=== PATIENT | male | born 1955 | race Caucasian/White ===

== ENCOUNTER 2020-10-09 10:48 | Outpatient (REF) | payer MEDICARE, SELFPAY ==
[2020-10-09 11:04] LABS: MANUAL DIFF FLAG NO
[2020-10-09 11:05] LABS: Basophils Absolute Auto 0.1 X10*3/uL (0.0-0.2); Basophils Percent Auto 1.7 % (0-2); Eosinophils Absolute Auto 0.1 X10*3/uL (0.0-0.4); Eosinophils Percent Auto 1.7 % (0-4); Hemoglobin 12.3 g/dl (14.0-18.0); Imm Gran Abs Auto 0.01 X10*3/uL (0.00-0.03); Imm Gran Pct Auto 0.2 % (0.0-0.4); Lymphocytes Absolute Auto 1.7 X10*3/uL (1.2-4.9); Lymphocytes Percent Auto 32.7 % (20-40); Mean Corpuscular HGB Conc 31.5 g/dl (31.0-36.0); Mean Corpuscular Volume 82.5 fL (80-98); Mean Platelet Volume 9.9 fL (9.4-12.4); Monocytes Absolute Auto 0.6 X10*3/uL (0.1-1.2); Monocytes Percent Auto 11.5 % (2-11); Neutrophils Absolute Auto 2.8 X10*3/uL (2.0-8.3); Neutrophils Percent Auto 52.2 % (45-73); Platelet Count 136 X10*3/uL (160-400); Red Blood Count 4.73 X10*6/uL (4.60-5.80); Red Cell Distribution Width 16.6 % (11.0-16.0); White Blood Count 5.3 X10*3/uL (4.8-10.8)
[2020-10-09 11:33] LABS: Alanine Aminotransferase 45 U/L (0-40); Alkaline Phosphatase 95 U/L (39-117); Aspartate Amino Transferase 43 U/L (5-37); Bilirubin Direct 0.2 mg/dL (0.0-0.5); Bilirubin Total 0.5 mg/dL (0.0-1.0); Iron 53 mcg/dL (45-160); Percent Iron Saturation 15 % (15-50); Total Iron Binding Capacity 345 mcg/dL (228-428); Total Protein 7.1 g/dL (6.5-8.0); Unsaturated Iron Binding 292 ug/dL
[2020-10-09 12:39] LABS: Ferritin 18 ng/mL (20-250)
== END 2020-10-09 10:49 | disposition home or self-care (01) ==
LOC: HO.BBR 10:48
PROVIDERS: PCP Internal Medicine; Visit Provider Internal Medicine Gastroenterology
DX: E83.110 Hereditary hemochromatosis (principal)
CPT/HCPCS: 36415; 80076; 82728; 83540; 85025

== ENCOUNTER 2020-11-20 08:44 | Outpatient (REF) | payer MEDICARE, SELFPAY | END 2020-11-20 08:45 | disposition home or self-care (01) | LOC: HO.LAB 08:44 | PROVIDERS: PCP Internal Medicine; Visit Provider Internal Medicine | DX: R97.20 Elevated prostate specific antigen [PSA] (principal); Z12.5 Encounter for screening for malignant neoplasm of prostate | CPT/HCPCS: 84153 ==

== ENCOUNTER 2020-12-04 11:03 | Outpatient (REF) | payer MEDICARE, SELFPAY | END 2020-12-04 11:04 | disposition home or self-care (01) | LOC: HO.BBR 11:03 | PROVIDERS: Visit Provider Internal Medicine Gastroenterology | DX: Z13.89 Encounter for screening for other disorder (principal) ==

== ENCOUNTER 2020-12-04 12:10 | Outpatient (REF) | payer SELFPAY ==
[2020-12-04 12:44] LABS: Cholesterol 177 mg/dL
== END 2020-12-04 12:11 | disposition home or self-care (01) ==
LOC: HO.LNC 12:10
PROVIDERS: Visit Provider Pathology Anatomic Pathology & Clinical Pathology
DX: Z76.89 Persons encountering health services in other specified circumstances (principal)
CPT/HCPCS: 36415; 82465

== ENCOUNTER 2020-12-05 12:01 | Outpatient (REF) | payer MEDICARE, SELFPAY ==
[2020-12-05 13:40] LABS: Hematocrit 37.5 % (42-52); Hemoglobin 11.7 g/dl (14.0-18.0); Mean Corpuscular HGB Conc 31.2 g/dl (31.0-36.0); Mean Corpuscular Hemoglobin 26.8 pg (27.0-33.0); Mean Corpuscular Volume 85.8 fL (80-98); Mean Platelet Volume 10.3 fL (9.4-12.4); Platelet Count 185 X10*3/uL (160-400); Red Blood Count 4.37 X10*6/uL (4.60-5.80); Red Cell Distribution Width 17.2 % (11.0-16.0); White Blood Count 7.7 X10*3/uL (4.8-10.8)
[2020-12-05 14:31] LABS: Alanine Aminotransferase 42 U/L (0-40); Alkaline Phosphatase 91 U/L (39-117); Aspartate Amino Transferase 43 U/L (5-37); Bilirubin Direct 0.2 mg/dL (0.0-0.5); Bilirubin Total 0.4 mg/dL (0.0-1.0); Blood Urea Nitrogen 15 mg/dL (9-16); Estimated Glomerular Filt Rate > 60; Lipase 26 U/L (8-78); Total Protein 6.7 g/dL (6.5-8.0)
== END 2020-12-05 12:02 | disposition home or self-care (01) ==
LOC: HO.10HDL 12:01
PROVIDERS: Visit Provider Internal Medicine Gastroenterology
DX: R10.84 Generalized abdominal pain (principal)
CPT/HCPCS: 36415; 80076; 82565; 83690; 84520; 85027

== ENCOUNTER 2020-12-12 13:48 | Outpatient (REF) | payer MEDICARE, SELFPAY ==
--- NOTE | 2020-12-12 13:51 | CT_ITS ---
EXAMINATION: CT ABDOMEN AND PELVIS WITH CONTRAST CLINICAL INFORMATION: Generalized abdominal pain COMPARISON: None TECHNIQUE: Multidetector volumetric images were obtained from the superior aspect of the liver through the pubic symphysis following administration 85 mL of Omnipaque 350 intravenous contrast. Sagittal and coronal reformatted images were obtained on the technologist's workstation. Oral contrast: No This CT examination was performed using dose optimization techniques as appropriate, variously including the following: *Automated exposure control *Adjustment of mA and/or kV according to patient size (this includes techniques or standardized protocols for targeted exams where dose is matched to indication/reason for exam; i.e. extremities or head) *Use of iterative reconstruction technique DLP: 415 mGy-cm FINDINGS: LUNG BASES: The visualized lung bases are unremarkable. LIVER, GALLBLADDER, AND BILIARY TREE: The liver is normal in size, shape, and attenuation. There is an 8 mm hypodensity right hepatic lobe adjacent to the gallbladder likely cyst. No additional lesions seen. A punctate radiopaque gallstone is seen in the dependent portion. PANCREAS: Unremarkable. SPLEEN: Unremarkable. ADRENAL GLANDS: Unremarkable. KIDNEYS AND URETERS: The kidneys are normal in size, shape, and attenuation. No hydronephrosis, hydroureter, or calculi seen. No perinephric stranding. BLADDER: Unremarkable. GASTROINTESTINAL TRACT: The cecum lies midline mid abdomen. Irregular appearing proximal ascending colon is seen in the midabdomen, image 55/3. The rest of the colon is unremarkable. There are scattered diverticuli throughout the colon with nonspecific mural thickening sigmoid colon but no pericolic fat stranding seen. The appendix is normal caliber. The small bowel loops are normal caliber. The stomach is nondistended and appears unremarkable. ABDOMINAL WALL: A small umbilical hernia containing fat is noted. LYMPH NODES: Normal. VASCULAR: Unremarkable. PELVIC VISCERA: There is no free fluid. No abnormal pelvic lymph nodes. OSSEOUS STRUCTURES: There is loss of disc height with vacuum disc phenomena and spondylosis L5-S1 disc level. CT/CT abdomen pelvis w con IMPRESSION: 1. Scattered colonic diverticulosis with nonspecific mild mural thickening of sigmoid colon but no pericolic fat stranding. 2. Mobile cecum lying midline mid abdomen with irregular appearing proximal ascending colon. This could be secondary to mural thickening, combination of mural thickening and stool or underlying lesion. 3. Normal appendix. 4. Small right hepatic cyst.
[2020-12-12] MEDS: iohexoL 350 MG/ML 100 ML INFUS..BTL IV (14:41)
== END 2020-12-12 13:49 | disposition home or self-care (01) ==
LOC: HO.CT 13:48
PROVIDERS: PCP Internal Medicine; Visit Provider Internal Medicine Gastroenterology
DX: R10.84 Generalized abdominal pain (principal)
CPT/HCPCS: 74177; Q9967

== ENCOUNTER 2021-01-29 11:11 | Outpatient (REF) | payer MEDICARE, SELFPAY ==
[2021-01-29 11:25] LABS: MANUAL DIFF FLAG NO
[2021-01-29 11:27] LABS: Basophils Absolute Auto 0.1 X10*3/uL (0.0-0.2); Basophils Percent Auto 1.2 % (0-2); Eosinophils Absolute Auto 0.1 X10*3/uL (0.0-0.4); Eosinophils Percent Auto 1.9 % (0-4); Hemoglobin 11.1 g/dl (14.0-18.0); Imm Gran Abs Auto 0.02 X10*3/uL (0.00-0.03); Imm Gran Pct Auto 0.4 % (0.0-0.4); Lymphocytes Absolute Auto 1.7 X10*3/uL (1.2-4.9); Lymphocytes Percent Auto 33.1 % (20-40); Mean Corpuscular HGB Conc 30.8 g/dl (31.0-36.0); Mean Corpuscular Hemoglobin 25.3 pg (27.0-33.0); Mean Corpuscular Volume 82.2 fL (80-98); Mean Platelet Volume 9.7 fL (9.4-12.4); Monocytes Absolute Auto 0.8 X10*3/uL (0.1-1.2); Monocytes Percent Auto 15.2 % (2-11); Neutrophils Absolute Auto 2.5 X10*3/uL (2.0-8.3); Neutrophils Percent Auto 48.2 % (45-73); Platelet Count 163 X10*3/uL (160-400); Red Blood Count 4.38 X10*6/uL (4.60-5.80); Red Cell Distribution Width 15.6 % (11.0-16.0); White Blood Count 5.1 X10*3/uL (4.8-10.8)
[2021-01-29 12:23] LABS: Alanine Aminotransferase 54 U/L (0-40); Albumin Level 3.9 g/dL (3.5-5.0); Alkaline Phosphatase 79 U/L (39-117); Aspartate Amino Transferase 52 U/L (5-37); Bilirubin Direct 0.2 mg/dL (0.0-0.5); Bilirubin Total 0.6 mg/dL (0.0-1.0); Iron 28 mcg/dL (45-160); Percent Iron Saturation 8 % (15-50); Total Iron Binding Capacity 356 mcg/dL (228-428); Total Protein 6.6 g/dL (6.5-8.0); Unsaturated Iron Binding 328 ug/dL
[2021-01-29 12:36] LABS: Ferritin 23 ng/mL (20-250)
== END 2021-01-29 11:12 | disposition home or self-care (01) ==
LOC: HO.BBR 11:11
PROVIDERS: Visit Provider Internal Medicine Gastroenterology
DX: E83.110 Hereditary hemochromatosis (principal)
CPT/HCPCS: 36415; 80076; 82728; 83540; 85025

== ENCOUNTER 2021-03-26 10:57 | Outpatient (REF) | payer MEDICARE, SELFPAY | END 2021-03-26 10:58 | disposition home or self-care (01) | LOC: HO.BBR 10:57 | PROVIDERS: Visit Provider Internal Medicine Gastroenterology | DX: Z13.89 Encounter for screening for other disorder (principal) ==

== ENCOUNTER 2021-05-21 10:18 | Outpatient (REF) | payer MEDICARE, SELFPAY ==
[2021-05-21 10:21] LABS: MANUAL DIFF FLAG NO
[2021-05-21 10:37] LABS: Basophils Absolute Auto 0.1 X10*3/uL (0.0-0.2); Basophils Percent Auto 1.2 % (0-2); Eosinophils Absolute Auto 0.2 X10*3/uL (0.0-0.4); Eosinophils Percent Auto 2.7 % (0-4); Hematocrit 35.1 % (42-52); Hemoglobin 10.6 g/dl (14.0-18.0); Imm Gran Abs Auto 0.02 X10*3/uL (0.00-0.03); Imm Gran Pct Auto 0.3 % (0.0-0.4); Lymphocytes Absolute Auto 2.3 X10*3/uL (1.2-4.9); Lymphocytes Percent Auto 34.6 % (20-40); Mean Corpuscular HGB Conc 30.2 g/dl (31.0-36.0); Mean Corpuscular Hemoglobin 23.2 pg (27.0-33.0); Mean Corpuscular Volume 76.8 fL (80-98); Mean Platelet Volume 10.3 fL (9.4-12.4); Monocytes Absolute Auto 0.7 X10*3/uL (0.1-1.2); Monocytes Percent Auto 11.2 % (2-11); Neutrophils Absolute Auto 3.3 X10*3/uL (2.0-8.3); Platelet Count 168 X10*3/uL (160-400); Red Blood Count 4.57 X10*6/uL (4.60-5.80); Red Cell Distribution Width 19.5 % (11.0-16.0); White Blood Count 6.6 X10*3/uL (4.8-10.8)
[2021-05-21 10:41] LABS: Glucose Urine UA NEG (NEG); Leukocyte Esterase Urine NEG (NEG); Nitrite Urine NEG (NEG); Specific Gravity - Urine 1.025 (1.005-1.025); Urine Blood NEG (NEG); Urine Ketones NEG (NEG); Urine Protein NEG (NEG-TRACE)
[2021-05-21 10:43] LABS: Appearance Urine CLEAR; Color Urine YELLOW
[2021-05-21 11:18] LABS: Alanine Aminotransferase 46 U/L (0-40); Albumin Level 4.1 g/dL (3.5-5.0); Alkaline Phosphatase 75 U/L (39-117); Anion Gap 13 (12-20); Aspartate Amino Transferase 46 U/L (5-37); Bilirubin Total 0.6 mg/dL (0.0-1.0); Blood Urea Nitrogen 17 mg/dL (9-16); Calcium 8.6 mg/dL (8.4-10.2); Carbon Dioxide 22 mmol/L (22-29); Chloride 109 mmol/L (96-108); Cholesterol 168 mg/dL; Estimated Glomerular Filt Rate > 60; Glucose Fasting 120 mg/dL (60-99); HDL Cholesterol 61 mg/dL; LDL Cholesterol Calculated 83 mg/dl; Potassium 3.8 mmol/L (3.3-5.1); Sodium 140 mmol/L (135-145); Total Protein 6.7 g/dL (6.5-8.0); Triglycerides 120 mg/dL
[2021-05-21 11:24] LABS: Estimated Average Glucose 120 mg/dL; Hemoglobin A1c % 5.8 %
[2021-05-21 11:35] LABS: Creatinine Urine 162.61 mg/dL
[2021-05-21 12:13] LABS: PSA,Total (Free>4and<10) 4.11 ng/mL (0.00-4.00)
[2021-05-22 11:56] LABS: Free Prostate Spec Ag 0.4 ng/mL; Percent Free Prostate Spec Ag 10 % (calc) (>25); Prostate Specific Ag Total 4.2 ng/mL (< OR = 4.0)
== END 2021-05-21 10:19 | disposition home or self-care (01) ==
LOC: HO.LNP 10:18
PROVIDERS: Visit Provider Internal Medicine
DX: Z00.00 Encounter for general adult medical examination without abnormal findings (principal); R73.09 Other abnormal glucose; E83.118 Other hemochromatosis; E78.00 Pure hypercholesterolemia, unspecified; C61 Malignant neoplasm of prostate; Z12.5 Encounter for screening for malignant neoplasm of prostate
CPT/HCPCS: 80053; 80061; 81003; 82043; 83036; 84153; 84154; 85025

== ENCOUNTER 2021-05-21 10:49 | Outpatient (REF) | payer MEDICARE, SELFPAY ==
[2021-05-21 11:14] LABS: Hematocrit 32.5 % (42-52); Hemoglobin 10.1 g/dl (14.0-18.0); Mean Corpuscular HGB Conc 31.1 g/dl (31.0-36.0); Mean Corpuscular Hemoglobin 23.7 pg (27.0-33.0); Mean Corpuscular Volume 76.3 fL (80-98); Mean Platelet Volume 9.8 fL (9.4-12.4); Platelet Count 153 X10*3/uL (160-400); Red Blood Count 4.26 X10*6/uL (4.60-5.80); White Blood Count 5.6 X10*3/uL (4.8-10.8)
[2021-05-21 11:56] LABS: Alanine Aminotransferase 44 U/L (0-40); Albumin Level 3.8 g/dL (3.5-5.0); Alkaline Phosphatase 72 U/L (39-117); Aspartate Amino Transferase 45 U/L (5-37); Bilirubin Direct 0.2 mg/dL (0.0-0.5); Bilirubin Total 0.6 mg/dL (0.0-1.0); Iron 38 mcg/dL (45-160); Percent Iron Saturation 11 % (15-50); Total Iron Binding Capacity 338 mcg/dL (228-428); Total Protein 6.3 g/dL (6.5-8.0); Unsaturated Iron Binding 300 ug/dL
[2021-05-21 12:19] LABS: Ferritin 15 ng/mL (20-250)
== END 2021-05-21 10:50 | disposition home or self-care (01) ==
LOC: HO.BBR 10:49
PROVIDERS: Visit Provider Internal Medicine Gastroenterology
DX: E83.110 Hereditary hemochromatosis (principal)
CPT/HCPCS: 36415; 80076; 82728; 83540; 85027

== ENCOUNTER → 2021-06-18 14:16 | Outpatient (BNVA) | payer MEDICARE, SELFPAY | PROVIDERS: Referring Provider Internal Medicine; Visit Provider Internal Medicine Cardiovascular Disease | DX: R01.1 Cardiac murmur, unspecified (principal); R07.2 Precordial pain; I42.9 Cardiomyopathy, unspecified; C61 Malignant neoplasm of prostate; E83.119 Hemochromatosis, unspecified | CPT/HCPCS: 93005; 99202 ==

== ENCOUNTER 2021-06-24 08:09 | Outpatient (REF) | payer MEDICARE, SELFPAY ==
[2021-06-24 09:09] LABS: Hematocrit 38.5 % (42-52); Hemoglobin 11.8 g/dl (14.0-18.0); Mean Corpuscular HGB Conc 30.6 g/dl (31.0-36.0); Mean Corpuscular Hemoglobin 23.8 pg (27.0-33.0); Mean Corpuscular Volume 77.8 fL (80-98); Mean Platelet Volume 10.3 fL (9.4-12.4); Platelet Count 147 X10*3/uL (160-400); Red Blood Count 4.95 X10*6/uL (4.60-5.80); Red Cell Distribution Width 20.3 % (11.0-16.0); White Blood Count 5.4 X10*3/uL (4.8-10.8)
== END 2021-06-24 08:10 | disposition home or self-care (01) ==
LOC: HO.LAB 08:09
PROVIDERS: PCP Internal Medicine; Visit Provider Internal Medicine Gastroenterology
DX: E83.110 Hereditary hemochromatosis (principal)
CPT/HCPCS: 36415; 85027

== ENCOUNTER 2021-07-16 11:04 | Outpatient (REF) | payer MEDICARE, SELFPAY | END 2021-07-16 11:05 | disposition home or self-care (01) | LOC: HO.BBR 11:04 | PROVIDERS: Visit Provider Internal Medicine Gastroenterology | DX: Z13.89 Encounter for screening for other disorder (principal) ==

== ENCOUNTER → 2021-07-30 08:36 | Outpatient (REF) | payer MEDICARE, SELFPAY ==
--- NOTE | 2021-07-30 08:39 | CA_ITS ---
Transthoracic Echocardiogram Patient (Last, First, Middle): Bhavesh Mojiac P Gender: Male Date of : 1955 Age: 66 Procedure Date: 07/30/2021 Procedure Type: Transthoracic Echocardiogram Location: OP Height: 167.64 cm Weight: 74.84 kg BSA: 1.84 m2 Heart Rate: bpm BP: 124 / 70 mmHg Obstetrics Gyn: Referring MD: Glenn Colorado MD Symptoms: I42.9 - Cardiomyopathy, unspecified Study Quality: Good ECG Rhythm: Sinus Conclusions: - Normal left ventricular size and systolic function. - There is mildly increased left ventricular wall thickness. - Elevated filling pressures. - Normal right ventricular cavity size and systolic function. - The left atrium is moderately dilated. - There is mild dilatation of the ascending aorta. Findings Left Ventricle Normal left ventricular size and systolic function. There is mildly increased left ventricular wall thickness. The visually estimated ejection fraction is between 65-70%. There is no evidence of regional wall motion abnormalities. Abnormal diastolic function is noted. Spectral Doppler is indicative of an impaired relaxation filling pattern. Elevated filling pressures. Right Ventricle Normal right ventricular cavity size and systolic function. Atria The left atrium is moderately dilated. Aortic Valve There is mild calcification of the aortic valve. There is mild aortic valve stenosis. There is no aortic valve regurgitation. Mitral Valve There is moderate mitral annular calcification. There is trace mitral valve regurgitation. Pulmonic Valve Normal pulmonic valve structure and function. There is trace pulmonic valve regurgitation. Tricuspid Valve Normal tricuspid valve structure and function. There is trace tricuspid valve regurgitation. Normal right atrial pressure. There is no evidence of pulmonary hypertension. Great Vessels There is mild dilatation of the ascending aorta. The visualized portions of the pulmonary artery and branches are normal. Venous The inferior vena cava is normal in size and collapses greater than 50% with inspiration. Pericardium/Pleural There is no evidence of pericardial effusion. Prior Study Comparison No prior study available for comparison. Measurements 2D Linear Measurements IVSd: 1.23 0.6-0.9/0.6-1.0 cm LVIDd: 3.85 3.9-5.3/4.2-5.9 cm LVIDd Index: 2.09 2.4-3.2/2.2-3.1 cm/m2 LVIDs: 2.40 2.0-3.6 cm LVPWd: 1.21 0.7-1.1 cm Ao Root: 3.30 2.1-3.5 cm LA Diam: 3.70 2.7-3.8/3.0-4.0 cm LAIDs Index: 2.01 1.5-2.3 cm/m2 LV Mass: 199.46 67-162/88-224 g LV Mass Index: 108.40 43-95/49-115 g/m2 LVOT Diam: 2.00 3.0+(-)1.3 cm Mitral Valve MV VTI: 0.47 MV Pk Dorian: 1.38 MV Mn Dorian: 0.88 MV Pk Grad: 8.00 MV Mn Grad: 4.00 MV Pk E: 1.17 MV PK A: 1.30 MV Decel Time: 246.00 E/A: 0.90 E'Lateral: 6.96 E'Medial: 5.44 E/E' Med: 21.50 E/E' Lat: 16.80 PHT: 72.00 MVA PHT: 3.06 MVA Continuity: 1.68 Decel Gregory: 4.78 Aortic Valve AoV Pk Dorian: 1.95 AoV Mn Dorian: 1.43 AoV VTI: 0.40 AoV Pk Grad: 15.00 Aov Mn Grad: 9.00 CAITLIN Cont.VTI: 1.98 LVOT LVOT Pk Dorian: 1.21 LVOT Mn Dorian: 0.84 LVOT VTI: 0.25 LVOT Pk Grad: 6.00 LVOT Mn Grad: 3.00 LVOT Diam: 2.00 LVOT Area: 3.14 Diastolic Function MV Pk E: 1.17 MV Pk A: 1.30 E/A: 0.90 E'Medial: 5.44 E/E' Med: 21.50 E' Laterial: 6.96 E/E' Lat: 16.80 Tricuspid Valve TR Pk Dorian: 1.87 TR Pk Grad: 14.00 RA Press: 3.00 RVSP: 17.00 Great Vessels Aorta Ao Root-2D: 3.30 2.0-3.7 cm Ao Asc: 3.40 2.1-3.4 cm Pulmonary Valve PV Pk Dorian: 1.30 Peak PV Grad: 7.00 Updated in Other Vendor System with Status of Final Glenn Colorado MD electronically signed on 07/31/2021 9:21:45 AM with status of Final
== END ==
LOC: HO.CARD 08:36
PROVIDERS: Visit Provider Internal Medicine Cardiovascular Disease
DX: I42.9 Cardiomyopathy, unspecified (principal); R01.1 Cardiac murmur, unspecified
CPT/HCPCS: 93306

== ENCOUNTER 2021-08-29 15:31 | Outpatient (REF) | payer MEDICARE, SELFPAY ==
[2021-08-29 16:22] LABS: Prostate Specific Antigen 4.33 ng/mL (<0.05-4.0)
== END 2021-08-29 15:32 | disposition home or self-care (01) ==
LOC: HO.LNP 15:31
PROVIDERS: Visit Provider Internal Medicine
DX: Z12.5 Encounter for screening for malignant neoplasm of prostate (principal); C61 Malignant neoplasm of prostate
CPT/HCPCS: 84153

== ENCOUNTER → 2021-09-04 12:25 | Outpatient (BNVA) | payer MEDICARE, SELFPAY | PROVIDERS: PCP Internal Medicine; Referring Provider Internal Medicine; Visit Provider Internal Medicine Cardiovascular Disease | DX: I35.0 Nonrheumatic aortic (valve) stenosis (principal) | CPT/HCPCS: 99212 ==

== ENCOUNTER 2021-09-10 11:03 | Outpatient (REF) | payer MEDICARE, SELFPAY ==
[2021-09-10 11:22] LABS: Hemoglobin 12.2 g/dl (14.0-18.0); Mean Corpuscular HGB Conc 32.1 g/dl (31.0-36.0); Mean Corpuscular Hemoglobin 26.5 pg (27.0-33.0); Mean Corpuscular Volume 82.6 fL (80-98); Mean Platelet Volume 9.9 fL (9.4-12.4); Platelet Count 139 X10*3/uL (160-400); Red Cell Distribution Width 19.9 % (11.0-16.0); White Blood Count 6.9 X10*3/uL (4.8-10.8)
[2021-09-10 14:14] LABS: Alanine Aminotransferase 51 U/L (0-40); Albumin Level 3.9 g/dL (3.5-5.0); Alkaline Phosphatase 83 U/L (39-117); Aspartate Amino Transferase 51 U/L (5-37); Bilirubin Direct 0.3 mg/dL (0.0-0.5); Bilirubin Total 0.8 mg/dL (0.0-1.0); Iron 135 mcg/dL (45-160); Percent Iron Saturation 42 % (15-50); Total Iron Binding Capacity 322 mcg/dL (228-428); Total Protein 6.7 g/dL (6.5-8.0); Unsaturated Iron Binding 187 ug/dL
[2021-09-10 14:33] LABS: Ferritin 41 ng/mL (20-250)
== END 2021-09-10 11:04 | disposition home or self-care (01) ==
LOC: HO.BBR 11:03
PROVIDERS: Visit Provider Internal Medicine Gastroenterology
DX: E83.110 Hereditary hemochromatosis (principal)
CPT/HCPCS: 36415; 80076; 82728; 83540; 85027

== ENCOUNTER 2021-11-05 11:06 | Outpatient (REF) | payer MEDICARE, SELFPAY | END 2021-11-05 11:07 | disposition home or self-care (01) | LOC: HO.BBR 11:06 | PROVIDERS: Visit Provider Internal Medicine Gastroenterology | DX: Z13.89 Encounter for screening for other disorder (principal) ==

== ENCOUNTER 2022-01-01 12:02 | Outpatient (REF) | payer MEDICARE, SELFPAY ==
[2022-01-01 12:21] LABS: MANUAL DIFF FLAG NO
[2022-01-01 12:23] LABS: Basophils Absolute Auto 0.1 X10*3/uL (0.0-0.2); Basophils Percent Auto 1.2 % (0-2); Eosinophils Absolute Auto 0.1 X10*3/uL (0.0-0.4); Eosinophils Percent Auto 1.7 % (0-4); Hematocrit 36.9 % (42.0-52.0); Hemoglobin 11.5 g/dl (14.0-18.0); Imm Gran Abs Auto 0.02 X10*3/uL (0.00-0.03); Imm Gran Pct Auto 0.3 % (0.0-0.4); Lymphocytes Percent Auto 32.3 % (20-40); Mean Corpuscular HGB Conc 31.2 g/dl (31.0-36.0); Mean Corpuscular Hemoglobin 24.8 pg (27.0-33.0); Mean Corpuscular Volume 79.7 fL (80.0-98.0); Mean Platelet Volume 10.2 fL (9.4-12.4); Monocytes Absolute Auto 0.7 X10*3/uL (0.1-1.2); Monocytes Percent Auto 11.8 % (2-11); Neutrophils Absolute Auto 3.2 x10*3/uL (2.0-8.3); Neutrophils Percent Auto 52.7 % (45-73); Platelet Count 169 X10*3/uL (160-400); Red Blood Count 4.63 X10*6/uL (4.60-5.80); Red Cell Distribution Width 17.7 % (11.0-16.0)
[2022-01-01 13:00] LABS: Alanine Aminotransferase 48 U/L (0-40); Alkaline Phosphatase 71 U/L (39-117); Aspartate Amino Transferase 51 U/L (5-37); Bilirubin Direct 0.2 mg/dL (0.0-0.5); Bilirubin Total 0.5 mg/dL (0.0-1.0); Iron 47 mcg/dL (45-160); Percent Iron Saturation 13 % (15-50); Total Iron Binding Capacity 360 mcg/dL (228-428); Total Protein 6.8 g/dL (6.5-8.0); Unsaturated Iron Binding 313 ug/dL
[2022-01-01 13:19] LABS: Ferritin 24 ng/mL (20-250)
== END 2022-01-01 12:03 | disposition home or self-care (01) ==
LOC: HO.BBR 12:02
PROVIDERS: Visit Provider Internal Medicine Gastroenterology
DX: E83.110 Hereditary hemochromatosis (principal)
CPT/HCPCS: 36415; 80076; 82728; 83540; 85025

== ENCOUNTER 2022-02-26 12:02 | Outpatient (REF) | payer MEDICARE, SELFPAY | END 2022-02-26 12:03 | disposition home or self-care (01) | LOC: HO.BBR 12:02 | PROVIDERS: Visit Provider Internal Medicine Gastroenterology | DX: Z13.89 Encounter for screening for other disorder (principal) ==

== ENCOUNTER 2022-04-24 11:00 | Outpatient (REF) | payer MEDICARE, SELFPAY | END 2022-04-24 11:01 | disposition home or self-care (01) | LOC: HO.BBR 11:00 | PROVIDERS: Visit Provider Internal Medicine Gastroenterology | DX: Z13.89 Encounter for screening for other disorder (principal) ==

== ENCOUNTER 2022-05-20 10:25 | Outpatient (REF) | payer MEDICARE, SELFPAY ==
[2022-05-20 10:30] LABS: MANUAL DIFF FLAG NO
[2022-05-20 11:29] LABS: Basophils Absolute Auto 0.1 X10*3/uL (0.0-0.2); Eosinophils Absolute Auto 0.2 X10*3/uL (0.0-0.4); Eosinophils Percent Auto 2.5 % (0-4); Hematocrit 35.6 % (42.0-52.0); Imm Gran Abs Auto 0.03 X10*3/uL (0.00-0.03); Imm Gran Pct Auto 0.5 % (0.0-0.4); Lymphocytes Absolute Auto 2.2 X10*3/uL (1.2-4.9); Lymphocytes Percent Auto 36.6 % (20-40); Mean Corpuscular HGB Conc 30.9 g/dl (31.0-36.0); Mean Corpuscular Hemoglobin 25.5 pg (27.0-33.0); Mean Corpuscular Volume 82.4 fL (80.0-98.0); Mean Platelet Volume 11.1 fL (9.4-12.4); Monocytes Absolute Auto 0.8 X10*3/uL (0.1-1.2); Monocytes Percent Auto 12.9 % (2-11); Neutrophils Absolute Auto 2.8 x10*3/uL (2.0-8.3); Neutrophils Percent Auto 46.5 % (45-73); Platelet Count 160 X10*3/uL (160-400); Red Blood Count 4.32 X10*6/uL (4.60-5.80); Red Cell Distribution Width 18.1 % (11.0-16.0)
[2022-05-20 11:40] LABS: Estimated Average Glucose 123 mg/dL; Hemoglobin A1C 127.5198 umol/L; Hemoglobin A1c % 5.9 %
[2022-05-20 11:45] LABS: Appearance Urine CLEAR; Color Urine YELLOW; Glucose Urine UA NEG (NEG); Leukocyte Esterase Urine NEG (NEG); Nitrite Urine NEG (NEG); PH 5.5 (5.0-8.0); Specific Gravity - Urine 1.025 (1.005-1.025); Urine Blood NEG (NEG); Urine Ketones NEG (NEG); Urine Protein NEG (NEG-TRACE)
[2022-05-20 11:47] LABS: Alanine Aminotransferase 48 U/L (0-40); Alkaline Phosphatase 71 U/L (39-117); Anion Gap 12 (12-20); Aspartate Amino Transferase 54 U/L (5-37); Bilirubin Total 0.7 mg/dL (0.0-1.0); Blood Urea Nitrogen 12 mg/dL (9-16); Calcium 8.6 mg/dL (8.4-10.2); Carbon Dioxide 23 mmol/L (22-29); Chloride 110 mmol/L (96-108); Cholesterol 190 mg/dL; Estimated Glomerular Filt Rate > 60; Glucose Fasting 116 mg/dL (60-99); HDL Cholesterol 55 mg/dL; LDL Cholesterol Calculated 106 mg/dl; Sodium 141 mmol/L (135-145); Total Protein 6.7 g/dL (6.5-8.0); Triglycerides 146 mg/dL
[2022-05-20 12:11] LABS: PSA,Total (Free>4and<10) 6.05 ng/mL (0.00-4.00)
[2022-05-20 12:22] LABS: RBC Urine 0 /HPF (0); WBC Urine 0 /HPF (0-4)
[2022-05-20 12:34] LABS: Creatinine Urine 135.48 mg/dL; Microalbumin Urine < 5.0 mg/L
[2022-05-21 12:11] LABS: Free Prostate Spec Ag 0.5 ng/mL; Percent Free Prostate Spec Ag 11 % (calc) (>25); Prostate Specific Ag Total 4.4 ng/mL (< OR = 4.0)
== END 2022-05-20 10:26 | disposition home or self-care (01) ==
LOC: HO.LNP 10:25
PROVIDERS: Visit Provider Internal Medicine
DX: Z00.00 Encounter for general adult medical examination without abnormal findings (principal); Z12.5 Encounter for screening for malignant neoplasm of prostate; R73.03 Prediabetes; E83.118 Other hemochromatosis; E78.00 Pure hypercholesterolemia, unspecified; C61 Malignant neoplasm of prostate
CPT/HCPCS: 80053; 80061; 81001; 82043; 83036; 84153; 84154; 85025

== ENCOUNTER 2022-06-12 08:12 | Outpatient (REF) | payer MEDICARE, SELFPAY ==
[2022-06-12 08:34] LABS: Hematocrit 36.5 % (42.0-52.0); Hemoglobin 11.3 g/dl (14.0-18.0); Mean Corpuscular Hemoglobin 25.4 pg (27.0-33.0); Mean Platelet Volume 9.5 fL (9.4-12.4); Platelet Count 129 X10*3/uL (160-400); Red Blood Count 4.45 X10*6/uL (4.60-5.80); Red Cell Distribution Width 17.4 % (11.0-16.0); White Blood Count 3.7 X10*3/uL (4.8-10.8)
[2022-06-12 09:03] LABS: Alanine Aminotransferase 45 U/L (0-40); Alkaline Phosphatase 70 U/L (39-117); Aspartate Amino Transferase 47 U/L (5-37); Bilirubin Direct 0.2 mg/dL (0.0-0.5); Bilirubin Total 0.3 mg/dL (0.0-1.0); Iron 18 mcg/dL (45-160); Percent Iron Saturation 5 % (15-50); Total Iron Binding Capacity 361 mcg/dL (228-428); Total Protein 6.6 g/dL (6.5-8.0); Unsaturated Iron Binding 343 ug/dL
[2022-06-12 09:22] LABS: Ferritin 20 ng/mL (20-250)
== END 2022-06-12 08:13 | disposition home or self-care (01) ==
LOC: HO.BBR 08:12
PROVIDERS: Visit Provider Internal Medicine Gastroenterology
DX: E83.110 Hereditary hemochromatosis (principal)
CPT/HCPCS: 36415; 80076; 82728; 83540; 85027

== ENCOUNTER 2022-08-21 11:17 | Outpatient (REF) | payer MEDICARE, SELFPAY | END 2022-08-21 11:18 | disposition home or self-care (01) | LOC: HO.BBR 11:17 | PROVIDERS: Visit Provider Internal Medicine Gastroenterology | DX: Z13.89 Encounter for screening for other disorder (principal) ==

== ENCOUNTER 2022-09-05 08:25 | Outpatient (REF) | payer MEDICARE, SELFPAY ==
--- NOTE | ~2022-09-05 | US_ITS ---
EXAMINATION: US ABDOMEN COMPLETE CLINICAL INFORMATION: Cirrhosis. COMPARISON: CT abdomen and pelvis 12/12/2020. Ultrasound abdomen complete 08/15/2019 and 08/24/2018. TECHNIQUE: Real-time imaging of the abdominal viscera. FINDINGS: PANCREAS: The head and body the pancreas are normal. The tail is not well seen due to bowel gas. ABDOMINAL AORTA: The proximal, mid, and distal segments are normal in caliber. INFERIOR VENA CAVA: Visualized portions are normal. LIVER: Liver echotexture is increased. Liver contour and size are normal. There is a 1.1 x 1.3 x 1.1 cm cyst in the liver adjacent to the gallbladder. No other focal liver lesion. No biliary duct dilatation. GALLBLADDER: There are small gallstones in the gallbladder. There is a echogenic density adjacent to the gallbladder wall that does not or shadowing questionable for a polyp. This measures 6 x 3 x 2 mm. The gallbladder wall is echogenic and slightly thickened measuring 6 mm. This is similar to previous exam. COMMON BILE DUCT: Normal in caliber measuring 0.5 cm in diameter. RIGHT KIDNEY: Normal. No hydronephrosis. No renal calculi or focal parenchymal lesions. The kidney measures 11.1 cm in maximum dimension. LEFT KIDNEY: Normal. No hydronephrosis. No renal calculi or focal parenchymal lesions. The kidney measures 11.1 cm in maximum dimension. SPLEEN: Normal. The spleen measures 10.7 cm in maximum dimension. FREE FLUID: None. US/US abdomen complete IMPRESSION: Slightly echogenic liver. 1.1 x 1.3 x 1.1 cm liver cyst adjacent to the gallbladder. Small gallstones and probable gallbladder wall polyp in the gallbladder. Likely thickened echogenic gallbladder wall. Appearance is suggestive of evidence of chronic cholecystitis. Limited visualization of the tail the pancreas.
== END 2022-09-05 08:26 | disposition home or self-care (01) ==
LOC: HO.US 08:25
PROVIDERS: Visit Provider Internal Medicine Gastroenterology
DX: E83.110 Hereditary hemochromatosis (principal); K74.69 Other cirrhosis of liver
CPT/HCPCS: 76700

== ENCOUNTER 2022-09-16 08:25 | Day surgery (SDC) | payer MEDICARE, SELFPAY ==
[2022-09-10 10:15] VITALS: BMI 26.2
--- NOTE | 2022-09-15 10:55 | P.CONAN_ITS ---
Documented by User: Mayra Wilson NP 09/15/22 10:59 HPI - Anesthesia Eval Consult details Narrative: 67yo M for ?Colonoscopy Cirrhosis without any complications per GI note PMFSH Active Problems Active Problems: All Active Problems (Updated 09/10/22 @ 10:14 by Ita Lehman RN) Systolic murmur (Acute) Chest pain (Acute) Aortic stenosis (Acute) Past Medical History Medical History Cirrhosis Diverticulosis Hemochromatosis Mild aortic stenosis Prostate cancer Surgical History Surgical History H/O colonoscopy History of esophagogastroduodenoscopy (EGD) History of hip replacement Total knee replacement status Social History Social History Alcohol intake: current Alcohol intake frequency: 3 or more drinks per day Patient Tobacco Use Status: Never used Tobacco Use of substances other than those prescribed or required for medical reasons: No Are you DNR?: No Advance Directives: No Advance Directives Information Provided: Yes Meds Allergies Allergy/AdvReac Type Severity Reaction Status Date / Time No Known Allergies Allergy Verified 09/16/22 08:36 [No Known Allergies*] Home Medications Medication Instructions Recorded Confirmed Last Taken Type ibuprofen 200 mg tablet 400 mg PO Q6H PRN Pain 09/10/22 09/16/22 09/09/22 History multivitamin 1 tab PO DAILY 09/10/22 09/16/22 Unknown History Exam Exam Date and Time: September 15, 2022 1055 Height,Weight and Vital Signs: Height 5 ft 6.5 in Weight 74.843 kg Pertinent Lab Results Pertinent Lab Results: Laboratory Tests 05/20/22 06/12/22 09:02 08:24 WBC 3.7 L Hgb 11.3 L Hct 36.5 L Plt Count 129 L Sodium 141 Potassium 4.0 Chloride 110 H Carbon Dioxide 23 BUN 12 Creatinine 0.83 Laboratory Tests 06/12/22 08:24 Total Bilirubin 0.3 Direct Bilirubin 0.2 AST 47 H ALT 45 H Alkaline Phosphatase 70 Total Protein 6.6 Albumin 4.0 Narrative Narrative: ECHO 06/2021 Conclusions: - Normal left ventricular size and systolic function.? - There is mildly increased left ventricular wall thickness. ? ? - Elevated filling pressures.? - Normal right ventricular cavity size and systolic function.? ? - The left atrium is moderately dilated. ? - There is mild dilatation of the ascending aorta. ? EKG 05/2021 NSR, normal EKG, QTc 423 msec Assessment and Plan Assessment Anesthesia Assessment: Chart Reviewed Documented by User: Kalin Cagle MD 09/16/22 09:46 [facility] Past Medical History Medical History Cirrhosis Diverticulosis Hemochromatosis Mild aortic stenosis Prostate cancer Family History Family history of problems with anesthesia: No Surgical History Surgical History H/O colonoscopy History of esophagogastroduodenoscopy (EGD) History of hip replacement Total knee replacement status History of Problems with Anesthesia: No Social History Social History Alcohol intake: current Alcohol intake frequency: 3 or more drinks per day Patient Tobacco Use Status: Never used Tobacco Use of substances other than those prescribed or required for medical reasons: No Are you DNR?: No Advance Directives: No Advance Directives Information Provided: Yes Meds Allergies Allergy/AdvReac Type Severity Reaction Status Date / Time No Known Allergies Allergy Verified 09/16/22 08:36 [No Known Allergies*] Home Medications Medication Instructions Recorded Confirmed Last Taken Type ibuprofen 200 mg tablet 400 mg PO Q6H PRN Pain 09/10/22 09/16/22 09/09/22 History multivitamin 1 tab PO DAILY 09/10/22 09/16/22 Unknown History Exam Airway Mallampati Class: I TM Dist: >3cm Loose/Missing/Broken Teeth: No Heart: rrr Lungs: clear Assessment and Plan Final Anesthetic Review Family History of Problems with Anesthesia: No History of Problems with Anesthesia: No NPO: Yes ASA Class: II Final Preanesthetic Review: No Changes in Pt Med Stat, Meds/Allgs Chart Reviewed, Consent Obtained/Reviewed and Anes Risks/Benef Reviewed Patient Risk: Intermediate Procedure Risk: Low Anesthetic Plan Anesthetic Plan: MAC: Disposition: Standard PACU
[2022-09-16 08:37] VITALS: BMI 25.4
[2022-09-16 08:40] VITALS: BP 137/92; PULSE 94; RESP 16; TEMP 36.5; O2SAT 99
[2022-09-16] MEDS: Lactated Ringers 1,000 ML 100 ML IVCONT (09:31)
--- NOTE | 2022-09-16 09:49 | MHC.SHP ---
Pre-Procedural Eval Section A Date of Service: 09/16/22 The patient is an INPATIENT: No The History & Physical has been completed within 30 days and I have reviewed it.: Yes Section B Chief Complaint: Encounter for screening for malignant neoplasm of Allergies: Allergies Allergy/AdvReac Type Severity Reaction Status Date / Time No Known Allergies Allergy Verified 09/16/22 08:36 [No Known Allergies*] Plan I have reviewed the history and physical and performed a pertinent physical examination on my patient. No changes have occurred unless specified.
--- NOTE | 2022-09-16 10:22 | PM.OP ---
Brief Operative Note Date of Service: 09/16/22 Pre-op diagnosis: screening Post-op diagnosis: same (colon polyps) Procedure: colonoscopy Surgeon: Dewey Lan Anesthesia: MAC Was an Food Service Kitchen Supervisor used for this Procedure?: No Estimated blood loss (mL): 5 Pathology: other Condition: stable Disposition: PACU
[2022-09-16 10:24] VITALS: BP 113/79; PULSE 76; RESP 18; TEMP 36.4; O2SAT 96
[2022-09-16 10:39] VITALS: BP 113/79; PULSE 66; RESP 18; TEMP 37; O2SAT 96
--- NOTE | 2022-09-16 11:19 | OP_ITS ---
SURGEON: Dewey Lan MD INDICATIONS: Colon cancer screening and prior history of adenomatous colon polyps. PREOPERATIVE DIAGNOSIS: POSTOPERATIVE DIAGNOSIS: PROCEDURE PERFORMED: Colonoscopy to the terminal ileum with snare polypectomy and biopsy. ESTIMATED BLOOD LOSS: COMPLICATIONS: ANESTHESIA: Monitored anesthesia care. ASSISTANTS: SPECIMENS: DESCRIPTION OF PROCEDURE: The procedure was performed on 09/16/2022. History and physical performed. The risks and benefits of the procedure were explained to the patient. Informed consent was obtained. The patient was placed in the left lateral decubitus position. A digital rectal exam was performed and was found to be normal. The Olympus pediatric video colonoscope was introduced into the rectum and advanced to the cecum without difficulty. The cecum was identified by transillumination, palpation, and identification of the ileocecal valve. Examination was performed. The scope was removed. He tolerated the procedure well and was returned to the recovery area in stable condition. FINDINGS: The terminal ileum was briefly examined and appeared normal. The visualized colonic mucosa was normal. The quality of the prep was good. Multiple colonic polyps were removed with a combination of snare polypectomy and biopsy forceps. The largest measured approximately 8 mm. These were located at 80 cm, 30 cm, 2 less than 5 mm in the rectum, and a 3rd 8 mm polyp in the rectum. Retroflexed examination was normal. There was mild sigmoid diverticulosis. There was a 7 mm nonbleeding cecal AVM. IMPRESSION: Colon polyps. RECOMMENDATION: Follow up the biopsy results. MD BLAKE Gonzales/JENNIFER / [id number] MTDD
== END 2022-09-16 11:00 | disposition home or self-care (01) ==
PROVIDERS: Visit Provider Internal Medicine Gastroenterology
PROC: 0DJD8ZZ Inspection of Lower Intestinal Tract, Via Natural or Artificial Opening Endoscopic (ICD-10-PCS; CPT 45378; principal; 2022-09-16 09:40)
DX: Z12.11 Encounter for screening for malignant neoplasm of colon (principal); Z86.010 Personal history of colon polyps; D12.4 Benign neoplasm of descending colon; D12.8 Benign neoplasm of rectum; K63.5 Polyp of colon; K57.30 Diverticulosis of large intestine without perforation or abscess without bleeding; K55.20 Angiodysplasia of colon without hemorrhage; C61 Malignant neoplasm of prostate; E83.119 Hemochromatosis, unspecified; K74.60 Unspecified cirrhosis of liver; I35.0 Nonrheumatic aortic (valve) stenosis; R01.1 Cardiac murmur, unspecified; Z79.1 Long term (current) use of non-steroidal anti-inflammatories (NSAID)
CPT/HCPCS: 45385; 45380; 88305

== ENCOUNTER → 2022-10-01 09:38 | Outpatient (BNVA) | payer MEDICARE, SELFPAY | PROVIDERS: PCP Internal Medicine; Referring Provider Internal Medicine; Visit Provider Internal Medicine Cardiovascular Disease | DX: I35.0 Nonrheumatic aortic (valve) stenosis (principal); Z51.81 Encounter for therapeutic drug level monitoring | CPT/HCPCS: 93005; 99212 ==

== ENCOUNTER 2022-10-17 11:08 | Outpatient (REF) | payer MEDICARE, SELFPAY ==
[2022-10-17 11:29] LABS: MANUAL DIFF FLAG NO
[2022-10-17 11:33] LABS: Basophils Absolute Auto 0.1 X10*3/uL (0.0-0.2); Basophils Percent Auto 1.2 % (0-2); Eosinophils Absolute Auto 0.1 X10*3/uL (0.0-0.4); Eosinophils Percent Auto 1.2 % (0-4); Hematocrit 38.6 % (42.0-52.0); Hemoglobin 11.9 g/dl (14.0-18.0); Imm Gran Abs Auto 0.05 X10*3/uL (0.00-0.03); Imm Gran Pct Auto 0.9 % (0.0-0.4); Lymphocytes Absolute Auto 1.7 X10*3/uL (1.2-4.9); Lymphocytes Percent Auto 29.8 % (20-40); Mean Corpuscular HGB Conc 30.8 g/dl (31.0-36.0); Mean Corpuscular Hemoglobin 25.8 pg (27.0-33.0); Mean Corpuscular Volume 83.5 fL (80.0-98.0); Mean Platelet Volume 10.3 fL (9.4-12.4); Monocytes Absolute Auto 0.7 X10*3/uL (0.1-1.2); Monocytes Percent Auto 12.2 % (2-11); Neutrophils Absolute Auto 3.2 x10*3/uL (2.0-8.3); Neutrophils Percent Auto 54.7 % (45-73); Platelet Count 128 X10*3/uL (160-400); Red Blood Count 4.62 X10*6/uL (4.60-5.80); White Blood Count 5.8 X10*3/uL (4.8-10.8)
[2022-10-17 11:47] LABS: Alanine Aminotransferase 57 U/L (0-40); Alkaline Phosphatase 81 U/L (39-117); Aspartate Amino Transferase 50 U/L (5-37); Bilirubin Direct 0.2 mg/dL (0.0-0.5); Bilirubin Total 0.5 mg/dL (0.0-1.0); Iron 51 mcg/dL (45-160); Percent Iron Saturation 15 % (15-50); Total Iron Binding Capacity 347 mcg/dL (228-428); Total Protein 6.9 g/dL (6.5-8.0); Unsaturated Iron Binding 296 ug/dL
[2022-10-17 12:07] LABS: Ferritin 21 ng/mL (20-250)
[2022-10-17 12:56] LABS: Albumin Level 3.9 g/dL (3.5-5.0)
== END 2022-10-17 11:09 | disposition home or self-care (01) ==
LOC: HO.BBR 11:08
PROVIDERS: Visit Provider Internal Medicine Gastroenterology
DX: E83.110 Hereditary hemochromatosis (principal)
CPT/HCPCS: 36415; 80076; 82728; 83540; 85025

== ENCOUNTER 2022-12-16 12:08 | Outpatient (REF) | payer MEDICARE, SELFPAY | END 2022-12-16 12:09 | disposition home or self-care (01) | LOC: HO.BBR 12:08 | PROVIDERS: Visit Provider Internal Medicine Gastroenterology | DX: Z13.89 Encounter for screening for other disorder (principal) ==

== ENCOUNTER 2023-02-16 10:09 | Outpatient (REF) | payer MEDICARE, SELFPAY ==
[2023-02-16 10:23] LABS: MANUAL DIFF FLAG NO
[2023-02-16 10:26] LABS: Basophils Absolute Auto 0.1 X10*3/uL (0.0-0.2); Basophils Percent Auto 1.2 % (0-2); Eosinophils Absolute Auto 0.1 X10*3/uL (0.0-0.4); Eosinophils Percent Auto 1.3 % (0-4); Hemoglobin 11.4 g/dl (14.0-18.0); Imm Gran Abs Auto 0.01 X10*3/uL (0.00-0.03); Imm Gran Pct Auto 0.2 % (0.0-0.4); Lymphocytes Absolute Auto 1.4 X10*3/uL (1.2-4.9); Lymphocytes Percent Auto 27.1 % (20-40); Mean Corpuscular HGB Conc 30.8 g/dl (31.0-36.0); Mean Corpuscular Hemoglobin 24.4 pg (27.0-33.0); Mean Corpuscular Volume 79.1 fL (80.0-98.0); Mean Platelet Volume 9.7 fL (9.4-12.4); Monocytes Absolute Auto 0.6 X10*3/uL (0.1-1.2); Monocytes Percent Auto 11.5 % (2-11); Neutrophils Absolute Auto 3.1 x10*3/uL (2.0-8.3); Neutrophils Percent Auto 58.7 % (45-73); Platelet Count 125 X10*3/uL (160-400); Red Blood Count 4.68 X10*6/uL (4.60-5.80); Red Cell Distribution Width 17.6 % (11.0-16.0); White Blood Count 5.2 X10*3/uL (4.8-10.8)
[2023-02-16 11:34] LABS: Alanine Aminotransferase 49 U/L (0-40); Albumin Level 3.8 g/dL (3.5-5.0); Alkaline Phosphatase 68 U/L (39-117); Aspartate Amino Transferase 67 U/L (5-37); Bilirubin Direct 0.2 mg/dL (0.0-0.5); Bilirubin Total 0.6 mg/dL (0.0-1.0); Iron 38 mcg/dL (45-160); Percent Iron Saturation 13 % (15-50); Total Iron Binding Capacity 304 mcg/dL (228-428); Total Protein 6.4 g/dL (6.5-8.0); Unsaturated Iron Binding 266 ug/dL
[2023-02-16 11:47] LABS: Ferritin 31 ng/mL (20-250)
== END 2023-02-16 10:10 | disposition home or self-care (01) ==
LOC: HO.BBR 10:09
PROVIDERS: PCP Internal Medicine; Visit Provider Internal Medicine Gastroenterology
DX: E83.110 Hereditary hemochromatosis (principal)
CPT/HCPCS: 36415; 80076; 82728; 83540; 85025

== ENCOUNTER 2023-02-17 15:48 | Outpatient (REF) | payer MEDICARE, SELFPAY ==
[2023-02-17 15:51] LABS: MANUAL DIFF FLAG NO
[2023-02-17 16:10] LABS: Basophils Absolute Auto 0.1 X10*3/uL (0.0-0.2); Eosinophils Absolute Auto 0.1 X10*3/uL (0.0-0.4); Eosinophils Percent Auto 1.5 % (0-4); Hematocrit 36.2 % (42.0-52.0); Hemoglobin 10.9 g/dl (14.0-18.0); Imm Gran Abs Auto 0.02 X10*3/uL (0.00-0.03); Imm Gran Pct Auto 0.3 % (0.0-0.4); Lymphocytes Absolute Auto 2.4 X10*3/uL (1.2-4.9); Lymphocytes Percent Auto 35.8 % (20-40); Mean Corpuscular HGB Conc 30.1 g/dl (31.0-36.0); Mean Corpuscular Volume 79.7 fL (80.0-98.0); Mean Platelet Volume 10.9 fL (9.4-12.4); Monocytes Absolute Auto 0.9 X10*3/uL (0.1-1.2); Neutrophils Absolute Auto 3.3 x10*3/uL (2.0-8.3); Neutrophils Percent Auto 48.4 % (45-73); Platelet Count 156 X10*3/uL (160-400); Red Blood Count 4.54 X10*6/uL (4.60-5.80); Red Cell Distribution Width 18.2 % (11.0-16.0); White Blood Count 6.8 X10*3/uL (4.8-10.8)
== END 2023-02-17 15:49 | disposition home or self-care (01) ==
LOC: HO.LNP 15:48
PROVIDERS: Visit Provider Internal Medicine
DX: D69.6 Thrombocytopenia, unspecified (principal)
CPT/HCPCS: 85025

== ENCOUNTER 2023-04-14 11:03 | Outpatient (REF) | payer MEDICARE, SELFPAY | END 2023-04-14 11:04 | disposition home or self-care (01) | LOC: HO.BBR 11:03 | PROVIDERS: Visit Provider Internal Medicine Gastroenterology | DX: Z13.89 Encounter for screening for other disorder (principal) ==

== ENCOUNTER 2023-06-01 11:33 | Outpatient (REF) | payer MEDICARE, SELFPAY | END 2023-06-01 11:34 | disposition home or self-care (01) | LOC: HO.LNP 11:33 | PROVIDERS: Visit Provider Internal Medicine | DX: Z00.00 Encounter for general adult medical examination without abnormal findings (principal); Z12.5 Encounter for screening for malignant neoplasm of prostate; R73.03 Prediabetes; E83.118 Other hemochromatosis; E78.00 Pure hypercholesterolemia, unspecified; D69.6 Thrombocytopenia, unspecified | CPT/HCPCS: 80053; 80061; 81001; 82043; 83036; 84153; 84154; 85025 ==

== ENCOUNTER 2023-06-09 11:07 | Outpatient (REF) | payer MEDICARE, SELFPAY ==
[2023-06-09 11:22] LABS: MANUAL DIFF FLAG NO
[2023-06-09 11:24] LABS: Basophils Absolute Auto 0.1 X10*3/uL (0.0-0.2); Basophils Percent Auto 1.1 % (0-2); Eosinophils Absolute Auto 0.1 X10*3/uL (0.0-0.4); Eosinophils Percent Auto 1.7 % (0-4); Hematocrit 35.8 % (42.0-52.0); Imm Gran Abs Auto 0.03 X10*3/uL (0.00-0.03); Imm Gran Pct Auto 0.6 % (0.0-0.4); Lymphocytes Absolute Auto 1.5 X10*3/uL (1.2-4.9); Lymphocytes Percent Auto 28.4 % (20-40); Mean Corpuscular HGB Conc 30.7 g/dl (31.0-36.0); Mean Corpuscular Hemoglobin 24.9 pg (27.0-33.0); Mean Corpuscular Volume 81.2 fL (80.0-98.0); Mean Platelet Volume 9.5 fL (9.4-12.4); Monocytes Absolute Auto 0.6 X10*3/uL (0.1-1.2); Monocytes Percent Auto 11.9 % (2-11); Neutrophils Percent Auto 56.3 % (45-73); Platelet Count 143 X10*3/uL (160-400); Red Blood Count 4.41 X10*6/uL (4.60-5.80); White Blood Count 5.3 X10*3/uL (4.8-10.8)
[2023-06-09 12:17] LABS: Iron 28 mcg/dL (45-160); Percent Iron Saturation 9 % (15-50); Total Iron Binding Capacity 307 mcg/dL (228-428); Unsaturated Iron Binding 279 ug/dL
[2023-06-09 12:33] LABS: Ferritin 27 ng/mL (20-250)
== END 2023-06-09 11:08 | disposition home or self-care (01) ==
LOC: HO.BBR 11:07
PROVIDERS: PCP Internal Medicine; Visit Provider Internal Medicine Gastroenterology
DX: E83.110 Hereditary hemochromatosis (principal)
CPT/HCPCS: 36415; 82728; 83540; 85025

== ENCOUNTER 2023-08-11 10:05 | Outpatient (REF) | payer MEDICARE, SELFPAY | END 2023-08-11 10:06 | disposition home or self-care (01) | LOC: HO.BBR 10:05 | PROVIDERS: PCP Internal Medicine; Visit Provider Internal Medicine Gastroenterology | DX: Z13.89 Encounter for screening for other disorder (principal) ==

== ENCOUNTER → 2023-09-30 10:54 | Outpatient (REF) | payer MEDICARE, SELFPAY ==
--- NOTE | 2023-09-30 10:57 | CA_ITS ---
Transthoracic Echocardiogram Patient (Last, First, Middle): Bhavesh Mojica P Gender: Male Date of : 1955 Age: 68 Procedure Date: 09/30/2023 Procedure Type: Transthoracic Echocardiogram Location: OP Height: 167.64 cm Weight: 74.84 kg BSA: 1.84 m2 Heart Rate: bpm BP: 114 / 70 mmHg Toddler Nanny: RAYSHAWN/MACKENZIE Referring MD: Glenn Colorado MD Nurse Sitter: Glenn Colorado MD Symptoms: R01.1 - Cardiac murmur, unspecified Study Quality: Adequate Conclusions: - Normal left ventricular size and systolic function. There is mildly increased left ventricular wall thickness. The visually estimated ejection fraction is between 65-70%. - Normal right ventricular cavity size and systolic function. - There is mild aortic valve stenosis. - There is severe mitral annular calcification. There is no mitral valve regurgitation. There is no mitral valve stenosis. - There is mild dilatation of the ascending aorta measuring 3.60 cm. Findings Left Ventricle Normal left ventricular size and systolic function. There is mildly increased left ventricular wall thickness. The visually estimated ejection fraction is between 65-70%. There is no evidence of regional wall motion abnormalities. Diastolic function is indeterminate on the basis of available data. Right Ventricle Normal right ventricular cavity size and systolic function. Atria The left atrium is mildly dilated. The right atrium is normal in size. Aortic Valve There is a normal trileaflet aortic valve. There is mild calcification of the aortic valve. There is mild aortic valve stenosis. The peak aortic velocity is 2.50 m/s. The aortic valve area is 1.90 cm2. There is no aortic valve regurgitation. Mitral Valve There is severe mitral annular calcification. There is no mitral valve regurgitation. There is no mitral valve stenosis. Pulmonic Valve The pulmonic valve is normal. There is no pulmonic valve regurgitation. Tricuspid Valve Normal tricuspid valve structure. There is no tricuspid valve regurgitation. Normal right atrial pressure. There is no evidence of pulmonary hypertension. Great Vessels There is mild dilatation of the ascending aorta measuring 3.60 cm. The visualized portions of the pulmonary artery and branches are normal. Venous The inferior vena cava is normal in size and collapses greater than 50% with inspiration. Pericardium/Pleural There is no evidence of pericardial effusion. Prior Study Comparison No significant change compared to prior study dated: 07/30/2021. Measurements 2D Linear Measurements IVSd: 1.03 0.6-0.9/0.6-1.0 cm LVIDd: 3.66 3.9-5.3/4.2-5.9 cm LVIDd Index: 1.99 2.4-3.2/2.2-3.1 cm/m2 LVIDs: 2.08 2.0-3.6 cm LVPWd: 1.15 0.7-1.1 cm LA Diam: 3.60 2.7-3.8/3.0-4.0 cm LAIDs Index: 1.96 1.5-2.3 cm/m2 LV Mass: 156.15 67-162/88-224 g LV Mass Index: 84.87 43-95/49-115 g/m2 LVOT Diam: 2.00 3.0+(-)1.3 cm 2D Systolic Function EF 4C: 69.70 >55% EF 2C: 67.60 >55% EF BiP: 69.10 >55% Mitral Valve MV VTI: 0.52 MV Pk Dorian: 1.55 MV Mn Dorian: 0.94 MV Pk Grad: 10.00 MV Mn Grad: 4.00 MV Pk E: 1.10 MV PK A: 1.39 MV Decel Time: 285.00 E/A: 0.80 E'Lateral: 6.31 E'Medial: 4.46 E/E' Med: 24.70 E/E' Lat: 17.40 PHT: 84.00 MVA PHT: 2.62 MVA Continuity: 1.77 Decel Morehouse: 3.85 Aortic Valve AoV Pk Dorian: 2.50 AoV Mn Dorian: 1.62 AoV VTI: 0.48 AoV Pk Grad: 25.00 Aov Mn Grad: 12.00 CAITLIN Cont.VTI: 1.90 LVOT LVOT Pk Dorian: 1.40 LVOT Mn Dorian: 1.05 LVOT VTI: 0.29 LVOT Pk Grad: 8.00 LVOT Mn Grad: 5.00 LVOT Diam: 2.00 LVOT Area: 3.14 Diastolic Function MV Pk E: 1.10 MV Pk A: 1.39 E/A: 0.80 E'Medial: 4.46 E/E' Med: 24.70 E' Laterial: 6.31 E/E' Lat: 17.40 Right Ventricle TAPSE (mm): 24.00 TVS' Dorian: 13.60 Tricuspid Valve TR Pk Dorian: 1.89 TR Pk Grad: 14.00 RA Press: 3.00 RVSP: 17.00 Great Vessels Aorta Sinus of Valsalva: 3.54 2.0-3.[address] [place]: 2.83 1.7-3.4 cm Ao Asc: 3.60 2.1-3.4 cm Updated in Other Vendor System with Status of Final Glenn Colorado MD electronically signed on 09/30/2023 1:56:07 PM with status of Final
== END ==
LOC: HO.CARD 10:54
PROVIDERS: PCP Internal Medicine; Visit Provider Internal Medicine Cardiovascular Disease
DX: R01.1 Cardiac murmur, unspecified (principal)
CPT/HCPCS: 93306

== ENCOUNTER → 2023-09-30 10:57 | Outpatient (BNV) | payer MEDICARE, SELFPAY | PROVIDERS: PCP Internal Medicine; Visit Provider Internal Medicine Cardiovascular Disease | DX: I35.0 Nonrheumatic aortic (valve) stenosis (principal); I34.81 Nonrheumatic mitral (valve) annulus calcification | CPT/HCPCS: 93306 ==

== ENCOUNTER 2023-10-06 10:59 | Outpatient (REF) | payer MEDICARE, SELFPAY ==
[2023-10-06 11:11] LABS: MANUAL DIFF FLAG NO
[2023-10-06 11:13] LABS: Basophils Absolute Auto 0.1 X10*3/uL (0.0-0.2); Basophils Percent Auto 1.3 % (0-2); Eosinophils Absolute Auto 0.1 X10*3/uL (0.0-0.4); Eosinophils Percent Auto 1.5 % (0-4); Hematocrit 35.7 % (42.0-52.0); Hemoglobin 11.3 g/dl (14.0-18.0); Imm Gran Abs Auto 0.01 X10*3/uL (0.00-0.03); Imm Gran Pct Auto 0.2 % (0.0-0.4); Lymphocytes Absolute Auto 1.5 X10*3/uL (1.2-4.9); Mean Corpuscular HGB Conc 31.7 g/dl (31.0-36.0); Mean Corpuscular Hemoglobin 25.5 pg (27.0-33.0); Mean Corpuscular Volume 80.6 fL (80.0-98.0); Mean Platelet Volume 9.5 fL (9.4-12.4); Monocytes Absolute Auto 0.6 X10*3/uL (0.1-1.2); Neutrophils Absolute Auto 2.3 x10*3/uL (2.0-8.3); Platelet Count 109 X10*3/uL (160-400); Red Blood Count 4.43 X10*6/uL (4.60-5.80); Red Cell Distribution Width 17.9 % (11.0-16.0); White Blood Count 4.6 X10*3/uL (4.8-10.8)
[2023-10-06 12:14] LABS: Alanine Aminotransferase 53 U/L (0-40); Albumin Level 3.7 g/dL (3.5-5.0); Alkaline Phosphatase 81 U/L (39-117); Aspartate Amino Transferase 56 U/L (5-37); Bilirubin Direct 0.2 mg/dL (0.0-0.5); Bilirubin Total 0.6 mg/dL (0.0-1.0); Iron 69 mcg/dL (45-160); Percent Iron Saturation 23 % (15-50); Total Iron Binding Capacity 294 mcg/dL (228-428); Total Protein 6.7 g/dL (6.5-8.0); Unsaturated Iron Binding 225 ug/dL
[2023-10-06 12:45] LABS: Ferritin 24 ng/mL (20-250)
== END 2023-10-06 11:00 | disposition home or self-care (01) ==
LOC: HO.BBR 10:59
PROVIDERS: PCP Internal Medicine; Visit Provider Internal Medicine Gastroenterology
DX: E83.110 Hereditary hemochromatosis (principal)
CPT/HCPCS: 36415; 80076; 82728; 83540; 85025

== ENCOUNTER 2023-10-14 14:16 | Outpatient (AMB) | payer MEDICARE, SELFPAY ==
--- NOTE | 2023-10-14 14:23 | MHC.OFFVIS ---
Intake Vital Signs 10/14/23 14:24 Height 5 ft 6.5 in Weight 167 lb 8.821 oz BMI 26.6 BP 120/80 Blood Pressure Location Lt brachial Position Sitting Pulse 96 Intake Visit Reasons: 1 yr fu after echo Intake Note: 1 year follow-up after echo with ekg feeling good Para Professional Required: No Allergies No Known Allergies [No Known Allergies*] Allergy (Verified 10/01/22 09:48) Medication List - Last Reconciled 10/14/23 by Glenn Colorado MD ibuprofen 400 mg PO Q6H PRN multivitamin 1 tab PO DAILY HPI HPI Comments History of Present Illness Details 68-year-old gentleman with mild aortic valve stenosis based on echocardiography from August 2021. He has been asymptomatic. No chest pain shortness of breath. No dizziness or syncope. Physically active without any exertional issues. Blood pressure control is good. 10/22/2023: He returns for follow-up. Repeat echocardiography has shown mild aortic valve stenosis again. He has no chest discomfort. He is saying when he goes up a hill in his backyard he gets out of breath. On a pain surface he does not get any symptoms. He is saying these symptoms are not new and have been happening for long time. No chest discomfort. [facility] Medical History Cirrhosis Diverticulosis Hemochromatosis Mild aortic stenosis Prostate cancer Surgical History H/O colonoscopy History of esophagogastroduodenoscopy (EGD) History of hip replacement Total knee replacement status Social History Alcohol intake: current Alcohol intake frequency: 3 or more drinks per day Patient Tobacco Use Status: Never used Tobacco Review of Systems Const Denies chills, Denies fatigue, Denies fever(s), Denies frequent falls, Denies weakness, Denies weight gain and Denies weight loss ENT Denies dizziness Card Denies chest pain, Denies leg edema, Denies lightheadedness, Denies palpitations, Denies dyspnea, Denies dyspnea on exertion, Denies orthopnea and Denies other (loss of consciousness) Resp Denies cough, Denies dyspnea and Denies dyspnea on exertion GI Denies hematochezia and Denies change in stool character Musc Denies abnormal gait, Denies muscle weakness, Denies numbness, Denies radiating pain into limb and Denies tingling Neuro Denies abnormal gait, Denies dizziness, Denies frequent falls, Denies numbness, Denies tingling and Denies weakness Endo Denies fatigue and Denies palpitations Physical Exam Vital Signs: Last Vital Signs Pulse 96 10/14/23 14:24 BP 120/80 10/14/23 14:24 BMI result Body Mass Index 26.6 GENERAL APPEARANCE: in no acute distress, pleasant. NECK: no carotid bruit, no jugular venous distention. SKIN: no suspicious lesions, warm and dry. HEART: systolic murmur with preserved 2nd heart sound, regular rate and rhythm. LUNGS: clear to auscultation bilaterally. ABDOMEN: soft, nontender. EXTREMITIES: no edema. PERIPHERAL PULSES: equal. NEUROLOGIC: No gross deficits, AAO X 3 Office Procedures EKG Details: Sinus rhythm 96 beats per minute, normal axis, inferior T-wave inversions, QTC 444 milliseconds. [id number], Complete Assessment & Plan Assessment & Plan (1) Aortic stenosis: Code(s): I35.0 - Nonrheumatic aortic (valve) stenosis (2) Dyspnea on exertion: Code(s): R06.09 - Other forms of dyspnea Plan [age] gentleman who is here for follow-up. He has mild aortic valve stenosis by echocardiography. We discussed about natural history of aortic valve stenosis and that currently we are just going to monitor him. We will repeat echocardiography in 2-3 years. He has some dyspnea on exertion specially going up hill. He is saying this is a longstanding symptom for him. He has ECG has subtle inferior changes. He is denying any chest discomfort or dyspnea in his day-to-day life otherwise. I have advised him that if his dyspnea changes that he should reach out to us. Currently will just observe him as he is not concerned and there is no significant change in his symptomatology. Thank you for allowing me to participate in the care of your patient. Please feel free to contact me if you have any questions. Coding Level of Care Code Est Pt Level 4 (23350) Diagnoses Aortic stenosis I35.0 Dyspnea on exertion R06.09 CPT Codes EKG - CPT: 93784-[id number], Complete ([id number])
[2023-10-14 14:24] VITALS: BP 120/80; PULSE 96; BMI 26.6
== END 2023-10-14 14:53 | disposition home or self-care (01) ==
PROVIDERS: PCP Internal Medicine; Visit Provider Internal Medicine Cardiovascular Disease
DX: I35.0 Nonrheumatic aortic (valve) stenosis (principal); R06.09 Other forms of dyspnea
CPT/HCPCS: 93010; 99214

== ENCOUNTER → 2023-10-14 14:16 | Outpatient (BNVA) | payer MEDICARE, SELFPAY | PROVIDERS: PCP Internal Medicine; Visit Provider Internal Medicine Cardiovascular Disease | DX: I35.0 Nonrheumatic aortic (valve) stenosis (principal); R06.09 Other forms of dyspnea | CPT/HCPCS: 93005; 99212 ==

== ENCOUNTER 2023-11-03 08:21 | Outpatient (REF) | payer MEDICARE, SELFPAY ==
--- NOTE | ~2023-11-03 | US_ITS ---
EXAMINATION: US ABDOMEN COMPLETE CLINICAL INFORMATION: Cirrhosis. COMPARISON: Ultrasound abdomen complete 09/05/2022 and 08/15/2019. CT abdomen and pelvis 12/12/2020. TECHNIQUE: Real-time imaging of the abdominal viscera. FINDINGS: PANCREAS: Largely obscured by overlapping bowel gas. ABDOMINAL AORTA: The proximal, mid, and distal segments are normal in caliber. INFERIOR VENA CAVA: Visualized portions are normal. LIVER: The liver is normal in size. The liver contour is normal. There is diffuse increased liver parenchymal echogenicity. Within the right hepatic lobe, a 1.2 cm benign, simple cyst is seen, for which no imaging follow-up is recommended. There is no intrahepatic biliary duct dilatation seen. GALLBLADDER: The gallbladder is physiologically distended. Multiple mobile gallstones are present. These include a probable small nonshadowing calculus at the neck portion. There is gallbladder wall thickening to 7 mm, without pericholecystic fluid. COMMON BILE DUCT: Normal in caliber measuring 0.5 cm in diameter. RIGHT KIDNEY: Normal. No hydronephrosis. No renal calculi or focal parenchymal lesions. The kidney measures 11.1 cm in maximum dimension. LEFT KIDNEY: Normal. No hydronephrosis. No renal calculi or focal parenchymal lesions. The kidney measures 11.2 cm in maximum dimension. SPLEEN: Normal. The spleen measures 11.1 cm in maximum dimension. FREE FLUID: None. US/US abdomen complete IMPRESSION: 1. Findings are consistent with cholelithiasis and cholecystitis, likely chronic given the absence of pericholecystic fluid. 2. There is generalized increase in hepatic echotexture, consistent with fatty infiltration or hepatocellular disease. Please correlate clinically. No focal hepatic mass or intrahepatic biliary dilatation is seen.
[2023-11-03 10:49] LABS: MANUAL DIFF FLAG NO
[2023-11-03 11:52] LABS: Basophils Absolute Auto 0.1 X10*3/uL (0.0-0.2); Basophils Percent Auto 1.4 % (0-2); Eosinophils Absolute Auto 0.2 X10*3/uL (0.0-0.4); Hematocrit 36.5 % (42.0-52.0); Hemoglobin 11.2 g/dl (14.0-18.0); Imm Gran Abs Auto 0.02 X10*3/uL (0.00-0.03); Imm Gran Pct Auto 0.3 % (0.0-0.4); Lymphocytes Absolute Auto 2.2 X10*3/uL (1.2-4.9); Lymphocytes Percent Auto 38.5 % (20-40); Mean Corpuscular HGB Conc 30.7 g/dl (31.0-36.0); Mean Corpuscular Hemoglobin 24.9 pg (27.0-33.0); Mean Corpuscular Volume 81.3 fL (80.0-98.0); Mean Platelet Volume 11.2 fL (9.4-12.4); Monocytes Absolute Auto 0.7 X10*3/uL (0.1-1.2); Monocytes Percent Auto 12.4 % (2-11); Neutrophils Absolute Auto 2.6 x10*3/uL (2.0-8.3); Neutrophils Percent Auto 44.4 % (45-73); Platelet Count 160 X10*3/uL (160-400); Red Blood Count 4.49 X10*6/uL (4.60-5.80); Red Cell Distribution Width 17.3 % (11.0-16.0); White Blood Count 5.7 X10*3/uL (4.8-10.8)
== END 2023-11-03 08:22 | disposition home or self-care (01) ==
LOC: HO.HMGCX 08:21
PROVIDERS: PCP Internal Medicine; Visit Provider Internal Medicine Gastroenterology
DX: D69.6 Thrombocytopenia, unspecified (principal); E83.110 Hereditary hemochromatosis
CPT/HCPCS: 36415; 76700; 85025

== ENCOUNTER 2023-12-01 11:02 | Outpatient (REF) | payer MEDICARE, SELFPAY | END 2023-12-01 11:03 | disposition home or self-care (01) | LOC: HO.BBR 11:02 | PROVIDERS: PCP Internal Medicine; Visit Provider Internal Medicine Gastroenterology | DX: Z13.89 Encounter for screening for other disorder (principal) ==

== ENCOUNTER 2023-12-01 11:08 | Outpatient (REF) | payer MEDICARE, SELFPAY ==
[2024-02-02 12:28] LABS: Liver Fibrosis Score 0.51; Liver Fibrosis Stage F2
[2024-02-02 12:29] LABS: Liver Fibrosis Interpretation moderate fibrosis; Nec Inflam Act Grade A0-A1; Nec Inflam Act Interpretation no activity; Nec Inflam Act Score 0.29
[2024-02-02 12:30] LABS: FIB-Alpha-2-Macroglobulin 226; FIB-Haptoglobin 139
[2024-02-02 12:31] LABS: FIB-Total Bilirubin 0.6
[2024-02-02 12:32] LABS: FIB-ALT 41
== END 2023-12-01 11:09 | disposition home or self-care (01) ==
LOC: HO.LNP 11:08
PROVIDERS: PCP Internal Medicine; Visit Provider Internal Medicine Gastroenterology
DX: E83.110 Hereditary hemochromatosis (principal)
CPT/HCPCS: 81596

== ENCOUNTER 2024-02-02 12:15 | Outpatient (REF) | payer MEDICARE, SELFPAY ==
[2024-02-02 12:30] LABS: MANUAL DIFF FLAG NO
[2024-02-02 12:32] LABS: Basophils Absolute Auto 0.1 X10*3/uL (0.0-0.2); Basophils Percent Auto 1.2 % (0-2); Eosinophils Absolute Auto 0.1 X10*3/uL (0.0-0.4); Eosinophils Percent Auto 0.9 % (0-4); Hematocrit 37.6 % (42.0-52.0); Hemoglobin 11.9 g/dl (14.0-18.0); Imm Gran Abs Auto 0.03 X10*3/uL (0.00-0.03); Imm Gran Pct Auto 0.5 % (0.0-0.4); Lymphocytes Absolute Auto 1.5 X10*3/uL (1.2-4.9); Mean Corpuscular HGB Conc 31.6 g/dl (31.0-36.0); Mean Corpuscular Hemoglobin 25.2 pg (27.0-33.0); Mean Corpuscular Volume 79.7 fL (80.0-98.0); Mean Platelet Volume 9.3 fL (9.4-12.4); Monocytes Absolute Auto 0.7 X10*3/uL (0.1-1.2); Monocytes Percent Auto 11.4 % (2-11); Neutrophils Absolute Auto 3.4 x10*3/uL (2.0-8.3); Platelet Count 149 X10*3/uL (160-400); Red Blood Count 4.72 X10*6/uL (4.60-5.80); Red Cell Distribution Width 19.7 % (11.0-16.0); White Blood Count 5.7 X10*3/uL (4.8-10.8)
[2024-02-02 14:18] LABS: Alanine Aminotransferase 56 U/L (0-40); Albumin Level 3.7 g/dL (3.5-5.0); Alkaline Phosphatase 89 U/L (39-117); Aspartate Amino Transferase 56 U/L (5-37); Bilirubin Direct 0.2 mg/dL (0.0-0.5); Bilirubin Total 0.5 mg/dL (0.0-1.0); Iron 53 mcg/dL (45-160); Percent Iron Saturation 17 % (15-50); Total Iron Binding Capacity 310 mcg/dL (228-428); Total Protein 6.9 g/dL (6.5-8.0); Unsaturated Iron Binding 257 ug/dL
[2024-02-02 14:32] LABS: Ferritin 24 ng/mL (20-250)
== END 2024-02-02 12:16 | disposition home or self-care (01) ==
LOC: HO.BBR 12:15
PROVIDERS: PCP Internal Medicine; Visit Provider Internal Medicine Gastroenterology
DX: E83.110 Hereditary hemochromatosis (principal)
CPT/HCPCS: 36415; 80076; 82728; 83540; 85025

== ENCOUNTER 2024-03-30 11:02 | Outpatient (REF) | payer MEDICARE, SELFPAY | END 2024-03-30 11:03 | disposition home or self-care (01) | LOC: HO.BBR 11:02 | PROVIDERS: PCP Internal Medicine; Visit Provider Internal Medicine Gastroenterology | DX: Z13.89 Encounter for screening for other disorder (principal) ==

== ENCOUNTER 2024-05-04 13:58 | Outpatient (AMB) | payer MEDICARE, SELFPAY ==
--- NOTE | 2024-05-04 14:26 | MHC.OFFVIS ---
Vital Signs 05/04/24 14:27 Height 5 ft 6.5 in Weight 167 lb 8.821 oz BMI 26.6 BP 130/62 Blood Pressure Location Rt brachial Position Sitting Pulse 73 Pulse Source Pulse Oximeter Pulse Oximetry (%) 97 Intake Visit Reasons: 6 mth f/up Intake Note: pt is doing fine Security Rep Required: No Accompanied by: Self / Same As Patient Allergies No Known Allergies [No Known Allergies*] Allergy (Verified 10/01/22 09:48) Medication List - Last Reconciled 05/04/24 by Glenn Colorado MD ibuprofen 400 mg PO Q6H PRN multivitamin 1 tab PO DAILY HPI Comments Details: 69-year-old gentleman with mild aortic valve stenosis based on echocardiography from August 2021. He has been asymptomatic. No chest pain shortness of breath. No dizziness or syncope. Physically active without any exertional issues. Blood pressure control is good. 10/22/2023: He returns for follow-up. Repeat echocardiography has shown mild aortic valve stenosis again. He has no chest discomfort. He is saying when he goes up a hill in his backyard he gets out of breath. On a pain surface he does not get any symptoms. He is saying these symptoms are not new and have been happening for long time. No chest discomfort. 05/04/24: He returns for follow-up. He has been doing well. No chest pain or dizziness. he continues to get some shortness of breath going up hill but it is stable he does not feel limited by it. He said he played golf today and did well. [facility] Medical History Cirrhosis Diverticulosis Hemochromatosis Mild aortic stenosis Prostate cancer Surgical History History of esophagogastroduodenoscopy (EGD) H/O colonoscopy History of hip replacement Total knee replacement status Social History Alcohol intake: current Alcohol intake frequency: 3 or more drinks per day Patient Tobacco Use Status: Never used Tobacco Review of Systems Const Denies chills, Denies fatigue, Denies fever(s), Denies frequent falls, Denies weakness, Denies weight gain and Denies weight loss ENT Denies dizziness Card Denies chest pain, Denies leg edema, Denies lightheadedness, Denies palpitations, Denies dyspnea and Denies dyspnea on exertion Resp Denies cough, Denies dyspnea and Denies dyspnea on exertion GI Denies hematochezia Musc Denies abnormal gait, Denies muscle weakness, Denies numbness, Denies radiating pain into limb and Denies tingling Neuro Denies abnormal gait, Denies dizziness, Denies frequent falls, Denies numbness, Denies tingling and Denies weakness Endo Denies fatigue and Denies palpitations Physical Exam Vital Signs: Last Vital Signs Pulse 73 05/04/24 14:27 BP 130/62 05/04/24 14:27 Pulse Ox 97 05/04/24 14:27 BMI result Body Mass Index 26.6 GENERAL APPEARANCE: in no acute distress, pleasant. NECK: no carotid bruit, no jugular venous distention. SKIN: no suspicious lesions, warm and dry. HEART: systolic murmur with preserved 2nd heart sound, regular rate and rhythm. LUNGS: clear to auscultation bilaterally. ABDOMEN: soft, nontender. EXTREMITIES: no edema. PERIPHERAL PULSES: equal. NEUROLOGIC: No gross deficits, AAO X 3 Assessment & Plan Assessment & Plan (1) Aortic stenosis: Code(s): I35.0 - Nonrheumatic aortic (valve) stenosis Category: Medical Plan pleasant 69 year gentleman who is here for follow-up. He has background of mild aortic valve stenosis. He has some dyspnea on exertion. He has mild aortic valve stenosis by echocardiography. on examination he has preserved 2nd heart sound and brisk carotid upstrokes. He will have close monitoring of aortic stenosis with repeat echocardiography in 2-3 years' time from the previous echo. He will see us back in 1 year. He has dyspnea on exertion but he has not limited by it. He is gets it going up hill but functions fine and there is no progression of symptoms. No testing currently for this. Thank you for allowing me to participate in the care of your patient. Please feel free to contact me if you have any questions. Coding Level of Care Code Est Pt Level 4 (46631) Diagnoses Aortic stenosis I35.0
[2024-05-04 14:27] VITALS: BP 130/62; PULSE 73; O2SAT 97; BMI 26.6
== END 2024-05-04 14:45 | disposition home or self-care (01) ==
PROVIDERS: PCP Internal Medicine; Visit Provider Internal Medicine Cardiovascular Disease
DX: I35.0 Nonrheumatic aortic (valve) stenosis (principal)
CPT/HCPCS: 99214

== ENCOUNTER → 2024-05-04 13:58 | Outpatient (BNVA) | payer MEDICARE, SELFPAY | PROVIDERS: PCP Internal Medicine; Visit Provider Internal Medicine Cardiovascular Disease | DX: I35.0 Nonrheumatic aortic (valve) stenosis (principal) | CPT/HCPCS: 99212 ==

== ENCOUNTER 2024-05-26 10:57 | Outpatient (REF) | payer MEDICARE, SELFPAY | END 2024-05-26 10:58 | disposition home or self-care (01) | LOC: HO.BBR 10:57 | PROVIDERS: PCP Internal Medicine; Visit Provider Internal Medicine Gastroenterology | DX: Z13.89 Encounter for screening for other disorder (principal) ==

== ENCOUNTER 2024-05-31 11:40 | Outpatient (REF) | payer MEDICARE, SELFPAY ==
[2024-05-31 11:44] LABS: MANUAL DIFF FLAG NO
[2024-05-31 12:23] LABS: Basophils Absolute Auto 0.1 X10*3/uL (0.0-0.2); Basophils Percent Auto 1.1 % (0-2); Eosinophils Absolute Auto 0.1 X10*3/uL (0.0-0.4); Eosinophils Percent Auto 2.2 % (0-4); Hematocrit 37.4 % (42.0-52.0); Hemoglobin 11.9 g/dl (14.0-18.0); Imm Gran Abs Auto 0.01 X10*3/uL (0.00-0.03); Imm Gran Pct Auto 0.2 % (0.0-0.4); Lymphocytes Percent Auto 36.1 % (20-40); Mean Corpuscular HGB Conc 31.8 g/dl (31.0-36.0); Mean Corpuscular Hemoglobin 26.4 pg (27.0-33.0); Mean Corpuscular Volume 82.9 fL (80.0-98.0); Mean Platelet Volume 10.7 fL (9.4-12.4); Monocytes Absolute Auto 0.6 X10*3/uL (0.1-1.2); Monocytes Percent Auto 11.7 % (2-11); Neutrophils Absolute Auto 2.7 x10*3/uL (2.0-8.3); Neutrophils Percent Auto 48.7 % (45-73); Platelet Count 128 X10*3/uL (160-400); Red Blood Count 4.51 X10*6/uL (4.60-5.80); Red Cell Distribution Width 19.3 % (11.0-16.0); White Blood Count 5.5 X10*3/uL (4.8-10.8)
[2024-05-31 12:29] LABS: Estimated Average Glucose 131 mg/dL; Hemoglobin A1c % 6.2 % (<6.0)
[2024-05-31 12:42] LABS: Alanine Aminotransferase 47 U/L (0-40); Albumin Level 3.9 g/dL (3.5-5.0); Alkaline Phosphatase 82 U/L (39-117); Anion Gap 13 (12-20); Aspartate Amino Transferase 44 U/L (5-37); Bilirubin Total 0.6 mg/dL (0.0-1.0); Blood Urea Nitrogen 14 mg/dL (9-16); Calcium 9.2 mg/dL (8.4-10.2); Carbon Dioxide 24 mmol/L (22-29); Chloride 110 mmol/L (96-108); Cholesterol 161 mg/dL (<200); Estimated Glomerular Filt Rate > 60; Glucose Random 121 mg/dL (60-115); HDL Cholesterol 57 mg/dL (>40); LDL Cholesterol Calculated 89 mg/dL (<100); Potassium 4.1 mmol/L (3.3-5.1); Sodium 143 mmol/L (135-145); Total Protein 7.1 g/dL (6.5-8.0); Triglycerides 79 mg/dL (<150)
[2024-05-31 12:51] LABS: Appearance Urine Clear; Color Urine Yellow; Glucose Urine UA Negative (Negative); Leukocyte Esterase Urine Negative (Negative); Nitrite Urine Negative (Negative); PH 6.5 (5.0-9.0); Specific Gravity - Urine 1.015 (1.005-1.025); Urine Blood Negative (Negative); Urine Ketones Negative (Negative); Urine Protein Negative (Neg-Trace)
[2024-05-31 12:58] LABS: Bacteria Urine None Seen (None Seen); Hyaline Casts Urine 0-2 /LPF (0-2); RBC Urine 0-2 /HPF (0-2); Squamous Epithelial Cell Urine 0-2 /HPF (0-2); WBC Urine 0-5 /HPF (0-5)
[2024-05-31 13:00] LABS: PSA,Total (Free>4and<10) 9.05 ng/mL (0.00-4.00)
[2024-05-31 13:24] LABS: Creatinine Urine 96.08 mg/dL; Microalbumin Urine < 5.0 mg/L
[2024-06-03 11:12] LABS: Free Prostate Spec Ag 0.8 ng/mL; Percent Free Prostate Spec Ag 8 % (calc) (>25); Prostate Specific Ag Total 9.9 ng/mL (< OR = 4.0)
== END 2024-05-31 11:41 | disposition home or self-care (01) ==
LOC: HO.LNP 11:40
PROVIDERS: Visit Provider Internal Medicine
DX: R73.09 Other abnormal glucose (principal); E78.00 Pure hypercholesterolemia, unspecified; Z12.5 Encounter for screening for malignant neoplasm of prostate; E83.118 Other hemochromatosis
CPT/HCPCS: 80053; 80061; 81001; 82043; 82570; 83036; 84153; 84154; 85025

== ENCOUNTER 2024-06-21 10:24 | Outpatient (REF) | payer MEDICARE, SELFPAY ==
--- NOTE | ~2024-06-21 | US_ITS ---
EXAMINATION: US EXTRACRANIAL CAROTID DUPLEX, BILATERAL CLINICAL INFORMATION: Right carotid bruit COMPARISON: None available. TECHNIQUE: Real-time ultrasound and Doppler techniques (integrating B-mode 2-D vascular images, Doppler spectral analysis and color-flow Doppler imaging) were utilized to interrogate the extracranial carotid arteries, the vertebral arteries and proximal subclavian arteries bilaterally. The degree of stenosis is determined by criteria similar to NASCET. FINDINGS: Right Side: 1. There is mild atherosclerotic plaque seen in the bifurcation/proximal ICA region. 2. The common carotid artery PSV proximally is 114 cm/s and distally 104 cm/s. 3. The proximal internal carotid artery velocities are 59 cm/s systolic and 16 cm/s diastolic. 4. The proximal external carotid artery PSV is 112 cm/s. 5. The vertebral artery shows antegrade flow. 6. The subclavian artery waveforms are normal. Left Side: 1. There is mild atherosclerotic plaque seen in the bifurcation/proximal ICA region. 2. The common carotid artery PSV proximally is 94 cm/s and distally 87 cm/s. 3. The proximal internal carotid artery velocities are 67 cm/s systolic and 22 cm/s diastolic. 4. The proximal external carotid artery PSV is 91 cm/s. 5. The vertebral artery shows antegrade flow. 6. The subclavian artery waveforms are normal. US/US carotid duplex BI IMPRESSION: 1. RIGHT: Minimal, non-hemodynamically significant stenosis of the proximal right internal carotid artery corresponding to a 0-49% stenosis by velocity criteria. 2. LEFT: Minimal, non-hemodynamically significant stenosis of the proximal left internal carotid artery corresponding to a 0-49% stenosis by velocity criteria.
== END 2024-06-21 10:25 | disposition home or self-care (01) ==
LOC: HO.HMGCX 10:24
PROVIDERS: PCP Internal Medicine; Visit Provider Internal Medicine
DX: R09.89 Other specified symptoms and signs involving the circulatory and respiratory systems (principal)
CPT/HCPCS: 93880

== ENCOUNTER 2024-08-15 12:31 | Outpatient (REF) | payer MEDICARE, SELFPAY | END 2024-08-15 12:32 | disposition home or self-care (01) | LOC: HO.BBR 12:31 | PROVIDERS: Visit Provider Internal Medicine Gastroenterology | DX: Z13.89 Encounter for screening for other disorder (principal) ==

== ENCOUNTER 2024-10-12 10:08 | Outpatient (REF) | payer MEDICARE, SELFPAY ==
[2024-10-12 10:23] LABS: MANUAL DIFF FLAG NO
[2024-10-12 10:25] LABS: Basophils Absolute Auto 0.1 X10*3/uL (0.0-0.2); Basophils Percent Auto 1.3 % (0-2); Eosinophils Absolute Auto 0.1 X10*3/uL (0.0-0.4); Eosinophils Percent Auto 1.7 % (0-4); Hematocrit 38.3 % (42.0-52.0); Hemoglobin 12.6 g/dl (14.0-18.0); Imm Gran Abs Auto 0.02 X10*3/uL (0.00-0.03); Imm Gran Pct Auto 0.4 % (0.0-0.4); Lymphocytes Absolute Auto 1.5 X10*3/uL (1.2-4.9); Lymphocytes Percent Auto 29.6 % (20-40); Mean Corpuscular HGB Conc 32.9 g/dl (31.0-36.0); Mean Corpuscular Hemoglobin 29.6 pg (27.0-33.0); Mean Corpuscular Volume 89.9 fL (80.0-98.0); Mean Platelet Volume 10.1 fL (9.4-12.4); Monocytes Absolute Auto 0.5 X10*3/uL (0.1-1.2); Platelet Count 105 X10*3/uL (160-400); Red Blood Count 4.26 X10*6/uL (4.60-5.80); Red Cell Distribution Width 14.8 % (11.0-16.0); White Blood Count 5.2 X10*3/uL (4.8-10.8)
[2024-10-12 11:38] LABS: Iron 36 mcg/dL (45-160); Percent Iron Saturation 12 % (15-50); Total Iron Binding Capacity 296 mcg/dL (228-428); Unsaturated Iron Binding 260 ug/dL
[2024-10-12 11:42] LABS: Ferritin 25 ng/mL (20-250)
== END 2024-10-12 10:09 | disposition home or self-care (01) ==
LOC: HO.BBR 10:08
PROVIDERS: PCP Internal Medicine; Visit Provider Internal Medicine Gastroenterology
DX: E83.110 Hereditary hemochromatosis (principal)
CPT/HCPCS: 36415; 82728; 83540; 85025

== ENCOUNTER 2024-12-14 08:58 | Outpatient (REF) | payer MEDICARE, SELFPAY | END 2024-12-14 08:59 | disposition home or self-care (01) | LOC: HO.BBR 08:58 | PROVIDERS: PCP Internal Medicine; Visit Provider Internal Medicine Gastroenterology | DX: Z13.89 Encounter for screening for other disorder (principal) ==

== ENCOUNTER 2025-02-08 11:02 | Outpatient (REF) | payer MEDICARE, SELFPAY ==
[2025-02-08 11:15] LABS: Basophils Percent Auto 0.6 % (0-2); Eosinophils Absolute Auto 0.1 X10*3/uL (0.0-0.4); Eosinophils Percent Auto 2.2 % (0-4); Hematocrit 36.8 % (42.0-52.0); Hemoglobin 11.8 g/dl (14.0-18.0); Imm Gran Abs Auto 0.01 X10*3/uL (0.00-0.03); Imm Gran Pct Auto 0.2 % (0.0-0.4); Lymphocytes Absolute Auto 1.5 X10*3/uL (1.2-4.9); Lymphocytes Percent Auto 29.1 % (20-40); MANUAL DIFF FLAG NO; Mean Corpuscular HGB Conc 32.1 g/dl (31.0-36.0); Mean Corpuscular Hemoglobin 27.1 pg (27.0-33.0); Mean Corpuscular Volume 84.4 fL (80.0-98.0); Mean Platelet Volume 9.7 fL (9.4-12.4); Monocytes Absolute Auto 0.6 X10*3/uL (0.1-1.2); Monocytes Percent Auto 11.6 % (2-11); Neutrophils Absolute Auto 2.8 x10*3/uL (2.0-8.3); Neutrophils Percent Auto 56.3 % (45-73); Platelet Count 113 X10*3/uL (160-400); Red Blood Count 4.36 X10*6/uL (4.60-5.80); Red Cell Distribution Width 17.3 % (11.0-16.0)
[2025-02-08 12:29] LABS: Iron 24 mcg/dL (45-160); Percent Iron Saturation 8 % (15-50); Total Iron Binding Capacity 308 mcg/dL (228-428); Unsaturated Iron Binding 284 ug/dL
[2025-02-08 12:45] LABS: Ferritin 25 ng/mL (20-250)
--- OUTSIDE RECORDS SUMMARY | 2025-02-08 13:01 | XMS_ITS ---
Author Organization Richard Amado MD Address [address] [place], [place] [id number] Care Team Providers Care Aquatics Director Name Role Phone Ingris Richard Primary Care Provider [phone] Allergies No Known Allergies REASON FOR VISIT annual visit, CBACK PSA Social History Tobacco Use: Social History Observation Description Date Details (start date - stop date) Never Smoker NA - NA Tobacco Use/Smoking Question Answer Notes Patient is a nonsmoker Additional Findings: Tobacco Non-User Cu rrent non-smoker, currently using no form of tobacco Alcohol Screen Question Answer Notes Did you have a drink contain ing alcohol in the past year? Yes How often did you have a dri nk containing alcohol in the past year? 4 or more times a week (4 points) How many drinks did you have on a typical day when you were drinking in the past year? 3 or 4 drinks (1 point) How often did you have 6 or more drinks on one occasion in the past year? Never (0 point) Points 5 Interpretation Positive Problems Problem Type SNOMED Code ICD Code Onset Dates Problem Status W/U Status Risk Notes Problem [id number] Mild aortic stenosis (I35.0) Active confirmed Vital Signs Blood pressure systolic 112 mm Hg 06/10/20 24 Blood pressure diastolic 60 mm Hg 024 Height 67 in 06/10/2024 Weight 164 lbs 06/10/2024 BMI 25.68 kg/m2 06/10/2024 Encounters Encounter Location Date Provider Diagnosis Richard Amado MD [address] [place] [address] Drive [address] [place], [place] [id number] 06/10/2024 Richard Amado Mild aortic stenosis I35.0 ; Encounter for general adult medical examination with abnormal findings Z00.01 ; Right carotid bruit R09.89 ; Prostate cancer C61 and Other hemochromatosis E83.118 Assessments Encounter Date Diagnosis (ICD Code) Assessment Notes Treatment Notes Treatment Clinical Notes Section Notes 06/10/2024 Mild aortic stenosis (ICD-10 - I35.0) followed by cardiology 06/10/2024 Encounter for general adult medical examination with abnormal findings (ICD-10 - Z00.01) Labs reviewed and discussed with patient 06/10/2024 Right carotid bruit (ICD-10 - R09.89) THE ORDER WAS FAXED TO [facility] 06/10/2024 Prostate cancer (ICD-10 - C61) followed by urology 06/10/2024 Other hemochromatosis (ICD-10 - E83.118) is going to have phlebotomies Plan Of Treatment Treatment Notes Assessment Notes Mild aortic stenosis followed by cardiol ogy Encounter for general adult medical examination with abnormal findings Labs reviewed and discussed with patient Right carotid bruit THE ORDER WAS FAXED TO [facility] Prostate cancer followed by urology Other hemochromatosis is going to have p hlebotomies Pending Test Test Name Order Date US CAROTID BILATERAL DOPPLER 06/10/2024 Next Appt Details Follow Up: 1 Year, Reason: Provider Name:Richard lucas, 06/06/2025 07:45:00 AM, [address] [place] [address], [address], [place], [place], [phone], Provider Name:Richard lucas, 06/13/2025 02:30:00 PM, [address] [place] [address], [address], [place], [place], [phone], Progress Notes * Bhavesh RUCKER PDOB: [birth year] (69 yo M)Acc No.[id number]:06/10/2024 Progress Notes Patient:?Bhavesh Rucker Provider:?Richard Amado MD :1955???Age:69 Y???Sex:Male Hernan e:06/10/2024 Address:[address] [place], [place] [id number] Subjective: * Chief Complaints: * ???Annual visitCBACK PSA * HPI: ???Depression Screening:?PHQ-9?Little interest or pleasure in doing things?Not at all,?Feeling down, depressed, or hopeless?Not at all,?Trouble falling or staying asleep, or sleeping too much?Not at all,?Feeling tired or having little energy?Not at all,?Poor appetite or overeating?Not at all,?Feeling bad about yourself or that you are a failure, or have let yourself or your family down?Not at all,?Trouble concentrating on things, such as reading the newspaper or watching television?Not at all,?Moving or speaking so slowly that other people could have noticed; or the opposite, being so fidgety or restless that you have been moving around a lot more than usual?Not at all,?Thoughts that you would be better off or of hurting yourself in some way?Not at all,?Total Score?0.?Interpretation and Intervention?Depression Screening Findings?Negative,?Follow-Up for Depression?: review of PHQ-9 found negative result, no follow-up needed.? pt is a 69yo male here for his annual exam with review of recent labs and follow up of chronic issues, he had mri and another biopsy february 2024. ???Communication Needs:?Communication Needs?Does the patient have a hearing impairment?No,?Does the patient have a vision impairment??Yes,?If yes, what is the vision impairment??Glasses,?Does the patient have a cognition impairment??No.?Fall Risk:?History?Have you had any falls with injury in the past year??No,?Have you had two or more falls in the past year??No.?SDOH Questions:?SDOH Questions?In the past year have you been worried about losing housing??No,?In the past year have you or any family members you live with been unable to get any of the following when it was really needed? Check all that apply:?None.? * ROS:?General/Constitutional:?Change in appetite?denies.?Chills?denies.?Fever?denies.?Ophthalmologic:?Blurred vision?denies.?Discharge?denies.?Pain?denies.?ENT:?Decreased hearing?denies.?Sore throat?denies.?Swollen glands?denies.?Endocrine:?Cold intolerance?denies.?Excessive thirst?denies.?Heat intolerance?denies.?Weight loss?denies.?Respiratory:?Cough?denies.?Shortness of breath at rest?denies.?Shortness of breath with exertion?denies.?Wheezing?denies.?Cardiovascular:?Chest pain at rest?denies.?Chest pain with exertion?denies.?Irregular heartbeat?denies.?Shortness of breath?denies.?Gastrointestinal:?Abdominal pain?denies.?Change in bowel habits?denies.?Diarrhea?denies.?Nausea?denies.?Rectal bleeding?denies.?Vomiting?denies .?Genitourinary:?Blood in urine?denies.?Difficulty urinating?denies.?Frequent urination?denies.?Musculoskeletal:?Painful joints?denies.?Weakness?denies.?Skin:?Dry skin?denies.?Itching?denies.?Denies?Mole(s),? changes in moles, new moles or any lesions of concern.?Denies?Photosensitivity.?Rash?denies.?Neurologic:?Dizziness?denies.?Fainting?denies.?Headache?denies.? * Medical History:? * Surgical History:? * Hospitalization/Major Diagno stic Procedure:? * Family History:?Father: dece ased 77 yrs, diagnosed with Alzheimer disease.?Mother: 47 yrs.?1 sister(s) . .? NO FAMILY HISTORY OF MENTAL ILLNESS OR SUBSTANCE ABUSE, Denies mental health/substance abuse family history Mother Liver 1 brother-57 ALS, Denies mental health/substance abuse family history, Denies mental health/substance abuse family history. * Social History:?Tobacco Use:?Tobacco Use/Smoking?Patient is a?nonsmoker,?Additional Findings: Tobacco Non-User?Current non-smoker, currently using no form of tobacco.?Drugs/Alcohol:?Alcohol Screen?Did you have a drink containing alcohol in the past year??Yes,?How often did you have a drink containing alcohol in the past year??4 or more times a week (4 points),?How many drinks did you have on a typical day when you were drinking in the past year??3 or 4 drinks (1 point),?How often did you have 6 or more drinks on one occasion in the past year??Never (0 point),?Points?5,?Interpretation?Positive.?Miscellaneous:?Caffeine: yes, frequency:, 1-2 cups per day. no Children. no Community involvements. Exercise: yes, golf [employer] cardio 3 times a week. Housing: owning. Living with: spouse. Marital status: . Occupation: pt is retired. Pets: none. no Travel outside of the [place]. ???Household:?Household?Marital status:?,?Pentecostalism:?did not answer,?Level of education:?not finished college.? * Medications:?None * Allergies:?N.K.D.A.yes[Aller gies Verified] Objective: * Vitals:?Ht: 67, Wt:164, BMI: 25.68, BP:112/60. * ???Past Orders: ???Lab:Comprehensive Met. Geovany felix (Order Date - 05/31/2024) (Collection Date - 05/31/2024) ? Value Reference Range ?Sodium 143 135-145 - mmo l/L ?Bilirubin Total 0.6 0.0- 1.0 - mg/dL ?Aspartate Amino Transferase 44 H 5-37 - U/L ?Alanine Aminotransferase 47 H 0-40 - U/L ?Total Protein 7.1 6.5-8. 0 - g/dL ?Albumin Level 3.9 3.5-5. 0 - g/dL ?Alkaline Phosphatase 82 39-117 - U/L ?Potassium 4.1 3.3-5.1 - mmol/L ?Chloride 110 H 96-108 - mm ol/L ?Carbon Dioxide 24 22-29 - mmol/L ?Anion Gap 13 12-20 - ?Blood Urea Nitrogen 14 9-16 - mg/dL ?Creatinine 0.81 0.5-1.4 - mg/dL ?Estimated Glomerular Filt Rate > 60 - ?Glucose Random 121 H 60-11 5 - mg/dL ?Calcium 9.2 8.4-10.2 - m g/dL ???Lab:Lipid Panel (Order Da te 05/31/2024) (Collection Date - 05/31/2024) ? Value Reference Range ?Triglycerides 79 <150 - mg/dL ?Cholesterol 161 <200 - m g/dL ?LDL Cholesterol Calculated 89 <100 - mg/dL ?HDL Cholesterol 57 >40 - mg/dL ???Lab:Microalbumin, Random (Order Date - 05/31/2024) (Collection Date - 05/31/2024) ? Value Reference Range ?Creatinine Urine 96.08 - m g/dL ?Microalbumin Urine < 5.0 - mg/L ?Microalbum Creatinine Ratio Ur TNP <30 - ug/mg cr ???Lab:Hemoglobin A1c (Order Date - 05/31/2024) (Collection Date - 05/31/2024) ? Value Reference Range ?Hemoglobin A1c % 6.2 H <6. 0 - % ?Estimated Average Glucose 131 - mg/dL ???Lab:UA ClnCatch+Micro w/r flx Cult (Order Date - 05/31/2024) (Collection Date - 05/31/2024) ? Value Reference Range ?Color Urine Yellow - ?Appearance Urine Clear - ?PH 6.5 5.0-9.0 - ?Glucose Urine UA Negative Neg ative - mg/dL ?Urine Blood Negative Negative - ?Specific [place] - Urine 1.015 1.005-1.025 - ?Urine Protein Negative Neg-Tr mendez - mg/dL ?Urine Ketones Negative Negati ve - mg/dL ?Nitrite Urine Negative Negati ve - ?Leukocyte Esterase Urine Negative Negative - ?RBC Urine 0-2 0-2 - /HPF ?WBC Urine 0-5 0-5 - /HPF ?Squamous Epithelial Cell Urine 0-2 0-2 - /HPF ?Bacteria Urine None Seen None Seen - ?Hyaline Casts Urine 0-2 0-2 - /LPF * Examination: ???General Examination: ?GENERAL APPEARANCE:?well developed, well nourished, in no acute distress.?HEAD:?normocephalic, atraumatic.?EYES:?pupils equal, round, reactive to light and accommodation, sclera non-icteric.?EARS:?normal.?ORAL CAVITY:?mucosa moist.?THROAT:?clear.?NECK/THYROID:?neck supple, full range of motion, no cervical lymphadenopathy, abnormal withnoise in carotic which may be bruits.?SKIN:?warm and dry, no suspicious lesions.?HEART:?regular rate and rhythm, S1, S2 normal, no murmurs.?LUNGS:?clear to auscultation bilaterally.?ABDOMEN:?soft, nontender, nondistended, bowel sounds present, normal, no organomegaly , no masses palpable.?RECTAL EXAM:?normal tone, no external hemorrhoids, no masses palpable, prostate normal, stool guaiac negative.?MALE GENITOURINARY:?circumcised no testicular mass testes descended bilaterally.?EXTREMITIES:?no clubbing, cyanosis, or edema.?NEUROLOGIC:?nonfocal, motor strength normal upper and lower extremities, sensory exam intact.? Assessment: * Assessment: 1.?Encounter for general brittney lt medical examination with abnormal findings - Z00.01 (Primary)?2.?Mild aortic stenosis - I35.0?3.?Right carotid bruit - R09.89?4.?Prostate cancer - C61?5.?Other hemochromatosis - E83.118? Plan: * Treatment: 2.?Mild aortic stenosis? Notes: followed by cardiology.?? 3.?Right carotid bruit?Imaging: US CAROTID BILATERAL DOPPLER Notes: THE ORDER WAS FAXED TO [facility].?? 4.?Prostate cancer? Notes: followed by urology.?? 5.?Other hemochromatosis? Notes: is going to have phlebotomies.?? * Procedure Codes:? * Follow Up:?1 Year * * Sign off status: Completed true * Provider:?Richard Amado MD Date:?0 06/10/2024 Generated for Rodi emani/Isaak/eTransmitting on:?02/08/2025 01:00 PM EDT History and Physical Notes * HPI (History of Present Illness) Category Sub-Category Detail Notes Category Not es Depression Screening PHQ-9 Little inte rest or pleasure in doing things: Not at all pt is a 69yo male here for his annual exam with review of recent labs and follow up of chronic issues, he had mri and another biopsy february 2024 Feeling down, depressed, or hopeless: No t at all Trouble falling or staying asleep, or sl eeping too much: Not at all Feeling tired or having little energy: N ot at all Poor appetite or overeating: Not at all Feeling bad about yourself o r that you are a failure, or have let yourself or your family down: Not at all Trouble concentrating on thi ngs, such as reading the newspaper or watching television: Not at all Moving or speaking so slowly that other people could have noticed; or the opposite, being so fidgety or restless that you have been moving around a lot more than usual: Not at all Thoughts that you would be b nadiya off or of hurting yourself in some way: Not at all Total Score: 0 Interpretation and Intervention Depression Nara chery Findings: Negative Follow-Up for Depression: : review of PH Q-9 found negative result, no follow-up needed SDOH Questions SDOH Questions In the past year have you been worried about losing housing?: No In the past year have you or any family members you live with been unable to get any of the following when it was really needed? Check all that apply:: None Fall Risk History Have you had any falls with injury i n the past year?: No Have you had two or more falls in the st year?: No Communication Needs Communication Needs Does the patient have a hearing impairment: No Does the patient have a vision impairmen t?: Yes ?If yes, what is the vision impairment?: Glasses Does the patient have a cognition impair ment?: No Examination Category Sub-Category Detail Notes Category Not es General Examination GENERAL APPEARANCE: well dev eloped, well nourished, in no acute distress HEAD: normocephalic, atrau matic EYES: pupils equal, round, reactive to light and accommodation, sclera non- icteric EARS: normal THROAT: clear NECK/THYROID: neck supple, full ra nge of motion, no cervical lymphadenopathy, abnormal withnoise in carotic which may be bruits HEART: regular rate and rhy thm, S1, S2 normal, no murmurs LUNGS: clear to auscultatio n bilaterally ABDOMEN: soft, nontender, non distended, bowel sounds present, normal, no organomegaly , no masses palpable NEUROLOGIC: nonfocal, motor stre ngth normal upper and lower extremities, sensory exam intact SKIN: warm and dry, no kristofer picious lesions EXTREMITIES: no clubbing, cyanosi s, or edema MALE GENITOURINARY: circumcised no testi cular mass testes descended bilaterally RECTAL EXAM: normal tone, no exte rnal hemorrhoids, no masses palpable, prostate normal, stool guaiac negative ORAL CAVITY: mucosa moist
--- OUTSIDE RECORDS SUMMARY | 2025-02-08 13:01 | XMS_ITS ---
Author Organization [facility] Address [address] [place] [id number] Care Team Providers Care Skin Care Technician Name Role Phone Richard Amado MD Primary Care Provider Yunior Lan Jr, Dewey Ramey REASON FOR VISIT orders Encounters Encounter Location Date Provider Diagnosis [facility] [address] [place] [address] 02/09/2024 Dewey Lan Jr Plan Of Treatment Next Appt Details Provider Name:Dewey baird Jr, 10/18/2025 10:20:00 AM, [address] [facility], [address], [place], [address], Progress Notes * CARLOS RUCKERINDOB: (68 yo M)Acc No.[id number]:02/09/2024 Patient:?ROSY RUCKER :1955???Age:68 Y???Sex:Male Address: [place] [address] * true * Date:? Generated for Printi ng/Faxing/eTransmitting on:?02/08/2025 01:01 PM EDT
--- OUTSIDE RECORDS SUMMARY | 2025-02-08 13:01 | XMS_ITS | Clinical Summary ---
Author Organization [address] [facility] Address [address] [place] [address] Phone Care Team Providers Care Sulfide Head Operator Name Role Phone Unavailable Primary Care Provider Unavailabl e Encounters Date Type Department Care Team Description 12/06/2024 Lab Requisition [facility] - Main Lab [address] [facility] [place] [address] Kar Gan MD Elevated prostate specific antigen (PSA) from Last 3 Months Social History Tobacco Use Types Packs/Day Years Used Date Smoking Tobacco: Never Assessed Sex and Gender Information Value Date Recorded Sex Assigned at Not on file Legal Sex Male 3:49 PM EST Gender Identity Not on file Sexual Orientation Not on file Plan of Treatment Health Maintenance Due Date Last Done Comments COVID-19 Vaccine (#1) 1959 DTaP,Tdap,and Td Vaccines (1 - Tdap) 1973 Pneumococcal Vaccine: 50+ Ye ars (1 of 2 - PCV) 1973 Zoster Vaccines (1 of 2) 1973 Influenza Vaccine (#1) 2024 Abdominal Aortic Aneurysm (A AA) Screen 01/07/2025 Cholesterol Screening (Lipid Panel) 01/07/2025 Colorectal Cancer Screening: Colonoscopy 01/07/2025 Depression Screening 01/07/2025 Falls Risk Assessment 01/07/2025 Hepatitis C Screening 01/07/2025 Social Influencers of Health Screening 01/07/2025 RSV Immunization Patients 60 + Years Old (1 - 1-dose 75+ series) 2029 HIB Vaccines Aged Out No longer eligi ble based on patient's age to complete this topic HPV Vaccines Aged Out No longer eligi ble based on patient's age to complete this topic Hepatitis A Vaccines Aged Out No long er eligible based on patient's age to complete this topic Hepatitis B Vaccines Aged Out No long er eligible based on patient's age to complete this topic IPV Vaccines Aged Out No longer eligi ble based on patient's age to complete this topic MMR Vaccines Aged Out No longer eligi ble based on patient's age to complete this topic Meningococcal ACWY Vaccine Aged Out N o longer eligible based on patient's age to complete this topic Meningococcal B Vacine Aged Out No lo nger eligible based on patient's age to complete this topic RSV Immunization Patients Un elier 20 months Aged Out No longer eligible b ased on patient's age to complete this topic Varicella Vaccines Aged Out No longer eligible based on patient's age to complete this topic Procedures Procedure Name Priority Date/Time Associated Diagnosis Comments AP OUTSIDE CONSULT Routine 12/05/2024 Elevated prostate specific antigen (PSA) from Last 3 Months Results * Anatomic pathology outside consult (12/05/2024) Final Diagnosis A. Prostate, Left Middle [place] (Core Biopsy): -PROSTATIC ACINAR ADENOCARCINOMA CONVENTIONAL (USUAL) TYPE -Jeff Score: (3+3=6), Grade Group 1 Total Number of Cores: 1 Number of Positive Cores: 1 Percent of Prostatic Tissue Continuously Involved by Tumor: 5 % B. Prostate, Left Lateral [place] (Core Biopsy): - Benign prostate tissue. C. Prostate, Left Middle Middle (Core Biopsy): -PROSTATIC ACINAR ADENOCARCINOMA CONVENTIONAL (USUAL) TYPE -[place] Score: (4+3=7), Grade Group 3 -Percentage Pattern: 4 :60% Total Number of Cores: 1 Number of Positive Cores: 1 Percent of Prostatic Tissue Continuously Involved by Tumor: 10 % D. Prostate, Left Lateral Middle (Core Biopsy): - Benign prostate tissue. E. Prostate, Left Middle Base (Core Biopsy): - Benign prostate tissue. F. Prostate, Left Lateral Base (Core Biopsy): - Rare atypical glands. G. Prostate, Left Transition Zone (Core Biopsy): -PROSTATIC ACINAR ADENOCARCINOMA CONVENTIONAL (USUAL) TYPE -Jeff Score: (3+3=6) , Grade Group 1 Total Number of Cores: 3 Number of Positive Cores: 1 Percent of Prostatic Tissue Continuously Involved by Tumor: 0, 0, 5 % H. Prostate, Right [place] (Core Biopsy): - Benign prostate tissue. I. Prostate, Right Lateral [place] (Core Biopsy): - Benign prostate tissue. J. Prostate, Right Middle Middle (Core Biopsy): - Benign prostate tissue. K. Prostate, Right Lateral Middle (Core Biopsy): - Benign prostate tissue. L. Prostate, Right Middle Base (Core Biopsy): - Benign prostate tissue. M. Prostate, Right Lateral Base (Core Biopsy): - Benign prostate tissue. 12/15/2024 12:14 PM [facility] Clinical Information Elevated PSA Last PSA free = 12.6 (10/24/2024) [id number] 12/15/2024 12:14 PM [facility] Gross Description A. Prostate, Left Mid [place] Biopsy: Received, properly labeled, are two H and E stained slides and two unstained slides. C. Prostate, Left Mid Mid Biopsy: Received, properly labeled, are two H and E stained slides and two unstained slides. D. Prostate, Left Lat Mid Biopsy: Received, properly labeled, are two H and E stained slides and two unstained slides. E. Prostate, Left Mid Base Biopsy: Received, properly labeled, are two H and E stained slides and two unstained slides. F. Prostate, Left Lat Base Biopsy: Received, properly labeled, are two H and E stained slides and two unstained slides. G. Prostate, Left Transition Zone Lesion Biopsy: Received, properly labeled, are two H and E stained slides and two unstained slides. H. Prostate, Right Mid [place] Biopsy: Received, properly labeled, are two H and E stained slides and two unstained slides. I. Prostate, Right Lat [place] Biopsy: Received, properly labeled, are two H and E stained slides and two unstained slides. J. Prostate, Right Mid Mid Biopsy: Received, properly labeled, are two H and E stained slides and two unstained slides. K. Prostate, Right Lat Mid Biopsy: Received, properly labeled, are two H and E stained slides and two unstained slides. L. Prostate, Right Mid Base Biopsy: Received, properly labeled, are two H and E stained slides and two unstained slides. M. Prostate, Right Lat Base Biopsy: Received, properly labeled, are two H and E stained slides and two unstained slides. /al 12/15/2024 12:14 PM EST [facility] Disclaimer Unless otherwise specified, all tissue is 10% NB formalin fixed and paraffin embedded. Technical pathology services provided by [facility] at [address], [place] [address] (CLIA #[id number]/Lina Lopez MD, Nuclear Medicine Officer) 12/15/2024 12:14 PM EST [facility] Tissue Prostatic structure / Unknown 12/05/2024 12/06/2024 4:22 PM EST Tissue specimen (specimen) Prostatic structure / Unknown 12/05/2024 12/06/2024 4:22 PM EST Tissue specimen (specimen) Prostatic structure / Unknown 12/05/2024 12/06/2024 4:22 PM EST Tissue specimen (specimen) Prostatic structure / Unknown 12/05/2024 12/06/2024 4:22 PM EST Tissue specimen (specimen) Prostatic structure / Unknown 12/05/2024 12/06/2024 4:22 PM EST Tissue specimen (specimen) Prostatic structure / Unknown 12/05/2024 12/06/2024 4:22 PM EST Tissue specimen (specimen) Prostatic structure / Unknown 12/05/2024 12/06/2024 4:22 PM EST Tissue specimen (specimen) Prostatic structure / Unknown 12/05/2024 12/06/2024 4:22 PM EST Tissue specimen (specimen) Prostatic structure / Unknown 12/05/2024 12/06/2024 4:22 PM EST Tissue specimen (specimen) Prostatic structure / Unknown 12/05/2024 12/06/2024 4:22 PM EST Tissue specimen (specimen) Prostatic structure / Unknown 12/05/2024 12/06/2024 4:22 PM EST Tissue specimen (specimen) Prostatic structure / Unknown 12/05/2024 12/06/2024 4:22 PM EST Tissue specimen (specimen) Prostatic structure / Unknown 12/05/2024 12/06/2024 4:22 PM EST us Kar Gan MD LAB PATHOLOGY ORDERABLES Final Result [facility] HOSPITAL LAB [address] [place] [address], from Last 3 Months Insurance [employer] [place] [employer]
--- OUTSIDE RECORDS SUMMARY | 2025-02-08 13:01 | XMS_ITS | Encounter Summary ---
Author Organization [facility] Address [address] [place] [address] Care Team Providers Care Pipefitter Welder Name Role Phone Unavailable Primary Care Provider Unavailabl e Encounter Details Date Type Department Care Team (Late st Contact Info) Description 12/06/2024 Lab Requisition [facility] - Main Lab [address] [facility] [address] [place] [address] Kar Gan MD [address] [place] [address] Elevated prostate specific antigen (PSA) Social History Tobacco Use Types Packs/Day Years Used Date Smoking Tobacco: Never Assessed Sex and Gender Information Value Date Recorded Sex Assigned at Not on file Legal Sex Male 3:49 PM EST Gender Identity Not on file Sexual Orientation Not on file documented as of this encounter Plan of Treatment Not on file documented as of this encounter Procedures Procedure Name Priority Date/Time Associated Diagnosis Comments AP OUTSIDE CONSULT Routine 12/05/2024 Elevated prostate specific antigen (PSA) documented in this encounter Results * Anatomic pathology outside consult (12/05/2024) Final Diagnosis A. Prostate, Left [place] (Core Biopsy): -PROSTATIC ACINAR ADENOCARCINOMA CONVENTIONAL (USUAL) TYPE -Jeff Score: (3+3=6), Grade Group 1 Total Number of Cores: 1 Number of Positive Cores: 1 Percent of Prostatic Tissue Continuously Involved by Tumor: 5 % B. Prostate, Left Lateral [place] (Core Biopsy): - Benign prostate tissue. C. Prostate, Left Middle Middle (Core Biopsy): -PROSTATIC ACINAR ADENOCARCINOMA CONVENTIONAL (USUAL) TYPE -[place] Score: (4+3=7), Grade Group 3 -Percentage Pattern: [...] 0, 5 % H. Prostate, Right Middle [place] (Core Biopsy): - Benign prostate tissue. I. Prostate, Right Lateral [place] (Core Biopsy): - Benign prostate tissue. J. Prostate, Right Middle Middle (Core Biopsy): - Benign prostate tissue. K. Prostate, Right Lateral Middle (Core Biopsy): - Benign prostate tissue. L. Prostate, Right Middle Base (Core Biopsy): - Benign prostate tissue. M. Prostate, Right Lateral Base (Core Biopsy): - Benign prostate tissue. 12/15/2024 12:14 PM [facility] Clinical Information Elevated PSA Last PSA free = 12.6 (10/24/2024) [id number] 12/15/2024 12:14 PM [facility] Gross Description A. Prostate, Left Mid [place] Biopsy: Received, properly labeled, are two H [...] two unstained slides. H. Prostate, Right Mid [place] Biopsy: Received, properly labeled, are two H and E stained slides and two unstained slides. I. Prostate, Right Lat [place] Biopsy: Received, properly labeled, are two H [...] unstained slides. /al 12/15/2024 12:14 PM EST [facility] Disclaimer Unless otherwise specified, all tissue is 10% NB formalin fixed and paraffin embedded. Technical pathology services provided by [facility] at [address] [place] [address] [address], [place] [address] (CLIA #[id number]/Lina Lopez MD, Quality Control Microbiology Supervisor) 12/15/2024 12:14 PM EST [facility] Tissue Prostatic structure / Unknown 12/05/2024 [...] / Unknown 12/05/2024 12/06/2024 4:22 PM EST Kar Gan MD LAB PATHOLOGY ORDERABLES Final Result [facility] [address] [place] [address], documented in this encounter Visit Diagnoses Diagnosis Elevated prostate specific antigen (PSA) documented in this encounter
--- OUTSIDE RECORDS SUMMARY | 2025-02-08 13:01 | XMS_ITS ---
Author Organization [facility] Address [address] [place] [address] Care Team Providers Care Sports Doctor Name Role Phone Richard Amado MD Primary Care Provider Dewey Cabrera Jr Unavailable Allergies No Known Allergies REASON FOR VISIT Patient presents today for hemochromatosis Medications Medication SIG (Take, Route, Frequency, Duration) Notes Start Date End Date Status Ibuprofen PRN Active Multi Vitamin/Minerals - as directed Ora lly one a day Active Immunizations Vaccine Route Administration Date Status Comme nts Influenza Unknown 10/19/2024 Refused Social History Alcohol Screen Question Answer Notes Did you [...] on one occasion in the past year? Weekly (3 points) Points 8 Interpretation Positive Vital Signs Temperature 97.8 degrees Fahrenheit 10/19/20 24 Blood pressure systolic 000 mm Hg 10/19/20 24 Blood pressure diastolic 00 mm Hg 024 Height 66.5 in 10/19/2024 Weight 164 lb 6 oz lbs 10/19/2024 BMI 26.13 kg/m2 10/19/2024 Encounters Encounter Location Date Provider Diagnosis 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 His laboratory results are stable, and we recommended continuing phlebotomy as he is doing. He is up-to-date on colorectal cancer screening. He will continue to follow up with his other providers regarding his other non-GI issues. Today's visit was 30 minutes. Followup in one year. 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 His laboratory results are stable, and we recommended continuing phlebotomy as he is doing. He is up-to-date on colorectal cancer screening. He will continue to follow up with his other providers regarding his other non-GI issues. Today's visit was 30 minutes. Followup in one year. Plan Of Treatment Treatment Notes Assessment Notes Hereditary hemochromatosis Serum iron te st material was printed Next Appt Details Follow Up: 1 Year, Reason: Provider Name:Dewey baird Jr, 10/18/2025 10:20:00 AM, [address] [place] [address], [address], [place], [address], Progress Notes * CARLOS RUCKERINDOB: (69 yo M)Acc No.[id number]:10/19/2024 Progress Notes Patient:?ROSY RUCKER Provider:?Dewey Lan MD :1955???Age:69 Y???Sex:Male Hernan e:10/19/2024 Address:[address] [place] [address] [address] [id number] Pcp:Richard Amado MD Subjective: * Chief Complaints: * ???1. Patient presents today for hemochromatosis. * HPI: ???New symptom(s):? Rosy is a pleasant 69-year-old man seen today in followup. He presents for continued care of of hemochromatosis, with liver disease, and colon polyps. ?Since we saw him last, he's been doing well. He has no complaints of pruritus, fatigue, or jaundice. There has been no ascites. Liver disease has been well-compensated. Imaging of the liver in October of last year showed increased echogenicity and a simple cyst. Gallstones were noted. Laboratory studies have documented a noninvasive fibrosis score of 0.51, consistent with moderate fibrosis. We reviewed this today. ?He continues on phlebotomies, every 8 weeks for hemochromatosis. Laboratory studies including CBC, iron indices, and liver function tests have been stable. We reviewed this today. ?He continues to use alcohol as previously without any significant changes in his amount of usage. We again discussed that no alcohol is better than any, and less is better than more in patients with liver disease from any cause. He understands this. ?He's had some issues with an elevated PSA in the setting of prostate cancer and is following up with his urologist. ?He works part-time in the [employer] industry, and enjoys golfing and his family. * Medical History:?hemochromat osis, liver biopsy , showing hemochromatosis with early cirrhosis , F2 fibrosis on noninvasive testing 12/23, Colonoscopy 09/16/22 multiple tubular adenomas, and five-year followup, Aortic stenosis, mild, Prostate cancer. * Surgical History:?Heel spur repair , right hip replacement 12/14/2013, Left TKR 11/2019. * Family History:?Father: dece ased.?Mother: .?Maternal Grand Mother: , colon cancer, diagnosed with Colon cancer.? No family history of liver cancer. * Social History:?Tobacco Use:?Tobacco Use/Smoking?Are you a: nonsmoker.?Drugs/Alcohol:?Alcohol Screen?Did you have a drink containing alcohol [...] drinks on one occasion in the past year??Weekly (3 points),?Points?8,?Interpretation?Positive.?Miscellaneous:?Marital status: . Occupation: retired production support specialist. * Medications:?Taking Multi Vi tamin/Minerals - Tablet as directed Orally one a day, Taking Ibuprofen , Notes: PRN, Medication List reviewed and reconciled with the patient * Allergies:?N.K.D.A. Objective: * Vitals:?Wt: 164 lb 6 oz, Ht: 66.5 in, BMI:26.13 Index, BP: 000/00 mm Hg, Temp: 97.8. * Examination: ???General Examination: ???On examination today, he appears well. Skin is anicteric. Lungs are clear. Heart shows regular rate and rhythm. Abdomen is soft without focal masses or tenderness. Extremities are without edema. 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 We discussed hemachromatosis today. His laboratory results are stable, and we recommended continuing phlebotomy as he is doing. He is up-to-date on colorectal cancer screening. He will continue to follow up with his other providers regarding his other non-GI issues. Today's visit was 30 minutes. Followup in one year. Plan: * Treatment: * Immunizations:? Influenza (Not administered - Refused: Patient decision) * Procedure Codes:?3017F COLOR ECTAL CA SCREEN DOC REV, G9903 Pt scrn tbco id as non user, G9745 DOC RSN FOR NOT SCREEN/REC F/U HBP * Preventive Medicine:? ??Counseling:?Care goal follow-up plan:?Above Normal BMI Follow-up?Giving encouragement to exercise,?BMI management provided?Yes.? ??Screenings:?Fall Risk Screening?Fall Risk Assessment:?No falls in the past year,?Screening:?No falls in the past year,?Assessment:?Not performed, no reason specified,?Plan of Care:?Not documented, no reason specified.? * Follow Up:?1 Year * * Sign off status: Completed true * Provider:?Dewey Lan MD Date:?1 12/19/2023 Generated for Liza joaquin/Isaak/Negaritting on:?02/08/2025 01:00 PM EDT History and Physical Notes * HPI (History of Present Illness) Category Sub-Category Detail Notes Category Not es New symptom(s) Rosy is a pleasant 69-year-old man seen today in followup. He presents for continued care of of hemochromatosis, with liver disease, and colon polyps. Since we saw him last, he's been doing well. He has no complaints of pruritus, fatigue, or jaundice. There has been no ascites. Liver disease has been well-compensated. Imaging of the liver in October of last year showed increased echogenicity and a simple cyst. Gallstones were noted. Laboratory studies have documented a noninvasive fibrosis score of 0.51, consistent with moderate fibrosis. We reviewed this today. He continues on phlebotomies, every 8 weeks for hemochromatosis. Laboratory studies including CBC, iron indices, and liver function tests have been stable. We reviewed this today. He continues to use alcohol as previously without any significant changes in his amount of usage. We again discussed that no alcohol is better than any, and less is better than more in patients with liver disease from any cause. He understands this. He's had some issues with an elevated PSA in the setting of prostate cancer and is following up with his urologist. He works part-time in the recycling industry, and enjoys golfing and his family. Examination Category Sub-Category Detail Notes Category Not es General Examination On exam[facility] department today, he appears well. Skin is anicteric. Lungs are clear. Heart shows regular rate and rhythm. Abdomen is soft without focal masses or tenderness. Extremities are without edema.
--- OUTSIDE RECORDS SUMMARY | 2025-02-08 13:02 | XMS_ITS ---
Author Organization Richard Amado MD Address [address] [place], [place] [phone] Care Team Providers Care Mobile Home Laborer Name Role Phone Ingris Richard Primary Care Provider Allergies No Known Allergies REASON FOR VISIT test positive for covid on 07-19-24 cell [phone] Video, c/o had chills , fatigue , sore throat , nonproductive cough, SOB, body aches, runny nose x 3days Medications Medication SIG (Take, Route, Frequency, Duration) Notes Start Date End Date Status Paxlovid (300/100) 20 x 150 MG & 10 x 100MG 3 tablets Orally Twice a day for 5 day(s) 07/21/2024 Active Encounters Encounter Location Date Provider Diagnosis Richard Amado MD [address] [place] [phone] 07/21/2024 Richard Amado COVID-19 U07.1 Assessments Encounter Date Diagnosis (ICD Code) Assessment Notes Treatment Notes Treatment Clinical Notes Section Notes 07/21/2024 COVID-19 (ICD-10 - U07.1) patient verb;aized understanding of medication and directions for use Plan Of Treatment Medication Medication Name Sig Start Date Stop Date Notes Paxlovid (300/100) 20 x 150 MG & 10 x 100MG 3 tablets Orally Twice a day for 5 day(s) 07/21/2024 Treatment Notes Assessment Notes COVID-19 patient verb;aized u nderstanding of medication and directions for use Next Appt Details Provider Name:Richard lucas, 06/06/2025 07:45:00 AM, [address] [place] [address], Suite [facility], [place], [place], [phone], Provider Name:Richard lucas, 06/13/2025 02:30:00 PM, [address] [place] [address], Suite [facility], [place], [place], [phone], Progress Notes * Bhavesh RUCKER PDOB: [birth year] (69 yo M)Acc No.[id number]:07/21/2024 Patient:?Bhavesh Rucker Provider:?Richard Amado MD :1955???Age:69 Y???Sex:Male Hernan e:07/21/2024 Address:[address] [place], [place] [phone] Subjective: * Chief Complaints: * ???test positive for covid o n 07-19-24 cell [phone] Videoc/o had chills , fatigue , sore throat , nonproductive cough, SOB, body aches, runny nose x 3days * HPI: ???Symptom(s):?Telehealth?Location of provider rendering services:?[address] [place] [address], [facility],?Location of patient:?at address listed in demographics for today's visit,?Patient identification confirmed using:?Name, , SSN, Insurance information,?Telehealth method:?Telephone only. Patient not visible to care provider.,?Consent:?Patient verbally consented to treatment, Patient verbally consented to billing insurance company, Patient informed of any privacy concerns related to method of visit,?Total time spend talking with patient (minutes)?20.? patient is a 69 yo male audio telehealth visit, here for covid. has been sick for 3 days. complaining of chills, fatigue, sore throat, cough, SOB, body aches and runny nose. * ROS:?General/Constitutional:?Admits?Chills.?Admits?Fatigue.?Denies?Fever.?Admits?Headache.?ENT:?Patient denies?decreased sense of smell , any loss of taste.?Admits?Sore throat.?Respiratory:?Admits?Cough.?Denies?Shortness of breath at rest.?Admits?Shortness of breath with exertion.?Denies?Sputum production.?Gastrointestinal:?Denies?Diarrhea.?Denies?Nausea.?Musculoskeletal:?Admits?Muscle aches.?Peripheral Vascular:?Patient denies?red and blue toes.? * Medical History:? * Surgical History:? * Hospitalization/Major Diagno stic Procedure:? * Medications:?None * Allergies:?N.K.D.A.yes[Aller gies Verified] Objective: Assessment: * Assessment: 1.?COVID-19 - U07.1 (Primary )? Plan: * Treatment: * Procedure Codes:? * * Sign off status: Completed true * Provider:?Richard Amado MD Date:?0 07/21/2024 Generated for Liza joaquin/Isaak/Yamileth on:?02/08/2025 01:02 PM EDT History and Physical Notes * HPI (History of Present Illness) Category Sub-Category Detail Notes Category Not es Symptom(s) Telehealth Location of [facility] rendering services:: [address] [facility], [address] patient is a 69 yo male audio telehealth visit, here for covid. has been sick for 3 days. complaining of chills, fatigue, sore throat, cough, SOB, body aches and runny nose. Location of patient:: at address listed in demographics for today's visit Patient identification confirmed using:: Name, , SSN, Insurance information Telehealth method:: Telephone only. Sally ent not visible to care provider. Consent:: Patient verbally c onsented to treatment, Patient verbally consented to billing insurance company, Patient informed of any privacy concerns related to method of visit Total time spend talking with patient (m inutes): 20
--- OUTSIDE RECORDS SUMMARY | 2025-02-08 13:02 | XMS_ITS | Patient Health Record ---
Author Organization [facility] Address [address] [place] [address] Care Team Providers Care Branch Coordinator Name Role Phone Richard Amado MD Primary Care Provider Unavai Dewey Acevedo Jr Unavailable Allergies No Known Allergies Results Component Value Reference Range Notes Therapeutic Phlebotomy Reviewed date:03/31/2024 09:52:33 AM Interpretation: Performing Lab:[facility], [address] [place] [phone] Notes/Report: THER/HGB 11.0 14.0-18.0 g/dL THER/HCT TNP 42.0-52.0 % Therapeutic Phlebotomy TNP Reason: Pre-phlebotomy Hgb/Hct is below the established parameter for this patient. Please note that a copy of this report has been sent to the Primary Care Physician, the ordering physician and any physician designated by patient request. Therapeutic Phlebotomy Reviewed date:05/26/2024 09:40:48 PM Interpretation: Performing Lab:[facility], [address] [place] [phone] Notes/Report: THER/HGB 12.3 14.0-18.0 g/dL THER/HCT TNP 42.0-52.0 % Therapeutic Phlebotomy Phlebotomy Performed 500 mls drawn on 05/26/24. Please note that a copy of this report has been sent to the Primary Care Physician, the ordering physician and any physician designated by patient request. Therapeutic Phlebotomy Reviewed date:08/18/2024 10:15:39 AM Interpretation: Performing Lab:[facility], [address] [place] [address] Notes/Report: THER/HGB 13.1 14.0-18.0 g/dL THER/HCT TNP 42.0-52.0 % Therapeutic Phlebotomy Phlebotomy Performed 500 mls drawn on 08/15/24. Please note that a copy of this report has been sent to the Primary Care Physician, the ordering physician and any physician designated by patient request. Complete Blood Count Auto Di ff Reviewed date:10/13/2024 09:01:14 AM Interpretation: Performing Lab:[facility], [address] [place] [address] Notes/Report: White Blood Count 5.2 4.8-10.8 X10*3/uL Red Blood Count 4.26 4.60-5.80 X10*6/uL Hemoglobin 12.6 14.0-18.0 g/dl Hematocrit 38.3 42.0-52.0 % Mean Corpuscular Volume 89.9 80.0-98.0 fL Mean Corpuscular Hemoglobin 29.6 27.0-33.0 pg Mean Corpuscular HGB Conc 32.9 31.0-36.0 g/dl Red Cell Distribution Width 14.8 11.0-16.0 % Platelet Count 105 160-400 X10*3/uL Mean Platelet Volume 10.1 9.4-12.4 fL Neutrophils Percent Auto 57.0 45-73 % Imm Gran Pct Auto 0.4 0.0-0.4 % Lymphocytes Percent Auto 29.6 20-40 % Monocytes Percent Auto 10.0 2-11 % Eosinophils Percent Auto 1.7 0-4 % Basophils Percent Auto 1.3 0-2 % NRBC Pct Auto 0.0 0.0-0.2 /100WBC Neutrophils Absolute Auto 3.0 2.0-8.3 x10*3/uL Imm Gran Abs Auto 0.02 0.00-0.03 X10*3/uL Lymphocytes Absolute Auto 1.5 1.2-4.9 X10*3/uL Monocytes Absolute Auto 0.5 0.1-1.2 X10*3/uL Eosinophils Absolute Auto 0.1 0.0-0.4 X10*3/uL Basophils Absolute Auto 0.1 0.0-0.2 X10*3/uL NRBC Abs Auto 0.000 0.0-0.012 X10*3/uL IRON PROFILE Reviewed date:10/13/2024 09:01:06 AM Interpretation: Performing Lab:[facility], [address] [place] [phone] Notes/Report: Iron 36 45-160 mcg/dL Total Iron Binding Capacity 296 228-428 mcg/dL Percent Iron Saturation 12 15-50 % Unsaturated Iron Binding 260 Ferritin Reviewed date:10/13/2024 09:01:00 AM Interpretation: Performing Lab:[facility], [address] [place] [phone] Notes/Report: Ferritin 25 20-250 ng/mL Therapeutic Phlebotomy Reviewed date:10/13/2024 09:01:20 AM Interpretation: Performing Lab:[facility], [address] [place] [phone] Notes/Report: THER/HGB TNP 14.0-18.0 g/dL Lab Results on file. Performed at [facility] on 10/12/24: Hgb: 12.6 g/dl Hct: 38.3 % THER/HCT TNP 42.0-52.0 % Therapeutic Phlebotomy Phlebotomy Performed 500 mls drawn on 10/12/24. Please note that a copy of this report has been sent to the Primary Care Physician, the ordering physician and any physician designated by patient request. Therapeutic Phlebotomy Reviewed date:12/14/2024 12:05:13 PM Interpretation: Performing Lab:[facility], [address] [place] [phone] Notes/Report: THER/HGB 12.5 14.0-18.0 g/dL THER/HCT TNP 42.0-52.0 % Therapeutic Phlebotomy Phlebotomy Performed 500 mls drawn on 12/14/24. Please note that a copy of this report has been sent to the Primary Care Physician, the ordering physician and any physician designated by patient request. Complete Blood Count Auto Di ff (Not yet reviewed by provider) Interpretation: Performing Lab:[facility], [address] [place] [phone] Notes/Report: White Blood Count 5.0 4.8-10.8 X10*3/uL Red Blood Count 4.36 4.60-5.80 X10*6/uL Hemoglobin 11.8 14.0-18.0 g/dl Hematocrit 36.8 42.0-52.0 % Mean Corpuscular Volume 84.4 80.0-98.0 fL Mean Corpuscular Hemoglobin 27.1 27.0-33.0 pg Mean Corpuscular HGB Conc 32.1 31.0-36.0 g/dl Red Cell Distribution Width 17.3 11.0-16.0 % Platelet Count 113 160-400 X10*3/uL Mean Platelet Volume 9.7 9.4-12.4 fL Neutrophils Percent Auto 56.3 45-73 % Imm Gran Pct Auto 0.2 0.0-0.4 % Lymphocytes Percent Auto 29.1 20-40 % Monocytes Percent Auto 11.6 2-11 % Eosinophils Percent Auto 2.2 0-4 % Basophils Percent Auto 0.6 0-2 % NRBC Pct Auto 0.0 0.0-0.2 /100WBC Neutrophils Absolute Auto 2.8 2.0-8.3 x10*3/uL Imm Gran Abs Auto 0.01 0.00-0.03 X10*3/uL Lymphocytes Absolute Auto 1.5 1.2-4.9 X10*3/uL Monocytes Absolute Auto 0.6 0.1-1.2 X10*3/uL Eosinophils Absolute Auto 0.1 0.0-0.4 X10*3/uL Basophils Absolute Auto 0.0 0.0-0.2 X10*3/uL NRBC Abs Auto 0.000 0.0-0.012 X10*3/uL IRON PROFILE (Not yet review ed by provider) Interpretation: Performing Lab:[address] [phone] Notes/Report: Iron 24 45-160 mcg/dL Total Iron Binding Capacity 308 228-428 mcg/dL Percent Iron Saturation 8 15-50 % Unsaturated Iron Binding 284 Ferritin (Not yet reviewed b y provider) Interpretation: Performing Lab:[facility], [address] [place] [phone] Notes/Report: Ferritin 25 20-250 ng/mL Reason For Referral No Information Medications Medication SIG (Take, Route, Frequency, Duration) Notes Start Date End Date Status Ibuprofen PRN Active Multi Vitamin/Minerals - as directed Ora lly one a day Active Immunizations Vaccine Route Administration Date Status Comme nts Influenza Unknown 09/08/2018 Administered Influenza Unknown 09/12/2020 Administered Influenza Unknown 10/22/2021 Administered Influenza Unknown 09/30/2023 Administered Influenza Unknown 10/19/2024 Refused Social History Alcohol [...] Weekly (3 points) Points 8 Interpretation Positive Problems Problem Type SNOMED Code ICD Code Onset Dates Problem Status W/U Status Risk Notes Problem 686721386 Colon cancer screening (Z12.11) Active confirmed Problem 25732299 Hereditary hemochromatosis (E83.110) Active confirmed Problem Vascular insufficiency of intestine (87262295) Other vascular disorders of intestine (K55.8) Active confirmed Problem Diverticular disease of colon (115229603) Diverticulosis of large intestine without perforation or abscess without bleeding (K57.30) Active confirmed Problem 41224115 Other cirrhosis of liver (K74.69) Active confirmed Problem 171213144 Generalized abdominal pain (R10.84) Active confirmed Problem 126817172 Adenomatous poly p of colon, unspecified part of colon (D12.6) Active confirmed Problem 075475896 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 Vital Signs Temperature 97.8 degrees Fahrenheit 10/19/2024 Blood pressure diastolic 00 mm Hg 10/19/2024 Height 66.5 in 10/19/2024 Blood pressure systolic 000 mm Hg 10/19/2024 Weight 164 lb 6 oz lbs 10/19/2024 BMI 26.13 kg/m2 10/19/2024 Encounters Encounter Location Date Provider Diagnosis [facility] [address] [place] [phone] 10/19/2024 Dewey Lan Jr Hereditary hemochromatosis E83.110 and Cirrhosis due to hemochromatosis E83.10 [facility] [address] [place] [phone] 02/09/2024 Dewey Lan Jr [facility] [address] [place] [phone] 10/13/2024 Dewey Lan Jr Assessments Encounter Date Diagnosis (ICD Code) Assessment [...] Followup in one year. Plan Of Treatment Pending Test Test Name Order Date BUN 12/05/2020 CREATININE 12/05/2020 LIVER PROFILE 12/05/2020 LIVER PROFILE 06/25/2012 LIPASE 12/05/2020 IRON + IBC (FE) 06/25/2012 FERRITIN 06/25/2012 CBC w/o DIFF 06/25/2012 CBC w/o DIFF 05/21/2021 CBC w/o DIFF 12/05/2020 CT ABD & PELVIS WITH CONTRAST 12/05/2020 US ABD 08/20/2022 US ABD 10/19/2023 Complete Blood Count Auto Diff IRON PROFILE 02/08/2025 Ferritin 02/08/2025 Liver Fibrosis Pnl 10/19/2023 Future Test Test Name Order Date COLONOSCOPY 12/30/2012 UPPER GI ENDOSCOPY 07/29/2018 COLONOSCOPY 07/29/2018 COLONOSCOPY 08/03/2019 COLONOSCOPY 08/20/2022 Next Appt Details Provider Name:Dewey baird Jr, 10/18/2025 10:20:00 AM, [address], [address], [place], [phone], Insurance Providers Payer Name Payer Address Payer Phone Subscriber Number Group Number Insured Name Patient Relationship to Insured Coverage Start Date Coverage End Date [facility] [address] [facility] [id number] ROSY RUCKER Self - patient is the insured Medical (General) History Medical History History ICD Code hemochromatosis, liver biops y , showing hemochromatosis with early cirrhosis , F2 fibrosis on noninvasive testing 12/23 colonoscopy 09/16/22 multiple tubular ad enomas, and five-year followup Aortic stenosis, mild prostate cancer Surgical History Surgery Date(Month/Year) Heel spur repair right hip replacement 12/14/2013 Left TKR 11/2019
--- OUTSIDE RECORDS SUMMARY | 2025-02-08 13:02 | XMS_ITS ---
Author Organization [facility] Address [address] [place] [phone] Care Team Providers Care Manager Merchandising Name Role Phone Richard Amado MD Primary Care Provider Yunior Lan Jr, Dewey Ramey [phone] REASON FOR VISIT labs Encounters Encounter Location Date Provider Diagnosis [facility] [address] [facility] [address] [place] [phone] 10/13/2024 Dewey Lan Jr Plan Of Treatment Next Appt Details Provider Name:Dewey baird Jr, 10/18/2025 10:20:00 AM, [address] [facility], [address], [place], [phone], Progress Notes * CARLOS RUCKERINDOB: (69 yo M)Acc No.[id number]:10/13/2024 Patient:?ALKA ROSY :1955???Age:69 Y???Sex:Male Address:[address] [address] * true * Date:? Generated for Printi ng/Faxing/eTransmitting on:?02/08/2025 01:01 PM EDT
--- OUTSIDE RECORDS SUMMARY | 2025-02-08 13:02 | XMS_ITS ---
Author Organization Richard Amado MD Address [address] [place], [place] [phone] Care Team Providers Care Buttoner Name Role Phone Ingris Richard Primary Care Provider [phone] REASON FOR VISIT TEST RESULT Encounters Encounter Location Date Provider Diagnosis Richard Amado MD [address] [place] [phone] 07/18/2024 Richard Amado Atherosclerosis I70. 90 Assessments Encounter Date Diagnosis (ICD Code) Assessment Notes Treatment Notes Treatment Clinical Notes Section Notes 07/18/2024 Atherosclerosis (ICD-10 - I70.90) Order made and printed and put into the future order folder for . Plan Of Treatment Treatment Notes Assessment Notes Atherosclerosis Order made and print ed and put into the future order folder for . Pending Test Test Name Order Date US carotid duplex BI 07/18/2024 Next Appt Details Provider Name:Richard Santana ier, 06/06/2025 07:45:00 AM, [address] [facility], [address], [place], [place], [phone], Provider Name:Richard Bhakta Lauracarolynn lance, 06/13/2025 02:30:00 PM, [address] [facility], [address], [place], [phone], Progress Notes * Bhavesh RUCKER PDOB: [birth year] (69 yo M)Acc No.[id number]:07/18/2024 Patient:?RuckerBhavesh :1955???Age:69 Y???Sex:Male Address:[address] [place] [id number] Subjective: * Chief Complaints: * ???TEST RESULT * Medical History:? * Surgical History:? * Hospitalization/Major Diagno stic Procedure:? * Medications:? Objective: Assessment: * Assessment: 1.?Atherosclerosis - I70.90? Plan: * Treatment: Notes: Order made and printed and put into the future order folder for .?? * Procedure Codes:? * true * Date:? Generated for Liza joaquin/Isaak/eTransmitting on:?02/08/2025 01:01 PM EDT
--- OUTSIDE RECORDS SUMMARY | 2025-02-08 13:02 | XMS_ITS | Data Portability ---
Author Organization [facility], PAIN OFFICE Address [address] [facility] [address] [place] [address] Care Team Providers Care Plug And Mold Finisher Name Role Phone JOAQUIN YU Primary Care Provider Assessment Encounter Date Assessment Date Assessment LastModified by Organization Details LastModified Time 07/30/2016 07/30/2016 Bhavesh Rajput is a 61 year old man with complaints of pain in left heel which started spontaneously in January 2016 and is becoming worse. On exam, he has tenderness in his left plantar fascia. He has features of left plantar fasciitis. I recommend a trial of left plantar fascia steroid injection udner ultrasound guidance. The risks and benefits of the procedure? ? ? were discussed in detail. He wishes to proceed. I will also order an X-ray of his left foot to assess for calcaneal spurs.I will call him with the results. He will follow up in three weeks for a repeat injection? ? ?if needed. [email or web address] Not available 07/31/2016 10:11:18 Plan of Treatment Reminders Order Date Submit Date Provider Last Modified By Organization Details Last Modified Time Details Appointments None record ed. Lab None record ed. Referral None record ed. Procedures None record ed. Surgeries None record ed. Imaging None record ed. Medication Orders None record ed. Patient TargetsNo targets recorded. Patient Instructions Encounter Date Encounter Id Patient Instructions Last Modified By Organization Details Last Modified Time 07/30/2016 [id number] He was advised against bed rest lasting longer than four days and to continue activities as tolerated. [email or web address] Not available 07/31/2016 10:11:18 Reason for Referral None Reported. Results Created Date Observation Date Name Description Value Unit Range Abnormal Flag Note LastModifiedBy Organization Detail LastModifiedTime 07/31/20 16 07/31/2016 XR, foot No observ ation record ed. [email or web address] [facility] Diagnosit Imaging Dept [address] [place], [address], 08/06/2016 14:25:46 Result Notes None recorded. Problems Name Problem SNOMED Code Status Onset Date Resolution Date Notes Provider Name and Address Organization Details Recorded Time Plantar fasciitis 254112454 Active Sharee carrillo MD [address] [facility] , [address], [place], [address], [place] [facility] 6 10:11:18 Problem Notes None recorded. Procedures Surgical History Date Name Laterality Status Provider Name and Address Organization Details Recorded Time 07/30/20 16 Plantar fascia injection under ultrasound guidance completed Sharee Metzger MD [address] [facility] , [address], [place], [address], [place] [facility] 07/31/2016 10:03:39 Arthroscopic Surgery completed Pat Santos [place] [facility] 07/30/2016 14:22:12 Joint Replacement completed Pat Santos [place] [facility] 07/30/2016 14:23:13 Imaging Results Imaging Date Name Status LastModified by Organiz ation Details LastModified Time 07/31/2016 XR, foot completed [email or web address] [facility] Diagn[facility] Imaging Dept [address] [place] [address], [address], 08/06/2016 14:25:46 Procedure Notes None recorded. Medical Equipment None Reported. Allergies No known drug allergies Medications Name Sig Start Date Stop Date Status Note LastModified by Organization Details LastModified Time amoxicillin 500 mg capsule 2015 completed Not Available Not Available Not Available fenofibrate 160 mg tablet 2015 completed Not Available Not Available Not Available Vitals Date Recorded Heart rate Oxygen saturation Oxygen saturation in Arterial blood by Pulse oximetry Body height Systolic blood pressure Diastolic blood pressure Provider Name and Address Organization Details Last Updated DateTime 6 72 /min 97 % 97 % 170.18 cm 144 mm[Hg] 85 mm[Hg] Pat Santos [place] [facility] 14:17:13 Date Recorded Pain severity - 0-10 verbal numeric rating [Score] - Reported Provider Name and Address Organization Details Last Updated DateTime 07/30/2016 5 Not Available [facility] 8 05:02:12 Date Recorded Body weight Body mass index (BMI) Provider Name and Address Organization Details Last Updated DateTime 07/30/2016 11036.44 g 32.1 kg/m2 Sharee Metzger MD [address] [employer] , [address], [place], [address], [place] [facility] 07/31/2016 09:35:33 Social History Question Answer Notes LastModified by Organizat ion Details LastModified Time Tobacco Smoking Status Never Smoker Not Available [facility] 09/14/2020 03:16:10 What Is Your Level Of Alcohol Consumption? Moderate [id number] Information not available 09/14/2020 Are You Currently Employed? Yes [id number] Information not available 09/14/2020 Which Illicit Or Recreational Drugs Have You Used? 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 With Others Information not available 07/30/2016 Marital Status [email or web address] Informatio n not available 07/30/2016 Sex: Unknown Functional Status None recorded. Mental Status None recorded. Family History Relationship Description Onset Age of this Age Resolved Age Notes LastModified by Organization Details LastModified Time Father No current problems or disability [email or web address] Not available 11/2015 10:05:01 Mother No current problems or disability [email or web address] Not available 11/2015 10:05:01 Medical History Condition Response Arthritis Y Past Encounters Encounter ID Performer Location Encounter Start Date Encounter Closed Date Diagnosis/Indication Diagnosis SNOMED-CT Code Diagnosis ICD10 Code Diagnosis Note [id number] Sharee Metzger MD PAIN OFFICE [address] [place] [address] 07/30/2016 13:54:14 07/31/2016 10:12:11 Plantar fasciitis 577516824 M72.2 Health Concerns Section Related Observation LastModified by Organization Detai ls LastModified Time None Recorded Concern Status LastModified by Organization Details LastModified Time None Recorded Advance Directives Directive None Recorded Payers Encounter Date Sequence Insurance Name Policy Number Policy Shaw Covered Member ID Shaw Member ID Guarantor Name 07/30/2016 1 [facility] [id number] Bhavesh Mojica [id number] Bhavesh Mojica Notes Date Note Type Note Provider Name and Address Organization Details Recorded Time 07/30/2016 text/html Bhavesh Mojica i s a 61 year old man with complaints of pain in his left heel. The pain started spontaneously in January 2016 and is becoming worse. Current pain level is 3/10 . High pain level is 5/10. Low pain level is 1/10. He describes the pain as an aching pain. He states he walks on a concrete floor when he is at work and at the end of the work day , his pain is severe in his left heel . He states he has flat feet and wears a Dr. Alston's insole. He has history of a calcaneal spur and is s/p surgery 20 years ago with good pain benefit. Pain does affect his sleep and has pain in his left heel at night. He has trialed Naprosen with some pain benefit. Sharee Metzger MD [address] [place] [address] , [address], [place], [address], [facility] 08/08/2016 08:30:56
== END 2025-02-08 11:03 | disposition home or self-care (01) ==
LOC: HO.BBR 11:02
PROVIDERS: PCP Internal Medicine; Visit Provider Internal Medicine Gastroenterology
DX: E83.110 Hereditary hemochromatosis (principal)
CPT/HCPCS: 36415; 82728; 83540; 85025

== ENCOUNTER 2025-04-13 10:00 | Outpatient (REF) | payer MEDICARE, SELFPAY ==
--- OUTSIDE RECORDS SUMMARY | 2025-04-13 10:56 | XMS_ITS | Encounter Summary ---
Author Organization [facility] Address [address] [place] [address] Care Team Providers Care Student Teaching Coordinator Name Role Phone Unavailable Primary Care Provider Unavailabl e Encounter Details Date Type Department Care Team (Late st Contact Info) Description 12/06/2024 Lab Requisition [facility] - Main Lab [address] [facility] [address] [place] [address] Kar Gan MD [address] [place] [address] Elevated prostate specific antigen (PSA) [...] (12/05/2024) Final Diagnosis A. 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 Prostate, Left Lateral [place] (Core Biopsy): - Benign prostate tissue. C. Prostate, Left Middle Middle (Core Biopsy): -PROSTATIC ACINAR ADENOCARCINOMA CONVENTIONAL (USUAL) TYPE -Luquillo Score: (4+3=7), Grade Group 3 -Percentage Pattern: [...] 0, 5 % H. Prostate, Right Middle [place] (Core Biopsy): - Benign prostate tissue. I. Prostate, Right Lateral [place] (Core Biopsy): - Benign prostate tissue. J. Prostate, Right Middle Middle (Core Biopsy): - Benign prostate tissue. K. Prostate, Right Lateral Middle (Core Biopsy): - Benign prostate tissue. L. Prostate, Right Middle Base (Core Biopsy): - Benign prostate tissue. M. Prostate, Right Lateral Base (Core Biopsy): - Benign prostate tissue. 12/15/2024 12:14 PM [facility] Clinical Information Elevated PSA Last PSA free = 12.6 (10/24/2024) [id number] 12/15/2024 12:14 PM [facility] Gross Description A. Prostate, Left Mid Ellsworth Biopsy: Received, properly labeled, are two H [...] two unstained slides. H. Prostate, Right Mid [place] Biopsy: Received, properly labeled, are two H and E stained slides and two unstained slides. I. Prostate, Right Lat [place] Biopsy: Received, properly labeled, are two H [...] unstained slides. /al 12/15/2024 12:14 PM EST [facility] Disclaimer Unless otherwise specified, all tissue is 10% NB formalin fixed and paraffin embedded. Technical pathology services provided by [facility] at [address] [place] [address] [address], [place] [address] (CLIA #[id number]/Lina Lopez MD, Cover Making Machine Operator) 12/15/2024 12:14 PM EST [facility] Tissue Prostate / Unknown 12/05/20242024 4:22 PM EST Tissue specimen (specimen) Prostate / Unknown 12/05/2024 12/06/2024 4: 22 PM EST Tissue specimen (specimen) Prostate / Unknown 12/05/2024 12/06/2024 4: 22 PM EST Tissue specimen (specimen) Prostate / Unknown 12/05/2024 12/06/2024 4: 22 PM EST Tissue specimen (specimen) Prostate / Unknown 12/05/2024 12/06/2024 4: 22 PM EST Tissue specimen (specimen) Prostate / Unknown 12/05/2024 12/06/2024 4: 22 PM EST Tissue specimen (specimen) Prostate / Unknown 12/05/2024 12/06/2024 4: 22 PM EST Tissue specimen (specimen) Prostate / Unknown 12/05/2024 12/06/2024 4: 22 PM EST Tissue specimen (specimen) Prostate / Unknown 12/05/2024 12/06/2024 4: 22 PM EST Tissue specimen (specimen) Prostate / Unknown 12/05/2024 12/06/2024 4: 22 PM EST Tissue specimen (specimen) Prostate / Unknown 12/05/2024 12/06/2024 4: 22 PM EST Tissue specimen (specimen) Prostate / Unknown 12/05/2024 12/06/2024 4: 22 PM EST Tissue specimen (specimen) Prostate / Unknown 12/05/2024 12/06/2024 4: 22 PM EST us Kar Gan MD LAB PATHOLOGY ORDERABLES Final Result [facility] ([facility]) [facility] [address] [place] [address], documented in this encounter Visit Diagnoses Diagnosis Elevated prostate specific antigen (PSA) documented in this encounter
--- OUTSIDE RECORDS SUMMARY | 2025-04-13 10:56 | XMS_ITS ---
Author Organization Richard Amado MD Address [address] [place], [place] [id number] Care Team Providers Care Budget Specialist Name Role Phone Ingris Richard Primary Care Provider Allergies No Known Allergies REASON FOR VISIT chest congested, coughing, fever 100.1 covid neg today c/o chills, sore throat last week, x 1 week is positive for Flu, Video [phone] Medications Medication SIG (Take, Route, Frequency, Duration) [...] Richard Amado MD [address] [place], [place] [id number] 02/16/2025 Richard Amado Influenza J11.1 Assessments Encounter [...] Details Provider Name:Richard lucas, 06/06/2025 07:45:00 AM, [address] [place] [address], [address], [place], [place], [id number], Provider Name:Richard lucas, 06/13/2025 02:30:00 PM, [address] [place] [address], [address], [place], [place], [id number], Progress Notes * Bhavesh RUCKER PDOB: [birth year] (70 yo M)Acc No.[id number]:02/16/2025 Patient:?Bhavesh RUCKER Provider:?Richard Amado MD :1955???Age:70 Y???Sex:Male Hernan e:02/16/2025 Address:[address] [place], [place] [id number] Subjective: * Chief Complaints: * ???chest congested, coughing , fever 100.1 covid neg today c/o chills, sore throat last week, x 1 week is positive for FluVideo [phone] * HPI: ???Symptom(s):?Telehealth?Location of provider rendering services:?[address], [address],?Location of patient:?at address listed in demographics for today's visit,?Patient identification confirmed using:?Name, ,?Telehealth method:?Telephone only. Patient not visible to care provider.,?Consent:?Patient verbally consented to treatment, Patient verbally consented to billing insurance company, Patient informed of any privacy concerns related to method of visit,?Total time spend talking with patient (minutes)?18.?patient is 70 yo male audio telehealth visit, with complaint of chest congestion, fever, sore throat last week, ois positive for flu. tested positive. started 4 days ago and then started with fever and coughing a lot. * ROS:?General/Constitutional:?Admits?Chills.?Denies?Fatigue.?Admits?Fever.?Denies?Headache.?ENT:?Patient denies?decreased sense of smell, any loss of taste.?Denies?Sore throat.?Respiratory:?Admits?Cough.?Denies?Shortness of breath at rest.?Admits?Shortness of breath with exertion.?Denies?Sputum production.?Gastrointestinal:?Denies?Diarrhea.?Denies?Nausea.?Musculoskeletal:?Patient denies?muscle aches.?Peripheral Vascular:?Patient denies?red and blue toes.? * Medical History:? * Surgical History:? * Hospitalization/Major Diagno stic Procedure:? * Medications:?DiscontinuedPax lovid (300/100) 20 x 150 MG & 10 x 100MG Tablet Therapy Pack 3 tablets Orally Twice a day Medication List reviewed and reconciled with the patientDiscontinued Paxlovid (300/100) 20 x 150 MG & 10 x 100MG Tablet Therapy Pack 3 tablets Orally Twice a day Medication List reviewed and reconciled with the patient * Allergies:?N.K.D.A.yes[Aller gies Verified] Objective: * Vitals:?Ht: 67, Wt: 162, BMI :25.37, Temp:101.1, Wt-k.48. weight at home is 162? Temp 100.1. * Examination: ???General Examination: ?GENERAL APPEARANCE:?alert, well hydrated, in no distress.?HEAD:?normocephalic.? Assessment: * Assessment: 1.?Influenza - J11.1 (Primar y)??? Plan: * Treatment: * Procedure Codes:? * * Sign off status: Completed true * Provider:?Richard Amado MD Date:?0 02/16/2025 Generated for Liza joaquin/Isaak/eTransmitting on:?04/13/2025 10:56 AM EDT History and Physical Notes * HPI (History of Present Illness) Category Sub-Category Detail Notes Category Not es Symptom(s) Telehealth Location of [facility] rendering services:: [address], [address] [...]
--- OUTSIDE RECORDS SUMMARY | 2025-04-13 10:56 | XMS_ITS | Clinical Summary ---
Author Organization [address] [facility] Address [address] [place] [address] Phone Care Team Providers Care District Court Bailiff Name Role Phone Unavailable Primary Care Provider Unavailabl e Social History Tobacco Use Types Packs/Day Years [...] 1973 Zoster Vaccines (1 of 2) 1973 Abdominal Aortic Aneurysm (A AA) Screen 01/07/2025 Cholesterol Screening (Lipid Panel) 01/07/2025 Colorectal Cancer Screening: Colonoscopy 01/07/2025 Depression Screening 01/07/2025 Falls Risk Assessment 01/07/2025 Hepatitis C Screening 01/07/2025 Social Influencers of Health Screening 01/07/2025 Influenza Vaccine (Season Ended) 2025 RSV Immunization Adult Patie nts (1 - 1-dose 75+ series) 2029 HIB [...] age to complete this topic Meningococcal B Vaccine Aged Out No l onger eligible based on patient's age to complete this topic RSV Immunization Patients Un elier 20 months Aged Out No longer eligible b ased on patient's age to complete this topic Varicella Vaccines Aged Out No longer eligible based on patient's age to complete this topic Insurance [employer] [place] [employer]
--- OUTSIDE RECORDS SUMMARY | 2025-04-13 10:56 | XMS_ITS | Patient Health Record ---
Author Organization Richard Amado MD Address [address] [place], [place] [id number] Care Team Providers Care Analytical Chemistry Teacher Name Role Phone Ingris Richard Primary Care Provider Allergies No Known Allergies Results Component Value Reference Range Notes Complete Blood Count Auto Di ff Reviewed date:05/31/2024 12:40:56 PM Interpretation: Performing Lab:[facility], [address] [place] [phone] Notes/Report: White Blood Count 5.5 4.8-10.8 X10*3/uL Red Blood Count 4.51 4.60-5.80 X10*6/uL Hemoglobin 11.9 14.0-18.0 g/dl Hematocrit 37.4 42.0-52.0 % Mean Corpuscular Volume 82.9 80.0-98.0 fL Mean Corpuscular Hemoglobin 26.4 27.0-33.0 pg Mean Corpuscular HGB Conc 31.8 31.0-36.0 g/dl Red Cell Distribution Width 19.3 11.0-16.0 % Platelet Count 128 160-400 X10*3/uL Mean Platelet Volume 10.7 9.4-12.4 fL Neutrophils Percent Auto 48.7 45-73 % Imm Gran Pct Auto 0.2 0.0-0.4 % Lymphocytes Percent Auto 36.1 20-40 % Monocytes Percent Auto 11.7 2-11 % Eosinophils Percent Auto 2.2 0-4 % Basophils Percent Auto 1.1 0-2 % NRBC Pct Auto 0.0 0.0-0.2 /100WBC Neutrophils Absolute Auto 2.7 2.0-8.3 x10*3/uL Imm Gran Abs Auto 0.01 0.00-0.03 X10*3/uL Lymphocytes Absolute Auto 2.0 1.2-4.9 X10*3/uL Monocytes Absolute Auto 0.6 0.1-1.2 X10*3/uL Eosinophils Absolute Auto 0.1 0.0-0.4 X10*3/uL Basophils Absolute Auto 0.1 0.0-0.2 X10*3/uL NRBC Abs Auto 0.000 0.0-0.012 X10*3/uL Lipid Panel Reviewed date:05/31/2024 12:52:07 PM Interpretation: Performing Lab:[facility], [address] [place] [phone] Notes/Report: Triglycerides 79 <150 mg/dL Desirable Triglyceride: less than 150 mg/dL Borderline High Triglyceride 150-199 mg/dL High Triglyceride: 200-499 mg/dL Very High Triglyceride: greater than or equal to 5OO mg/dL Cholesterol 161 <200 mg/dL Desirable Cholesterol: less than 200 mg/dL Borderline High Cholesterol: 200-239 mg/dL High Cholesterol: greater than 239 mg/dL LDL Cholesterol Calculated 89 <100 mg/dL Desirable LDL: less than 100 mg/dL Near Optimal/Above Optimal LDL: 110-129 mg/dL Borderline High LDL: 130-159 mg/dL High LDL: 160-189 mg/dL Very High LDL: greater than or equal to 190 mg/dL HDL Cholesterol 57 >40 mg/dL Desirable HDL: greater than 40 mg/dL Note: This HDL assay may give artificially low results in patients with liver disease. PSA,Total (Free>4and<10) Reviewed date:06/10/2024 01:28:57 PM Interpretation:see back 06-10-24 Performing Lab:[address] [address] Notes/Report: PSA,Total (Free>4and<10) 9.05 0.00-4.00 ng/mL PSA methodology: Rivas Alinity i Chemiluminescent Microparticle Immunoassay (CMIA) Microalbumin, Random Reviewed date:05/31/2024 02:54:03 PM Interpretation: Performing Lab:[facility], [address] [place] [phone] Notes/Report: Creatinine Urine 96.08 Microalbumin Urine < 5.0 Microalbum/Creatinine Ratio Ur TNP <30 ug/mg cr Unable to calculate albumin/creatinine ratio due to low microalbumin or creatinine result. Hemoglobin A1c Reviewed date:05/31/2024 12:41:56 PM Interpretation: Performing Lab:[address] [phone] Notes/Report: Hemoglobin A1c % 6.2 <6.0 % Hemoglobin A1C Reference Range Adults: 4.8 - 6.0 % Non diabetic: < 6.0 % Goal: < 7.0 % Additional Action Suggested: > 8.0 % Note: Hemoglobin A1c results are invalid for patients with abnormal amounts of HbF. Blood transfusions may impact the HbA1c concentration in the patient sample. Estimated Average Glucose 131 eAG = Estimated average glucose which is %A1C expressed as average glucose, using the formula of the A4D-Dnrzkno Average Glucose study (ADAG), Diabetes Care, Vol.31,#8, Jun. 2007 UA ClnCatch+Micro w/rflx Cul t Reviewed date:05/31/2024 02:55:00 PM Interpretation: Performing Lab:[facility], [address] [place] [phone] Notes/Report: Urine, Clean Catch Color Urine Yellow Appearance Urine Clear PH 6.5 5.0-9.0 Glucose Urine UA Negative Negative mg/dL Urine Blood Negative Negative Specific [place] - Urine 1.015 1.005-1.025 Urine Protein Negative Neg-Trace mg/dL Urine Ketones Negative Negative mg/dL Nitrite Urine Negative Negative Leukocyte Esterase Urine Negative Negative RBC Urine 0-2 0-2 /HPF WBC Urine 0-5 0-5 /HPF Squamous Epithelial Cell Urine 0-2 0-2 /HPF Bacteria Urine None Seen None Seen Hyaline Casts Urine 0-2 0-2 /LPF Comprehensive Met. Panel Reviewed date:05/31/2024 12:53:03 PM Interpretation: Performing Lab:[facility], [address] [place] [phone] Notes/Report: Sodium 143 135-145 mmol/L Potassium 4.1 3.3-5.1 mmol/L Chloride 110 96-108 mmol/L Carbon Dioxide 24 22-29 mmol/L Anion Gap 13 12-20 Blood Urea Nitrogen 14 9-16 mg/dL Creatinine 0.81 0.5-1.4 mg/dL Estimated Glomerular Filt Rate > 60 NOTE: For -Somali individuals, multiply the result by 1.210. Chronic Kidney Disease: Estimated GFR < 60 mL/min/1.73m2 Severe Kidney Disease: Estimated GFR < 15 mL/min/1.73m2 Glucose Random 121 60-115 mg/dL Calcium 9.2 8.4-10.2 mg/dL Bilirubin Total 0.6 0.0-1.0 mg/dL Aspartate Amino Transferase 44 5-37 U/L Alanine Aminotransferase 47 0-40 U/L Total Protein 7.1 6.5-8.0 g/dL Albumin Level 3.9 3.5-5.0 g/dL Alkaline Phosphatase 82 39-117 U/L PSA Free and Total Reviewed date:06/10/2024 01:26:53 PM Interpretation:CBACK 06/10 PSA Performing Lab:[facility], [address] [place] [phone] Notes/Report: Prostate Specific Ag Total 9.9 < OR = 4.0 ng/mL Percent Free Prostate Spec Ag 8 >25 % (calc) PSA(ng/mL) Free PSA(%) Estimated(x) Probability of Cancer(as%) 0-2.5 (*) Approx. 1 2.6-4.0(1) 0-27(2) 24(3) 4.1-10(4) 0-10 56 11-15 28 16-20 20 21-25 16 >or =26 8 >10(+) N/A >50 References:(1)Yaneth edmond et al.:Urology 60: 469-474 (2002) (2)Michelle et al.:J.Urol 168: 922-925 (2001) Free PSA(%) Sensitivity(%) Specificity(%) < or = 25 85 19 < or = 30 93 9 (3)Michaelona et al.:UZIEL 277: 2569-4518 (1996) (4)Catalona et al.:UZIEL 279: 7257-3747 (1997) (x)These estimates vary with age, ethnicity, family history and SHAWNA results. (*)The diagnostic usefulness of % Free PSA has not been established in patients with total PSA below 2.6 ng/mL (+)In men with PSA above 10 ng/mL, prostate cancer risk is determined by total PSA alone. The Total PSA value from this assay system is standardized against the equimolar PSA standard. The test result will be approximately 20% higher when compared to the WHO-standardized Total PSA (Siemens assay). Comparison of serial PSA results should be interpreted with this fact in mind. PSA was performed using the Hiram Frantz Immunoassay method. Values obtained from different assay methods cannot be used interchangeably. PSA levels, regardless of value, should not be interpreted as absolute evidence of the presence or absence of disease. THIS TEST WAS PERFORMED AT: [facility] [address] [place] [phone] ALONZO GUARDADO MD Free Prostate Spec Ag 0.8 US carotid duplex BI Reviewed date:06/22/2024 08:18:31 PM Interpretation: Performing Lab: Notes/Report: [facility] [address] [place] [address] Ultrasound Report Signed Patient: Bhavesh Mojica MR#: [id number] : 1955 Acct:[id number] Age/Sex: 69 / M ADM Date: 06/21/24 Loc: HO.HMGCX Attending Dr: Richard Amado MD Ordering Physician: Richard Amado MD Date of Service: 06/21/24 Procedure(s): US carotid duplex BI Accession Number(s): [id number] cc: Richard Amado MD EXAMINATION: US EXTRACRANIAL CAROTID DUPLEX, BILATERAL CLINICAL INFORMATION: Right carotid bruit COMPARISON: None available. TECHNIQUE: Real-time ultrasound and Doppler techniques (integrating B-mode 2-D vascular images, Doppler spectral analysis and color-flow Doppler imaging) were utilized to interrogate the extracranial carotid arteries, the vertebral arteries and proximal subclavian arteries bilaterally. The degree of stenosis is determined by criteria similar to NASCET. FINDINGS: Right Side: 1. There is mild atherosclerotic plaque seen in the bifurcation/proximal ICA region. 2. The common carotid artery PSV proximally is 114 cm/s and distally 104 cm/s. 3. The proximal internal carotid artery velocities are 59 cm/s systolic and 16 cm/s diastolic. 4. The proximal external carotid artery PSV is 112 cm/s. 5. The vertebral artery shows antegrade flow. 6. The subclavian artery waveforms are normal. Left Side: 1. There is mild atherosclerotic plaque seen in the bifurcation/proximal ICA region. 2. The common carotid artery PSV proximally is 94 cm/s and distally 87 cm/s. 3. The proximal internal carotid artery velocities are 67 cm/s systolic and 22 cm/s diastolic. 4. The proximal external carotid artery PSV is 91 cm/s. 5. The vertebral artery shows antegrade flow. 6. The subclavian artery waveforms are normal. US/US carotid duplex BI IMPRESSION: 1. RIGHT: Minimal, non-hemodynamically significant stenosis of the proximal right internal carotid artery corresponding to a 0-49% stenosis by velocity criteria. 2. LEFT: Minimal, non-hemodynamically significant stenosis of the proximal left internal carotid artery corresponding to a 0-49% stenosis by velocity criteria. Dictated By: Jurgen Murguia Signed By: <Electronically signed by Jurgen Murguia in OV> 06/22/24 1038 DD/ 1135 TD/TT: Cartographic Designer: [facility] [address] [place] [address] [place] [address] Ultrasound Report Signed Patient: Jere Mojica MR#: [id number] : 1955 Acct:[id number] Age/Sex: 69 / M ADM Date: 06/21/24 Loc: HO.HMGCX Attending Dr: Richard Amado MD Ordering Physician: Richard Amado MD Date of Service: 06/21/24 Procedure(s): US carotid duplex BI Accession Number(s): [id number] cc: Richard Amado MD EXAMINATION: US EXTRACRANIAL RICHTER TID DUPLEX, BILATERAL CLINICAL INFORMATION: Right carotid bruit COMPARISON: None available. TECHNIQUE: Real-time ultrasound and Doppler techniques (integrating B-mode 2-D vascular images, Doppler spectral analysis and color-flow Doppler imaging) were utilized to interrog ate the extracranial carotid arteries, the vertebral arteries a nd proximal subclavian arteries bilaterally. The degree of stenosis i s determined by criteria similar to NASCET. FINDINGS: Right Side: 1. There is mild atherosclerotic plaque seen in the bifurcation/proximal ICA region. 2. The common caroti d artery PSV proximally is 114 cm/s and distally 104 cm/s. 3. The proximal internal carotid artery velocities are 59 cm/s systolic and 16 cm/s diastolic. 4. The proximal external carotid artery PSV is 112 cm/s. 5. The vertebral art fortunato shows antegrade flow. 6. The subclavian artery waveforms are normal. Left Side: 1. There is mild atherosclerotic plaque seen in the bifurcation/proximal ICA region. 2. The common caroti d artery PSV proximally is 94 cm/s and distally 87 cm/s. 3. The proximal internal carotid artery velocities are 67 cm/s systolic and 22 cm/s diastolic. 4. The proximal external carotid artery PSV is 91 cm/s. 5. The vertebral art fortunato shows antegrade flow. 6. The subclavian artery waveforms are normal. US/US carotid duplex BI IMPRESSION: 1. RIGHT: Minimal, non-hemodynamically significant stenosis of the proximal right inter nal carotid artery corresponding to a 0-49% stenosis by velocity criteria. 2. LEFT: Minimal, non-hemodynamically significant stenosis of the proximal left network intern al carotid artery corresponding to a 0-49% stenosis by velocity criteria. Dictated By: Jurgen Murguia Signed By: <Electronically signed by Jurgen Murguia in OV> 06/22/24 1038 DD/ 1135 TD/TT: Cartographic Designer: Reason For Referral No Information Medications Medication SIG (Take, Route, Frequency, Duration) Notes Start Date End Date Status Tamiflu 75 MG 1 capsule Orally Twi ce a day for 5 day(s) 02/16/2025 Active Immunizations Vaccine Route Administration Date Status Comme nts DECLINED, FLU Unknown 12/08/2013 Administered WILL NEVLadan R GET A FLU SHOT PPSV23 (Pnemovax) IM Intramuscular 05/10/2019 Administered Influenza High Dose IM Intramuscular 10/04/2019 Administer ed pt was given the vaccine at [facility] in [place]. Fluarix Quadrivalent Unknown 09/13/2020 Administered [facility] Covid Vaccine Unknown 01/04/2021 Administered Pfizer Covid Vaccine Unknown 01/25/2021 Administered Pfizer Prevnar 13 IM Intramuscular 02/25/2021 Administered Fluarix Quadrivalent IM Intramuscular 08/29/2021 Administe emma SARS-COV-2 Pfizer Unknown 10/07/2021 Administered Influenza High Dose IM Intramuscular 09/14/2023 Administer ed Flu Vaccine Unknown 08/03/2014 Refused PPSV23 (Pnemovax) Unknown 04/19/2015 Refused Flu Vaccine Unknown 10/09/2015 Refused Fluarix Quadrivalent Unknown 10/21/2016 Refused Social History Tobacco Use: Social History Observation [...] Problem Status W/U Status Risk Notes Problem Sciatica (15499820) Sciatica of right side (724.3) Active confirmed Problem 176023491 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) Active confirmed Problem 856821171 Tubular adenoma of colon (D12.6) Active confirmed Problem 475983313 Prostate cancer (C61) Active confirme d Problem 5903449 Prediabetes (R73.09) Active confirmed Problem 349981501 History of hemat uria (Z87.448) Active confirmed Problem 450357250 Mild aortic sten osis (I35.0) Active confirmed Problem 90232397 Atherosclerosis (I70.90) Active confirmed Problem 272903382 Pure hypercholesterolemia (E78.00) Active confirmed Problem Thrombocytopenic disorder (596775748) Decreased platelet count (D69.6) Active confirmed Problem 03505262 Aortic valve sherman nosis, etiology of cardiac valve disease unspecified (I35.0) Active confirmed Vital Signs Temperature 101.1 degrees Fahrenheit 02/16/2025 leonora ght at home is 162 Temp 100.1 Blood pressure diastolic 60 mm Hg 06/10/2024 Height 67 in 02/16/2025 weight at home is 162 Temp 100.1 Blood pressure systolic 112 mm Hg 06/10/2024 Weight 162 lbs 02/16/2025 weight at home is 162 Temp 100.1 BMI 25.37 kg/m2 02/16/2025 weight at home is 162 Temp 100.1 Encounters Encounter Location Date Provider Diagnosis Richard Amado MD [address] [place] [id number] 05/31/2024 Richard Amado Prediabetes R73.09 ; Other hemochromatosis E83.118 and Pure hypercholesterolemia E78.00 Richard Amado MD [address] [place] [id number] 06/10/2024 Richard Amado Mild aortic stenosis I35.0 ; Encounter for general adult medical examination with abnormal findings Z00.01 ; Right carotid bruit R09.89 ; Prostate cancer C61 and Other hemochromatosis E83.118 Richard Amado MD [address] [place] [id number] 07/21/2024 Richard Amado COVID-19 U07.1 Richard Amado MD [address] [place] [id number] 02/16/2025 Richard Amado Influenza J11.1 Richard Amado MD [address] [place] [address] Drive [address] [place] [id number] 02/13/2025 Richard Amado MD [address] [place] [address] Drive [address] [place] [id number] 07/18/2024 Richard Amado Atherosclerosis I70. 90 Assessments Encounter Date Diagnosis (ICD Code) Assessment Notes Treatment Notes Treatment Clinical Notes Section Notes 05/31/2024 Prediabetes (ICD-10 - R73.09) 05/31/2024 Other hemochromatosi s (ICD-10 - E83.118) 06/10/2024 Mild aortic stenosis (ICD-10 - I35.0) followed by cardiology 06/10/2024 Encounter for genera l adult medical examination with abnormal findings (ICD-10 - Z00.01) Labs reviewed and discussed with patient 07/21/2024 COVID-19 (ICD-10 - U07.1) patient verb;aized understanding of medication and directions for use 02/16/2025 Influenza (ICD-10 - J11.1) patient verbalized understanding of medication and directions for use 05/31/2024 Pure hypercholesterolemia (ICD-10 - E78.00) 06/10/2024 Right carotid bruit (ICD-10 - R09.89) THE ORDER WAS [place] [facility] [facility] 07/18/2024 Atherosclerosis (ICD -10 - I70.90) Order made and printed and put into the future order folder for . 06/10/2024 Prostate cancer (ICD -10 - C61) followed by urology 06/10/2024 Other hemochromatosi s (ICD-10 - E83.118) is going to have phlebotomies Plan Of Treatment Pending Test Test Name Order Date Electrocardiogram (EKG) 05/13/2018 Electrocardiogram (EKG) 05/19/2019 Electrocardiogram (EKG) 04/21/2016 Electrocardiogram (EKG) 05/05/2017 CT CHEST WITH CONTRAST 03/19/2017 MRI BRAIN W&WO CONTRAST 11/01/2012 XR CHEST 2 VIEW PA & LAT 03/17/2017 US CAROTID BILATERAL DOPPLER 06/10/2024 SARS COV2 RNA RT PCR 05/08/2020 US carotid duplex BI 07/18/2024 Next Appt Details Provider Name:Richard Santana ier, 06/06/2025 07:45:00 AM, [address] [place] [address], [address], [place], [place], [phone], Provider Name:Richard Santana ier, 06/13/2025 02:30:00 PM, [address] [facility], [address], [place], [place], [phone], Insurance Providers Payer Name Payer Address Payer Phone Subscriber Number Group Number Insured Name Patient Relationship to Insured Coverage Start Date Coverage End Date [employer] PLAN [address] [place] [phone] [id number] Bhavesh Mojica Self - patient is the insured 9 MEDICARE [address]IC [address] [place] [address] [id number] Mojica Eliasin Self - patient is the insured Medical (General) History Medical History History ICD Code colonoscopy 2007; colonoscop y done - 03/30/2013; colonoscopy done 11/12/[address] Lan; colonoscopy done 09/09/[address] Lan (repeat 3-5 depending on biopsy Endoscopy done 11/12/[address] Lan atherosclerosis on cta. doesn't want to take statins 12/23/2019 total left knee replaced by [facility](Dr Rayo) hematuria had evaluation 2014
--- OUTSIDE RECORDS SUMMARY | 2025-04-13 10:56 | XMS_ITS ---
Author Organization [facility] Address [address] [place] [address] Care Team Providers Care Bench Worker Binding Name Role Phone Richard Amado MD Primary [...] 10/19/2024 Encounters Encounter Location Date Provider Diagnosis [facility] [address] [place] [address] 10/19/2024 Dewey Lan Jr Hereditary hemochromatosis E83.110 [...] Provider Name:Dewey baird Jr, 10/18/2025 10:20:00 AM, [address] [place] [address], [address], [place], [address], Progress Notes * CARLOS RUCKERINDOB: (69 yo M)Acc No.[id number]:10/19/2024 Progress Notes Patient:?ROSY RUCKER Provider:?Dewey Lan MD :1955???Age:69 Y???Sex:Male Hernan e:10/19/2024 Address:[address] [place] [address] ZARA [id number] Pcp:Richard Amado MD Subjective: * Chief Complaints: [...] his urologist. ?He works part-time in the [employer] industry, and enjoys golfing and his family. [...] year??Weekly (3 points),?Points?8,?Interpretation?Positive.?Miscellaneous:?Marital status: . Occupation: retired line production cook. * Medications:?Taking Multi Vi tamin/Minerals - Tablet [...] MD Date:?1 12/19/2023 Generated for Liza joaquin/Isaak/Negaritting on:?04/13/2025 10:55 AM EDT History and Physical Notes * [...] Category Not es General Examination On exami nation today, he appears well. Skin is anicteric. Lungs are clear. Heart shows regular rate and rhythm. Abdomen is soft without focal masses or tenderness. Extremities are without edema.
--- OUTSIDE RECORDS SUMMARY | 2025-04-13 10:56 | XMS_ITS ---
Author Organization [facility] Address [address] [place] [address] Care Team Providers Care E Business Consultant Name Role Phone Richard Amado MD Primary Care Provider Conyvabj Lan Jr, Dewey Ramey REASON FOR VISIT labs Encounters Encounter Location Date Provider Diagnosis [facility] [address] [place] [phone] 10/13/2024 Dewey Lan Jr Plan Of Treatment Next Appt Details Provider Name:Dewey baird Jr, 10/18/2025 10:20:00 AM, [address] [facility], [address], [place], [address], Progress Notes * CARLOS RUCKERINDOB: (69 yo M)Acc No.[id number]:10/13/2024 Patient:?ALKACARLOSIN :1955???Age:69 Y???Sex:Male Address:[address] [place] [address] * true * Date:? Generated for Printi ng/Faxing/eTransmitting on:?04/13/2025 10:56 AM EDT
--- OUTSIDE RECORDS SUMMARY | 2025-04-13 10:56 | XMS_ITS | Data Portability ---
Author Organization [facility], PAIN OFFICE Address [address] [facility] [address] [place] [address] Care Team Providers Care Blooming Mill Supervisor Name Role Phone JOAQUIN YU Primary Care Provider [phone] Assessment Encounter Date Assessment Date Assessment LastModified [...] By Organization Details Last Modified Time 07/30/2016 [id number] He was advised against bed rest lasting longer than four days and to continue activities as tolerated. [email or web address] Not available 07/31/2016 10:11:18 Reason for Referral None Reported. Results Created Date Observation Date Name Description Value Unit Range Abnormal Flag Note LastModifiedBy Organization Detail LastModifiedTime 07/31/20 16 07/31/2016 XR, foot No observ ation record ed. [email or web address] [facility] Diagnosit Imaging Dept [address] [place], [address], 08/06/2016 14:25:46 Result Notes None recorded. Problems Name Problem SNOMED Code Status Onset Date Resolution Date Notes Provider Name and Address Organization Details Recorded Time Plantar fasciitis 699228157 Active Sharee carrillo MD [address] [facility] , [address], [place], [address], [place] [facility] 6 10:11:18 Problem Notes None recorded. Procedures Surgical History Date Name Laterality Status Provider Name and Address Organization Details Recorded Time 07/30/20 16 Plantar fascia injection under ultrasound guidance completed Sharee Metzger MD [address] [facility] , [address], [place], [address], [place] [facility] 07/31/2016 10:03:39 Arthroscopic Surgery completed Pat Santos [place] [facility] 07/30/2016 14:22:12 Joint Replacement completed Pat Santos [place] [facility] 07/30/2016 14:23:13 Imaging Results Imaging Date Name Status LastModified by Organiz ation Details LastModified Time 07/31/2016 XR, foot completed [email or web address] [facility] Diagnosit Imaging Dept [address] [place] [address], [address], 08/06/2016 14:25:46 Procedure Notes None recorded. Medical [...] Last Updated DateTime 07/30/2016 5 Not Available [facility] 8 05:02:12 Date Recorded Body weight Body mass index (BMI) Provider Name and Address Organization Details Last Updated DateTime 07/30/2016 03550.44 g 32.1 kg/m2 Sharee Metzger MD [address] , [address], [place], [address], [place] [facility] 07/31/2016 09:35:33 Social History Question Answer Notes LastModified by Organizat ion Details LastModified Time Tobacco Smoking Status Never Smoker Not Available [facility] 09/14/2020 03:16:10 Which Illicit Or Recreational Drugs Have You Used? No [id number] Information not available 09/14/2020 Education 2 Year College [email or web address] Information not available 07/30/2016 Live Alone Or With Others? With [email or web address] Information not available 07/30/2016 Marital Status [email or web address] Informatio n not available 07/30/2016 Sex: Unknown Functional Status Question Answer Note LastModified by Organizat ion Details LastModified Time What is your level of alcohol consumption? Moderate [id number] Information not available 09/14/2020 Are you currently employed? 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 Family History Relationship [...] SNOMED-CT Code Diagnosis ICD10 Code Diagnosis Note [id number] Sharee Metzger MD PAIN OFFICE [address] [place] [address] 07/30/2016 13:54:14 07/31/2016 10:12:11 Plantar fasciitis 948821353 M72.2 Health Concerns Section Related Observation LastModified by Organization Detly ls LastModified Time None Recorded Concern Status LastModified by Organization Details LastModified Time None Recorded Advance Directives Directive None Recorded Payers Encounter Date Sequence Insurance Name Policy Number Policy Shaw Covered Member ID Shaw Member ID Guarantor Name 07/30/2016 1 [facility] [id number] Bhavesh Mojica [id number] Bhavesh Mojica Notes Date Note Type Note [...] with some pain benefit. Sharee Metzger MD [address] [facility] , [address], [place], [address], [facility] 08/08/2016 08:30:56
--- OUTSIDE RECORDS SUMMARY | 2025-04-13 10:56 | XMS_ITS ---
Author Organization Richard Amado MD Address [address] [place] [id number] Care Team Providers Care Histopathologist Name Role Phone Ingris Richard Primary Care Provider [phone] REASON FOR VISIT HCC Risk Codes 06/13 Encounters Encounter Location Date Provider Diagnosis Richard Amado MD [address] [facility] [address] [place] [phone] 02/13/2025 Richard Amado Plan Of Treatment Next Appt Details Provider Name:Richard lucas, 06/06/2025 07:45:00 AM, [address] [place] [address], Suite [facility], [place], [place], [phone], Provider Name:Richard lucas, 06/13/2025 02:30:00 PM, [address] [place] [address], Suite [facility], [place], [place], [id number], Progress Notes * Bhavesh RUCKER PDOB: [birth year] (70 yo M)Acc No.[id number]:02/13/2025 Patient:Bhavesh ROSS :1955???Age:70 Y???Sex:Male Address:[address] [place] [address] [facility] naranjo [id number] * * Date:?
--- OUTSIDE RECORDS SUMMARY | 2025-04-13 10:56 | XMS_ITS | Data Portability ---
Author Organization [facility] Henry Valdovinos Msjuan jose [facility], [facility] Address [address] [place] [address] Care Team Providers Care Title Curator Name Role Phone JOAQUIN YU Primary Care Provider Assessment Encounter Date Assessment Date Assessment LastModified by Organization Details LastModified Time 12/08/2024 12/08/2024 Nature of diagnosis discussed with patient today. At this time I do feel he has a chronic rotator cuff tear of the right shoulder.. Discussed multiple treatment options to include anti-inflammat ories physical therapy and cortisone injections. Given the excellent response to the injection of the left shoulder recommended a cortisone injection in the right shoulder as well today. Patient agrees. Will follow-up in 4 to 6 months for repeat injection as needed [email or web address] Not available 12/08/2024 17:25:49 Plan of Treatment Reminders Order Date Submit Date Provider Last Modified By Organization Details Last Modified Time Details Appointments None recorded. Lab None recorded. Referral None recorded. Procedures None recorded. Surgeries None recorded. Imaging XR, shoulder, 2 or more view - room 213, R shoulder 4v 2024 025 [email or web address], [address], [address], [place], [address], 5 16:52:40 XR, shoulder, 2 or more view - rm 211. 4V L shoulder pain 2023 024 [email or web address] g [facility], [address], [address], [place], [address], 4 13:48:34 Medication Orders None recorded. Patient TargetsNo targets recorded. Patient InstructionsNo instructions recorded. Reason for Referral None Reported. Results Created Date Observation Date Name Description Value Unit Range Abnormal Flag Note LastModifiedBy Organization Detail LastModifiedTime 06/07/2006/07/2024 steve FLORES, 2 or more view http:/ [email or web address] ?Encry pted=s hAaTro YD8dLq bEUv6g %2BXZw aYqtaq 0bqfl% 2Fg9IQ a4ajBk vP9nXo QUaueC m3YtLR FvZlgJ JJ8mAn HZtai3 9s8407 AC0Kpb n%2BMV aDeUC8 mr84%3 D INTERFACE [facility] [address], [place], [address], 06/07/2024 11:29:14 06/07/20 24 06/07/2024 steve FLORES, 2 or more view [email or web address]:/ [email or web address] ?Encry pted=s hAaTro YD8dLq bEUv6g %2BXZw aYqtaq 0bqfl% 2Fg9IQ a4ajBk vP9nXo QUaueC m3YtLR FvZlgJ JJ8mAn HZtai3 0z9334 AC0Kpb n%2BMV aDeUC8 mr84%3 D INTERFACE [facility] [address], [place], [address], 06/07/2024 11:29:16 07/29/20 24 10/12/2019 imagi ng/di agnos tic resul t No observ ation record ed. [email or web address] Not Available 07/02 05:37:13 12/08/19 25 12/08/2024 steve FLORES, 2 or more view http:/ [email or web address] ?Encry pted=s hAaTro YD8dLq bEUv6g %2BXZw aYqtaq 0bqfl% 2Fg9IQ a4ajBk vP9nXo QUaueC m3YtLR FvZlgJ JJ8mAn HZtai3 0p8976 AC0Kqb 3%2BHV 6SkKiQ trMwF INTERFACE [facility] [address], [place], [address], 12/08/2024 15:31:06 12/08/19 25 12/08/2024 XR, steve thapa, 2 or more view http:/ [email or web address] ?Encry pted=s hAaTro YD8dLq bEUv6g %2BXZw aYqtaq 0bqfl% 2Fg9IQ a4ajBk vP9nXo QUaueC m3YtLR FvZlgJ JJ8mAn HZtai3 0i7730 AC0Kqb 3%2BHV 6SkKiQ trMwF INTERFACE [facility] [address], [place], [address], 12/08/2024 15:31:08 Result Notes None recorded. Problems Name Problem SNOMED Code Status Onset Date Resolution Date Notes Provider Name and Address Organization Details Recorded Time No complaints 759123077 Active Status : 'A'; Not Available [facility] 4 09:15:50 Osteoarthr itis of joint of right shoulder region 1300817385318 00 Active 2024 Maxx Hall PA-C [address], [place], [address] , [facility] 5 07:56:37 Osteoarthr itis of joint of left shoulder region 0397882307126 08 Active 2024 Maxx Hall PA-C [address], [place], [address] , [facility] 5 07:56:46 Problem Notes None recorded. Procedures Surgical History Date Name Laterality Status Provider Name and Address Organization Details Recorded Time 5 Sports Shoulder Bilateral completed Maxx Hall PA-C [address], [place], [address], [facility] 03/15/2025 07:56:27 5 Sports Shoulder Bilateral completed Bruce Pereira PA-C [address], [place], [address], [facility] 12/09/2024 08:53:24 4 Sports Shoulder completed Bruce Pereira PA-C [address], [place], [address], [facility] 06/07/2024 12:27:33 0 [facility] 12/08/2024 15:23:34 4 Hip Surgery completed [facility] 12/08/2024 15:23:34 Imaging Results Imaging Date Name Status LastModified by Organ [facility] Details LastModified Time 06/07/2024 XR, shoulder, 2 or more view completed INTERFACE [facility] [address], [place], [address], 06/07/2024 11:29:14 06/07/2024 XR, shoulder, 2 or more view completed INTERFACE [facility] [address], [place], [address], 06/07/2024 11:29:16 10/12/2019 imaging/diag nostic result completed [email or web address] Information not available 07/29/2024 05:37:13 12/08/2024 XR, shoulder, 2 or more view completed INTERFACE [facility] [address], [place], [address], 12/08/2024 15:31:06 12/08/2024 XR, shoulder, 2 or more view completed INTERFACE [facility] [address], [place], [address], 12/08/2024 15:31:08 Procedure Notes None recorded. Medical Equipment None Reported. Allergies No known drug allergies Medications Name Sig Start Date Stop Date Status Note LastModified by Organization Details LastModified Time azithromyci n 250 mg tablet 12/03 completed Not Available Not Available Not Available ciprofloxac in 500 mg tablet TAKE 1 TABLET BY MOUTH 1 HOUR BEFORE PROCEDURE AND 1 TABLET 10 HOURS AFTER PROCEDURE active Not Available Not Available No t Available triamcinolo ne acetonide 0.1 % topical cream active Not Available Not Available Not Available amoxicillin 500 mg tablet TAKE 4 TABLETS BY MOUTH 1 HOUR BEFORE DENTAL APPOINTME NT 12/03 completed Not Available Not Available Not Available oseltamivir 75 mg capsule TAKE 1 CAPSULE BY MOUTH TWICE DAILY FOR 5 DAYS active Not Available Not Available No t Available Paxlovid 300 mg (150 mg x 2)-100 mg tablets in a dose pack TAKE 3 TABLET BY MOUTH TWICE DAILY 12/03 completed Not Available Not Available Not Available Vitals Date Recorded Body height Provider Name an d Address Organization Details Last Updated DateTime 06/07/2024 167.64 cm OSKAR BECKER [facility] 06/07/2024 11:10:13 Date Recorded Body height Body mass index (BMI) Body weight Provider Name and Address Organization Details Last Updated DateTime 12/08/2024 167.64 cm 26.1 kg/m2 55810.96 g Malina Sung [facility] 12/08/2024 15:23:52 Date Recorded Body height Body mass index (BMI) Body weight Provider Name and Address Organization Details Last Updated DateTime 03/14/2025 167.64 cm 26.6 kg/m2 93131.74 g Malina Sung [facility] 03/14/2025 09:43:12 Social History Question Answer Notes LastModified by Organizat ion Details LastModified Time Tobacco Smoking Status Never Smoker Malina patterson [facility] 03/14/2025 09:43:04 What Is Your Relationship Status? [email or web address] Information not available 03/14/2025 Sex: Unknown Functional Status Question Answer Note LastModified by Organizat ion Details LastModified Time How many times per week do you consume alcohol? 5-7 times per week [email or web address] Information not available 03/14/2025 Do you use any illicit or recreational drugs? No [email or web address] Information not available 03/14/2025 Do you or have you ever used any other forms of tobacco or nicotine? No [email or web address] Information not available 03/14/2025 Do you or have you ever used e-cigarettes or vape? Never used electronic cigarettes [email or web address] Information not available 03/14/2025 Mental Status None recorded. Family History Nothing Reported. Medical History Condition Response Cancer Y Past Encounters Encounter ID Performer Location Encounter Start Date Encounter Closed Date Diagnosis/Indication Diagnosis SNOMED-CT Code Diagnosis ICD10 Code Diagnosis Note [id number] JOANN John [address] [place] [address] 06/07/2024 11:01:00 07/04/2024 15:16:38 Pain of left shoulder joint 0223120632 2097242 M25.512 Full thick ness rotator cuff tear 512749232 M75.122 You have been provided with a cortisone injection in order to reduce the pain and inflammati on that you are experienci ng. The injection consists of two medication s. Cortisone (an anti-infla mmatory that will take 48-72 hours to take effect) and Lidocaine (a numbing agent that will last 2-3 hours). Please note that not everyone will have a lasting response following the injection. PATIENT INSTRUCTIO NSOnce the Lidocaine wears off, you may have an increase in your pain. I recommend icing the affected area for 20 minutes 3-4 times per day.It is recommende d that you refrain from any high level activities using the joint or limb that was injected for approximat en 24-48 hours. Normal day-to-day activities are generally not a problem.PO SSIBLE SIDE EFFECTSInd ividuals with dark complexion s may experience some skin discolorat ion locally at the site of the injection. There is the possibilit y of an increase in discomfort within 48 hours following the injection. This is called a ? f lare? . To help minimize the chances of this, please see the post-injec tion instructio ns above.Ther e is a less than 1% chance of an infection. If you notice any signs of infection (redness, warmth, drainage, fever greater than 100 degrees) please call our office or contact us through the portal VIVEK. JOANN John [address] [place] [address] 12/08/2024 14:36:01 12/27/2024 13:23:34 Pain of right shoulder joint 1205792430 0085581 M25.511 Nontraumat ic complete rupture of rotator cuff of right shoulder 6622860610 645783 M75.121 You have been provided with a cortisone injection in order to reduce the pain and inflammati on that you are experienci ng. The injection consists of two medication s. Cortisone (an anti-infla mmatory that will take 48-72 hours to take effect) and Lidocaine (a numbing agent that will last 2-3 hours). Please note that not everyone will have a lasting response following the injection. PATIENT INSTRUCTIO NSOnce the Lidocaine wears off, you may have an increase in your pain. I recommend icing the affected area for 20 minutes 3-4 times per day.It is recommende d that you refrain from any high level activities using the joint or limb that was injected for approximat en 24-48 hours. Normal day-to-day activities are generally not a problem.PO SSIBLE SIDE EFFECTSInd ividuals with dark complexion s may experience some skin discolorat ion locally at the site of the injection. There is the possibilit y of an increase in discomfort within 48 hours following the injection. This is called a ? f lare? . To help minimize the chances of this, please see the post-injec tion instructio ns above.Ther e is a less than 1% chance of an infection. If you notice any signs of infection (redness, warmth, drainage, fever greater than 100 degrees) please call our office or contact us through the portal VIVEK. Nontraumat ic complete rupture of rotator cuff of left shoulder 5773739854 588683 M75.605 [id number] JOANN [facility] [address] [place] [address] 03/14/2025 09:32:45 04/03/2025 08:04:18 Osteoarthritis of joint of right shoulder region 1303653901 44146 M19.011 Osteoarthr itis of joint of left shoulder region 2434048719 28848 M19.012 Health Concerns Section Related Observation LastModified by Organization Detai ls LastModified Time None Recorded Concern Status LastModified by Organization Details LastModified Time None Recorded Advance Directives Directive None Recorded Payers Encounter Date Sequence Insurance Name Policy Number Policy Shaw Covered Member ID Shaw Member ID Guarantor Name 06/07/2024 1 [employer] PLAN (MEDICARE REPLACEMENT HMO) [id number] Bhavesh P P Mojica [id number] Bhavesh P Mojica 12/08/2024 1 [employer] MED[employer]ARE [employer]VANTAGE PLAN (MEDICARE REPLACEMENT HMO) [id number] Bhavesh P P Mojica [id number] Bhavesh P Mojica 03/14/2025 1 [employer] MEDIC[employer]VANTAGE PLAN (MEDICARE REPLACEMENT HMO) [id number] Bhavesh P P Mojica [id number] Bhavesh P Mojica Notes Date Note Type Note Provider Name and Address Organization Details Recorded Time 06/07/2024 text/html I am seeing the patient today under the supervision of{{ Dr. West#}} who was available but who did not see the patient. REASON FOR VISIT Patient comes to the office with known chronic rotator cuff tear of the {{left* Right Bilate ral}} shoulder. The patient has done well with conservative management for their shoulder pain. Recently reports increasing discomfort over the past several weeks without injury. Pain is generalized about the shoulder and discomfort is noted at night. PAST MEDICAL/SURGICAL HISTORY Current medications per intake sheet. PHYSICAL FINDINGS The patient is well appearing, in no apparent distress, alert and oriented to person, place and time. Gait is symmetric. No significant swelling, warmth or erythema about either shoulder. There is mild tenderness to palpation about the shoulder. Active range of motion of the shoulder is {{full* restricted}} with moderate pain through mid range manipulations. 4/5 strength of the shoulder. Good stability of the shoulder. Peripheral, vascular, lymphatic examination, skin, neurologic coordination, reflexes, sensation are within normal limits. 4 views of the left shoulder ordered obtained and independently reviewed today. Radiographs show no significant glenohumeral joint arthropathy. Has moderate AC joint arthritis. Type II acromion. May have some early migration of the humeral head but no significant changes regards to such. Does have chronic calcifications at the footprint of the rotator cuff suggestive of chronic rotator cuff disease. ASSESSMENT chronic rotator cuff tear PLAN The patient has done well with conservative management in regards to the shoulder. Continued conservative management recommended. Moderating activities with the upper extremity recommended also. See procedure note. Follow up as needed. Bruce Pereira PA-C [address] [facility] [address], [place], [address], [facility] 06/07/2024 12:28:22 12/08/2024 text/html I am seeing the patient today under the supervision of {{Dr. Daisy Adkins}} who was available but who did not see the patient. Patient comes in for recheck of left shoulder pain. And evaluation of right shoulder pain. Patient has history of chronic nonrepairable rotator cuff tear on the left without very well with conservative measures to include cortisone injection. Recently pain returned difficulty with overhead motions reaching out his back. No new injury. As for the right pain developed a couple months ago. Does not recall any injury to account for this. Feels very similar to the left shoulder. Pain of the lateral brachium, difficulty with overhead motions and reaching behind his back. no previous injuries or surgeries to the right shoulder. No recent modalities. Bruce Pereira PA-C [address] [facility] [address], [place], [address], [facility] 12/09/2024 08:54:01 03/14/2025 text/html I am seeing the patient today under the supervision of Dr. Julian who was available but who did not see the patient. REASON FOR VISIT Patient comes to the office with known bilateral shoulder arthritis and rotator cuff arthropathy. The patient has done well with conservative management for their shoulder pain. Recently reports increasing discomfort over the past several weeks without injury. Pain is generalized about the shoulder and discomfort is noted at night. PAST MEDICAL/SURGICAL HISTORY Current medications and surgeries were reviewed per intake sheet. PHYSICAL FINDINGS The patient is well appearing, in no apparent distress, alert and oriented to person, place and time. Gait is symmetric. No significant swelling, warmth or erythema about either shoulder. Bilateral shoulder exam : ROM reduced by 30 to 40 degrees in all planes, there is mild tenderness to palpation about the shoulder, moderate pain through mid range manipulations. 4/5 strength of the shoulder. Good stability of the shoulder. Peripheral, vascular, lymphatic examination, skin, neurologic coordination, reflexes, sensation are within normal limits. ASSESSMENT Bilateral shoulder rotator cuff arthropathy and osteoarthritis. PLAN The patient has done well with conservative management with regards to the shoulder. Continued conservative management recommended. Moderating activities with the upper extremity recommended also. Patient consents to repeating corticosteroid injection which was performed. Patient tolerated the injection well. Moderating activities with the upper extremity Next 48 hours recommended. The patient will follow up as symptoms require going forward. Maxx Hall PA-C [address], [place], [address], [facility] 03/15/2025 07:57:09
--- OUTSIDE RECORDS SUMMARY | 2025-04-13 10:57 | XMS_ITS | Patient Health Record ---
Author Organization [facility] Address [address] [place] [address] Care Team Providers Care Hydroelectric Plant Technician Name Role Phone Richard Amado MD Primary Care Provider Unavai Dewey Acevedo Jr Unavailable Allergies No Known Allergies Results Component Value Reference Range Notes Therapeutic Phlebotomy Reviewed date:05/26/2024 09:40:48 PM Interpretation: Performing Lab:[facility], [address] [place] [address] Notes/Report: THER/HGB 12.3 14.0-18.0 g/dL THER/HCT TNP 42.0-52.0 % Therapeutic Phlebotomy Phlebotomy Performed 500 mls drawn on 05/26/24. Please note that a copy of this report has been sent to the Primary Care Physician, the ordering physician and any physician designated by patient request. Therapeutic Phlebotomy Reviewed date:08/18/2024 10:15:39 AM Interpretation: Performing Lab:[facility], [address] [place] [address] Notes/Report: THER/HGB 13.1 14.0-18.0 g/dL THER/HCT TNP 42.0-52.0 % Therapeutic Phlebotomy Phlebotomy Performed 500 mls drawn on 08/15/24. Please note that a copy of this report has been sent to the Primary Care Physician, the ordering physician and any physician designated by patient request. Complete Blood Count Auto Di ff Reviewed date:10/13/2024 09:01:14 AM Interpretation: Performing Lab:[facility], [address] [place] [address] Notes/Report: White Blood Count 5.2 4.8-10.8 X10*3/uL [...] PROFILE Reviewed date:10/13/2024 09:01:06 AM Interpretation: Performing Lab:[facility], [address] [place] [address] Notes/Report: Iron 36 45-160 mcg/dL Total Iron Binding Capacity 296 228-428 mcg/dL Percent Iron Saturation 12 15-50 % Unsaturated Iron Binding 260 Ferritin Reviewed date:10/13/2024 09:01:00 AM Interpretation: Performing Lab:[facility], [address] [place] [address] Notes/Report: Ferritin 25 20-250 ng/mL Therapeutic Phlebotomy Reviewed date:10/13/2024 09:01:20 AM Interpretation: Performing Lab:[facility], [address] [place] [address] Notes/Report: THER/HGB TNP 14.0-18.0 g/dL Lab Results on file. Performed at [facility] on 10/12/24: Hgb: 12.6 g/dl Hct: 38.3 % THER/HCT TNP 42.0-52.0 % Therapeutic Phlebotomy Phlebotomy Performed 500 mls drawn on 10/12/24. Please note that a copy of this report has been sent to the Primary Care Physician, the ordering physician and any physician designated by patient request. Therapeutic Phlebotomy Reviewed date:12/14/2024 12:05:13 PM Interpretation: Performing Lab:[facility], [address] [place] [address] Notes/Report: THER/HGB 12.5 14.0-18.0 g/dL THER/HCT TNP 42.0-52.0 % Therapeutic Phlebotomy Phlebotomy Performed 500 mls drawn on 12/14/24. Please note that a copy of this report has been sent to the Primary Care Physician, the ordering physician and any physician designated by patient request. Complete Blood Count Auto Di ff Reviewed date:02/09/2025 08:06:30 AM Interpretation: Performing Lab:[facility], [address] [place] [address] Notes/Report: White Blood Count 5.0 4.8-10.8 X10*3/uL [...] Auto 0.000 0.0-0.012 X10*3/uL IRON PROFILE Reviewed date:02/09/2025 08:06:21 AM Interpretation: Performing Lab:[address] [address] Notes/Report: Iron 24 45-160 mcg/dL Total Iron Binding Capacity 308 228-428 mcg/dL Percent Iron Saturation 8 15-50 % Unsaturated Iron Binding 284 Ferritin Reviewed date:02/09/2025 08:06:12 AM Interpretation: Performing Lab:[facility], [address] [place] [address] Notes/Report: Ferritin 25 20-250 ng/mL Therapeutic Phlebotomy Reviewed date:02/09/2025 10:42:40 AM Interpretation: Performing Lab:[address] [address] Notes/Report: THER/HGB TNP 14.0-18.0 g/dL Lab Results on file. Performed at [facility] on 02/09/25: Hgb: 11.8 g/dl Hct: 36.8 % THER/HCT TNP 42.0-52.0 % Therapeutic Phlebotomy Phlebotomy Performed 500 mls drawn on 02/08/25. Please note that a copy of this report has been sent to the Primary Care Physician, the ordering physician and any physician designated by patient request. Therapeutic Phlebotomy Reviewed date:04/13/2025 10:34:06 AM Interpretation: Performing Lab:[facility], [address] [facility], [place] [address] Notes/Report: THER/HGB 11.0 14.0-18.0 g/dL THER/HCT TNP 42.0-52.0 % Therapeutic Phlebotomy TNP Reason: Pre-phlebotomy Hgb/Hct is below the established parameter for this patient. Please note that a copy of this report has been sent to the Primary Care Physician, the ordering physician and any physician designated by patient request. Reason For Referral No Information Medications Medication [...] Problem Status W/U Status Risk Notes Problem 979134064 Colon cancer screening (Z12.11) Active confirmed Problem 33218934 Hereditary hemochromatosis (E83.110) Active confirmed Problem Vascular insufficiency of intestine (62086804) Other vascular disorders of intestine (K55.8) Active confirmed Problem Diverticular disease of colon (470298898) Diverticulosis of large intestine without perforation or abscess without bleeding (K57.30) Active confirmed Problem 04434951 Other cirrhosis of liver (K74.69) Active confirmed Problem 701779862 Generalized abdominal pain (R10.84) Active confirmed Problem 081176853 Adenomatous poly p of colon, unspecified part of colon (D12.6) Active confirmed Problem 597597092 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 Vital Signs Temperature 97.8 degrees Fahrenheit 10/19/2024 Blood pressure diastolic 00 mm Hg 10/19/2024 Height 66.5 in 10/19/2024 Blood pressure systolic 000 mm Hg 10/19/2024 Weight 164 lb 6 oz lbs 10/19/2024 BMI 26.13 kg/m2 10/19/2024 Encounters Encounter Location Date Provider Diagnosis [facility] [address] [place] [address] 10/19/2024 Dewey Lan Jr Hereditary hemochromatosis E83.110 and Cirrhosis due to hemochromatosis E83.10 [facility] [address] [place] [address] 10/13/2024 Dewey Lan Jr [facility] [address] [place] [address] 02/09/2025 Dewey Lan Jr Assessments Encounter Date Diagnosis [...] Date BUN 12/05/2020 CREATININE 12/05/2020 LIVER PROFILE 06/25/2012 LIVER PROFILE 12/05/2020 LIPASE 12/05/2020 IRON + IBC (FE) 06/25/2012 FERRITIN 06/25/2012 CBC w/o DIFF 05/21/2021 CBC w/o DIFF 12/05/2020 CBC w/o DIFF 06/25/2012 CT ABD & PELVIS WITH CONTRAST 12/05/2020 US ABD 08/20/2022 US ABD 10/19/2023 Liver Fibrosis Pnl 10/19/2023 Future Test Test Name Order Date COLONOSCOPY 12/30/2012 UPPER GI ENDOSCOPY 07/29/2018 COLONOSCOPY 07/29/2018 COLONOSCOPY 08/03/2019 COLONOSCOPY 08/20/2022 Next Appt Details Provider Name:Dewey baird , 10/18/2025 10:20:00 AM, [address], [address], [place], [address], Insurance Providers Payer Name Payer Address Payer Phone Subscriber Number Group Number Insured Name Patient Relationship to Insured Coverage Start Date Coverage End Date [facility] [address] [place] [phone] [id number] ROSY RUCKER Self - patient is the [...]
--- OUTSIDE RECORDS SUMMARY | 2025-04-13 10:57 | XMS_ITS ---
Author Organization Richard Amado MD Address [address] [place], [place] [phone] Care Team Providers Care Senior Occupational Therapist Name Role Phone Ingris Richard Primary Care Provider Allergies No Known Allergies REASON FOR VISIT test positive for covid on 07-19-24 cell [phone] Video, c/o had chills , fatigue , [...] Amado MD [address] [place] [phone] 07/21/2024 Richard Amado COVID-19 U07.1 Assessments Encounter [...] Details Provider Name:Richard lucas, 06/06/2025 07:45:00 AM, [address] [place] [address], Suite [facility], [place], [place], [phone], Provider Name:Richard lucas, 06/13/2025 02:30:00 PM, [address] [place] [address], Suite [facility], [place], [place], [phone], Progress Notes * Bhavesh RUCKER PDOB: [birth year] (69 yo M)Acc No.[id number]:07/21/2024 Patient:?Bhavesh Rucker Provider:?Richard Amado MD :1955???Age:69 Y???Sex:Male Hernan e:07/21/2024 Address:[address] [place], [place] [phone] Subjective: * Chief Complaints: * ???test positive for covid o n 07-19-24 cell [phone] Videoc/o had chills , fatigue , sore throat , nonproductive cough, SOB, body aches, runny nose x 3days * HPI: ???Symptom(s):?Telehealth?Location of provider rendering services:?[address] [place] [address], [facility] [address],?Location of patient:?at address listed in [...] MD Date:?0 07/21/2024 Generated for Liza joaquin/Isaak/Yamileth on:?04/13/2025 10:57 AM EDT History and Physical Notes * HPI (History of Present Illness) Category Sub-Category Detail Notes Category Not es Symptom(s) Telehealth [facility] [address] [facility], [address] patient is a 69 yo [...]
--- OUTSIDE RECORDS SUMMARY | 2025-04-13 10:57 | XMS_ITS ---
Author Organization [facility] Address [address] [place] [address] Care Team Providers Care Cleaner And Polisher Name Role Phone Richard Amado MD Primary Care Provider Conyvabj Lan Jr, Dewey Ramey [phone] REASON FOR VISIT labs Encounters Encounter Location Date Provider Diagnosis [facility] [address] [place] [address] 02/09/2025 Dewey Lan Jr Plan Of Treatment Next Appt Details Provider Name:Dewey baird Jr, 10/18/2025 10:20:00 AM, [address] [facility], [address], [place], [address], Progress Notes * CARLOS RUCKERINDOB: (69 yo M)Acc No.[id number]:02/09/2025 Patient:?ROSY RUCKER :1955???Age:69 Y???Sex:Male Address:[address] [place] [address] * true * Date:? Generated for Printi ng/Faxing/eTransmitting on:?04/13/2025 10:56 AM EDT
== END 2025-04-13 10:01 | disposition home or self-care (01) ==
LOC: HO.BBR 10:00
PROVIDERS: PCP Internal Medicine; Visit Provider Internal Medicine Gastroenterology
DX: Z13.89 Encounter for screening for other disorder (principal)

== ENCOUNTER 2025-05-01 09:59 | Outpatient (AMB) | payer MEDICARE, SELFPAY ==
--- NOTE | 2025-05-01 10:09 | MHC.OFFVIS ---
Vital Signs 05/01/25 10:11 Height 5 ft 6.5 in Weight 163 lb 9.328 oz BMI 26.0 BP 130/60 Blood Pressure Location Lt brachial Position Sitting Pulse 71 Pulse Source Monitor Intake Visit Reasons: 1 year follow-up Intake Note: 1 yr f/up Public Relations Specialist Required: No Accompanied by: Self / Same As Patient Allergies No Known Allergies [No Known Allergies*] Allergy (Verified 10/01/22 09:48) Medication List - Last Reconciled 05/01/25 by Glenn Colorado MD ibuprofen 400 mg PO Q6H PRN multivitamin 1 tab PO DAILY HPI Comments Details: 70-year-old gentleman with mild aortic valve stenosis based on echocardiography from August 2021. He has been asymptomatic. No chest pain shortness of breath. No dizziness or syncope. Physically active without any exertional issues. Blood pressure control is good. 10/22/2023: He returns for follow-up. Repeat echocardiography has shown mild aortic valve stenosis again. He has no chest discomfort. He is saying when he goes up a hill in his backyard he gets out of breath. On a pain surface he does not get any symptoms. He is saying these symptoms are not new and have been happening for long time. No chest discomfort. 05/04/24: He returns for follow-up. He has been doing well. No chest pain or dizziness. he continues to get some shortness of breath going up hill but it is stable he does not feel limited by it. He said he played golf today and did well. 05/01/2025: Here for yearly follow-up. He has mild aortic valve stenosis. He has dyspnea on exertion going uphill especially if he is carrying some weight. No chest discomfort. No dizziness/syncope. [facility]LY [facility], [facility] Medical History Mild aortic stenosis Hemochromatosis Diverticulosis Cirrhosis Prostate cancer Surgical History History of esophagogastroduodenoscopy (EGD) H/O colonoscopy History of hip replacement Total knee replacement status Social History Alcohol intake: current Alcohol intake frequency: 3 or more drinks per day Patient Tobacco Use Status: Never used Tobacco Physical Exam Vital Signs: Last Vital Signs Pulse 71 05/01/25 10:11 BP 130/60 05/01/25 10:11 BMI result Body Mass Index 26.0 GENERAL APPEARANCE: in no acute distress, pleasant. NECK: no carotid bruit, no jugular venous distention. SKIN: no suspicious lesions, warm and dry. HEART: systolic murmur with preserved 2nd heart sound, regular rate and rhythm. LUNGS: clear to auscultation bilaterally. ABDOMEN: soft, nontender. EXTREMITIES: no edema. PERIPHERAL PULSES: equal. NEUROLOGIC: No gross deficits, AAO X 3 Office Procedures EKG Details: Sinus rhythm 71 beats per minute, rightward axis, nonspecific T-wave changes, QTC 449 milliseconds. 21559-Bstjrgyiusjiygnad, Complete Assessment & Plan Assessment & Plan (1) Aortic stenosis: Code(s): I35.0 - Nonrheumatic aortic (valve) stenosis Category: Medical Plan Pleasant 70-year-old gentleman who is here for follow-up. He has mild aortic valve stenosis. Last echocardiography was in 2022. We will repeat the echocardiogram to assess for any progression. By exam he has preserved 2nd heart sound and likely that this is not severe aortic valve stenosis at this point. He continues to have some dyspnea with activities. He is complaining that when he goes uphill or is carrying some weights he gets out of breath. No chest discomfort. We have decided to do exercise stress echocardiogram. He has nonspecific T-wave changes in the inferior leads and imaging will be required to increase the specificity of the exercise stress test. Blood pressure well controlled. Thank you for allowing me to participate in the care of your patient. Please feel free to contact me if you have any questions. Orders: Orders CA echo transthoracic complete Today I35.0 - Nonrheumatic aortic (valve) stenosis CA echo stress exercise Today R06.09 - Other forms of dyspnea Coding Level of Care Code Est Pt Level 4 (28020) Diagnoses Aortic stenosis I35.0 CPT Codes EKG - CPT: 66892-Dfmkuriyetuyrtgag, Complete ([id number])
[2025-05-01 10:11] VITALS: BP 130/60; PULSE 71; BMI 26.0
--- OUTSIDE RECORDS SUMMARY | 2025-05-01 10:52 | XMS_ITS | Data Portability ---
Author Organization ZARA Henry Valdovinos [facility] Address [address] [place] [address] Care Team Providers Care Corporate Concierge Name Role Phone JOAQUIN YU Primary Care [...] [facility], [address], [address], [place], [address], 5 16:52:40 XR, shoulder, 2 or more view - rm 211. 4V L shoulder pain 2023 024 [email or web address] g [facility], [address], [address], [place], [address], 4 13:48:34 Medication Orders None recorded. Patient TargetsNo targets recorded. Patient InstructionsNo instructions recorded. Reason for Referral None Reported. Results Created Date Observation Date Name Description Value Unit Range Abnormal Flag Note LastModifiedBy Organization Detail LastModifiedTime 06/07/2006/07/2024 steve FLORES, 2 or more view [email or web address] ?Encry pted=s hAaTro YD8dLq bEUv6g %2BXZw aYqtaq 0bqfl% 2Fg9IQ a4ajBk vP9nXo QUaueC m3YtLR FvZlgJ JJ8mAn HZtai3 4t0049 AC0Kpb n%2BMV aDeUC8 mr84%3 D INTERFACE [facility] [address], [place], [address], 06/07/2024 11:29:14 06/07/20 24 06/07/2024 steve FLORES, 2 or more view [email or web address] ?Encry pted=s hAaTro YD8dLq bEUv6g %2BXZw aYqtaq 0bqfl% 2Fg9IQ a4ajBk vP9nXo QUaueC m3YtLR FvZlgJ JJ8mAn HZtai3 7j9495 AC0Kpb n%2BMV aDeUC8 mr84%3 D INTERFACE [facility] [address], [place], [address], 06/07/2024 11:29:16 07/29/20 24 10/12/2019 imagi ng/di agnos tic resul t No observ ation record ed. [email or web address] Not Available 07/02 05:37:13 12/08/19 25 12/08/2024 steve FLORES, 2 or more view [email or web address] ?Encry pted=s hAaTro YD8dLq bEUv6g %2BXZw aYqtaq 0bqfl% 2Fg9IQ a4ajBk vP9nXo QUaueC m3YtLR FvZlgJ JJ8mAn HZtai3 6v7190 AC0Kqb 3%2BHV 6SkKiQ trMwF INTERFACE [facility] [address], [place], [address], 12/08/2024 15:31:06 12/08/19 25 12/08/2024 XR, steve thapa, 2 or more view [email or web address] ?Encry pted=s hAaTro YD8dLq bEUv6g %2BXZw aYqtaq 0bqfl% 2Fg9IQ a4ajBk vP9nXo QUaueC m3YtLR FvZlgJ JJ8mAn HZtai3 9r2270 AC0Kqb 3%2BHV 6SkKiQ trMwF INTERFACE [facility] [address], [place], [address], 12/08/2024 15:31:08 Result Notes None recorded. 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 Procedures Surgical History Date Name Laterality Status Provider Name and Address Organization Details Recorded Time 5 Sports Shoulder Bilateral completed Maxx Hall PA-C [address], [place], [address], [facility] 03/15/2025 07:56:27 5 Sports Shoulder Bilateral completed Bruce Pereira PA-C [address], [place], [address], [facility] 12/09/2024 08:53:24 4 Sports Shoulder completed Bruce Pereira PA-C [address], [place], [address], [facility] 06/07/2024 12:27:33 0 Knee Surgery completed [facility] 12/08/2024 15:23:34 4 Hip Surgery completed [facility] 12/08/2024 15:23:34 Imaging Results None recorded. Procedure Notes None recorded. Medical Equipment None [...] Not Available Vitals Date Recorded Body height Body mass index (BMI) Body weight Provider Name and Address Organization Details Last Updated DateTime 12/08/2024 167.64 cm 26.1 kg/m2 29208.96 g Malina [facility] 12/08/2024 15:23:52 Date Recorded Body height Body mass index (BMI) Body weight Provider Name and Address Organization Details Last Updated DateTime 03/14/2025 167.64 cm 26.6 kg/m2 34361.74 g Malina Sung [facility] 03/14/2025 09:43:12 Date Recorded Body height Provider Name an d Address Organization Details Last Updated DateTime 06/07/2024 167.64 cm OSKAR BECKER [facility] 06/07/2024 11:10:13 Social History Question Answer Notes LastModified by [employer] Details LastModified Time Tobacco Smoking Status Never Smoker Malina patterson, [facility] 03/14/2025 09:43:04 What Is Your Relationship Status? [email or web address] Information not available 03/14/2025 Sex: Unknown Functional Status Question Answer Note LastModified by [employer] Details LastModified Time How many times per week do you consume alcohol? 5-7 times per week [email or web address] Information not available 03/14/2025 Do you use any illicit or recreational drugs? No [email or web address] Information not available 03/14/2025 Do you or have you ever used any other forms of tobacco or nicotine? No [email or web address] Information not available 03/14/2025 Do you or have you ever used e-cigarettes or vape? Never used electronic cigarettes [email or web address] Information not available 03/14/2025 Mental Status None recorded. Family History Nothing Reported. Medical History Condition Response Cancer Y Past Encounters Encounter ID Performer Location Encounter Start Date Encounter Closed Date Diagnosis/Indication Diagnosis SNOMED-CT Code Diagnosis ICD10 Code Diagnosis Note [id number] JOANN John [address] [place] [address] 06/07/2024 11:01:00 07/04/2024 15:16:38 Pain of left shoulder joint 2974081722 5589295 M25.512 Full thick ness rotator cuff tear 022719249 M75.122 You have been provided with a [...] or contact us through the portal VIVEK. [id number] JOANN John [address] [place] [address] 12/08/2024 14:36:01 12/27/2024 13:23:34 Pain of right shoulder joint 5083116772 9639804 M25.511 Nontraumat ic complete rupture of rotator cuff of right shoulder 8265168651 390279 M75.121 You have been provided with a [...] rupture of rotator cuff of left shoulder 3284403435 957662 M75.820 [id number] JOANN [facility] [address] [place] [address] [place] [address] 03/14/2025 09:32:45 04/03/2025 08:04:18 Osteoarthritis of joint of right shoulder region 7631339844 95628 M19.011 Osteoarthr itis of joint of left shoulder region 0248425226 02625 M19.012 Health Concerns Section Related Observation LastModified by Organization Detai ls LastModified Time None Recorded Concern Status LastModified by Organization Details LastModified Time None Recorded Advance Directives Directive None Recorded Payers Encounter Date Sequence Insurance Name Policy Number Policy Shaw Covered Member ID Shaw Member ID Guarantor Name 06/07/2024 1 [employer]AGE PLAN (MEDICARE REPLACEMENT HMO) [id number] Bhavesh P P Mojica [id number] Bhavesh Mojica 12/08/2024 1 [employer] MED[employer]AGE PLAN (MEDICARE REPLACEMENT HMO) [id number] Bhavesh P P Mojica [id number] Bhavesh P Mojica 03/14/2025 1 [employer] MED[employer]AGE PLAN (MEDICARE REPLACEMENT HMO) [id number] Bhavesh P P Mojcia [id number] Bhavesh Mojica Notes Date Note Type Note Provider Name and Address Organization Details Recorded Time 06/07/2024 text/html I am seeing the patient today under the supervision ofDr. West who was available but who did not see the patient. REASON FOR VISIT Patient comes to the office with known chronic rotator cuff tear of the left shoulder. The patient has done well with [...] range of motion of the shoulder is full with moderate pain through mid range manipulations. [...] See procedure note. Follow up as needed. JOANN John [address] [facility], [place], [address], [facility] 06/07/2024 12:28:22 12/08/2024 text/html I am seeing the patient today under the supervision of who was available but who did not [...] to the right shoulder. No recent modalities. [address]ANN [address], [place], [address], [facility] 12/09/2024 08:54:01 03/14/2025 text/html I am seeing [...] require going forward. Maxx Hall PA-C [address], [place], [address], [facility] 03/15/2025 07:57:09
== END 2025-05-01 10:38 | disposition home or self-care (01) ==
LOC: HO.HCS 09:59
PROVIDERS: PCP Internal Medicine; Visit Provider Internal Medicine Cardiovascular Disease
DX: I35.0 Nonrheumatic aortic (valve) stenosis (principal)
CPT/HCPCS: 93010; 99214

== ENCOUNTER → 2025-05-01 09:59 | Outpatient (BNVA) | payer MEDICARE, SELFPAY | PROVIDERS: PCP Internal Medicine; Visit Provider Internal Medicine Cardiovascular Disease | DX: I35.0 Nonrheumatic aortic (valve) stenosis (principal); R06.09 Other forms of dyspnea | CPT/HCPCS: 93005; 99212 ==

== ENCOUNTER → 2025-05-31 10:53 | Outpatient (REF) | payer MEDICARE, SELFPAY ==
--- OUTSIDE RECORDS SUMMARY | 2025-02-13 06:27 | XMS_ITS ---
Author Organization Richard Amado MD Address [address] [place] [phone] Care Team Providers Care Supervisor Tree Trimming Name Role Phone Ingris Richard Primary Care Provider REASON FOR VISIT HCC Risk Codes 06/13 Encounters Encounter Location Date Provider Diagnosis Richard Amado MD [address] [facility] [address] [place] [phone] 02/13/2025 Richard Amado Plan Of Treatment Next Appt Details Provider Name:Richard lucas, 06/06/2025 07:45:00 AM, [address] [place] [address], Suite [facility], [place], [place], [phone], Provider Name:Richard lucas, 06/13/2025 02:30:00 PM, [address] [place] [address], Suite [facility], [place], [place], [phone], Progress Notes * Bhavesh RUCKER PDOB: [birth year] (70 yo M)Acc No.[id number]:02/13/2025 Patient: Bhavesh HAMMOND :1955 A ge:70 Y S ex:Male Address:[address] [place] [address] [place] [address] * true * Date: Generated for Liza joaquin/Isaak/Negaritting on: 0 05/31/2025 11:36 AM EDT
--- NOTE | 2025-05-31 10:56 | CA_ITS ---
Transthoracic Echocardiogram Patient (Last, First, Middle): Bhavesh Mojica P Gender: Male Date of : 1955 Age: 70 Procedure Date: 05/31/2025 Procedure Type: Transthoracic Echocardiogram Location: OP Height: 167.64 cm Weight: 72.58 kg BSA: 1.82 m2 Heart Rate: bpm BP: 148 / 62 mmHg Laboratory Tester: TO Referring MD: Glenn Colorado MD Hospice Rn: Dank Lowry MD Symptoms: I35.0 - Nonrheumatic aortic (valve) stenosis Study Quality: Adequate ECG Rhythm: Sinus Conclusions: - 1. Normal LV systolic function of 65-70% with impaired relaxation filling pattern 2. Mild calcific aortic stenosis with mean gradient of 20 mm Hg 3. Mild calcific mitral stenosis with mean gradient of 5 mm Hg 4. Normal calculated RV systolic pressure 5. Mildly dilated ascending aorta 3.8 cm 6. No pericardial effusion Findings Left Ventricle Normal left ventricular size, thickness, and systolic function. The visually estimated ejection fraction is between 65-70%. Spectral Doppler is indicative of an impaired relaxation filling pattern.Peak GLS is -18.4%, within normal limits. Right Ventricle Normal right ventricular cavity size and systolic function. Atria The left atrium is moderately dilated. There is no evidence of interatrial shunt. The right atrium is likely dilated. Aortic Valve There is moderate calcification of the aortic valve. There is mild thickening of the aortic valve. There is mild aortic valve stenosis. The peak aortic gradient is 34 mmHg.The mean gradient is 20 mmHg. The aortic valve area is 1.93 cm2. There is no aortic valve regurgitation. Mitral Valve There is moderate anterior and severe posterior mitral leaflet thickening. There is severe mitral annular calcification. There is trace mitral valve regurgitation. There is mild mitral valve stenosis. The mean mitral valve gradient is 5.00 mmHg. Pulmonic Valve The pulmonic valve is likely normal. Tricuspid Valve Normal tricuspid valve structure. There is trace tricuspid valve regurgitation. The right ventricular systolic pressure is normal. The right ventricular systolic pressure is 20 mmHg. Normal right atrial pressure. There is no evidence of pulmonary hypertension. Great Vessels The pulmonary artery was not well visualized. There is mild dilatation of the ascending aorta measuring 3.80 cm. Small plaque is seen in the sino tubular ridge. Venous The inferior vena cava is normal in size and collapses greater than 50% with inspiration. Pericardium/Pleural There is no evidence of pericardial effusion. Prior Study Comparison Changes noted compared to prior study dated: 09/30/2023. Mild calcific mitral stenosis is noted Measurements 2D Linear Measurements IVSd: 1.15 0.6-0.9/0.6-1.0 cm LVIDd: 3.38 3.9-5.3/4.2-5.9 cm LVIDd Index: 1.86 2.4-3.2/2.2-3.1 cm/m2 LVIDs: 2.09 2.0-3.6 cm LVPWd: 0.79 0.7-1.1 cm LA Diam: 3.30 2.7-3.8/3.0-4.0 cm LAIDs Index: 1.81 1.5-2.3 cm/m2 LV Mass: 116.17 67-162/88-224 g LV Mass Index: 63.83 43-95/49-115 g/m2 LVOT Diam: 2.20 3.0+(-)1.3 cm 2D Systolic Function EF 4C: 68.70 >55% EF 2C: 64.30 >55% EF BiP: 66.10 >55% Mitral Valve MV VTI: 0.54 MV Pk Dorian: 1.79 MV Mn Dorian: 1.12 MV Pk Grad: 13.00 MV Mn Grad: 6.00 MV Pk E: 1.21 MV PK A: 1.54 MV Decel Time: 320.00 E/A: 0.80 E'Lateral: 5.33 E'Medial: 4.35 E/E' Med: 27.80 E/E' Lat: 22.70 PHT: 94.00 MVA PHT: 2.34 MVA Continuity: 2.31 Decel [place]: 3.79 Aortic Valve AoV Pk Dorian: 2.92 AoV Mn Dorian: 2.13 AoV VTI: 0.65 AoV Pk Grad: 34.00 Aov Mn Grad: 20.00 CAITLIN Cont.VTI: 1.93 LVOT LVOT Pk Dorian: 1.45 LVOT Mn Dorian: 1.04 LVOT VTI: 0.33 LVOT Pk Grad: 8.00 LVOT Mn Grad: 5.00 LVOT Diam: 2.20 LVOT Area: 3.80 Diastolic Function MV Pk E: 1.21 MV Pk A: 1.54 E/A: 0.80 E'Medial: 4.35 E/E' Med: 27.80 E' Laterial: 5.33 E/E' Lat: 22.70 Right Ventricle TAPSE (mm): 24.30 TVS' Dorian: 15.40 Tricuspid Valve TR Pk Dorian: 2.06 TR Pk Grad: 17.00 RA Press: 3.00 RVSP: 20.00 Great Vessels Aorta Sinus of Valsalva: 3.45 2.0-3.[address] [place]: 2.54 1.7-3.4 cm Ao Asc: 3.80 2.1-3.4 cm Updated in Other Vendor System with Status of Final Dank Lowry MD electronically signed on 06/01/2025 9:42:09 AM with status of Final
--- OUTSIDE RECORDS SUMMARY | 2025-05-31 11:36 | XMS_ITS | Data Portability ---
Author Organization [facility] Henry Valdovinos [facility], [facility] Address [address] [place] [address] Care Team Providers Care Mix Technician Name Role Phone JOAQUIN YU Primary Care Provider [phone] Assessment Encounter Date Assessment Date Assessment LastModified [...] 6 months for repeat injection as needed [email or web address] Not available 12/08/2024 17:25:49 Plan of Treatment Reminders Order Date Submit Date Provider Last Modified By Organization Details Last Modified Time Details Appointments RECHECK 15 2024 01:00P Terry Pereira PA-C Not available Not available Not available Lab None recorded . Referral None recorded . Procedures None recorded . Surgeries None recorded . Imaging XR, shoulder , 2 or more view - room 213, R shoulder 4v 2024 025 lyndsay [facility], [address], [address], [place], [address], 12/08/2024 16:52:40 XR, shoulder , 2 or more view - rm 211. 4V L shoulder pain 2023 024 herminia [facility], [address], [address], [place], [address], 06/07/2024 13:48:34 Medication Orders None recorded . Patient TargetsNo targets recorded. Patient InstructionsNo instructions recorded. Reason for Referral None Reported. Results Created Date Observation Date Name Description Value Unit Range Abnormal Flag Note LastModifiedBy Organization Detail LastModifiedTime 06/07/20 24 06/07/2024 XR, shoul elier, 2 or more view http:/ [email or web address] ?Encry pted=s hAaTro YD8dLq bEUv6g %2BXZw aYqtaq 0bqfl% 2Fg9IQ a4ajBk vP9nXo QUaueC m3YtLR FvZlg JJ8mAn HZtai3 1g0952 AC0Kpb n%2BMV aDeUC8 mr84%3 D INTERFACE [facility] [address] [facility] [address], [place], [address], 06/07/2024 11:29:14 06/07/20 24 06/07/2024 XR, shoul elier, 2 or more view http:/ [email or web address] ?Encry pted=s hAaTro YD8dLq bEUv6g %2BXZw aYqtaq 0bqfl% 2Fg9IQ a4ajBk vP9nXo QUaueC m3YtLR FvZl JJ8mAn HZtai3 8l9240 AC0Kpb n%2BMV aDeUC8 mr84%3 D INTERFACE [facility] [address] [facility] [address], [place], [address], 06/07/2024 11:29:16 07/29/20 24 10/12/2019 constantino joaquin/donell sarmiento resul t No observ ation record ed. [email or web address] Not Available 07/02 05:37:13 12/08/19 25 12/08/2024 XR, shoul elier, 2 or more view http:/ [email or web address] ?Encry pted=s hAaTro YD8dLq bEUv6g %2BXZw aYqtaq 0bqfl% 2Fg9IQ a4ajBk vP9nXo QUaueC m3YtLR FvZlgJ JJ8mAn HZtai3 8u0475 AC0Kqb 3%2BHV 6SkKiQ trMwF INTERFACE [facility] [address], [address], 12/08/2024 15:31:06 12/08/19 25 12/08/2024 XR, shoul elier, 2 or more view http:/ [email or web address] ?Encry pted=s Linda YD8dLq bEUv6g %2BXZw aYqtaq 0bqfl% 2Fg9IQ a4ajBk vP9nXo QUaueC m3YtLR FvZlgJ JJ8mAn HZtai3 1h4811 AC0Kqb 3%2BHV 6SkKiQ trMwF INTERFACE [facility] [address], [address], 12/08/2024 15:31:08 Result Notes Documentation Provider Name and Address Organization Details Recorded Time Xr, Shoulder, 2 Or More View : [email or web address] Encrypted=qrWfQpeEF3mJlgC Uv6g%2SDDjhJrgce1abja%2Fg 5ZNh4fmKfqW3kSvWQreeVu4Rb IHRePflJJM2xMoEBemg82c603 0UR1Ramz%8RHEyFsVY7iw53%3 D Not Available [facility] 06/07/2024 11:29:15 Xr, Shoulder, 2 Or More View : [email or web address]? Encrypted=xwZnSzcEA7oCnlV Uv6g%9KFDesQegfw1nyqa%2Fg 4QDm4nyZptN3tXwZPdlpKk6Or BXQwXkqWYQ4uIqQHgmw09b822 0CZ5Jsxw%9UYTkBmHE5xf62%3 D Not Available [facility] 06/07/2024 11:29:17 Xr, Shoulder, 2 Or More View : [email or web address] Encrypted=nzKeOcnFP9kYjiF Uv6g%2SBNkbQlscs6ejti%2Fg 6LTp0mnOvdI3fTvSHqicVr9Pj YBFpOrsXLU5nPaSKxrh11c941 9GA5Eyy5%2YQA6VgIhZqxZbY Not Available [facility] 12/08/2024 15:3 1:06 Xr, Shoulder, 2 Or More View : [email or web address] 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 Procedures Surgical History Date Name Laterality Status Provider Name and Address Organization Details Recorded Time 5 Sports Shoulder Bilateral completed Maxx Hall PA-C [address], [place], [address], [facility] 03/15/2025 07:56:27 5 Sports Shoulder Bilateral completed Bruce Pereira PA-C [address], [place], [address], [facility] 12/09/2024 08:53:24 4 Sports Shoulder completed Bruce Pereira PA-C [address], [place], [address], [facility] 06/07/2024 12:27:33 0 Knee Surgery completed Malina [facility] 12/08/2024 15:23:34 4 Hip Surgery completed [facility] 12/08/2024 15:23:34 Imaging [...] Updated DateTime 12/08/2024 167.64 cm 26.1 kg/m2 43405.96 g [facility] 12/08/2024 15:23:52 Date Recorded Body height Body mass index (BMI) Body weight Provider Name and Address Organization Details Last Updated DateTime 03/14/2025 167.64 cm 26.6 kg/m2 37514.74 g Malina Sung [facility] 03/14/2025 09:43:12 Date Recorded Body height Provider Name an d Address Organization Details Last Updated DateTime 06/07/2024 167.64 cm OSKARSHOSHANA PIERSONLAKHWINDER [facility] 06/07/2024 11:10:13 Social History Question Answer Notes LastModified by [employer] Details LastModified Time Tobacco Smoking Status Never Smoker Malina Sung [facility] 03/14/2025 09:43:04 What Is Your Relationship Status? [email or web address] Information not available 03/14/2025 Sex: Unknown Functional Status Question Answer Note LastModified by [employer] Details LastModified Time How many times per week do you consume alcohol? 5-7 times per week Information not available 03/14/2025 Do you use any illicit or recreational drugs? No [email or web address] Information not available 03/14/2025 Do you or have you ever used any other forms of tobacco or nicotine? No Information not available 03/14/2025 Do you or have you ever used e-cigarettes or vape? Never used electronic cigarettes [email or web address] Information not available 03/14/2025 Mental Status None recorded. Family History Nothing Reported. Medical History Condition Response Cancer Y Past Encounters Encounter ID Performer Location Encounter Start Date Encounter Closed Date Diagnosis/Indication Diagnosis SNOMED-CT Code Diagnosis ICD10 Code Diagnosis Note [id number] JOANN John [address] [place] [address] 06/07/2024 11:01:00 07/04/2024 15:16:38 Pain of left shoulder joint 2971987470 4861619 M25.512 Full thick ness rotator cuff tear 711422649 M75.122 You have been provided with a [...] following the injection. This is called a flare . To help minimize the chances of this, please see the post-injec tion instructio ns above.Ther e is a less than 1% chance of an infection. If you notice any signs of infection (redness, warmth, drainage, fever greater than 100 degrees) please call our office or contact us through the portal VIVEK. [id number] JOANN John [address] [facility] 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 This is called a flare . To help minimize the chances of this, please see the post-injec tion instructio ns above.Ther e is a less than 1% chance of an infection. If you notice any signs of infection (redness, warmth, drainage, fever greater than 100 degrees) please call our office or contact us through the portal VIVEK. Nontraumat ic complete rupture of rotator cuff of left shoulder 0058796025 941493 M75.969 [id number] JOANN Rodriguez [facility] [address] [place] [address] [place] [address] 03/14/2025 09:32:45 04/03/2025 08:04:18 Osteoarthritis of joint of right shoulder region 9424994945 79684 M19.011 Osteoarthr itis of joint of left shoulder region 5359464780 20175 M19.012 Health Concerns Section Related Observation LastModified by Organization Detai ls LastModified Time None Recorded Concern Status LastModified by Organization Details LastModified Time None Recorded Advance Directives Directive None Recorded Payers Insurance Date Sequence Insurance Name Policy Number Policy Shaw Covered Member ID Shaw Member ID Guarantor Name 04/03/2025 1 [employer] MEDICARE ADVANTAGE PLAN (MEDICARE REPLACEMENT HMO) [id number] Bhavesh Mojica [id number] Bhavesh Mojica Notes Date Note Type Note [...] up as needed. Bruce Pereira PA-C [address], [place], [address], [facility] 06/07/2024 12:28:22 12/08/2024 text/html I am seeing [...] No recent modalities. Bruce Pereira PA-C [address], [place], [address], [facility] 12/09/2024 08:54:01 03/14/2025 text/html [...] require going forward. Maxx Hall PA-C [address], [place], [address], [facility] 03/15/2025 07:57:09
--- OUTSIDE RECORDS SUMMARY | 2025-05-31 11:36 | XMS_ITS | Patient Health Record ---
Author Organization [facility] Address [address] [place] [address] Care Team Providers Care Drum Dyeing Machine Operator Name Role Phone Richard Amado MD Primary Care Provider UnavaDewey Moran Jr Unavailable Allergies No Known Allergies Results Component Value Reference Range Notes Therapeutic Phlebotomy Reviewed date:08/18/2024 10:15:39 AM Interpretation: Performing Lab:[facility], [address] [place] [address] Notes/Report: THER/HGB 13.1 14.0-18.0 g/dL THER/HCT TNP 42.0-52.0 % Therapeutic Phlebotomy Phlebotomy Performed 500 mls drawn on 08/15/24. Please note that a copy of this report has been sent to the Primary Care Physician, the ordering physician and any physician designated by patient request. Complete Blood Count Auto Di ff Reviewed date:10/13/2024 09:01:14 AM Interpretation: Performing Lab:[facility], [address] [place] [address] Notes/Report: White Blood Count 5.2 4.8-10.8 X10*3/uL [...] PROFILE Reviewed date:10/13/2024 09:01:06 AM Interpretation: Performing Lab:[facility], [address] [place] [address] Notes/Report: Iron 36 45-160 mcg/dL Total Iron Binding Capacity 296 228-428 mcg/dL Percent Iron Saturation 12 15-50 % Unsaturated Iron Binding 260 Ferritin Reviewed date:10/13/2024 09:01:00 AM Interpretation: Performing Lab:[facility], [address] [place] [address] Notes/Report: Ferritin 25 20-250 ng/mL Therapeutic Phlebotomy Reviewed date:10/13/2024 09:01:20 AM Interpretation: Performing Lab:[facility], [address] [place] [address] Notes/Report: THER/HGB TNP 14.0-18.0 g/dL Lab Results on file. Performed at [facility] on 10/12/24: Hgb: 12.6 g/dl Hct: 38.3 % THER/HCT TNP 42.0-52.0 % Therapeutic Phlebotomy Phlebotomy Performed 500 mls drawn on 10/12/24. Please note that a copy of this report has been sent to the Primary Care Physician, the ordering physician and any physician designated by patient request. Therapeutic Phlebotomy Reviewed date:12/14/2024 12:05:13 PM Interpretation: Performing Lab:[address] [address] Notes/Report: THER/HGB 12.5 14.0-18.0 g/dL THER/HCT TNP 42.0-52.0 % Therapeutic Phlebotomy Phlebotomy Performed 500 mls drawn on 12/14/24. Please note that a copy of this report has been sent to the Primary Care Physician, the ordering physician and any physician designated by patient request. Complete Blood Count Auto Di ff Reviewed date:02/09/2025 08:06:30 AM Interpretation: Performing Lab:[facility], [address] [place] [address] Notes/Report: White Blood Count 5.0 4.8-10.8 X10*3/uL [...] PROFILE Reviewed date:02/09/2025 08:06:21 AM Interpretation: Performing Lab:[facility], [address] [place] [address] Notes/Report: Iron 24 45-160 mcg/dL Total Iron Binding Capacity 308 228-428 mcg/dL Percent Iron Saturation 8 15-50 % Unsaturated Iron Binding 284 Ferritin Reviewed date:02/09/2025 08:06:12 AM Interpretation: Performing Lab:[facility], [address] [place] [address] Notes/Report: Ferritin 25 20-250 ng/mL Therapeutic Phlebotomy Reviewed date:02/09/2025 10:42:40 AM Interpretation: Performing Lab:[facility], [address] [place] [phone] Notes/Report: THER/HGB TNP 14.0-18.0 g/dL Lab Results on file. Performed at [facility] on 02/09/25: Hgb: 11.8 g/dl Hct: 36.8 % THER/HCT TNP 42.0-52.0 % Therapeutic Phlebotomy Phlebotomy Performed 500 mls drawn on 02/08/25. Please note that a copy of this report has been sent to the Primary Care Physician, the ordering physician and any physician designated by patient request. Therapeutic Phlebotomy Reviewed date:04/13/2025 10:34:06 AM Interpretation: Performing Lab:[facility], [address] [place] [address] Notes/Report: THER/HGB 11.0 14.0-18.0 g/dL THER/HCT TNP [...] Problem Status W/U Status Risk Notes Problem 992227427 Colon cancer screening (Z12.11) Active confirmed Problem 96394399 Hereditary hemochromatosis (E83.110) Active confirmed Problem Vascular insufficiency of intestine (43760295) Other vascular disorders of intestine (K55.8) Active confirmed Problem Diverticular disease of colon (526377526) Diverticulosis of large intestine without perforation or abscess without bleeding (K57.30) Active confirmed Problem 13797540 Other cirrhosis of liver (K74.69) Active confirmed Problem 769456734 Generalized abdominal pain (R10.84) Active confirmed Problem 375335384 Adenomatous poly p of colon, unspecified part of colon (D12.6) Active confirmed Problem 763818058 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 Vital Signs Temperature 97.8 degrees Fahrenheit 10/19/2024 Blood pressure diastolic 00 mm Hg 10/19/2024 Height 66.5 in 10/19/2024 Blood pressure systolic 000 mm Hg 10/19/2024 Weight 164 lb 6 oz lbs 10/19/2024 BMI 26.13 kg/m2 10/19/2024 Encounters Encounter Location Date Provider Diagnosis [facility] [address] [place] [address] 10/19/2024 Dewey Lan Jr Hereditary hemochromatosis E83.110 and Cirrhosis due to hemochromatosis E83.10 [facility] [address] [place] [address] 10/13/2024 Dewey Lan Jr [facility] [address] [place] [address] 02/09/2025 Dewey Lan Jr Assessments Encounter Date [...] COLONOSCOPY 08/20/2022 Next Appt Details Provider Name:Dewey Sheba baird Jr, 10/18/2025 10:20:00 AM, [address], [address], [place], [address], Insurance Providers Payer Name Payer Address Payer Phone Subscriber Number Group Number Insured Name Patient Relationship to Insured Coverage Start Date Coverage End Date [facility] [address] [place] [address] [phone] [id number] ROSY RUCKER Self - patient is the [...]
--- OUTSIDE RECORDS SUMMARY | 2025-05-31 11:36 | XMS_ITS | Clinical Summary ---
Author Organization [address] [facility] Address [address] [place] [address] Phone Care Team Providers Care It Security Analyst Name Role Phone Unavailable Primary Care Provider [...] patient's age to complete this topic Insurance [place] [address] [employer] MED[employer] ADVANTAGE
== END ==
LOC: HO.CARD 10:53
PROVIDERS: PCP Internal Medicine; Visit Provider Internal Medicine Cardiovascular Disease
DX: I35.0 Nonrheumatic aortic (valve) stenosis (principal)
CPT/HCPCS: 93306

== ENCOUNTER → 2025-05-31 10:56 | Outpatient (BNV) | payer MEDICARE, SELFPAY | PROVIDERS: PCP Internal Medicine; Visit Provider Internal Medicine Cardiovascular Disease | DX: I35.0 Nonrheumatic aortic (valve) stenosis (principal); I35.8 Other nonrheumatic aortic valve disorders; I34.2 Nonrheumatic mitral (valve) stenosis; I34.81 Nonrheumatic mitral (valve) annulus calcification | CPT/HCPCS: 93306; 93356 ==

== ENCOUNTER 2025-06-06 10:15 | Outpatient (REF) | payer MEDICARE, SELFPAY ==
--- OUTSIDE RECORDS SUMMARY | 2025-02-13 06:27 | XMS_ITS ---
Author Organization Richard Amado MD Address [address] [place] [phone] Care Team Providers Care Merchandising Specialist Name Role Phone Richard Amado Primary Care Provider REASON FOR VISIT HCC Risk Codes 06/13 Encounters Encounter Location Date Provider Diagnosis Richard Amado MD 10 [facility] [address] [place] [phone] 02/13/2025 Richard Amado Plan Of Treatment Next Appt Details Provider Name:Richard Santana ier, 06/13/2025 09:30:00 AM, [address] [facility], Suite [facility], [place], [place], [phone], Progress Notes * Bhavesh RUCKER PDOB: [birth year] (70 yo M)Acc No.[id number]:02/13/2025 Patient: Bhavesh HAMMOND :1955 A ge:70 Y S ex:Male Address:[address] [place] [address] [place] [address] * true * Date: Generated for Liza joaquin/Isaak/Yamileth on: 06/06/2025 11:05 AM EDT
[2025-06-06 10:19] LABS: MANUAL DIFF FLAG NO
[2025-06-06 10:31] LABS: Hematocrit 34.3 % (42.0-52.0); Hemoglobin 11.2 g/dl (14.0-18.0); Imm Gran Abs Auto 0.03 X10*3/uL (0.00-0.03); Imm Gran Pct Auto 0.8 % (0.0-0.4); Lymphocytes Absolute Auto 0.7 X10*3/uL (1.2-4.9); Mean Corpuscular HGB Conc 32.7 g/dl (31.0-36.0); Mean Corpuscular Hemoglobin 29.5 pg (27.0-33.0); Mean Corpuscular Volume 90.3 fL (80.0-98.0); NRBC Abs Auto 0.000 X10*3/uL (0.0-0.012); NRBC Pct Auto 0.0 /100WBC (0.0-0.2); Platelet Count 100 X10*3/uL (160-400); Red Blood Count 3.80 X10*6/uL (4.60-5.80); White Blood Count 3.5 X10*3/uL (4.8-10.8)
[2025-06-06 10:38] LABS: Appearance Urine Clear; Glucose Urine UA Negative (Negative); PH 6.5 (5.0-9.0); Specific Gravity - Urine 1.015 (1.005-1.025)
[2025-06-06 10:39] LABS: Hemoglobin A1C 135.5404 umol/L; Total Hemoglobin (HGBA1C) 2954.5624 umol/L
[2025-06-06 10:55] LABS: Alanine Aminotransferase 105 U/L (0-40); Albumin Level 3.8 g/dL (3.5-5.0); Alkaline Phosphatase 120 U/L (39-117); Anion Gap 12 (12-20); Aspartate Amino Transferase 103 U/L (5-37); Blood Urea Nitrogen 12 mg/dL (9-16); Calcium 8.7 mg/dL (8.4-10.2); Carbon Dioxide 24 mmol/L (22-29); Chloride 111 mmol/L (96-108); Cholesterol 187 mg/dL (<200); Estimated Glomerular Filt Rate > 60; HDL Cholesterol 59 mg/dL (>40); Potassium 4.0 mmol/L (3.3-5.1); Sodium 143 mmol/L (135-145); Total Protein 6.6 g/dL (6.5-8.0); Triglycerides 92 mg/dL (<150)
--- OUTSIDE RECORDS SUMMARY | 2025-06-06 11:06 | XMS_ITS | Clinical Summary ---
Author Organization [address] [facility] Address [address] [place] [address] Phone Care Team Providers Care Global Sales Director Name Role Phone Unavailable Primary Care Provider [...] Influencers of Health Screening 01/07/2025 Influenza Vaccine (#1) 2025 RSV Immunization Adult Patie nts (1 [...] patient's age to complete this topic [place] [place] [id number] [employer] [place] MED[place] ADVANTAGE
--- OUTSIDE RECORDS SUMMARY | 2025-06-06 11:06 | XMS_ITS | Data Portability ---
Author Organization [facility] Henry Valdovinos [facility], [facility] Address [address] [place] [address] Care Team Providers Care Ice Resurfacing Machine Operators Name Role Phone JOAQUIN YU Primary Care [...] [facility], [address], [place], [address], 12/08/2024 16:52:40 XR, shoulder , 2 or more view - rm 211. 4V L shoulder pain 2023 024 herminia [facility], [address], [address], [place], [address], 06/07/2024 13:48:34 Medication Orders None recorded . [...] a4ajBk vP9nXo QUaueC m3YtLR FvZlg JJ8mAn HZtai3 3d3393 AC0Kpb n%2BMV aDeUC8 mr84%3 D INTERFACE [facility] [address] [facility] [address], [place], [address], 06/07/2024 11:29:14 06/07/20 24 06/07/2024 XR, shoul elier, 2 or more view [email or web address] ?Encry pted=s hAaTro YD8dLq bEUv6g %2BXZw aYqtaq 0bqfl% 2Fg9IQ a4ajBk vP9nXo QUaueC m3YtLR FvZl JJ8mAn HZtai3 4j5462 AC0Kpb n%2BMV aDeUC8 mr84%3 D INTERFACE [facility] [address] [facility] [address], [place], [address], 06/07/2024 11:29:16 07/29/20 24 10/12/2019 constantino joaquin/donell sarmiento resul t No observ ation record ed. [email or web address] Not Available 07/02 05:37:13 12/08/19 25 12/08/2024 XR, shoul elier, 2 or more view http:/ [email or web address] ?Encry pted=s hAaTro YD8dLq bEUv6g %2BXZw aYqtaq 0bqfl% 2Fg9IQ a4ajBk vP9nXo QUaueC m3YtLR FvZlgJ JJ8mAn HZtai3 9s1829 AC0Kqb 3%2BHV 6SkKiQ trMwF INTERFACE [facility] [address], [address], 12/08/2024 15:31:06 12/08/19 25 12/08/2024 XR, shoul elier, 2 or more view http:/ [email or web address] ?Encry pted=s Linda YD8dLq bEUv6g %2BXZw aYqtaq 0bqfl% 2Fg9IQ a4ajBk vP9nXo QUaueC m3YtLR FvZlgJ JJ8mAn HZtai3 3n9462 AC0Kqb 3%2BHV 6SkKiQ trMwF INTERFACE [facility] [address], [address], 12/08/2024 15:31:08 Result Notes Documentation Provider Name and Address Organization Details Recorded Time Xr, Shoulder, 2 Or More View : [email or web address] Encrypted=inAlFtrII1tLtwY Uv6g%8JBBkwOsigd2pxvl%2Fg 9KAs0jfJduO3vSkHOywmPl6Dy DVInGjcSSL3tVdRCzjn93k211 8TV8Mpxq%8ZBXtYwOD2gx19%3 D Not Available [facility] 06/07/2024 11:29:15 Xr, Shoulder, 2 Or More View : [email or web address]? Encrypted=bhOgSciNH9jVfdS Uv6g%3BYYmcBulfi4pqxw%2Fg 2BCd8cnIwhG2tGmUSpilZv2Pl OKGeZcqKCP9fKxBEyza68i871 0LH8Zgef%0BFQeGhEE6nx11%3 D Not Available [facility] 06/07/2024 11:29:17 Xr, Shoulder, 2 Or More View : [email or web address]? Encrypted=dbPaScdKK4eJueQ Uv6g%4KKZinLhyml9knpz%2Fg 5LVu8eqVwzX8lGuDUiwjHp6Tp GRRfNpnAAF2dZpMWgqd62y895 3XF0Gpo7%4GTV1TnDlJsuHhL Not Available [facility] 12/08/2024 15:3 1:06 Xr, Shoulder, 2 Or More View : [email or web address] 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 Procedures Surgical History Date Name Laterality Status Provider Name and Address Organization Details Recorded Time 5 Sports Shoulder Bilateral completed Maxx Hall PA-C [address], [place], [address], [facility] 03/15/2025 07:56:27 5 Sports Shoulder Bilateral completed Bruce Pereira PA-C [address], [place], [address], [facility] 12/09/2024 08:53:24 4 Sports Shoulder completed Bruce Pereira PA-C [address], [place], [address], [facility] 06/07/2024 12:27:33 0 Knee Surgery completed Malina [facility] 12/08/2024 15:23:34 4 Hip Surgery completed [facility] 12/08/2024 15:23:34 Imaging [...] Updated DateTime 12/08/2024 167.64 cm 26.1 kg/m2 19631.96 g [facility] 12/08/2024 15:23:52 Date Recorded Body height Body mass index (BMI) Body weight Provider Name and Address Organization Details Last Updated DateTime 03/14/2025 167.64 cm 26.6 kg/m2 03659.74 g Malina Sung [facility] 03/14/2025 09:43:12 Date Recorded Body height Provider Name an d Address Organization Details Last Updated DateTime 06/07/2024 167.64 cm OSKARSHOSHANA PIERSONLAKHWINDER [facility] 06/07/2024 11:10:13 Social History Question Answer Notes LastModified by [employer] Details LastModified Time Tobacco Smoking Status Never Smoker Malina Sung [facility] 03/14/2025 09:43:04 What Is Your Relationship Status? Information not available 03/14/2025 Sex: Unknown Functional Status Question Answer Note LastModified by [employer] Details LastModified Time How many times per week do you consume alcohol? 5-7 times per week [email or web address] Information not available 03/14/2025 Do you use any illicit or recreational drugs? No [email or web address] Information not available 03/14/2025 Do you or have you ever used any other forms of tobacco or nicotine? No [email or web address] Information not available 03/14/2025 Do you or have you ever used e-cigarettes or vape? Never used electronic cigarettes Information not available 03/14/2025 Mental Status None recorded. Family History Nothing Reported. Medical History Condition Response Cancer Y Past Encounters Encounter ID Performer Location Encounter Start Date Encounter Closed Date Diagnosis/Indication Diagnosis SNOMED-CT Code Diagnosis ICD10 Code Diagnosis Note [id number] JOANN John [address] [place] [address] 06/07/2024 11:01:00 07/04/2024 15:16:38 Pain of left shoulder joint 8160567666 7911602 M25.512 Full thick ness rotator cuff tear 426594910 M75.122 You have been provided with a [...] or contact us through the portal VIVEK. 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 4079701545 924692 M75.121 You have been provided with a [...] rupture of rotator cuff of left shoulder 0042920192 310721 M75.852 [id number] JOANN Rodriguez [facility] [address] [place] [address] [place] [address] 03/14/2025 09:32:45 04/03/2025 08:04:18 Osteoarthritis of joint of right shoulder region 6776394944 40322 M19.011 Osteoarthr itis of joint of left shoulder region 8425036685 84627 M19.012 Health Concerns Section Related Observation LastModified by Organization Detai ls LastModified Time None Recorded Concern Status LastModified by Organization Details LastModified Time None Recorded Advance Directives Directive None Recorded Payers Insurance Date Sequence Insurance Name Policy Number Policy Shaw Covered Member ID Shaw Member ID Guarantor Name 04/03/2025 1 [employer] [place] [employer] MEDICARE ADVANTAGE PLAN (MEDICARE REPLACEMENT HMO) [id number] Bhavesh Mojica [id number] Bhavesh Mojica Notes Date Note Type Note [...] up as needed. Bruce Pereira PA-C [address], [place], [address], [facility] 06/07/2024 12:28:22 12/08/2024 text/html I am seeing [...] No recent modalities. Bruce Pereira PA-C [address], [place], [address], [facility] 12/09/2024 08:54:01 03/14/2025 [...] Hall PA-C [address], [place], [address], [facility] 03/15/2025 07:57:09
--- OUTSIDE RECORDS SUMMARY | 2025-06-06 11:06 | XMS_ITS | Patient Health Record ---
Author Organization [facility] Address [address] [place] [address] Care Team Providers Care Campaign Coordinator Name Role Phone Richard Amado MD Primary Care Provider UnavaDewey Moran Jr Unavailable [phone] Allergies No Known Allergies Results Component Value Reference Range Notes Therapeutic Phlebotomy Reviewed date:08/18/2024 10:15:39 AM Interpretation: Performing Lab:[facility], [address] [place] [address] Notes/Report: THER/HGB 13.1 14.0-18.0 g/dL THER/HCT TNP 42.0-52.0 % Therapeutic Phlebotomy Phlebotomy Performed 500 mls drawn on 08/15/24. Please note that a copy of this report has been sent to the Primary Care Physician, the ordering physician and any physician designated by patient request. Complete Blood Count Auto Di ff Reviewed date:10/13/2024 09:01:14 AM Interpretation: Performing Lab:[facility], [address] [place] [address] Notes/Report: White Blood Count 5.2 4.8-10.8 X10*3/uL [...] PROFILE Reviewed date:10/13/2024 09:01:06 AM Interpretation: Performing Lab:[facility], [address] [place] [phone] Notes/Report: Iron 36 45-160 mcg/dL Total Iron Binding Capacity 296 228-428 mcg/dL Percent Iron Saturation 12 15-50 % Unsaturated Iron Binding 260 Ferritin Reviewed date:10/13/2024 09:01:00 AM Interpretation: Performing Lab:[facility], [address] [place] [phone] Notes/Report: Ferritin 25 20-250 ng/mL Therapeutic Phlebotomy Reviewed date:10/13/2024 09:01:20 AM Interpretation: Performing Lab:[facility], [address] [place] [phone] Notes/Report: THER/HGB TNP 14.0-18.0 g/dL Lab Results on file. Performed at [facility] on 10/12/24: Hgb: 12.6 g/dl Hct: 38.3 % THER/HCT TNP 42.0-52.0 % Therapeutic Phlebotomy Phlebotomy Performed 500 mls drawn on 10/12/24. Please note that a copy of this report has been sent to the Primary Care Physician, the ordering physician and any physician designated by patient request. Therapeutic Phlebotomy Reviewed date:12/14/2024 12:05:13 PM Interpretation: Performing Lab:[address] [phone] Notes/Report: THER/HGB 12.5 14.0-18.0 g/dL THER/HCT TNP 42.0-52.0 % Therapeutic Phlebotomy Phlebotomy Performed 500 mls drawn on 12/14/24. Please note that a copy of this report has been sent to the Primary Care Physician, the ordering physician and any physician designated by patient request. Complete Blood Count Auto Di ff Reviewed date:02/09/2025 08:06:30 AM Interpretation: Performing Lab:[facility], [address] [place] [phone] Notes/Report: White Blood Count 5.0 4.8-10.8 X10*3/uL [...] PROFILE Reviewed date:02/09/2025 08:06:21 AM Interpretation: Performing Lab:[facility], [address] [place] [phone] Notes/Report: Iron 24 45-160 mcg/dL Total Iron Binding Capacity 308 228-428 mcg/dL Percent Iron Saturation 8 15-50 % Unsaturated Iron Binding 284 Ferritin Reviewed date:02/09/2025 08:06:12 AM Interpretation: Performing Lab:[facility], [address] [place] [phone] Notes/Report: Ferritin 25 20-250 ng/mL Therapeutic Phlebotomy Reviewed date:02/09/2025 10:42:40 AM Interpretation: Performing Lab:[facility], [address] [place] [phone] Notes/Report: THER/HGB TNP 14.0-18.0 g/dL Lab Results on file. Performed at [facility] on 02/09/25: Hgb: 11.8 g/dl Hct: 36.8 % THER/HCT TNP 42.0-52.0 % Therapeutic Phlebotomy Phlebotomy Performed 500 mls drawn on 02/08/25. Please note that a copy of this report has been sent to the Primary Care Physician, the ordering physician and any physician designated by patient request. Therapeutic Phlebotomy Reviewed date:04/13/2025 10:34:06 AM Interpretation: Performing Lab:[facility], [address] [place] [phone] Notes/Report: THER/HGB 11.0 14.0-18.0 g/dL THER/HCT TNP [...] Problem Status W/U Status Risk Notes Problem 156046062 Colon cancer screening (Z12.11) Active confirmed Problem 24598359 Hereditary hemochromatosis (E83.110) Active confirmed Problem Vascular insufficiency of intestine (96084941) Other vascular disorders of intestine (K55.8) Active confirmed Problem Diverticular disease of colon (114453569) Diverticulosis of large intestine without perforation or abscess without bleeding (K57.30) Active confirmed Problem 69895745 Other cirrhosis of liver (K74.69) Active confirmed Problem 059315848 Generalized abdominal pain (R10.84) Active confirmed Problem 878712318 Adenomatous poly p of colon, unspecified part of colon (D12.6) Active confirmed Problem 207374046 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 [address] [place] [address] 10/19/2024 Dewey Lan Jr Hereditary hemochromatosis E83.110 and Cirrhosis due to hemochromatosis E83.10 [facility] [address] [place] [address] 10/13/[address] [facility] [address] [place] [address] 02/09/2025 Dewey Lan Jr Assessments Encounter Date [...] 10:20:00 AM, [address], [address], [place], [address], Insurance Providers Payer Name Payer Address Payer Phone Subscriber Number Group Number Insured Name Patient Relationship to Insured Coverage Start Date Coverage End Date [facility] [address] [place] [address] [id number] ROSY RUCKER Self - patient is the [...]
[2025-06-06 11:29] LABS: PSA,Total (Free>4and<10) < 0.10 ng/mL (0.00-4.00)
== END 2025-06-06 10:16 | disposition home or self-care (01) ==
LOC: HO.LNP 10:15
PROVIDERS: Visit Provider Internal Medicine
DX: Z00.00 Encounter for general adult medical examination without abnormal findings (principal); R73.09 Other abnormal glucose; E78.00 Pure hypercholesterolemia, unspecified
CPT/HCPCS: 80053; 80061; 81001; 82043; 82570; 83036; 84153; 85025

== ENCOUNTER 2025-06-14 10:59 | Outpatient (REF) | payer MEDICARE, SELFPAY ==
--- OUTSIDE RECORDS SUMMARY | 2025-02-16 10:15 | XMS_ITS ---
Author Organization Richard Amado MD Address [address] [place], [place] [phone] Care Team Providers Care Centralized Traffic Control Operator Name Role Phone Ingris Richard Primary Care Provider Allergies No Known Allergies REASON FOR VISIT chest congested, coughing, fever 100.1 covid neg today c/o chills, sore throat last week, x 1 week is positive for Flu, Video [phone] Medications Medication SIG (Take, Route, Frequency, Duration) [...] Richard Amado MD [address] [place] [phone] 02/16/2025 Richard Amado Influenza J11.1 Assessments Encounter [...] Details Provider Name:Richard lucas, 07/11/2025 07:45:00 AM, [address] [place] [address], [address], [phone], Provider Name:Richard lucas, 07/20/2025 09:00:00 AM, [address] [place] [address], [address], [phone], Provider Name:Richard lucas, 06/08/2026 07:00:00 AM, [address] [place] [address], [address], [phone], Provider Name:Richard lucas, 06/15/2026 09:30:00 AM, [address] [place] [address], [address], [phone], Progress Notes * Bhavesh RUCKER PDOB: [birth year] (70 yo M)Acc No.[id number]:02/16/2025 Patient: Bhavesh HAMMOND Provider: Jefferson Amado MD :1955 A ge:70 Y S ex:Male Date:02/16/2025 Address:[address] [place] [address], [phone] Subjective: * Chief Complaints: * c hest congested, coughing, fever 100.1 covid neg today c/o chills, sore throat last week, x 1 week is positive for FluVideo [phone] * HPI: S ymptom(s): Telehealth L ocation [...] 02/16/2025 Generated for Liza joaquin/Isaak/Negaritting on: 0 06/14/2025 11:53 AM EDT History and Physical Notes * HPI (History of Present Illness) Category Sub-Category Detail Notes Category Not es Symptom(s) Telehealth Location of [facility] rendering services:: [address], [address] [...]
[2025-06-14 11:08] LABS: MANUAL DIFF FLAG NO
[2025-06-14 11:09] LABS: Hematocrit 32.5 % (42.0-52.0); Hemoglobin 10.8 g/dl (14.0-18.0); Imm Gran Abs Auto 0.01 X10*3/uL (0.00-0.03); Imm Gran Pct Auto 0.3 % (0.0-0.4); Lymphocytes Absolute Auto 0.7 X10*3/uL (1.2-4.9); Mean Corpuscular HGB Conc 33.2 g/dl (31.0-36.0); Mean Corpuscular Hemoglobin 29.8 pg (27.0-33.0); Mean Corpuscular Volume 89.8 fL (80.0-98.0); NRBC Abs Auto 0.000 X10*3/uL (0.0-0.012); NRBC Pct Auto 0.0 /100WBC (0.0-0.2); Red Blood Count 3.62 X10*6/uL (4.60-5.80); White Blood Count 3.6 X10*3/uL (4.8-10.8)
[2025-06-14 11:10] LABS: Platelet Count 83 X10*3/uL (160-400)
--- OUTSIDE RECORDS SUMMARY | 2025-06-14 11:53 | XMS_ITS | Clinical Summary ---
Author Organization [address] [facility] Address [address] [place] [address] Phone Care Team Providers Care Geriatric Nurse Assistant Name Role Phone Unavailable Primary Care Provider [...] patient's age to complete this topic [place] [id number] [employer] [place] MED[employer]ANTAGE
--- OUTSIDE RECORDS SUMMARY | 2025-06-14 11:53 | XMS_ITS | Data Portability ---
Author Organization [facility], [facility] Address [address] [place] [address] Care Team Providers Care Academic Affairs Director Name Role Phone JOAQUIN YU Primary Care [...] [facility], [address], [place], [address], 12/08/2024 16:52:40 XR, shoulder , 2 or more view - rm 211. 4V L shoulder pain 2023 024 herminia [facility], [address], [address], [place], [address], 06/07/2024 13:48:34 Medication Orders None recorded . [...] a4ajBk vP9nXo QUaueC m3YtLR FvZlg JJ8mAn HZtai3 7i6652 AC0Kpb n%2BMV aDeUC8 mr84%3 D INTERFACE [facility] [address] [facility] [address], [place], [address], 06/07/2024 11:29:14 06/07/20 24 06/07/2024 XR, shoul eleir, 2 or more view http:/ [email or web address] ?Encry pted=s hAaTro YD8dLq bEUv6g %2BXZw aYqtaq 0bqfl% 2Fg9IQ a4ajBk vP9nXo QUaueC m3YtLR FvZl JJ8mAn HZtai3 4h8303 AC0Kpb n%2BMV aDeUC8 mr84%3 D INTERFACE [facility] [address] [facility] [address], [place], [address], 06/07/2024 11:29:16 07/29/20 24 10/12/2019 constantino joaquin/donell sarmiento resul t No observ ation record ed. [email or web address] Not Available 07/02 05:37:13 12/08/19 25 12/08/2024 XR, shoul elier, 2 or more view http:/ [email or web address] ?Encry pted=s hAaTro YD8dLq bEUv6g %2BXZw aYqtaq 0bqfl% 2Fg9IQ a4ajBk vP9nXo QUaueC m3YtLR FvZlgJ JJ8mAn HZtai3 5q7918 AC0Kqb 3%2BHV 6SkKiQ trMwF INTERFACE [facility] [address], [address], 12/08/2024 15:31:06 12/08/19 25 12/08/2024 XR, shoul elier, 2 or more view http:/ [email or web address] ?Encry pted=s Linda YD8dLq bEUv6g %2BXZw aYqtaq 0bqfl% 2Fg9IQ a4ajBk vP9nXo QUaueC m3YtLR FvZlgJ JJ8mAn HZtai3 1r1334 AC0Kqb 3%2BHV 6SkKiQ trMwF INTERFACE [facility] [address], [address], 12/08/2024 15:31:08 Result Notes Documentation Provider Name and Address Organization Details Recorded Time Xr, Shoulder, 2 Or More View : [email or web address] Encrypted=ysVgEtwEM4uFdsA Uv6g%4PYEqyLizzo5bytc%2Fg 9KRl0sqBcqL8oSwUVaorTk2Yx PMHwJefYGO3iWvZKgyz62x788 6HQ5Eheq%9RHSdNvOE9kv73%3 D Not Available [facility] 06/07/2024 11:29:15 Xr, Shoulder, 2 Or More View : [email or web address] Encrypted=faNyPxjAZ8eFtnW Uv6g%6LLVlyJmocm2hyhm%2Fg 0NHl9fkMmvH5rZgJZwrfSz4Fv IAVmOmyYRQ9pLrALwuu54z038 6HP6Ikgc%2IBVjDvQI8wk15%3 D Not Available [facility] 06/07/2024 11:29:17 Xr, Shoulder, 2 Or More View : [email or web address] Encrypted=rvDzUhzUI7lEswU Uv6g%8KRCmcFueqr9hfub%2Fg 0LJo2cgRitM1lVmBCspoDk1At UALxQznLNA0eEjTRisw13p573 8VJ3Zdm2%5DCO6SzWeVvpHjH Not Available [facility] 12/08/2024 15:3 1:06 Xr, Shoulder, 2 Or More View : [email or web address] 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 Procedures Surgical History Date Name Laterality Status Provider Name and Address Organization Details Recorded Time 5 Sports Shoulder Bilateral completed Maxx Hall PA-C [address], [place], [address], [facility] 03/15/2025 07:56:27 5 Sports Shoulder Bilateral completed Bruce Pereira PA-C [address], [place], [address], [facility] 12/09/2024 08:53:24 4 Sports Shoulder completed Bruce Pereira PA-C [address], [place], [address], [facility] 06/07/2024 12:27:33 0 Knee Surgery completed Malina Teachey [facility] 12/08/2024 15:23:34 4 Hip Surgery completed [facility] 12/08/2024 15:23:34 Imaging [...] Updated DateTime 12/08/2024 167.64 cm 26.1 kg/m2 19071.96 g [facility] 12/08/2024 15:23:52 Date Recorded Body height Body mass index (BMI) Body weight Provider Name and Address Organization Details Last Updated DateTime 03/14/2025 167.64 cm 26.6 kg/m2 85556.74 g Malina Sung [facility] 03/14/2025 09:43:12 Date Recorded Body height Provider Name an d Address Organization Details Last Updated DateTime 06/07/2024 167.64 cm OSKARSHOSHANA PIERSONLAKHWINDER [facility] 06/07/2024 11:10:13 Social History Question Answer Notes LastModified by NMT Medical Details LastModified Time Tobacco Smoking Status Never Smoker Malina Sung [facility] 03/14/2025 09:43:04 What Is Your Relationship Status? [email or web address] Information not available 03/14/2025 Sex: Unknown Functional Status Question Answer Note LastModified by NMT Medical Details LastModified Time How many times per week do you consume alcohol? 5-7 times per week Information not available 03/14/2025 Do you use any illicit or recreational drugs? No Information not available 03/14/2025 Do you [...] SNOMED-CT Code Diagnosis ICD10 Code Diagnosis Note [id number] JOANN John [address] [place] [address] 06/07/2024 11:01:00 07/04/2024 15:16:38 Pain of left shoulder joint 9092797933 8489591 M25.512 Full thick ness rotator cuff tear 484869187 M75.122 You have been provided with a [...] or contact us through the portal VIVEK. [id number] JOANN John [address] [facility] [place] [address] 12/08/2024 14:36:01 12/27/2024 13:23:34 Pain of right shoulder joint 9467184930 4507216 M25.511 Nontraumat ic complete rupture of rotator cuff of right shoulder 5997531323 215544 M75.121 You have been provided with a [...] rupture of rotator cuff of left shoulder 8250318731 486303 M75.837 [id number] JOANN Rodriguez Clinical [address] [place] [address] [place] [address] 03/14/2025 09:32:45 04/03/2025 08:04:18 Osteoarthritis of joint of right shoulder region 9315788923 43647 M19.011 Osteoarthr itis of joint of left shoulder region 0476325431 88894 M19.012 Health Concerns Section Related Observation LastModified by Organization Detai ls LastModified Time None Recorded Concern Status LastModified by Organization Details LastModified Time None Recorded Advance Directives Directive None Recorded Payers Insurance Date Sequence Insurance Name Policy Number Policy Shaw Covered Member ID Shaw Member ID Guarantor Name 04/03/2025 1 [employer] MEDICARE ADVANTAGE PLAN (MEDICARE REPLACEMENT HMO) [id number] Bhavesh Mojica [id number] Bhavesh Mojica Notes Date Note Type Note [...] up as needed. Bruce Pereira PA-C [address], [place], [address], [facility] 06/07/2024 12:28:22 12/08/2024 text/html I am [...] No recent modalities. Bruce Pereira PA-C [address], [place], [address], [facility] 12/09/2024 08:54:01 03/14/2025 [...] Hall PA-C [address], [place], [address], [facility] 03/15/2025 07:57:09
--- OUTSIDE RECORDS SUMMARY | 2025-06-14 11:54 | XMS_ITS | Patient Health Record ---
Author Organization [facility] Address [address] [place] [address] Care Team Providers Care Computing Machine Operator Name Role Phone Ingris BARDALES, Richard Primary Care Provider UnavaDewey Moran Jr Unavailable [phone] Allergies No Known Allergies Results Component Value Reference Range Notes Therapeutic Phlebotomy Reviewed date:08/18/2024 10:15:39 AM Interpretation: Performing Lab:[facility], [address] [place] [address] Notes/Report: THER/HGB 13.1 14.0-18.0 g/dL THER/HCT TNP 42.0-52.0 % Therapeutic Phlebotomy Phlebotomy Performed 500 mls drawn on 08/15/24. Please note that a copy of this report has been sent to the Primary Care Physician, the ordering physician and any physician designated by patient request. Complete Blood Count Auto Di ff Reviewed date:10/13/2024 09:01:14 AM Interpretation: Performing Lab:[facility], [address] [place] [address] Notes/Report: White Blood Count 5.2 4.8-10.8 X10*3/uL [...] PROFILE Reviewed date:10/13/2024 09:01:06 AM Interpretation: Performing Lab:[facility], [address] [place] [address] Notes/Report: Iron 36 45-160 mcg/dL Total Iron Binding Capacity 296 228-428 mcg/dL Percent Iron Saturation 12 15-50 % Unsaturated Iron Binding 260 Ferritin Reviewed date:10/13/2024 09:01:00 AM Interpretation: Performing Lab:[facility], [address] [place] [address] Notes/Report: Ferritin 25 20-250 ng/mL Therapeutic Phlebotomy Reviewed date:10/13/2024 09:01:20 AM Interpretation: Performing Lab:[facility], [address] [place] [address] Notes/Report: THER/HGB TNP 14.0-18.0 g/dL Lab Results on file. Performed at [facility] on 10/12/24: Hgb: 12.6 g/dl Hct: 38.3 % THER/HCT TNP 42.0-52.0 % Therapeutic Phlebotomy Phlebotomy Performed 500 mls drawn on 10/12/24. Please note that a copy of this report has been sent to the Primary Care Physician, the ordering physician and any physician designated by patient request. Therapeutic Phlebotomy Reviewed date:12/14/2024 12:05:13 PM Interpretation: Performing Lab:[address] [address] Notes/Report: THER/HGB 12.5 14.0-18.0 g/dL THER/HCT TNP 42.0-52.0 % Therapeutic Phlebotomy Phlebotomy Performed 500 mls drawn on 12/14/24. Please note that a copy of this report has been sent to the Primary Care Physician, the ordering physician and any physician designated by patient request. Complete Blood Count Auto Di ff Reviewed date:02/09/2025 08:06:30 AM Interpretation: Performing Lab:[facility], [address] [place] [address] Notes/Report: White Blood Count 5.0 4.8-10.8 X10*3/uL [...] PROFILE Reviewed date:02/09/2025 08:06:21 AM Interpretation: Performing Lab:[facility], [address] [place] [address] Notes/Report: Iron 24 45-160 mcg/dL Total Iron Binding Capacity 308 228-428 mcg/dL Percent Iron Saturation 8 15-50 % Unsaturated Iron Binding 284 Ferritin Reviewed date:02/09/2025 08:06:12 AM Interpretation: Performing Lab:[facility], [address] [place] [address] Notes/Report: Ferritin 25 20-250 ng/mL Therapeutic Phlebotomy Reviewed date:02/09/2025 10:42:40 AM Interpretation: Performing Lab:[facility], [address] [place] [address] Notes/Report: THER/HGB TNP 14.0-18.0 g/dL Lab Results on file. Performed at [facility] on 02/09/25: Hgb: 11.8 g/dl Hct: 36.8 % THER/HCT TNP 42.0-52.0 % Therapeutic Phlebotomy Phlebotomy Performed 500 mls drawn on 02/08/25. Please note that a copy of this report has been sent to the Primary Care Physician, the ordering physician and any physician designated by patient request. Therapeutic Phlebotomy Reviewed date:04/13/2025 10:34:06 AM Interpretation: Performing Lab:[facility], [address] [place] [address] Notes/Report: THER/HGB 11.0 14.0-18.0 g/dL THER/HCT TNP 42.0-52.0 % Therapeutic Phlebotomy TNP Reason: Pre-phlebotomy Hgb/Hct is below the established parameter for this patient. Please note that a copy of this report has been sent to the Primary Care Physician, the ordering physician and any physician designated by patient request. Complete Blood Count Auto Di ff (Not yet reviewed by provider) Interpretation: Performing Lab:[address] [address] Notes/Report: White Blood Count 3.6 4.8-10.8 X10*3/uL Red Blood Count 3.62 4.60-5.80 X10*6/uL Hemoglobin 10.8 14.0-18.0 g/dl Hematocrit 32.5 42.0-52.0 % Mean Corpuscular Volume 89.8 80.0-98.0 fL Mean Corpuscular Hemoglobin 29.8 27.0-33.0 pg Mean Corpuscular HGB Conc 33.2 31.0-36.0 g/dl Red Cell Distribution Width 18.0 11.0-16.0 % Platelet Count 83 160-400 X10*3/uL Mean Platelet Volume 9.2 9.4-12.4 fL Neutrophils Percent Auto 56.1 45-73 % Imm Gran Pct Auto 0.3 0.0-0.4 % Lymphocytes Percent Auto 20.8 20-40 % Monocytes Percent Auto 13.8 2-11 % Eosinophils Percent Auto 7.6 0-4 % Basophils Percent Auto 1.4 0-2 % NRBC Pct Auto 0.0 0.0-0.2 /100WBC Neutrophils Absolute Auto 2.0 2.0-8.3 x10*3/uL Imm Gran Abs Auto 0.01 0.00-0.03 X10*3/uL Lymphocytes Absolute Auto 0.7 1.2-4.9 X10*3/uL Monocytes Absolute Auto 0.5 0.1-1.2 X10*3/uL Eosinophils Absolute Auto 0.3 0.0-0.4 X10*3/uL Basophils Absolute Auto 0.1 0.0-0.2 X10*3/uL NRBC Abs Auto 0.000 0.0-0.012 X10*3/uL Therapeutic Phlebotomy (Not yet reviewed by provider) Interpretation: Performing Lab:[facility], [address] [place] [address] [place] [address] Notes/Report: THER/HGB TNP 14.0-18.0 g/dL Lab Results on file. Performed at [facility] on 06/14/25: Hgb: 10.8 g/dl Hct: 32.5 % THER/HCT TNP 42.0-52.0 % Therapeutic Phlebotomy TNP [...] Problem Status W/U Status Risk Notes Problem 844299529 Colon cancer screening (Z12.11) Active confirmed Problem 10838459 Hereditary hemochromatosis (E83.110) Active confirmed Problem Vascular insufficiency of intestine (56904537) Other vascular disorders of intestine (K55.8) Active confirmed Problem Diverticular disease of colon (329685611) Diverticulosis of large intestine without perforation or abscess without bleeding (K57.30) Active confirmed Problem 56995997 Other cirrhosis of liver (K74.69) Active confirmed Problem 343965569 Generalized abdominal pain (R10.84) Active confirmed Problem 710148487 Adenomatous poly p of colon, unspecified part of colon (D12.6) Active confirmed Problem 138907647 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 Vital Signs Temperature 97.8 degrees Fahrenheit 10/19/2024 Blood pressure diastolic 00 mm Hg 10/19/2024 Height 66.5 in 10/19/2024 Blood pressure systolic 000 mm Hg 10/19/2024 Weight 164 lb 6 oz lbs 10/19/2024 BMI 26.13 kg/m2 10/19/2024 Encounters Encounter Location Date Provider Diagnosis [facility] [address] [place] [address] 10/19/2024 Dewey Lan Jr Hereditary hemochromatosis E83.110 and Cirrhosis due to hemochromatosis E83.10 [facility] [address] [place] [address] 10/13/2024 Dewey Lan Jr [facility] [address] [place] [address] 02/09/2025 Dewey Lan Jr Assessments Encounter Date [...] ABD 10/19/2023 Complete Blood Count Auto Diff Liver Fibrosis Pnl 10/19/2023 Therapeutic Phlebotomy 06/14/2025 Future Test Test Name Order Date COLONOSCOPY 12/30/2012 UPPER GI ENDOSCOPY 07/29/2018 COLONOSCOPY 07/29/2018 COLONOSCOPY 08/03/2019 COLONOSCOPY 08/20/2022 Next Appt Details Provider Name:Dewey baird Jr, 10/18/2025 10:20:00 AM, [address], [address], [place], [address], Insurance Providers Payer Name Payer Address Payer Phone Subscriber Number Group Number Insured Name Patient Relationship to Insured Coverage Start Date Coverage End Date [facility] [address] [place] [address] [id number] ROSY RUCKER Self - patient is the [...]
[2025-06-14 12:01] LABS: Iron 51 mcg/dL (45-160); Percent Iron Saturation 18 % (15-50); Total Iron Binding Capacity 281 mcg/dL (228-428); Unsaturated Iron Binding 230 ug/dL
[2025-06-14 12:26] LABS: Ferritin 29 ng/mL (20-250)
== END 2025-06-14 11:00 | disposition home or self-care (01) ==
LOC: HO.BBR 10:59
PROVIDERS: PCP Internal Medicine; Visit Provider Internal Medicine Gastroenterology
DX: E83.110 Hereditary hemochromatosis (principal)
CPT/HCPCS: 36415; 82728; 83540; 85025

== ENCOUNTER → 2025-06-15 10:51 | Outpatient (REF) | payer MEDICARE, SELFPAY ==
--- OUTSIDE RECORDS SUMMARY | 2025-02-16 10:15 | XMS_ITS ---
Author Organization Richard Amado MD Address [address] [place], [place] [phone] Care Team Providers Care Order Takers Supervisor Name Role Phone Ingris Richard Primary Care Provider Allergies No Known Allergies REASON FOR VISIT chest congested, coughing, fever 100.1 covid neg today c/o chills, sore throat last week, x 1 week is positive for Flu, Video [phone] Medications Medication SIG (Take, Route, Frequency, Duration) [...] Richard Amado MD [address] [place] [phone] 02/16/2025 Richard Amado Influenza J11.1 Assessments Encounter [...] use Next Appt Details Provider Name:Richard lucas, 07/11/2025 07:45:00 AM, [address] [place] [address], [address], [phone], Provider Name:Richard lucas, 07/20/2025 09:00:00 AM, [address] [place] [address], [address], [phone], Provider Name:Richard lucas, 06/08/2026 07:00:00 AM, [address] [place] [address], [address], [phone], Provider Name:Richard lucas, 06/15/2026 09:30:00 AM, [address] [place] [address], [address], [phone], Progress Notes * Bhavesh RUCKER PDOB: [birth year] (70 yo M)Acc No.[id number]:02/16/2025 Patient: Bhavesh HAMMOND Provider: Jefferson Amado MD :1955 A ge:70 Y S ex:Male Date:02/16/2025 Address:[address] [place] [address], [phone] Subjective: * Chief Complaints: * c hest congested, coughing, fever 100.1 covid neg today c/o chills, sore throat last week, x 1 week is positive for FluVideo [phone] * HPI: S ymptom(s): Telehealth L ocation [...] MD Date: 0 02/16/2025 Generated for Liza joaquin/Isaak/Negaritting on: 0 06/15/2025 11:34 AM EDT History and Physical Notes * HPI (History of Present Illness) Category Sub-Category Detail Notes Category Not es Symptom(s) Telehealth Location of [facility] rendering services:: [address], [address] [...]
--- NOTE | 2025-06-15 10:53 | CA_ITS ---
Acquisition Time: 2025-06-15 11:07:47 Total Exercise Time: 00:05:55 Test Indications: Dyspnea AORTIC STENOSIS Medications: NONE Protocol: FRANCIA Max HR: 137 BPM 91% of Pred: 149 BPM Max BP: 170/76 mmHG Max Work Load: 7.0 METS Exercise stress test with exercise 5 mins 55 secs of Francia Protocol, achieving 91% MPHR, with reports of SOB and fatigue, no chest pain, without any arrythmias, with normotensive response to exercise. Without any EKG changes meeting criteria for ischemia. In recovery, breathing returned to baseline. Echo images obained by tech at rest and post peak exercise. Definity contrast utilized. Test reviewed with Dr. Bernal. Referred By: Glenn Colorado Electronically Signed By: Irving Gutierres
--- OUTSIDE RECORDS SUMMARY | 2025-06-15 11:35 | XMS_ITS | Patient Health Record ---
Author Organization [facility] Address [address] [place] [address] Care Team Providers Care Real Estate Valuer Name Role Phone Richard Amado MD Primary Care Provider UnavaDewey Moran Jr Unavailable [phone] Allergies No Known Allergies Results Component Value Reference Range Notes Therapeutic Phlebotomy Reviewed date:08/18/2024 10:15:39 AM Interpretation: Performing Lab:[facility], [address] [place] [address] Notes/Report: THER/HGB 13.1 14.0-18.0 g/dL THER/HCT TNP 42.0-52.0 % Therapeutic Phlebotomy Phlebotomy Performed 500 mls drawn on 08/15/24. Please note that a copy of this report has been sent to the Primary Care Physician, the ordering physician and any physician designated by patient request. Complete Blood Count Auto Di ff Reviewed date:10/13/2024 09:01:14 AM Interpretation: Performing Lab:[facility], [address] [place] [address] Notes/Report: White Blood Count 5.2 4.8-10.8 X10*3/uL [...] PROFILE Reviewed date:10/13/2024 09:01:06 AM Interpretation: Performing Lab:[facility], [address] [place] [phone] Notes/Report: Iron 36 45-160 mcg/dL Total Iron Binding Capacity 296 228-428 mcg/dL Percent Iron Saturation 12 15-50 % Unsaturated Iron Binding 260 Ferritin Reviewed date:10/13/2024 09:01:00 AM Interpretation: Performing Lab:[facility], [address] [place] [phone] Notes/Report: Ferritin 25 20-250 ng/mL Therapeutic Phlebotomy Reviewed date:10/13/2024 09:01:20 AM Interpretation: Performing Lab:[facility], [address] [place] [phone] Notes/Report: THER/HGB TNP 14.0-18.0 g/dL Lab Results on file. Performed at [facility] on 10/12/24: Hgb: 12.6 g/dl Hct: 38.3 % THER/HCT TNP 42.0-52.0 % Therapeutic Phlebotomy Phlebotomy Performed 500 mls drawn on 10/12/24. Please note that a copy of this report has been sent to the Primary Care Physician, the ordering physician and any physician designated by patient request. Therapeutic Phlebotomy Reviewed date:12/14/2024 12:05:13 PM Interpretation: Performing Lab:[address] [phone] Notes/Report: THER/HGB 12.5 14.0-18.0 g/dL THER/HCT TNP 42.0-52.0 % Therapeutic Phlebotomy Phlebotomy Performed 500 mls drawn on 12/14/24. Please note that a copy of this report has been sent to the Primary Care Physician, the ordering physician and any physician designated by patient request. Complete Blood Count Auto Di ff Reviewed date:02/09/2025 08:06:30 AM Interpretation: Performing Lab:[facility], [address] [place] [phone] Notes/Report: White Blood Count 5.0 4.8-10.8 X10*3/uL [...] PROFILE Reviewed date:02/09/2025 08:06:21 AM Interpretation: Performing Lab:[facility], [address] [place] [phone] Notes/Report: Iron 24 45-160 mcg/dL Total Iron Binding Capacity 308 228-428 mcg/dL Percent Iron Saturation 8 15-50 % Unsaturated Iron Binding 284 Ferritin Reviewed date:02/09/2025 08:06:12 AM Interpretation: Performing Lab:[facility], [address] [place] [phone] Notes/Report: Ferritin 25 20-250 ng/mL Therapeutic Phlebotomy Reviewed date:02/09/2025 10:42:40 AM Interpretation: Performing Lab:[facility], [address] [place] [phone] Notes/Report: THER/HGB TNP 14.0-18.0 g/dL Lab Results on file. Performed at [facility] on 02/09/25: Hgb: 11.8 g/dl Hct: 36.8 % THER/HCT TNP 42.0-52.0 % Therapeutic Phlebotomy Phlebotomy Performed 500 mls drawn on 02/08/25. Please note that a copy of this report has been sent to the Primary Care Physician, the ordering physician and any physician designated by patient request. Therapeutic Phlebotomy Reviewed date:04/13/2025 10:34:06 AM Interpretation: Performing Lab:[facility], [address] [place] [phone] Notes/Report: THER/HGB 11.0 14.0-18.0 g/dL THER/HCT TNP 42.0-52.0 % Therapeutic Phlebotomy TNP Reason: Pre-phlebotomy Hgb/Hct is below the established parameter for this patient. Please note that a copy of this report has been sent to the Primary Care Physician, the ordering physician and any physician designated by patient request. Complete Blood Count Auto Di ff Reviewed date:06/15/2025 08:42:55 AM Interpretation: Performing Lab:[facility], [address] [place] [phone] Notes/Report: White Blood Count 3.6 4.8-10.8 X10*3/uL [...] Auto 0.000 0.0-0.012 X10*3/uL IRON PROFILE Reviewed date:06/15/2025 08:43:19 AM Interpretation: Performing Lab:[facility], [address] [place] [phone] Notes/Report: Iron 51 45-160 mcg/dL Total Iron Binding Capacity 281 228-428 mcg/dL Percent Iron Saturation 18 15-50 % Unsaturated Iron Binding 230 Ferritin Reviewed date:06/15/2025 08:43:10 AM Interpretation: Performing Lab:[facility], [address] [place] [phone] Notes/Report: Ferritin 29 20-250 ng/mL Therapeutic Phlebotomy Reviewed date:06/15/2025 08:43:25 AM Interpretation: Performing Lab:[facility], [address] [place] [phone] Notes/Report: THER/HGB TNP 14.0-18.0 g/dL Lab Results on file. Performed at [facility] on 06/14/25: Hgb: 10.8 g/dl Hct: 32.5 [...] Problem Status W/U Status Risk Notes Problem 467605292 Colon cancer screening (Z12.11) Active confirmed Problem 08726135 Hereditary hemochromatosis (E83.110) Active confirmed Problem Vascular insufficiency of intestine (85573309) Other vascular disorders of intestine (K55.8) Active confirmed Problem Diverticular disease of colon (533260989) Diverticulosis of large intestine without perforation or abscess without bleeding (K57.30) Active confirmed Problem 46269720 Other cirrhosis of liver (K74.69) Active confirmed Problem 782909476 Generalized abdominal pain (R10.84) Active confirmed Problem 952412514 Adenomatous poly p of colon, unspecified part of colon (D12.6) Active confirmed Problem 097159623 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 Vital Signs Temperature 97.8 degrees Fahrenheit 10/19/2024 Blood pressure diastolic 00 mm Hg 10/19/2024 Height 66.5 in 10/19/2024 Blood pressure systolic 000 mm Hg 10/19/2024 Weight 164 lb 6 oz lbs 10/19/2024 BMI 26.13 kg/m2 10/19/2024 Encounters Encounter Location Date Provider Diagnosis [facility] [address] [place] [phone] 10/19/2024 Dewey Lan Jr Hereditary hemochromatosis E83.110 and Cirrhosis due to hemochromatosis E83.10 [facility] [address] [place] [phone] 06/15/2025 Dewey Lan Jr [facility] [address] [place] [phone] 10/13/2024 Dewey Lan Jr [facility] [address] [place] [phone] 02/09/2025 Dewey Lan Jr Assessments Encounter Date [...] Provider Name:Dewey baird , 10/18/2025 10:20:00 AM, [address] [place] [address], [address], [place], [address], Insurance Providers Payer Name Payer Address Payer Phone Subscriber Number Group Number Insured Name Patient Relationship to Insured Coverage Start Date Coverage End Date [facility] [address] [place] [phone] [id number] ROSY RUCKER Self - patient is the [...]
--- OUTSIDE RECORDS SUMMARY | 2025-06-15 11:35 | XMS_ITS | Clinical Summary ---
Author Organization [facility] Address [address] [place] [address] Phone Care Team Providers Care Stock Sorter Name Role Phone Unavailable Primary Care Provider [...] patient's age to complete this topic Insurance [place] [id number] [employer] [place] MED[place]VANTAGE
== END ==
LOC: HO.CARD 10:51
PROVIDERS: PCP Internal Medicine; Visit Provider Internal Medicine Cardiovascular Disease
DX: R06.09 Other forms of dyspnea (principal)
CPT/HCPCS: 93350; Q9957

== ENCOUNTER → 2025-06-15 10:53 | Outpatient (BNV) | payer MEDICARE, SELFPAY | PROVIDERS: PCP Internal Medicine | DX: R06.02 Shortness of breath (principal); R53.83 Other fatigue | CPT/HCPCS: 93016; 93018; 93350; 93352 ==

== ENCOUNTER 2025-07-11 10:06 | Outpatient (REF) | payer MEDICARE, SELFPAY ==
--- OUTSIDE RECORDS SUMMARY | 2025-06-13 05:30 | XMS_ITS ---
Author Organization Richard Amado MD Address [address] [place], [place] [address] Care Team Providers Care Vegetable Inspector Name Role Phone Ingris Richard Primary Care Provider [phone] Allergies No Known Allergies REASON FOR VISIT [...] Location Date Provider Diagnosis Richard Amado MD [address] [place] [address] [place] [phone] 06/13/2025 Richard Amado Annual physical exam Z00.00 [...] (ICD-1 0 - R79.89) order faxed to [facility] CS dept , will continue to monitor, pending labs 06/13/2025 Shortness of breath (ICD-10 - R06.02) obtain echo results from [facility] 06/13/2025 Erectile dysfunction due to and not [...] addtl labs Elevated LFTs order faxed to [facility] S dept , will continue to monitor, pending labs Shortness of breath obtain echo results from [facility] Pure hypercholesterolemia stable, will c ontinue current regiment Prediabetes stable, no need for medication at this time Colon cancer screening guaiac negative Depression screening negative screen Pending Test Test Name Order Date US ABD 06/13/2025 Complete Blood Count Auto Diff Liver Panel 06/13/2025 Next Appt Details Follow Up: 5 weeks, Reason: Provider Name:Richard lucas, 07/20/2025 09:00:00 AM, [address] [place] [address], [address], [phone], Provider Name:Richard lucas, 06/08/2026 07:00:00 AM, [address] [place] [address], [address], [phone], Provider Name:Richard lucas, 06/15/2026 09:30:00 AM, [address] [place] [address], [address], [phone], Progress Notes * Bhavesh RUCKER PDOB: [birth year] (70 yo M)Acc No.[id number]:06/13/2025 Progress Notes Patient: Bhavesh HAMMOND Provider: Jefferson Amado MD :1955 A ge:70 Y S ex:Male Date:06/13/2025 Address:[address] [place] [address], [phone] Subjective: * Chief Complaints: * A NNUAL [...] T obacco Use: T obacco Use/Smoking P atfelix is a n onsmoker, A dditional Findings: [...] Children: no. Community involvements: no. Exercise: yes, golf [employer] cardio 3 times a week. Housing: [...] mg/dL Urine Blood Negative Negative - [employer] - Urine 1.015 1.005-1.025 - Urine Protein [...] Urine 0-2 0-2 - /LPF L ab:Comprehensive [place]. Panel Fast (Order Date - 06/06/2025) (Collection [...] maging: US ABD Notes: order faxed to [facility] CS dept , will continue to monitor, pending labs 5. S hortness of breath Notes: obtain echo results from [facility] 6. E rectile dysfunction due to and [...] Medicine: Counseling: C are goal follow-up plan: C ounseling for abnormal BMI provided?Yes, A germaine Normal BMI Follow-up G heather encouragement to exercise. * Follow Up: 5 weeks * * Sign off status: Completed true * Provider: Jefferson Amado MD Date: 0 06/13/2025 Generated for Liza joaquin/Isaak/Marthasmitting on: 0 07/11/2025 11:08 AM EDT History and Physical Notes * [...]
[2025-07-11 10:18] LABS: MANUAL DIFF FLAG NO
[2025-07-11 10:53] LABS: Hematocrit 34.1 % (42.0-52.0); Hemoglobin 11.0 g/dl (14.0-18.0); Imm Gran Abs Auto 0.02 X10*3/uL (0.00-0.03); Imm Gran Pct Auto 0.4 % (0.0-0.4); Lymphocytes Absolute Auto 1.1 X10*3/uL (1.2-4.9); Mean Corpuscular HGB Conc 32.3 g/dl (31.0-36.0); Mean Corpuscular Hemoglobin 30.0 pg (27.0-33.0); Mean Corpuscular Volume 92.9 fL (80.0-98.0); NRBC Abs Auto 0.000 X10*3/uL (0.0-0.012); NRBC Pct Auto 0.0 /100WBC (0.0-0.2); Platelet Count 111 X10*3/uL (160-400); Red Blood Count 3.67 X10*6/uL (4.60-5.80); White Blood Count 5.0 X10*3/uL (4.8-10.8)
--- OUTSIDE RECORDS SUMMARY | 2025-07-11 11:08 | XMS_ITS | Patient Health Record ---
Author Organization [facility] Address [address] [place] [address] Care Team Providers Care Silver Solution Mixer Name Role Phone Richard Amado MD Primary Care Provider UnavaDewey Moran Jr Unavailable [phone] Allergies No Known Allergies Results Component Value Reference Range Notes Therapeutic Phlebotomy Reviewed date:08/18/2024 10:15:39 AM Interpretation: Performing Lab:[facility], [address] [place] [address] Notes/Report: THER/HGB 13.1 14.0-18.0 g/dL THER/HCT TNP 42.0-52.0 % Therapeutic Phlebotomy Phlebotomy Performed 500 mls drawn on 08/15/24. Please note that a copy of this report has been sent to the Primary Care Physician, the ordering physician and any physician designated by patient request. Complete Blood Count Auto Di ff Reviewed date:10/13/2024 09:01:14 AM Interpretation: Performing Lab:[facility], [address] [place] [address] Notes/Report: White Blood Count 5.2 4.8-10.8 X10*3/uL [...] PROFILE Reviewed date:10/13/2024 09:01:06 AM Interpretation: Performing Lab:[facility], [address] [place] [phone] Notes/Report: Iron 36 45-160 mcg/dL Total Iron Binding Capacity 296 228-428 mcg/dL Percent Iron Saturation 12 15-50 % Unsaturated Iron Binding 260 Ferritin Reviewed date:10/13/2024 09:01:00 AM Interpretation: Performing Lab:[facility], [address] [place] [phone] Notes/Report: Ferritin 25 20-250 ng/mL Therapeutic Phlebotomy Reviewed date:10/13/2024 09:01:20 AM Interpretation: Performing Lab:[facility], [address] [place] [phone] Notes/Report: THER/HGB TNP 14.0-18.0 g/dL Lab Results on file. Performed at [facility] on 10/12/24: Hgb: 12.6 g/dl Hct: 38.3 % THER/HCT TNP 42.0-52.0 % Therapeutic Phlebotomy Phlebotomy Performed 500 mls drawn on 10/12/24. Please note that a copy of this report has been sent to the Primary Care Physician, the ordering physician and any physician designated by patient request. Therapeutic Phlebotomy Reviewed date:12/14/2024 12:05:13 PM Interpretation: Performing Lab:[address] [phone] Notes/Report: THER/HGB 12.5 14.0-18.0 g/dL THER/HCT TNP 42.0-52.0 % Therapeutic Phlebotomy Phlebotomy Performed 500 mls drawn on 12/14/24. Please note that a copy of this report has been sent to the Primary Care Physician, the ordering physician and any physician designated by patient request. Complete Blood Count Auto Di ff Reviewed date:02/09/2025 08:06:30 AM Interpretation: Performing Lab:[facility], [address] [place] [phone] Notes/Report: White Blood Count 5.0 4.8-10.8 X10*3/uL [...] PROFILE Reviewed date:02/09/2025 08:06:21 AM Interpretation: Performing Lab:[facility], [address] [place] [phone] Notes/Report: Iron 24 45-160 mcg/dL Total Iron Binding Capacity 308 228-428 mcg/dL Percent Iron Saturation 8 15-50 % Unsaturated Iron Binding 284 Ferritin Reviewed date:02/09/2025 08:06:12 AM Interpretation: Performing Lab:[facility], [address] [place] [phone] Notes/Report: Ferritin 25 20-250 ng/mL Therapeutic Phlebotomy Reviewed date:02/09/2025 10:42:40 AM Interpretation: Performing Lab:[facility], [address] [place] [phone] Notes/Report: THER/HGB TNP 14.0-18.0 g/dL Lab Results on file. Performed at [facility] on 02/09/25: Hgb: 11.8 g/dl Hct: 36.8 % THER/HCT TNP 42.0-52.0 % Therapeutic Phlebotomy Phlebotomy Performed 500 mls drawn on 02/08/25. Please note that a copy of this report has been sent to the Primary Care Physician, the ordering physician and any physician designated by patient request. Therapeutic Phlebotomy Reviewed date:04/13/2025 10:34:06 AM Interpretation: Performing Lab:[facility], [address] [place] [phone] Notes/Report: THER/HGB 11.0 14.0-18.0 g/dL THER/HCT TNP 42.0-52.0 % Therapeutic Phlebotomy TNP Reason: Pre-phlebotomy Hgb/Hct is below the established parameter for this patient. Please note that a copy of this report has been sent to the Primary Care Physician, the ordering physician and any physician designated by patient request. Complete Blood Count Auto Di ff Reviewed date:06/15/2025 08:42:55 AM Interpretation: Performing Lab:[facility], [address] [place] [phone] Notes/Report: White Blood Count 3.6 4.8-10.8 X10*3/uL [...] PROFILE Reviewed date:06/15/2025 08:43:19 AM Interpretation: Performing Lab:[facility], [address] [place] [phone] Notes/Report: Iron 51 45-160 mcg/dL Total Iron Binding Capacity 281 228-428 mcg/dL Percent Iron Saturation 18 15-50 % Unsaturated Iron Binding 230 Ferritin Reviewed date:06/15/2025 08:43:10 AM Interpretation: Performing Lab:[facility], [address] [place] [phone] Notes/Report: Ferritin 29 20-250 ng/mL Therapeutic Phlebotomy Reviewed date:06/15/2025 08:43:25 AM Interpretation: Performing Lab:[facility], [address] [place] [phone] Notes/Report: THER/HGB TNP 14.0-18.0 g/dL Lab Results on file. Performed at [facility] on 06/14/25: Hgb: 10.8 g/dl Hct: 32.5 [...] Problem Status W/U Status Risk Notes Problem 041227270 Colon cancer screening (Z12.11) Active confirmed Problem 26404804 Hereditary hemochromatosis (E83.110) Active confirmed Problem Vascular insufficiency of intestine (22725198) Other vascular disorders of intestine (K55.8) Active confirmed Problem Diverticular disease of colon (464030623) Diverticulosis of large intestine without perforation or abscess without bleeding (K57.30) Active confirmed Problem 29900925 Other cirrhosis of liver (K74.69) Active confirmed Problem 781461467 Generalized abdominal pain (R10.84) Active confirmed Problem 804297254 Adenomatous poly p of colon, unspecified part of colon (D12.6) Active confirmed Problem 661286012 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 Vital Signs Temperature 97.8 degrees Fahrenheit 10/19/2024 Blood pressure diastolic 00 mm Hg 10/19/2024 Height 66.5 in 10/19/2024 Blood pressure systolic 000 mm Hg 10/19/2024 Weight 164 lb 6 oz lbs 10/19/2024 BMI 26.13 kg/m2 10/19/2024 Encounters Encounter Location Date Provider Diagnosis [facility] [address] [place] [phone] 10/19/2024 Dewey Lan Jr Hereditary hemochromatosis E83.110 and Cirrhosis due to hemochromatosis E83.10 [facility] [address] [place] [phone] 10/13/2024 Dewey Lan Jr [facility] [address] [place] [phone] 02/09/2025 Dewey Lan Jr [facility] [address] [place] [phone] 06/15/2025 Dewey Lan Jr Assessments Encounter Date Diagnosis [...] COLONOSCOPY 08/20/2022 Next Appt Details Provider Name:Dewey barid , 10/18/2025 10:20:00 AM, [address] [place] [address], [address], [place], [address], Insurance Providers Payer Name Payer Address Payer Phone Subscriber Number Group Number Insured Name Patient Relationship to Insured Coverage Start Date Coverage End Date [facility] [address] [place] [address] [phone] [id number] ROSY RUCKER Self - patient is the [...]
--- OUTSIDE RECORDS SUMMARY | 2025-07-11 11:08 | XMS_ITS | Clinical Summary ---
Author Organization [address] [facility] Address [address] [place] [address] Phone Care Team Providers Care Power Distribution Engineer Name Role Phone Unavailable Primary Care Provider Unavailabl e Social History Tobacco Use Types Packs/Day Years Used Date Smoking Tobacco: Never Assessed Sex and Gender Information Value Date Recorded Sex Assigned at Not on file Legal Sex Male 3:49 PM EST Gender Identity Not on file Sexual Orientation Not on file Plan of Treatment Health Maintenance Due Date Last Done Comments DTaP,Tdap,and Td Vaccines (1 - Tdap) 1973 Pneumococcal Vaccine: 50+ Ye ars (1 of 1 - PCV) 02/13/2004 Zoster Vaccines (1 of 2) 02/13/2004 COVID-19 Vaccine ( - 2023-2 5 season) 2024 Depression Screening 11/30/2024 Abdominal Aortic Aneurysm (A AA) Screen 01/07/2025 Cholesterol Screening (Lipid Panel) 01/07/2025 Colorectal Cancer Screening: Colonoscopy 01/07/2025 Falls Risk Assessment 01/07/2025 Hepatitis C [...]
[2025-07-11 11:37] LABS: Alanine Aminotransferase 114 U/L (0-40); Albumin Level 4.2 g/dL (3.5-5.0); Alkaline Phosphatase 125 U/L (39-117); Aspartate Amino Transferase 97 U/L (5-37); Total Protein 7.2 g/dL (6.5-8.0)
== END 2025-07-11 10:07 | disposition home or self-care (01) ==
LOC: HO.LNP 10:06
PROVIDERS: Visit Provider Internal Medicine
DX: D69.6 Thrombocytopenia, unspecified (principal)
CPT/HCPCS: 80076; 85025

== ENCOUNTER 2025-07-13 08:55 | Outpatient (REF) | payer MEDICARE, SELFPAY ==
--- OUTSIDE RECORDS SUMMARY | 2025-06-16 10:30 | XMS_ITS ---
Author Organization Richard Amado MD Address [address] [place], [place] [phone] Care Team Providers Care Correspondence Clerk Name Role Phone Ingris Richard Primary Care Provider [phone] Allergies No Known Allergies REASON FOR VISIT discuss Echo [phone] at work until 2pm Medications Medication SIG [...] Amado MD [address] [place], [place] [phone] 06/16/2025 Richard Amado Heart murmur R01.1 Assessments [...] Next Appt Details Provider Name:Richard Santana ier, 07/20/2025 09:00:00 AM, [address] [place] [address], Suite [facility], [place], [place], [phone], Provider Name:Richard Santana ier, 06/08/2026 07:00:00 AM, [address] [place] [address], Suite [facility], [place], [place], [phone], Provider Name:Richard Santana ier, 06/15/2026 09:30:00 AM, [address] [place] [address], Suite [facility], [place], [place], [phone], Progress Notes * Bhavesh RUCKER PDOB: [birth year] (70 yo M)Acc No.[id number]:06/16/2025 Patient: Sheba Bhavesh RODRIGUEZ Provider: Jefferson Amado MD :1955 A ge:70 Y S ex:Male Date:06/16/2025 Address:[address] [place] [address] [id number] Subjective: * Chief Complaints: * d iscuss Echo [phone] at work until 2pm * HPI: S [...] MD Date: 0 06/16/2025 Generated for Liza joaquin/Isaak/Negaritting on: 0 07/13/2025 09:15 AM EDT History and Physical Notes * HPI (History of Present Illness) Category Sub-Category Detail Notes Category Not es Symptom(s) Telehealth Location of [facility] ider rendering services:: [address], [address] patient is a 70 [...]
--- NOTE | ~2025-07-13 | US_ITS ---
CLINICAL HISTORY: ELEVATED LFTS US abdomen complete with color Doppler Comparison: US/SR - US ABDOMEN - 11/03/23 08:25 EST US/UT/SR - US ABDOMEN - 09/05/22 08:37 EDT Findings: The visualized pancreas, aorta, and inferior vena cava are unremarkable. Liver normal size diffusely echogenic Right lobe 15.0 cm length. Incidental simple cyst right lobe measuring 1.2 x 1.2 x 1.2 cm. Previously measuring 1.2 x 1.0 x 1.2 cm Common duct 4.9 mm diameter. Physiologic distention of the gallbladder. Gallstone versus gallbladder polyp measuring 6 mm and 9 mm appear more conspicuous on current exam. Correlate with MRI. No gallbladder wall thickening. No pericholecystic fluid. No sonographic Hernandez sign. Main portal vein antegrade. Right kidney normal size, 12.1 cm in length. Normal cortical width and echotexture. No solid or cystic renal masses. No nephrolithiasis. No hydronephrosis. Left kidney normal, 12.1 cm in length. Normal cortical width and echotexture. No solid or cystic renal masses. No nephrolithiasis. No hydronephrosis. Spleen measures 12.1 cm. No splenic masses. No ascites. No lymphadenopathy. Impression: 1. Liver normal size with increased echotexture reflecting mild diffuse hepatic steatosis or diffuse hepatocellular disease. Incidental hepatic cyst right lobe. 2. Gallbladder polyps versus nonshadowing gallstones. Correlate with contrast-enhanced MRI/MRCP of the abdomen This document has been electronically signed by: Willam Pozo MD on 07/13/2025 10:48:38
--- OUTSIDE RECORDS SUMMARY | 2025-07-13 09:15 | XMS_ITS | Patient Health Record ---
Author Organization [facility] Address [address] [place] [address] Care Team Providers Care Mold Yard Crane Operator Name Role Phone Ingris BARDALES, Richard Primary Care Provider UnavaDewey Moran Jr Unavailable Allergies No Known Allergies Results Component Value Reference Range Notes Therapeutic Phlebotomy Reviewed date:08/18/2024 10:15:39 AM Interpretation: Performing Lab:[facility], [address] [place] [address] Notes/Report: THER/HGB 13.1 14.0-18.0 g/dL THER/HCT TNP 42.0-52.0 % Therapeutic Phlebotomy Phlebotomy Performed 500 mls drawn on 08/15/24. Please note that a copy of this report has been sent to the Primary Care Physician, the ordering physician and any physician designated by patient request. Complete Blood Count Auto Di ff Reviewed date:10/13/2024 09:01:14 AM Interpretation: Performing Lab:[facility], [address] [place] [address] Notes/Report: White Blood Count 5.2 4.8-10.8 X10*3/uL [...] PROFILE Reviewed date:10/13/2024 09:01:06 AM Interpretation: Performing Lab:[facility], [address] [place] [phone] Notes/Report: Iron 36 45-160 mcg/dL Total Iron Binding Capacity 296 228-428 mcg/dL Percent Iron Saturation 12 15-50 % Unsaturated Iron Binding 260 Ferritin Reviewed date:10/13/2024 09:01:00 AM Interpretation: Performing Lab:[facility], [address] [place] [phone] Notes/Report: Ferritin 25 20-250 ng/mL Therapeutic Phlebotomy Reviewed date:10/13/2024 09:01:20 AM Interpretation: Performing Lab:[facility], [address] [place] [phone] Notes/Report: THER/HGB TNP 14.0-18.0 g/dL Lab Results on file. Performed at [facility] on 10/12/24: Hgb: 12.6 g/dl Hct: 38.3 % THER/HCT TNP 42.0-52.0 % Therapeutic Phlebotomy Phlebotomy Performed 500 mls drawn on 10/12/24. Please note that a copy of this report has been sent to the Primary Care Physician, the ordering physician and any physician designated by patient request. Therapeutic Phlebotomy Reviewed date:12/14/2024 12:05:13 PM Interpretation: Performing Lab:[address] [phone] Notes/Report: THER/HGB 12.5 14.0-18.0 g/dL THER/HCT TNP 42.0-52.0 % Therapeutic Phlebotomy Phlebotomy Performed 500 mls drawn on 12/14/24. Please note that a copy of this report has been sent to the Primary Care Physician, the ordering physician and any physician designated by patient request. Complete Blood Count Auto Di ff Reviewed date:02/09/2025 08:06:30 AM Interpretation: Performing Lab:[facility], [address] [place] [phone] Notes/Report: White Blood Count 5.0 4.8-10.8 X10*3/uL [...] PROFILE Reviewed date:02/09/2025 08:06:21 AM Interpretation: Performing Lab:[facility], [address] [place] [phone] Notes/Report: Iron 24 45-160 mcg/dL Total Iron Binding Capacity 308 228-428 mcg/dL Percent Iron Saturation 8 15-50 % Unsaturated Iron Binding 284 Ferritin Reviewed date:02/09/2025 08:06:12 AM Interpretation: Performing Lab:[facility], [address] [place] [phone] Notes/Report: Ferritin 25 20-250 ng/mL Therapeutic Phlebotomy Reviewed date:02/09/2025 10:42:40 AM Interpretation: Performing Lab:[facility], [address] [place] [phone] Notes/Report: THER/HGB TNP 14.0-18.0 g/dL Lab Results on file. Performed at [facility] on 02/09/25: Hgb: 11.8 g/dl Hct: 36.8 % THER/HCT TNP 42.0-52.0 % Therapeutic Phlebotomy Phlebotomy Performed 500 mls drawn on 02/08/25. Please note that a copy of this report has been sent to the Primary Care Physician, the ordering physician and any physician designated by patient request. Therapeutic Phlebotomy Reviewed date:04/13/2025 10:34:06 AM Interpretation: Performing Lab:[facility], [address] [place] [phone] Notes/Report: THER/HGB 11.0 14.0-18.0 g/dL THER/HCT TNP 42.0-52.0 % Therapeutic Phlebotomy TNP Reason: Pre-phlebotomy Hgb/Hct is below the established parameter for this patient. Please note that a copy of this report has been sent to the Primary Care Physician, the ordering physician and any physician designated by patient request. Complete Blood Count Auto Di ff Reviewed date:06/15/2025 08:42:55 AM Interpretation: Performing Lab:[facility], [address] [place] [phone] Notes/Report: White Blood Count 3.6 4.8-10.8 X10*3/uL [...] PROFILE Reviewed date:06/15/2025 08:43:19 AM Interpretation: Performing Lab:[facility], [address] [place] [phone] Notes/Report: Iron 51 45-160 mcg/dL Total Iron Binding Capacity 281 228-428 mcg/dL Percent Iron Saturation 18 15-50 % Unsaturated Iron Binding 230 Ferritin Reviewed date:06/15/2025 08:43:10 AM Interpretation: Performing Lab:[facility], [address] [place] [phone] Notes/Report: Ferritin 29 20-250 ng/mL Therapeutic Phlebotomy Reviewed date:06/15/2025 08:43:25 AM Interpretation: Performing Lab:[facility], [address] [place] [phone] Notes/Report: THER/HGB TNP 14.0-18.0 g/dL Lab Results on file. Performed at [facility] on 06/14/25: Hgb: 10.8 g/dl Hct: [...] Problem Status W/U Status Risk Notes Problem 782124729 Colon cancer screening (Z12.11) Active confirmed Problem 04815325 Hereditary hemochromatosis (E83.110) Active confirmed Problem Vascular insufficiency of intestine (06838237) Other vascular disorders of intestine (K55.8) Active confirmed Problem Diverticular disease of colon (053941830) Diverticulosis of large intestine without perforation or abscess without bleeding (K57.30) Active confirmed Problem 67411028 Other cirrhosis of liver (K74.69) Active confirmed Problem 244332055 Generalized abdominal pain (R10.84) Active confirmed Problem 147047641 Adenomatous poly p of colon, unspecified part of colon (D12.6) Active confirmed Problem 333531284 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 Vital Signs Temperature 97.8 degrees Fahrenheit 10/19/2024 Blood pressure diastolic 00 mm Hg 10/19/2024 Height 66.5 in 10/19/2024 Blood pressure systolic 000 mm Hg 10/19/2024 Weight 164 lb 6 oz lbs 10/19/2024 BMI 26.13 kg/m2 10/19/2024 Encounters Encounter Location Date Provider Diagnosis [facility] [address] [place] [phone] 10/19/2024 Dewey Lan Jr Hereditary hemochromatosis E83.110 and Cirrhosis due to hemochromatosis E83.10 [facility] [address] [place] [phone] 10/13/2024 Dewey Lan Jr [facility] [address] [place] [phone] 02/09/2025 Dewey Lan Jr [facility] [address] [place] [phone] 06/15/2025 Dewey Lan Jr Assessments Encounter Date [...] Provider Name:Dewey baird , 10/18/2025 10:20:00 AM, [address] [place] [address], [address], [place], [address], Insurance Providers Payer Name Payer Address Payer Phone Subscriber Number Group Number Insured Name Patient Relationship to Insured Coverage Start Date Coverage End Date [facility] [address] [place] [address] [id number] ROSY RUCKER Self - patient is the [...]
--- OUTSIDE RECORDS SUMMARY | 2025-07-13 09:15 | XMS_ITS | Clinical Summary ---
Author Organization [facility] Address [address] [place] [address] Phone Care Team Providers Care [place] Name Role Phone Unavailable Primary Care Provider [...]
== END 2025-07-13 08:56 | disposition home or self-care (01) ==
LOC: HO.HMGCX 08:55
PROVIDERS: PCP Internal Medicine; Visit Provider Internal Medicine
DX: R79.89 Other specified abnormal findings of blood chemistry (principal)
CPT/HCPCS: 76700

== ENCOUNTER → 2025-07-13 09:01 | Outpatient (BNV) | payer MEDICARE, SELFPAY | PROVIDERS: PCP Internal Medicine; Visit Provider Radiology Diagnostic Radiology | DX: K76.0 Fatty (change of) liver, not elsewhere classified (principal) | CPT/HCPCS: 76700 ==

== ENCOUNTER 2025-08-10 11:14 | Outpatient (REF) | payer MEDICARE, SELFPAY ==
--- OUTSIDE RECORDS SUMMARY | 2025-06-16 10:30 | XMS_ITS ---
Author Organization Richard Amado MD Address [address] [place], [place] [phone] Care Team Providers Care Director Perioperative Name Role Phone Ingris Richard Primary Care Provider [phone] Allergies No Known Allergies REASON FOR VISIT discuss Echo [phone] at work until 2pm Medications Medication SIG [...] Amado MD [address] [place], [place] [phone] 06/16/2025 Richard Amado Heart murmur R01.1 Assessments [...] Provider Name:Richard Santana ier, 06/08/2026 07:00:00 AM, [address] [place] [address], [address], [place], [place], [phone], Provider Name:Richard Santana ier, 06/15/2026 09:30:00 AM, [address] [place] [address], Suite [facility], [place], [place], [phone], Progress Notes * ALKA Bhavesh PDOB: [birth year] (70 yo M)Acc No.[id number]:06/16/2025 Patient: Sheba Bhavesh RODRIGUEZ Provider: Jefferson Amado MD :1955 A ge:70 Y S ex:Male Date:06/16/2025 Address:[address] [place] [address] mar[place]a [id number] Subjective: * Chief Complaints: * d iscuss Echo [phone] at work until 2pm * HPI: S ymptom(s): Telehealth L ocation of provider rendering services: 1 0 [facility], [address], ocation of patient: a t [...] 0 06/16/2025 Generated for Liza joaquin/Isaak/Yamileth on: 0 08/10/2025 03:32 PM EDT History and Physical Notes * HPI (History of Present Illness) Category Sub-Category Detail Notes Category Not es Symptom(s) Telehealth Location of [facility] rendering services:: [address] [facility] [address], [address] patient is a 70 [...]
--- OUTSIDE RECORDS SUMMARY | 2025-07-11 03:45 | XMS_ITS ---
Author Organization Richard Amado MD Address [address] [place], [place] [phone] Care Team Providers Care Design Manager Name Role Phone Ingris Richard Primary Care Provider Results Component Value Reference Range Notes Complete Blood Count Auto Di ff Reviewed date:07/11/2025 05:54:53 PM Interpretation: Performing Lab:[facility], [address] [place] [phone] Notes/Report: White Blood Count 5.0 4.8-10.8 X10*3/uL [...] Panel Reviewed date:07/27/2025 10:36:50 AM Interpretation:07-20-2025 Performing Lab:[facility], [address] [place] [phone] Notes/Report: Bilirubin Total 0.4 0.0-1.0 mg/dL Bilirubin Direct 0.2 0.0-0.5 mg/dL Aspartate Amino Transferase 97 5-37 U/L Alanine Aminotransferase 114 0-40 U/L Total Protein 7.2 6.5-8.0 g/dL Albumin Level 4.2 3.5-5.0 g/dL Alkaline Phosphatase 125 39-117 U/L REASON FOR VISIT CBC Liver Encounters Encounter Location Date Provider Diagnosis Richard Amado MD [address] [place] [address] [address] [place], [place] [phone] 07/11/2025 Richard Amado Decreased platelet count D69.6 Assessments Encounter Date Diagnosis (ICD Code) Assessment Notes Treatment Notes Treatment Clinical Notes Section Notes 07/11/2025 Decreased platelet count (ICD-10 - D69.6) Plan Of Treatment Next Appt Details Provider Name:Richard piperr, 06/08/2026 07:00:00 AM, [address], [address], [place], [id number], Provider Name:Richard Santana ier, 06/15/2026 09:30:00 AM, [address], [address], [place], [id number], Progress Notes * Bhavesh RUCKER PDOB: [birth year] (70 yo M)Acc No.[id number]:07/11/2025 Progress Note Patient: Bhavesh HAMMOND Provider: Jefferson Amado MD :1955 A ge:70 Y S ex:Male Date:07/11/2025 Address:[address] [place], [place] [phone] Subjective: * Chief Complaints: * 1 . [...] 0 07/11/2025 Generated for Liza joaquin/Isaak/Negaritting on: 08/10/2025 03:32 PM EDT
--- OUTSIDE RECORDS SUMMARY | 2025-07-17 04:09 | XMS_ITS ---
Author Organization Richard Amado MD Address [address] [place], [place] [phone] Care Team Providers Care Product Trainer Name Role Phone Ingris Richard Primary Care Provider [phone] REASON FOR VISIT needs MRCP abd without contrast Encounters Encounter Location Date Provider Diagnosis Richard Amado MD 10 [facility] [address] [place] [phone] 07/17/2025 Richard Amado Other specified diseases of [...] Provider Name:Richard lucas, 06/08/2026 07:00:00 AM, [facility], [address], [place], [place], [phone], Provider Name:Richard Santana ier, 06/15/2026 09:30:00 AM, [address], [address], [place], [phone], Progress Notes * Bhavesh RUCKER PDOB: [birth year] (70 yo M)Acc No.[id number]:07/17/2025 Patient: Sheba Bhavesh RODRIGUEZ :1955 A ge:70 Y S ex:Male Address:[address] [place] [address] [place] [address] Subjective: * Chief Complaints: * n eeds MRCP abd without contrast * Medical History: * Surgical History: * Hospitalization/Major Diagno stic Procedure: * Medications: Objective: * Vitals: * Physical Examination: Assessment: * Assessment: 1. O ther specified diseases of gallbladder - K82.8 Plan: * Treatment: * Procedure Codes: * true * Date: Generated for Liza joaquin/Isaak/eTitzsmitting on: 0 08/10/2025 03:32 PM EDT
--- OUTSIDE RECORDS SUMMARY | 2025-07-20 04:24 | XMS_ITS ---
Author Organization Richard Amado MD Address [address] [place], [place] [phone] Care Team Providers Care Automotive Machinist Name Role Phone Ingris Richard Primary Care Provider [phone] REASON FOR VISIT [facility] MRI orders Encounters Encounter Location Date Provider Diagnosis Richard Amado MD 10 [facility] [address] [place] [phone] 07/20/2025 Richard Amado Other specified diseases of gallbladder K82.8 Assessments Encounter Date Diagnosis (ICD Code) Assessment Notes Treatment Notes Treatment Clinical Notes Section Notes 07/20/2025 Other specified diseases of gallbladder (ICD-10 - K82.8) Plan Of Treatment Pending Test Test Name Order Date MRI ABD W&WO CONTRAST 07/20/2025 Next Appt Details Provider Name:Richard lucas, 06/08/2026 07:00:00 AM, 10 [facility], Suite [facility], [place], [place], [phone], Provider Name:Richard lucas, 06/15/2026 09:30:00 AM, [address], [address], [place], [place], [phone], Progress Notes * ALKA Bhavesh PDOB: [birth year] (70 yo M)Acc No.[id number]:07/20/2025 Patient: Bhavesh HAMMOND :1955 A ge:70 Y S ex:Male Address:[address] [place] [address] [place] [address] Subjective: * Chief Complaints: * R ayus MRI orders * Medical History: * Surgical History: * Hospitalization/Major Diagno stic Procedure: * Medications: Objective: * Vitals: * Physical Examination: Assessment: * Assessment: 1. O ther specified diseases of gallbladder - K82.8 Plan: * Treatment: * Procedure Codes: * true * Date: Generated for Liza joaquin/Isaak/Negaritting on: 0 08/10/2025 03:33 PM EDT
--- OUTSIDE RECORDS SUMMARY | 2025-07-20 05:00 | XMS_ITS ---
Author Organization Richard Amado MD Address [address] [place], [place] [phone] Care Team Providers Care Golf Course Designer Name Role Phone Ingris Richard Primary Care Provider [phone] Allergies No Known Allergies REASON FOR VISIT [...] Richard Amado MD [address] [place] [phone] 07/20/2025 Richard Amado Mild aortic stenosis I35.0 [...] Provider Name:Richard Santana ier, 06/08/2026 07:00:00 AM, [address] [place] [address], [address], [place], [place], [phone], Provider Name:Richard Santana ier, 06/15/2026 09:30:00 AM, [address] [place] [address], [address], [place], [place], [phone], Progress Notes * Bhavesh RUCKER PDOB: [birth year] (70 yo M)Acc No.[id number]:07/20/2025 Patient: Sheba FRANKLINBhavesh Richmond Provider: Jefferson Amado MD :1955 A ge:70 Y S ex:Male Date:07/20/2025 Address:[address] [place] [address] [place] [id number] Subjective: * Chief Complaints: * 1 . [...] 0 07/20/2025 Generated for Liza joaquin/Isaak/Marthasmitting on: 0 08/10/2025 03:33 PM EDT History and Physical Notes * [...]
--- OUTSIDE RECORDS SUMMARY | 2025-08-10 15:33 | XMS_ITS | Patient Health Record ---
Author Organization Richard Amado MD Address [address] [place], [place] [id number] Care Team Providers Care Sql Developer Dba Name Role Phone Ingris Richard Primary Care Provider [phone] Allergies No Known Allergies Results Component Value Reference Range Notes Complete Blood Count Auto Di ff Reviewed date:06/15/2025 01:28:57 PM Interpretation:06-13-2025 Performing Lab:[facility], [address] [place] [phone] Notes/Report: White Blood Count 3.5 4.8-10.8 X10*3/uL [...] 0.0-0.2 /100WBC Neutrophils Absolute Auto 1.9 2.0-8.3 x10*3/uL Imm Gran Abs Auto 0.03 0.00-0.03 X10*3/uL Lymphocytes Absolute Auto 0.7 1.2-4.9 X10*3/uL Monocytes Absolute Auto 0.6 0.1-1.2 X10*3/uL Eosinophils Absolute Auto 0.2 0.0-0.4 X10*3/uL Basophils Absolute Auto 0.1 0.0-0.2 X10*3/uL NRBC Abs Auto 0.000 0.0-0.012 X10*3/uL Comprehensive [place]. Panel Fa st Reviewed date:06/06/2025 04:18:52 PM Interpretation: Performing Lab:[facility], [address] [place] [phone] Notes/Report: Sodium 143 135-145 mmol/L Potassium 4.0 [...] Panel Reviewed date:06/06/2025 12:34:11 PM Interpretation: Performing Lab:[address] [address] Notes/Report: Triglycerides 92 <150 mg/dL Desirable Triglyceride: [...] (Free>4and<10) Reviewed date:06/06/2025 12:32:58 PM Interpretation: Performing Lab:[address] [address] Notes/Report: PSA,Total (Free>4and<10) < 0.10 0.00-4.00 ng/mL [...] Random Reviewed date:06/06/2025 12:33:07 PM Interpretation: Performing Lab:[facility] [address] Notes/Report: Creatinine Urine 69.44 Microalbumin Urine < 5.0 Microalbum/Creatinine Ratio Ur TNP <30 ug/mg cr Unable to calculate albumin/creatinine ratio due to low microalbumin or creatinine result. Hemoglobin A1c Reviewed date:06/06/2025 12:43:21 PM Interpretation: Performing Lab:[address] [address] Notes/Report: Hemoglobin A1c % 6.3 <6.0 % [...] average glucose, using the formula of the D2X-Sjkgsxi Average Glucose study (ADAG), Diabetes Care, Vol.31,#8, Jun. 2007 UA ClnCatch+Micro w/rflx Cul t Reviewed date:06/06/2025 12:35:49 PM Interpretation: Performing Lab:[address] [address] Notes/Report: Urine, Clean Catch Color Urine Yellow Appearance Urine Clear PH 6.5 5.0-9.0 Glucose Urine UA Negative Negative mg/dL Urine Blood Negative Negative Specific [place] - Urine 1.015 1.005-1.025 Urine Protein Negative Neg-Trace mg/dL Urine Ketones Negative Negative mg/dL Nitrite Urine Negative Negative Leukocyte Esterase Urine Negative Negative RBC Urine 0-2 0-2 /HPF WBC Urine 0-5 0-5 /HPF Squamous Epithelial Cell Urine 0-2 0-2 /HPF Bacteria Urine None Seen None Seen Hyaline Casts Urine 0-2 0-2 /LPF Complete Blood Count Auto Di ff Reviewed date:07/11/2025 05:54:53 PM Interpretation: Performing Lab:[address] [address] Notes/Report: White Blood Count 5.0 4.8-10.8 X10*3/uL [...] 0.00-0.03 X10*3/uL Lymphocytes Absolute Auto 1.1 1.2-4.9 X10*3/uL Monocytes Absolute Auto 0.7 0.1-1.2 X10*3/uL Eosinophils Absolute Auto 0.1 0.0-0.4 X10*3/uL Basophils Absolute Auto 0.1 0.0-0.2 X10*3/uL NRBC Abs Auto 0.000 0.0-0.012 X10*3/uL Liver Panel Reviewed date:07/27/2025 10:36:50 AM Interpretation:07-20-2025 Performing Lab:[facility], [address] [place] [phone] Notes/Report: Bilirubin Total 0.4 0.0-1.0 mg/dL Bilirubin Direct 0.2 0.0-0.5 mg/dL Aspartate Amino Transferase 97 5-37 U/L Alanine Aminotransferase 114 0-40 U/L Total Protein 7.2 6.5-8.0 g/dL Albumin Level 4.2 3.5-5.0 g/dL Alkaline Phosphatase 125 39-117 U/L US abdomen complete Reviewed date:07/17/2025 08:15:49 AM Interpretation: Performing Lab: Notes/Report: [facility] [place] [address] Ultrasound Report Signed Patient: Bhavesh Mojica MR#: [id number] : 1955 Acct:[id number] Age/Sex: 70 / M ADM Date: 07/13/25 Loc: HO.HMGCX Attending Dr: Richard Amado MD Ordering Physician: Richard Amado MD Date of Service: 07/13/25 Procedure(s): US abdomen complete Accession Number(s): [id number] cc: Richard Amado MD CLINICAL HISTORY: ELEVATED LFTS US abdomen complete with color Doppler Comparison: US/SR - US ABDOMEN - 11/03/23 08:25 EST US/KS/SR - US ABDOMEN - 09/05/22 08:37 EDT Findings: The visualized pancreas, aorta, and inferior vena cava are unremarkable. Liver normal size diffusely echogenic Right lobe 15.0 cm length. Incidental simple cyst right lobe measuring 1.2 x 1.2 x 1.2 cm. Previously measuring 1.2 x 1.0 x 1.2 cm Common duct 4.9 mm diameter. Physiologic distention of the gallbladder. Gallstone versus gallbladder polyp measuring 6 mm and 9 mm appear more conspicuous on current exam. Correlate with MRI. No gallbladder wall thickening. No pericholecystic fluid. No sonographic Hernandez sign. Main portal vein antegrade. Right kidney normal size, 12.1 cm in length. Normal cortical width and echotexture. No solid or cystic renal masses. No nephrolithiasis. No hydronephrosis. Left kidney normal, 12.1 cm in length. Normal cortical width and echotexture. No solid or cystic renal masses. No nephrolithiasis. No hydronephrosis. Spleen measures 12.1 cm. No splenic masses. No ascites. No lymphadenopathy. Impression: 1. Liver normal size with increased echotexture reflecting mild diffuse hepatic steatosis or diffuse hepatocellular disease. Incidental hepatic cyst right lobe. 2. Gallbladder polyps versus nonshadowing gallstones. Correlate with contrast-enhanced MRI/MRCP of the abdomen This document has been electronically signed by: Willam Pozo MD on 07/13/2025 10:48:38 Dictated By: Willam Pozo MD Signed By: <Electronically signed by Willam Pozo MD in OV> 07/13/25 1049 DD/ 1048 TD/TT: 07/13/25 1048 Night Clerk Auditor: [facility] [address] [place] [address] [place] [address] Ultrasound Report Signed Patient: Jere Mojica MR#: [id number] : 1955 Acct:[id number] Age/Sex: 70 / M ADM Date: 07/13/25 Loc: HO.HMGCX Attending Dr: Richard Amado MD Ordering Physician: Richard Amado MD Date of Service: 07/13/25 Procedure(s): US abdomen complete Accession Number(s): [id number] cc: Richard Amado MD CLINICAL HISTORY: ELEVATED LFTS US abdomen complete with color Doppler Comparison: US/SR - US ABDOMEN - 11/03/23 08:25 EST US/KS/SR - US ABDOME N - 09/05/22 08:37 EDT Findings: The visualized pancreas, aorta, and inferior vena cava are unremarkable. Liver normal size diffusely echogenic Right lobe 15.0 cm length. Incidental simple cy st right lobe measuring 1.2 x 1.2 x 1.2 cm. Previously measuring 1.2 x 1.0 x 1.2 cm Common duct 4.9 mm diameter. Physiologic distenti on of the gallbladder. Gallstone versus gallbladder polyp measuring 6 mm and 9 mm appear more conspicuous on current exam. Correlate with MRI. No gallbladder wall thickening. No pericholecystic fluid. No sonographi c Hernandez sign. Main portal vein antegrade. Right kidney normal size, 12.1 cm in length. Normal cortical width and echotexture. No óscar d or cystic renal masses. No nephrolithiasis. No hydronephrosis. Left kidney normal, 12.1 cm in length. Normal cortical width and echotexture. No óscar d or cystic renal masses. No nephrolithiasis. No hydronephrosis. Spleen measures 12.1 cm. No splenic masses. No ascites. No lymphadenopathy. Impression: 1. Liver normal size with increased echotexture reflecting mild diffuse hepatic steatosis or diffuse hepatocellular disease. Incidental hepatic cyst right lobe. 2. Gallbladder polyp s versus nonshadowing gallstones. Correlate with contrast-enhanced MRI/MRCP of the abdomen This document has be en electronically signed by: Willam Pozo MD on 07/13/2025 10:48:38 Dictated By: Willam Pozo MD Signed By: <Electronically signed by Willam Pozo MD in OV> 07/13/25 1049 DD/ 1048 TD/TT: 07/13/25 1048 Night Clerk Auditor: Reason For Referral No Information Medications Medication SIG (Take, Route, Fr equency, Duration) Notes Start Date End Date Status Ibuprofen 200 MG 1 tablet with food o r milk as needed Orally Three times a day Active Tadalafil 20 MG 1 tablet as needed O rally Once a day as needed for 30 days 06/13/2025 Active Immunizations Vaccine Route Administration Date Status Comme nts DECLINED, FLU Unknown 12/08/2013 Administered WILL NEVE R GET A FLU SHOT PPSV23 (Pnemovax) IM Intramuscular 05/10/2019 Administered Influenza High Dose IM Intramuscular 10/04/2019 Administer ed pt was given the vaccine at [facility] in [place]. 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) Active confirmed Problem 298784379 Tubular adenoma of colon (D12.6) Active confirmed Problem 605181122 Prostate cancer (C61) Active confirme d Problem 3818262 Prediabetes (R73.09) Active confirmed Problem 553811603 History of hemat uria (Z87.448) Active confirmed Problem 623116063 Mild aortic sten osis (I35.0) Active confirmed Problem 96510811 Atherosclerosis (I70.90) Active confirmed Problem 158194020 Pure hypercholesterolemia (E78.00) Active confirmed Problem Thrombocytopenic disorder (804751008) Decreased platelet count (D69.6) Active confirmed Problem 51372184 Aortic valve sherman nosis, etiology of cardiac valve disease unspecified (I35.0) Active confirmed Problem Erectile dysfunc tion due to and not concurrent with radiation therapy (N52.35) Active confirmed Vital Signs Temperature 101.1 degrees Fahrenheit 02/16/2025 leonora ght at home is 162 Temp 100.1 Blood pressure diastolic 64 mm Hg 07/20/2025 Height 67 in 07/20/2025 Blood pressure systolic 112 mm Hg 07/20/2025 Weight 161 lbs 07/20/2025 BMI 25.21 kg/m2 07/20/2025 Encounters Encounter Location Date Provider Diagnosis Richard Amado MD [address] [place], [place] [id number] 06/06/2025 Richard Amado Blood tests for rout ine general physical examination Z00.00 ; Prediabetes R73.09 and Pure hypercholesterolemia E78.00 Richard Amado MD [address] [place] [id number] 07/11/2025 Richard Amado Decreased platelet c ount D69.6 Richard Amado MD [address] [place] [id number] 07/20/2025 Richard Amado Mild aortic stenosis I35.0 ; Gall bladder polyp K82.4 and Elevated LFTs R79.89 Richard Amado MD [address] [place] [id number] 02/16/2025 Richard Amado Influenza J11.1 Richard Amado MD [address] [place] [id number] 06/13/2025 Richard Amado Annual physical exam Z00.00 ; Other hemochromatosis E83.118 ; Prostate cancer C61 ; Decreased platelet count D69.6 ; Elevated LFTs R79.89 ; Shortness of breath R06.02 ; Erectile dysfunction due to and not concurrent with radiation therapy N52.35 ; Pure hypercholesterolemia E78.00 ; Prediabetes R73.09 ; Colon cancer screening Z12.11 and Depression screening Z13.31 Richard Amado MD [address] [place] [id number] 06/16/2025 Richard Amado Heart murmur R01.1 Richard Amado MD [address] [place] [id number] 02/13/2025 Richard Amado MD [address] [place] [address] [id number] 07/17/2025 Richard Amado Other specified dise ases of gallbladder K82.8 Richard Amado MD [address] [place] [address] [id number] 07/20/2025 Richard Amado Other specified dise ases of gallbladder K82.8 Assessments Encounter Date Diagnosis (ICD Code) Assessment Notes Treatment Notes Treatment Clinical Notes Section Notes 06/06/2025 [address] tests for rout ine general physical examination (ICD-10 - Z00.00) 07/11/2025 Decreased platelet count (ICD-10 - D69.6) 07/20/2025 Mild aortic stenosis (ICD-10 - I35.0) followed by dr perez 07/20/2025 Gall bladder polyp (ICD-10 - K82.4) doing to get mri 02/16/2025 Influenza (ICD-10 - J11.1) patient verbalized understanding of medication and directions for use 06/13/2025 Annual physical exam (ICD-10 - Z00.00) labs reviewed and discussed with patient 06/13/2025 Other hemochromatosi s (ICD-10 - E83.118) 06/16/2025 Heart murmur (ICD-10 - R01.1) went over the results of the echo with him that is read as the only change was mild mitral stenosis 07/17/2025 Other specified diseases of gallbladder (ICD-10 - K82.8) Order faxed to [facility] 07/20/2025 Other specified diseases of gallbladder (ICD-10 - K82.8) 06/06/2025 Prediabetes (ICD-10 - R73.09) 07/20/2025 Elevated LFTs (ICD-1 0 - R79.89) followed by dr lezama 06/13/2025 Prostate cancer (ICD -10 - C61) followed by Urology 06/06/2025 Pure hypercholesterolemia (ICD-10 - E78.00) 06/13/2025 Decreased platelet count (ICD-10 - D69.6) will continue to monitor, pending addtl labs 06/13/2025 Elevated LFTs (ICD-1 0 - R79.89) order faxed to [facility] CS dept , will continue to monitor, pending labs 06/13/2025 Shortness of breath (ICD-10 - R06.02) obtain echo results from [facility] 06/13/2025 Erectile dysfunction due to and not concurrent with radiation therapy (ICD-10 - N52.35) 06/13/2025 Pure hypercholesterolemia (ICD-10 - E78.00) stable, will continue current regiment 06/13/2025 Prediabetes (ICD-10 - R73.09) stable, no need for medication at this time 06/13/2025 Colon cancer screeni ng (ICD-10 - Z12.11) guaiac negative 06/13/2025 Depression screening (ICD-10 - Z13.31) negative screen Plan Of Treatment Pending Test Test Name Order Date Electrocardiogram (EKG) 05/13/2018 Electrocardiogram (EKG) 05/19/2019 Electrocardiogram (EKG) 04/21/2016 Electrocardiogram (EKG) 05/05/2017 CT CHEST WITH CONTRAST 03/19/2017 MRI ABD NO CONTRAST (MRCP) 07/17/2025 MRI ABD W&WO CONTRAST 07/20/2025 MRI BRAIN W&WO CONTRAST 11/01/2012 XR CHEST 2 VIEW PA & LAT 03/17/2017 US ABD 06/13/2025 US CAROTID BILATERAL DOPPLER 06/10/2024 SARS COV2 RNA RT PCR 05/08/2020 US carotid duplex BI 07/18/2024 Next Appt Details Provider Name:Richard Santana ier, 06/08/2026 07:00:00 AM, [address] [facility], [address], [place], [place], [phone], Provider Name:Richard Santana ier, 06/15/2026 09:30:00 AM, [address], [address], [place], [place], [phone], Insurance Providers Payer Name Payer Address Payer Phone Subscriber Number Group Number Insured Name Patient Relationship to Insured Coverage Start Date Coverage End Date [employer]AN [address] [place] [phone] [id number] Bhavesh Mojica Self - patient is the insured 9 MEDICARE [address] [place] [address] [id number] Bhavesh Mojica Self - patient is the insured Medical (General) History Medical History History ICD Code colonoscopy 2007; colonoscop y done - 03/30/2013; colonoscopy done 11/12/[address] Lezama; colonoscopy done 09/09/[address] Lezama (repeat 3-5 depending on biopsy Endoscopy done 11/12/[address] Lezama atherosclerosis on cta. doesn't want to take statins 12/23/2019 total left knee replaced by [facility](Dr Rayo) hematuria had evaluation 2014
--- OUTSIDE RECORDS SUMMARY | 2025-08-10 15:33 | XMS_ITS | Clinical Summary ---
Author Organization [address] [facility] Address [address] [place] [address] Phone Care Team Providers Care Logging Worker Name Role Phone Unavailable Primary Care Provider [...]
--- OUTSIDE RECORDS SUMMARY | 2025-08-10 15:33 | XMS_ITS | Encounter Summary ---
Author Organization [facility] Address [address] [place] [address] Care Team Providers Care Leather Grainer Name Role Phone Unavailable Primary Care Provider Unavailabl e Encounter Details Date Type Department Care Team (Late st Contact Info) Description 12/06/2024 Lab Requisition [facility] - Main Lab [address] [place] [address] Kar Gan MD [address] [place] [address] Elevated prostate specific antigen (PSA) [...] (12/05/2024) Final Diagnosis A. Prostate, Left Middle Ken[place] (Core Biopsy): -PROSTATIC ACINAR ADENOCARCINOMA CONVENTIONAL (USUAL) TYPE -Salley Score: (3+3=6), Grade Group 1 Total Number of Cores: 1 Number of Positive Cores: 1 Percent of Prostatic Tissue Continuously Involved by Tumor: 5 % B. Prostate, Left Lateral Keno (Core Biopsy): - Benign prostate tissue. C. Prostate, Left Middle Middle (Core Biopsy): -PROSTATIC ACINAR ADENOCARCINOMA CONVENTIONAL (USUAL) TYPE -Jeff Score: (4+3=7), Grade Group 3 -Percentage Pattern: [...] Biopsy): -PROSTATIC ACINAR ADENOCARCINOMA CONVENTIONAL (USUAL) TYPE -Salley Score: (3+3=6) , Grade Group 1 Total Number of Cores: 3 Number of Positive Cores: 1 Percent of Prostatic Tissue Continuously Involved by Tumor: 0, 0, 5 % H. Prostate, Right Middle Keno (Core Biopsy): - Benign prostate tissue. I. Prostate, Right Lateral Keno (Core Biopsy): - Benign prostate tissue. J. [...] PSA Last PSA free = 12.6 (10/24/2024) [id number] 12/15/2024 12:14 PM [facility] Gross Description A. Prostate, Left Mid Keno Biopsy: Received, properly labeled, are two H [...] two unstained slides. H. Prostate, Right Mid Keno Biopsy: Received, properly labeled, are two H and E stained slides and two unstained slides. I. Prostate, Right Lat Keno Biopsy: Received, properly labeled, are two H [...] unstained slides. /al 12/15/2024 12:14 PM EST [facility] Disclaimer Unless otherwise specified, all tissue is 10% NB formalin fixed and paraffin embedded. Technical pathology services provided by [facility] at [address] [place] [address] [address], [place] [address] (CLIA #[id number]/Lina Lopez MD, Commercial Analyst) 12/15/2024 12:14 PM EST [facility] Tissue Prostate / Unknown 12/05/20242024 [...] Gan MD LAB PATHOLOGY ORDERABLES Final Result [facility] [address] [place] [address], documented in this encounter Visit Diagnoses Diagnosis Elevated prostate specific antigen (PSA) documented in this encounter
--- OUTSIDE RECORDS SUMMARY | 2025-08-10 15:34 | XMS_ITS | Patient Health Record ---
Author Organization [facility] Address [address] [place] [address] Care Team Providers Care Livestock Dealer Name Role Phone Richard Amado MD Primary Care Provider UnavaDewey Moran Jr Unavailable Allergies No Known Allergies Results Component Value Reference Range Notes Therapeutic Phlebotomy Reviewed date:08/18/2024 10:15:39 AM Interpretation: Performing Lab:[facility], [address] [place] [address] Notes/Report: THER/HGB 13.1 14.0-18.0 g/dL THER/HCT TNP 42.0-52.0 % Therapeutic Phlebotomy Phlebotomy Performed 500 mls drawn on 08/15/24. Please note that a copy of this report has been sent to the Primary Care Physician, the ordering physician and any physician designated by patient request. Complete Blood Count Auto Di ff Reviewed date:10/13/2024 09:01:14 AM Interpretation: Performing Lab:[facility], [address] [place] [address] Notes/Report: White Blood Count 5.2 4.8-10.8 X10*3/uL [...] PROFILE Reviewed date:10/13/2024 09:01:06 AM Interpretation: Performing Lab:[facility], [address] [place] [phone] Notes/Report: Iron 36 45-160 mcg/dL Total Iron Binding Capacity 296 228-428 mcg/dL Percent Iron Saturation 12 15-50 % Unsaturated Iron Binding 260 Ferritin Reviewed date:10/13/2024 09:01:00 AM Interpretation: Performing Lab:[facility], [address] [place] [phone] Notes/Report: Ferritin 25 20-250 ng/mL Therapeutic Phlebotomy Reviewed date:10/13/2024 09:01:20 AM Interpretation: Performing Lab:[facility], [address] [place] [phone] Notes/Report: THER/HGB TNP 14.0-18.0 g/dL Lab Results on file. Performed at [facility] on 10/12/24: Hgb: 12.6 g/dl Hct: 38.3 % THER/HCT TNP 42.0-52.0 % Therapeutic Phlebotomy Phlebotomy Performed 500 mls drawn on 10/12/24. Please note that a copy of this report has been sent to the Primary Care Physician, the ordering physician and any physician designated by patient request. Therapeutic Phlebotomy Reviewed date:12/14/2024 12:05:13 PM Interpretation: Performing Lab:[address] [phone] Notes/Report: THER/HGB 12.5 14.0-18.0 g/dL THER/HCT TNP 42.0-52.0 % Therapeutic Phlebotomy Phlebotomy Performed 500 mls drawn on 12/14/24. Please note that a copy of this report has been sent to the Primary Care Physician, the ordering physician and any physician designated by patient request. Complete Blood Count Auto Di ff Reviewed date:02/09/2025 08:06:30 AM Interpretation: Performing Lab:[facility], [address] [place] [phone] Notes/Report: White Blood Count 5.0 4.8-10.8 X10*3/uL [...] PROFILE Reviewed date:02/09/2025 08:06:21 AM Interpretation: Performing Lab:[facility], [address] [place] [phone] Notes/Report: Iron 24 45-160 mcg/dL Total Iron Binding Capacity 308 228-428 mcg/dL Percent Iron Saturation 8 15-50 % Unsaturated Iron Binding 284 Ferritin Reviewed date:02/09/2025 08:06:12 AM Interpretation: Performing Lab:[facility], [address] [place] [phone] Notes/Report: Ferritin 25 20-250 ng/mL Therapeutic Phlebotomy Reviewed date:02/09/2025 10:42:40 AM Interpretation: Performing Lab:[facility], [address] [place] [phone] Notes/Report: THER/HGB TNP 14.0-18.0 g/dL Lab Results on file. Performed at [facility] on 02/09/25: Hgb: 11.8 g/dl Hct: 36.8 % THER/HCT TNP 42.0-52.0 % Therapeutic Phlebotomy Phlebotomy Performed 500 mls drawn on 02/08/25. Please note that a copy of this report has been sent to the Primary Care Physician, the ordering physician and any physician designated by patient request. Therapeutic Phlebotomy Reviewed date:04/13/2025 10:34:06 AM Interpretation: Performing Lab:[facility], [address] [place] [phone] Notes/Report: THER/HGB 11.0 14.0-18.0 g/dL THER/HCT TNP 42.0-52.0 % Therapeutic Phlebotomy TNP Reason: Pre-phlebotomy Hgb/Hct is below the established parameter for this patient. Please note that a copy of this report has been sent to the Primary Care Physician, the ordering physician and any physician designated by patient request. Complete Blood Count Auto Di ff Reviewed date:06/15/2025 08:42:55 AM Interpretation: Performing Lab:[facility], [address] [place] [phone] Notes/Report: White Blood Count 3.6 4.8-10.8 X10*3/uL [...] PROFILE Reviewed date:06/15/2025 08:43:19 AM Interpretation: Performing Lab:[facility], [address] [place] [phone] Notes/Report: Iron 51 45-160 mcg/dL Total Iron Binding Capacity 281 228-428 mcg/dL Percent Iron Saturation 18 15-50 % Unsaturated Iron Binding 230 Ferritin Reviewed date:06/15/2025 08:43:10 AM Interpretation: Performing Lab:[facility], [address] [place] [phone] Notes/Report: Ferritin 29 20-250 ng/mL Therapeutic Phlebotomy Reviewed date:06/15/2025 08:43:25 AM Interpretation: Performing Lab:[facility], [address] [place] [phone] Notes/Report: THER/HGB TNP 14.0-18.0 g/dL Lab Results on file. Performed at [facility] on 06/14/25: Hgb: 10.8 g/dl Hct: 32.5 % THER/HCT TNP 42.0-52.0 % Therapeutic Phlebotomy TNP Reason: Pre-phlebotomy Hgb/Hct is below the established parameter for this patient. Please note that a copy of this report has been sent to the Primary Care Physician, the ordering physician and any physician designated by patient request. Therapeutic Phlebotomy (Not yet reviewed by provider) Interpretation: Performing Lab:[facility], [address] [place] [phone] Notes/Report: THER/HGB 10.2 14.0-18.0 g/dL THER/HCT TNP 42.0-52.0 % Therapeutic [...] Problem Status W/U Status Risk Notes Problem 513293415 Colon cancer screening (Z12.11) Active confirmed Problem 06895387 Hereditary hemochromatosis (E83.110) Active confirmed Problem Vascular insufficiency of intestine (50199376) Other vascular disorders of intestine (K55.8) Active confirmed Problem Diverticular disease of colon (776113263) Diverticulosis of large intestine without perforation or abscess without bleeding (K57.30) Active confirmed Problem 40314204 Other cirrhosis of liver (K74.69) Active confirmed Problem 701295856 Generalized abdominal pain (R10.84) Active confirmed Problem 092838155 Adenomatous poly p of colon, unspecified part of colon (D12.6) Active confirmed Problem 887163419 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 Vital Signs Temperature 97.8 degrees Fahrenheit 10/19/2024 Blood pressure diastolic 00 mm Hg 10/19/2024 Height 66.5 in 10/19/2024 Blood pressure systolic 000 mm Hg 10/19/2024 Weight 164 lb 6 oz lbs 10/19/2024 BMI 26.13 kg/m2 10/19/2024 Encounters Encounter Location Date Provider Diagnosis [facility] [address] [place] [phone] 10/19/2024 Dewey Lan Jr Hereditary hemochromatosis E83.110 and Cirrhosis due to hemochromatosis E83.10 [facility] [address] [place] [phone] 10/13/2024 Dewey Lan Jr [facility] [address] [place] [phone] 02/09/2025 Dewey Lan Jr [facility] [address] [place] [phone] 06/15/2025 Dewey Lan Jr Assessments Encounter Date [...] US ABD 10/19/2023 Liver Fibrosis Pnl 10/19/2023 Therapeutic Phlebotomy 08/10/2025 Future Test Test Name Order Date COLONOSCOPY 12/30/2012 UPPER GI ENDOSCOPY 07/29/2018 COLONOSCOPY 07/29/2018 COLONOSCOPY 08/03/2019 COLONOSCOPY 08/20/2022 Next Appt Details Provider Name:Dewey baird Jr, 10/18/2025 10:20:00 AM, [address] [place] [address], [address], [place], [address], Insurance Providers Payer Name Payer Address Payer Phone Subscriber Number Group Number Insured Name Patient Relationship to Insured Coverage Start Date Coverage End Date [facility] [address] [facility] [place] [phone] [id number] ROSY RUCKER Self - patient is the [...]
== END 2025-08-10 11:15 | disposition home or self-care (01) ==
LOC: HO.BBR 11:14
PROVIDERS: PCP Internal Medicine; Visit Provider Internal Medicine Gastroenterology
DX: Z13.89 Encounter for screening for other disorder (principal)

== ENCOUNTER 2025-10-02 13:20 | Outpatient (REF) | payer MEDICARE, SELFPAY ==
[2025-10-02 13:23] LABS: MANUAL DIFF FLAG NO
[2025-10-02 13:27] LABS: Hematocrit 25.8 % (42.0-52.0); Hemoglobin 7.8 g/dl (14.0-18.0); Imm Gran Abs Auto 0.01 X10*3/uL (0.00-0.03); Imm Gran Pct Auto 0.3 % (0.0-0.4); Lymphocytes Absolute Auto 0.7 X10*3/uL (1.2-4.9); Mean Corpuscular HGB Conc 30.2 g/dl (31.0-36.0); Mean Corpuscular Hemoglobin 26.7 pg (27.0-33.0); Mean Corpuscular Volume 88.4 fL (80.0-98.0); NRBC Abs Auto 0.000 X10*3/uL (0.0-0.012); NRBC Pct Auto 0.0 /100WBC (0.0-0.2); Platelet Count 109 X10*3/uL (160-400); Red Blood Count 2.92 X10*6/uL (4.60-5.80); White Blood Count 3.5 X10*3/uL (4.8-10.8)
[2025-10-02 13:37] LABS: Alanine Aminotransferase 69 U/L (0-40); Albumin Level 3.7 g/dL (3.5-5.0); Alkaline Phosphatase 120 U/L (39-117); Anion Gap 10 (12-20); Aspartate Amino Transferase 64 U/L (5-37); Blood Urea Nitrogen 11 mg/dL (9-16); Calcium 8.3 mg/dL (8.4-10.2); Carbon Dioxide 24 mmol/L (22-29); Chloride 110 mmol/L (96-108); Estimated Glomerular Filt Rate > 60; Potassium 3.8 mmol/L (3.3-5.1); Sodium 140 mmol/L (135-145); Total Protein 6.4 g/dL (6.5-8.0)
== END 2025-10-02 13:21 | disposition home or self-care (01) ==
LOC: HO.LNP 13:20
PROVIDERS: Visit Provider Internal Medicine
DX: D61.818 Other pancytopenia (principal)
CPT/HCPCS: 80053; 85025

== ENCOUNTER 2025-10-05 11:05 | Outpatient (REF) | payer MEDICARE, SELFPAY ==
--- OUTSIDE RECORDS SUMMARY | 2025-02-13 05:27 | XMS_ITS ---
Author Organization Richard Amado MD Address [address] [place] [phone] Care Team Providers Care Staking Engineer Name Role Phone Ingris Richard Primary Care Provider [phone] REASON FOR VISIT HCC Risk Codes 06/13 Encounters Encounter Location Date Provider Diagnosis Richard Amado MD [address] [facility] [address] [place] [id number] 02/13/2025 Richard Amado Plan Of Treatment Next Appt Details Provider Name:Richard lucas, 06/08/2026 07:00:00 AM, [address] [place] [address], Suite [facility], [place], [place], [phone], Provider Name:Richard lucas, 06/15/2026 09:30:00 AM, [address] [place] [address], Suite [facility], [place], [place], [phone], Progress Notes * Bhavesh RUCKER PDOB: [birth year] (70 yo M)Acc No.[id number]:02/13/2025 Patient: Bhavesh HAMMOND :1955 A ge:70 Y S ex:Male Address:[address] [place] [address] [place] [address] * true * Date: Generated for Liza joaquin/Isaak/Negaritting on: 12/05/2024 01:42 PM EST
--- OUTSIDE RECORDS SUMMARY | 2025-02-16 09:15 | XMS_ITS ---
Author Organization Richard Amado MD Address [address] [place], [place] [phone] Care Team Providers Care Fixed Assets Accountant Name Role Phone Ingris Richard Primary Care Provider Allergies No Known Allergies REASON FOR VISIT chest congested, coughing, fever 100.1 covid neg today c/o chills, sore throat last week, x 1 week is positive for Flu, Video [phone] Medications Medication SIG (Take, Route, Frequency, Duration) Notes Start Date End Date Status Tamiflu 75 MG 1 capsule Orally Twi ce a day for 5 day(s) 02/16/2025 Active Vital Signs Temperature 101.1 degrees Fahrenheit 025 Height 67 in 02/16/2025 Weight 162 lbs 02/16/2025 BMI 25.37 kg/m2 02/16/2025 weight at home is 162 Temp 1 00.1 Encounters Encounter Location Date Provider Diagnosis Richard Amado MD [address] [place] [phone] 02/16/2025 Richard Amado Influenza J11.1 Assessments Encounter Date Diagnosis (ICD Code) Assessment Notes Treatment Notes Treatment Clinical Notes Section Notes 02/16/2025 Influenza (ICD-10 - J11.1) patient verbalized understanding of medication and directions for use Plan Of Treatment Medication Medication Name Sig Start Date Stop Date Notes Tamiflu 75 MG 1 capsule Orally Twice a day for 5 day(s) Treatment Notes Assessment Notes Influenza patient verbalized u nderstanding of medication and directions for use Next Appt Details Provider Name:Richard lucas, 06/08/2026 07:00:00 AM, [address] [place] [address], [address], [place], [place], [phone], Provider Name:Richardlorena Sanchezcarolynn lance, 06/15/2026 09:30:00 AM, [address] [place] [address], [address], [place], [place], [phone], Progress Notes * Bhavesh RUCKER PDOB: [birth year] (70 yo M)Acc No.[id number]:02/16/2025 Patient: Sheba Bhavesh RODRIGUEZ Provider: Jefferson Amado MD :1955 A ge:70 Y S ex:Male Date:02/16/2025 Address:[address] [place], [place] [phone] Subjective: * Chief Complaints: * c hest congested, coughing, fever 100.1 covid neg today c/o chills, sore throat last week, x 1 week is positive for FluVideo [phone] * HPI: S ymptom(s): Telehealth L ocation of provider rendering services: [address], [address], L ocation of patient: a t address listed in demographics for today's visit, P atient identification confirmed using: SABIHA Tolbert ame, T elehealth method: T elephone only. Patient not visible to care provider., C onsent: P atient verbally consented to treatment, Patient verbally consented to billing insurance company, Patient informed of any privacy concerns related to method of visit, T otal time spend talking with patient (minutes) 1 8. patient is 70 yo male audio telehealth visit, with complaint of chest congestion, fever, sore throat last week, ois positive for flu. tested positive. started 4 days ago and then started with fever and coughing a lot. * ROS: G eneral/Constitutional: Admits C hills. D enies F atigue. A dmits F ever. D enies H eadache. E NT: Patient denies d ecreased sense of smell, any loss of taste. D enies S ore throat. R espiratory: Admits C ough. D enies S hortness of breath at rest. A dmits S hortness of breath with exertion. D enies S putum production. G astrointestinal: Denies D iarrhea. D enies N ausea. M usculoskeletal: Patient denies m uscle aches. P eripheral Vascular: Patient denies r ed and blue toes. * Medical History: * Surgical History: * Hospitalization/Major Diagno stic Procedure: * Medications: D iscontinuedPaxlovid (300/100) 20 x 150 MG & 10 x 100MG Tablet Therapy Pack 3 tablets Orally Twice a day Medication List reviewed and reconciled with the patientDiscontinued Paxlovid (300/100) 20 x 150 MG & 10 x 100MG Tablet Therapy Pack 3 tablets Orally Twice a day Medication List reviewed and reconciled with the patient * Allergies: N .K.D.A.yes[Allergies Verified] Objective: * Vitals: H t: 67, Wt: 162, BMI:25.37, Temp:101.1, Wt-k.48. weight at home is 162 Temp 100.1. * Examination: G eneral Examination: GENERAL APPEARANCE: a lert, well hydrated, in no distress.? HEAD: n ormocephalic. Assessment: * Assessment: 1. I nfluenza - J11.1 (Primary) Plan: * Treatment: * Procedure Codes: * * Sign off status: Completed true * Provider: Jefferson Amado MD Date: 0 02/16/2025 Generated for Liza joaquin/Isaak/Marthasmitting on: 1 12/05/2024 01:42 PM EST History and Physical Notes * HPI (History of Present Illness) Category Sub-Category Detail Notes Category Not es Symptom(s) Telehealth Location of [facility] rendering services:: [address], [address] patient is 70 yo male audio telehealth visit, with complaint of chest congestion, fever, sore throat last week, ois positive for flu. tested positive. started 4 days ago and then started with fever and coughing a lot. Location of patient:: at address listed in demographics for today's visit Patient identification confirmed using:: Name, Telehealth method:: Telephone only. Sally ent not visible to care provider. Consent:: Patient verbally c onsented to treatment, Patient verbally consented to billing insurance company, Patient informed of any privacy concerns related to method of visit Total time spend talking with patient (m inutes): 18 Examination Category Sub-Category Detail Notes Category Not es General Examination GENERAL APPEARANCE: alert, w ell hydrated, in no distress HEAD: normocephalic
--- OUTSIDE RECORDS SUMMARY | 2025-06-06 02:45 | XMS_ITS ---
Author Organization Richard Amado MD Address [address] [place], [place] [address] Care Team Providers Care Electronic Transaction Implementer Name Role Phone Ingris Richard Primary Care Provider [phone] Results Component Value Reference Range Notes Complete Blood Count Auto Di ff Reviewed date:06/15/2025 01:28:57 PM Interpretation:06-13-2025 Performing Lab:[facility], [address] [place] [phone] Notes/Report: White Blood Count 3.5 4.8-10.8 X10*3/uL [...] NRBC Abs Auto 0.000 0.0-0.012 X10*3/uL Comprehensive [place]. Panel Fa st Reviewed date:06/06/2025 04:18:52 PM Interpretation: Performing Lab:[facility], [address] [place] [phone] Notes/Report: Sodium 143 135-145 mmol/L Potassium 4.0 [...] Panel Reviewed date:06/06/2025 12:34:11 PM Interpretation: Performing Lab:[facility], [address] [place] [phone] Notes/Report: Triglycerides 92 <150 mg/dL Desirable Triglyceride: [...] (Free>4and<10) Reviewed date:06/06/2025 12:32:58 PM Interpretation: Performing Lab:[facility], [address] [place] [phone] Notes/Report: PSA,Total (Free>4and<10) < 0.10 0.00-4.00 ng/mL [...] Random Reviewed date:06/06/2025 12:33:07 PM Interpretation: Performing Lab:[facility], [address] [place] [phone] Notes/Report: Creatinine Urine 69.44 Microalbumin Urine < 5.0 Microalbum/Creatinine Ratio Ur TNP <30 ug/mg cr Unable to calculate albumin/creatinine ratio due to low microalbumin or creatinine result. Hemoglobin A1c Reviewed date:06/06/2025 12:43:21 PM Interpretation: Performing Lab:[facility], [address] [place] [phone] Notes/Report: Hemoglobin A1c % 6.3 <6.0 % [...] average glucose, using the formula of the K1N-Xnzzyic Average Glucose study (ADAG), Diabetes Care, Vol.31,#8, Jun. 2007 UA ClnCatch+Micro w/rflx Cul t Reviewed date:06/06/2025 12:35:49 PM Interpretation: Performing Lab:[facility], [address] [place] [phone] Notes/Report: Urine, Clean Catch Color Urine Yellow Appearance Urine Clear PH 6.5 5.0-9.0 Glucose Urine UA Negative Negative mg/dL Urine Blood Negative Negative Specific [place] - Urine 1.015 1.005-1.025 Urine Protein Negative [...] Location Date Provider Diagnosis Richard Amado MD [address] [place] [address] Drive [address] [place], [place] [id number] 06/06/2025 Richard Amado Blood tests for rout [...] 07:00:00 AM, [address], [address], [place], [place], [phone], Provider Name:Richard Santana ier, 06/15/2026 09:30:00 AM, [address], [address], [place], [place], [phone], Progress Notes * Bhavesh RUCKER PDOB: [birth year] (70 yo M)Acc No.[id number]:06/06/2025 Progress Note Patient: Bhavesh HAMMOND Provider: Jefferson Amado MD :1955 A ge:70 Y S ex:Male Date:06/06/2025 Address:[address] [place] [address], [address] [facility] Subjective: * Chief Complaints: * 1 . [...] - 06/06/2025 07:45 AM) L AB: Comprehensive [place]. Panel Fast (Collection Date & Time - [...] - 06/06/2025 07:45 AM) L AB: Comprehensive [place]. Panel Fast (Collection Date & Time - [...] 0 06/06/2025 Generated for Liza joaquin/Isaak/Yamileth on: 12/05/2024 01:43 PM EST
--- OUTSIDE RECORDS SUMMARY | 2025-06-13 04:30 | XMS_ITS ---
Author Organization Richard Amado MD Address [address] [place], [place] [id number] Care Team Providers Care Special Education Secretary Name Role Phone Ingris Richard Primary Care [...] Location Date Provider Diagnosis Richard Amado MD [address] [place] [address] [place] [phone] 06/13/2025 Richard Amado Annual physical exam Z00.00 [...] (ICD-1 0 - R79.89) order faxed to [facility] CS dept , will continue to monitor, pending labs 06/13/2025 Shortness of breath (ICD-10 - R06.02) obtain echo results from [facility] 06/13/2025 Erectile dysfunction due to and not [...] addtl labs Elevated LFTs order faxed to [facility] S dept , will continue to monitor, pending labs Shortness of breath obtain echo results from [facility] Pure hypercholesterolemia stable, will c ontinue current regiment Prediabetes stable, no need for medication at this time Colon cancer screening guaiac negative Depression screening negative screen Pending Test Test Name Order Date US ABD 06/13/2025 Next Appt Details Follow Up: 5 weeks, Reason: Provider Name:Richard lucas, 06/08/2026 07:00:00 AM, [address] [place] [address], Suite [facility], [place], [place], [phone], Provider Name:Richard lucas, 06/15/2026 09:30:00 AM, [address] [place] [address], [address], [place], [place], [phone], Progress Notes * Bhavesh RUCKER PDOB: [birth year] (70 yo M)Acc No.[id number]:06/13/2025 Progress Notes Patient: Bhavesh HAMMOND Provider: Jefferson Amado MD :1955 A ge:70 Y S ex:Male Date:06/13/2025 Address:[address] [place] [address] marcella [id number] Subjective: * Chief Complaints: * A NNUAL [...] Children: no. Community involvements: no. Exercise: yes, [employer] cardio 3 times a week. Housing: [...] mg/dL Urine Blood Negative Negative - Specific [place] - Urine 1.015 1.005-1.025 - Urine Protein [...] Urine 0-2 0-2 - /LPF L ab:Comprehensive [place]. Panel Fast (Order Date - 06/06/2025) (Collection [...] maging: US ABD Notes: order faxed to [facility] CS dept , will continue to monitor, pending labs 5. S hortness of breath Notes: obtain echo results from [facility] 6. E rectile dysfunction due to and [...] Counseling: C are goal follow-up plan: Dariana ounseling for abnormal BMI provided?Yes, Trae herron Normal BMI Follow-up G heather encouragement to exercise. * Follow Up: 5 weeks * * Sign off status: Completed true * Provider: Jefferson Amado MD Date: 0 06/13/2025 Generated for Liza joaquin/Isaak/Yamileth on: 1 12/05/2024 01:43 PM EST History and Physical Notes * [...]
--- OUTSIDE RECORDS SUMMARY | 2025-06-16 09:30 | XMS_ITS ---
Author Organization Richard Amado MD Address [address] [place], [place] [phone] Care Team Providers Care Preschool Special Education Teacher Name Role Phone Ingris Richard Primary Care Provider [phone] Allergies No Known Allergies REASON FOR VISIT discuss Echo [phone] at work until 2pm Medications Medication SIG [...] Amado MD [address] [place], [place] [phone] 06/16/2025 Richard Amado Heart murmur R01.1 Assessments [...] Provider Name:Richard Santana ier, 06/08/2026 07:00:00 AM, [address] [place] [address], [address], [place], [place], [phone], Provider Name:Richard Santana ier, 06/15/2026 09:30:00 AM, [address] [place] [address], Suite [facility], [place], [place], [phone], Progress Notes * ALKA Bhavesh PDOB: [birth year] (70 yo M)Acc No.[id number]:06/16/2025 Patient: Sheba Bhavesh RODRIGUEZ Provider: Jefferson Amado MD :1955 A ge:70 Y S ex:Male Date:06/16/2025 Address:[address] [place] [address] [place]a [facility] Subjective: * Chief Complaints: * d iscuss Echo [phone] at work until 2pm * HPI: S ymptom(s): Telehealth L ocation of provider rendering services: 1 0 [facility], [address], ocation of patient: [...] 06/16/2025 Generated for Liza joaquin/Isaak/Yamileth on: 1 12/05/2024 01:42 PM EST History and Physical Notes * HPI (History of Present Illness) Category Sub-Category Detail Notes Category Not es Symptom(s) Telehealth Location of [facility] rendering services:: [address] [place] [address] Drive, [address] patient is a 70 [...]
--- OUTSIDE RECORDS SUMMARY | 2025-07-11 02:45 | XMS_ITS ---
Author Organization Richard Amado MD Address [address] [place], [place] [phone] Care Team Providers Care Tester Equipment Name Role Phone Ingris Richard Primary Care Provider Results Component Value Reference Range Notes Complete Blood Count Auto Di ff Reviewed date:07/11/2025 05:54:53 PM Interpretation: Performing Lab:[facility], [address] [place] [phone] Notes/Report: White Blood Count 5.0 4.8-10.8 X10*3/uL [...] Panel Reviewed date:07/27/2025 10:36:50 AM Interpretation:07-20-2025 Performing Lab:[facility], [address] [place] [phone] Notes/Report: Bilirubin Total 0.4 0.0-1.0 mg/dL Bilirubin Direct 0.2 0.0-0.5 mg/dL Aspartate Amino Transferase 97 5-37 U/L Alanine Aminotransferase 114 0-40 U/L Total Protein 7.2 6.5-8.0 g/dL Albumin Level 4.2 3.5-5.0 g/dL Alkaline Phosphatase 125 39-117 U/L REASON FOR VISIT CBC Liver Encounters Encounter Location Date Provider Diagnosis Richard Amado MD [address] [place] [address] [address] [place], [place] [phone] 07/11/2025 Richard Amado Decreased platelet count D69.6 Assessments Encounter Date Diagnosis (ICD Code) Assessment Notes Treatment Notes Treatment Clinical Notes Section Notes 07/11/2025 Decreased platelet count (ICD-10 - D69.6) Plan Of Treatment Next Appt Details Provider Name:Richard piperr, 06/08/2026 07:00:00 AM, [address], [address], [place], [phone], Provider Name:Richard Santana ier, 06/15/2026 09:30:00 AM, [address], [address], [place], [phone], Progress Notes * Bhavesh RUCKER PDOB: [birth year] (70 yo M)Acc No.[id number]:07/11/2025 Progress Note Patient: Bhavesh HAMMOND Provider: Jefferson Amado MD :1955 A ge:70 Y S ex:Male Date:07/11/2025 Address:[address] [place], [place] [phone] Subjective: * Chief Complaints: * 1 . [...] 0 07/11/2025 Generated for Liza joaquin/Isaak/Negaritting on: 12/05/2024 01:42 PM EST
--- OUTSIDE RECORDS SUMMARY | 2025-07-17 03:09 | XMS_ITS ---
Author Organization Richard Amado MD Address [address] [place], [place] [phone] Care Team Providers Care Curator Herbarium Name Role Phone Ingris Richard Primary Care Provider [phone] REASON FOR VISIT needs MRCP abd without contrast Encounters Encounter Location Date Provider Diagnosis Richard Amado MD [address] [facility] [address] [place] [phone] 07/17/2025 Richard Amado Other specified diseases of [...] Provider Name:Richard lucas, 06/08/2026 07:00:00 AM, [address] [facility], [address], [place], [place], [phone], Provider Name:Richard Santana ier, 06/15/2026 09:30:00 AM, [address], [address], [place], [phone], Progress Notes * Bhavesh RUCKER PDOB: [birth year] (70 yo M)Acc No.[id number]:07/17/2025 Patient: Sheba CAROLYNNDIANEBhavesh [place] :1955 A ge:70 Y S ex:Male Address:[address] [place] [address] [place] [address] Subjective: * Chief Complaints: * n eeds MRCP abd without contrast * Medical History: * Surgical History: * Hospitalization/Major Diagno stic Procedure: * Medications: Objective: * Vitals: * Physical Examination: Assessment: * Assessment: 1. O ther specified diseases of gallbladder - K82.8 Plan: * Treatment: * Procedure Codes: * true * Date: Generated for Liza joaquin/Isaak/eTitzsmitting on: 12/05/2024 01:41 PM EST
--- OUTSIDE RECORDS SUMMARY | 2025-07-20 03:24 | XMS_ITS ---
Author Organization Richard Amado MD Address [address] [place], [place] [phone] Care Team Providers Care Service Delivery Consultant Name Role Phone Ingris Richard Primary Care Provider REASON FOR VISIT [facility] MRI orders Encounters Encounter Location Date Provider Diagnosis Richard Amado MD 10 [facility] [address] [place] [phone] 07/20/2025 Richard Amado Other specified diseases of gallbladder K82.8 Assessments Encounter Date Diagnosis (ICD Code) Assessment Notes Treatment Notes Treatment Clinical Notes Section Notes 07/20/2025 Other specified diseases of gallbladder (ICD-10 - K82.8) Plan Of Treatment Pending Test Test Name Order Date MRI ABD W&WO CONTRAST 07/20/2025 Next Appt Details Provider Name:Richard lucas, 06/08/2026 07:00:00 AM, 10 [facility], Suite [facility], [place], [place], [phone], Provider Name:Richard lucas, 06/15/2026 09:30:00 AM, [address], [address], [place], [place], [phone], Progress Notes * ALKA Bhavesh PDOB: [birth year] (70 yo M)Acc No.[id number]:07/20/2025 Patient: Bhavesh HAMMOND :1955 A ge:70 Y S ex:Male Address:[address] [place] [address] [place] [address] Subjective: * Chief Complaints: * R ayus MRI orders * Medical History: * Surgical History: * Hospitalization/Major Diagno stic Procedure: * Medications: Objective: * Vitals: * Physical Examination: Assessment: * Assessment: 1. O ther specified diseases of gallbladder - K82.8 Plan: * Treatment: * Procedure Codes: * true * Date: Generated for Liza joaquin/Isaak/Negaritting on: 12/05/2024 01:43 PM EST
--- OUTSIDE RECORDS SUMMARY | 2025-07-20 04:00 | XMS_ITS ---
Author Organization Richard Amado MD Address [address] [place], [place] [phone] Care Team Providers Care Seed Core Operator Name Role Phone Ingris Richard Primary Care Provider Allergies No Known Allergies REASON FOR VISIT 5 week/ must see liver panel Medications Medication SIG (Take, Route, Fr equency, Duration) Notes Start Date End Date Status Ibuprofen 200 MG 1 tablet with food o r milk as needed Orally Three times a day Active Tadalafil 20 MG 1 tablet as needed O rally Once a day as needed for 30 days 06/13/2025 Active Vital Signs Blood pressure systolic 112 mm Hg 07/20/20 25 Blood pressure diastolic 64 mm Hg 025 Height 67 in 07/20/2025 Weight 161 lbs 07/20/2025 BMI 25.21 kg/m2 07/20/2025 Encounters Encounter Location Date Provider Diagnosis Richard Amado MD [address] [place] [phone] 07/20/2025 Richard Amado Mild aortic stenosis I35.0 ; Gall bladder polyp K82.4 and Elevated LFTs R79.89 Assessments Encounter Date Diagnosis (ICD Code) Assessment Notes Treatment Notes Treatment Clinical Notes Section Notes 07/20/2025 Mild aortic stenosis (ICD-10 - I35.0) followed by dr perez 07/20/2025 Gall bladder polyp (ICD-10 - K82.4) doing to get mri 07/20/2025 Elevated LFTs (ICD-10 - R79.89) followed by dr lezama Plan Of Treatment Treatment Notes Assessment Notes Mild aortic stenosis followed by dr sai salazar Gall bladder polyp doing to get mri Elevated LFTs followed by dr lizbeth carrillo Next Appt Details Provider Name:Richard Santana ier, 06/08/2026 07:00:00 AM, [address] [place] [address], [address], [place], [place], [phone], Provider Name:Richard Santana ier, 06/15/2026 09:30:00 AM, [address] [place] [address], [address], [place], [place], [phone], Progress Notes * Bhavesh RUCKER PDOB: [birth year] (70 yo M)Acc No.[id number]:07/20/2025 Patient: Sheba FRANKLINBhavesh Richmond Provider: Jefferson Amado MD :1955 A ge:70 Y S ex:Male Date:07/20/2025 Address:[address] [place] [address] [place] [facility] Subjective: * Chief Complaints: * 1 . 5 week/ must see liver panel. * HPI: S ymptom(s): patient is a 70 yo male here for 5 wek follow up visit and review of recent labs// had recent prostate radiation. * ROS: G eneral/Constitutional: Denies C hills. D enies F atigue. D enies F ever. D enies H eadache. E NT: Denies S ore throat. R espiratory: Denies C ough. D enies S hortness of breath at rest. D enies S hortness of breath with exertion. G astrointestinal: Denies D iarrhea. D enies N ausea. * Medical History: c olonoscopy 2007; colonoscopy done - 03/30/2013; colonoscopy done 11/12/[address] Lezama; colonoscopy done 09/09/[address] Lezama (repeat 3-5 depending on biopsy, Endoscopy done 11/12/[address] Lezama, Atherosclerosis on cta. doesn't want to take statins, 12/23/2019 total left knee replaced by [facility](Dr Rayo), Hematuria had evaluation 2014. * Medications: T aking Ibuprofen 200 MG Tablet 1 tablet with food or milk as needed Orally Three times a day , Taking Tadalafil 20 MG Tablet 1 tablet as needed Orally Once a day as needed , Medication List reviewed and reconciled with the patient * Allergies: N .K.D.A. Objective: * Vitals: H t: 67, Wt: 161, BMI:25.21, BP:112/64, Wt-k.03. * P ast Orders: L ab:Complete Blood Count Auto Diff (Order Date - 07/11/2025) (Collection Date & Time - 07/11/2025 07:45 AM) Value Reference Range White Blood Count 5.0 4.8-10.8 - X10*3/uL Red Blood Count 3.67 L 4.60-5.80 - X10*6/uL Hemoglobin 11.0 L 14.0-18.0 - g/dl Hematocrit 34.1 L 42.0-52.0 - % Mean Corpuscular Volume 92.9 80.0-98.0 - fL Mean Corpuscular Hemoglobin 30.0 27.0-33.0 - pg Mean Corpuscular HGB Conc 32.3 31.0-36.0 - g/ dl Red Cell Distribution Width 15.9 11.0-16.0 - % Platelet Count 111 L 160-400 - X10*3/uL Mean Platelet Volume 11.1 9.4-12.4 - fL Neutrophils Percent Auto 60.1 45-73 - % Imm Gran Pct Auto 0.4 0.0-0.4 - % Lymphocytes Percent Auto 22.2 20-40 - % Monocytes Percent Auto 13.7 H 2-11 - % Eosinophils Percent Auto 2.2 0-4 - % Basophils Percent Auto 1.4 0-2 - % NRBC Pct Auto 0.0 0.0-0.2 - /100WBC Neutrophils Absolute Auto 3.0 2.0-8.3 - x10* 3/uL Imm Gran Abs Auto 0.02 0.00-0.03 - X10*3/uL Lymphocytes Absolute Auto 1.1 L 1.2-4.9 - X10* 3/uL Monocytes Absolute Auto 0.7 0.1-1.2 - X10*3/ uL Eosinophils Absolute Auto 0.1 0.0-0.4 - X10* 3/uL Basophils Absolute Auto 0.1 0.0-0.2 - X10*3/ uL NRBC Abs Auto 0.000 0.0-0.012 - X10*3/uL * Examination: G eneral Examination: GENERAL APPEARANCE: w ell developed, well nourished. HEAD: n ormocephalic. SKIN: g ood turgor. HEART: g rade 2/6 systolic murmur at left sternal border.? LUNGS: n o wheezes, rales, rhonchi. ABDOMEN: s oft, nontender, nondistended. ? Assessment: * Assessment: 1. M ild aortic stenosis - I35.0 (Primary) 2 . G all bladder polyp - K82.4? 3. E levated LFTs - R79.89 Plan: * Treatment: 2. G all bladder polyp Notes: doing to get mri 3. E levated LFTs Notes: followed by dr lezama * * The named appointment provid er may or may not be the originator of this progress note, and it is not deemed complete until electronically signed by the appointment provider. Sign off status: Pending * Provider: Jefferson Amado MD Date: 0 07/20/2025 Generated for Liza joaquin/Isaak/Marthasmitting on: 12/05/2024 01:43 PM EST History and Physical Notes * HPI (History of Present Illness) Category Sub-Category Detail Notes Category Not es Symptom(s) patient is a 70 yo male here for 5 wek follow up visit and review of recent labs// had recent prostate radiation. Examination Category Sub-Category Detail Notes Category Not es General Examination GENERAL APPEARANCE: well developed , well nourished HEAD: normocephalic HEART: grade 2/6 systolic m urmur at left sternal border LUNGS: no wheezes, rales, r honchi ABDOMEN: soft, nontender, non distended SKIN: good turgor
--- OUTSIDE RECORDS SUMMARY | 2025-10-02 04:00 | XMS_ITS ---
Author Organization Richard Amado MD Address [address] [place], [place] [phone] Care Team Providers Care Glue Line Operator Name Role Phone Ingris Richard Primary Care Provider [phone] Allergies No Known Allergies Results Component Value Reference Range Notes Complete Blood Count Auto Di ff Reviewed date:10/02/2025 04:00:31 PM Interpretation: Performing Lab:[facility], [address] [place] [phone] Notes/Report: White Blood Count 3.5 4.8-10.8 X10*3/uL [...] NRBC Abs Auto 0.000 0.0-0.012 X10*3/uL Comprehensive [place]. Panel Fa st Reviewed date:10/02/2025 03:59:33 PM Interpretation: Performing Lab:[facility], [address] [place] [phone] Notes/Report: Sodium 140 135-145 mmol/L Potassium 3.8 [...] 1 12/02/2024 09:28:20 AM >referral info faxed Referral Priority Routine REASON FOR VISIT must [...] Status W/U Status Risk Notes Problem Pancytopenia (877545134) Pancytopenia (D61.818) Active confirmed Vital Signs Blood pressure systolic 94 mm Hg 10/02/20 25 Blood pressure diastolic 50 mm Hg 025 Height 67 in 10/02/2025 Weight 171 lbs 10/02/2025 BMI 26.78 kg/m2 10/02/2025 weight is up 10 pounds since 07-20-25 Encounters Encounter Location Date Provider Diagnosis Richard Amado MD [address] [place] [address] [place] [phone] 10/02/2025 Richard Amado Pancytopenia D61.818 Assessments Encounter [...] NICKO COLEMAN Next Appt Details Provider Name:Richard piperr, 06/08/2026 07:00:00 AM, [address], [address], [place], [phone], Provider Name:Richard Santana ier, 06/15/2026 09:30:00 AM, [address], [address], [place], [phone], Progress Notes * Bhavesh RUCKER PDOB: [birth year] (70 yo M)Acc No.[id number]:10/02/2025 Patient: Bhavesh HAMMOND Provider: Jefferson Amado MD :1955 A ge:70 Y S ex:Male Date:10/02/2025 Address:[address] [place] [address] [id number] Subjective: * Chief Complaints: * M ust [...] Date: 12/02/2024 Generated for Liza joaquin/Isaak/eTitzsmitting on: 12/05/2024 01:42 PM EST History and Physical [...] Provider Not es 10/02/2025 Richard Amado RENUKA panchayden gandhi needs urgent appt
[2025-10-05 11:13] LABS: MANUAL DIFF FLAG NO
[2025-10-05 11:14] LABS: Hematocrit 24.5 % (42.0-52.0); Hemoglobin 7.3 g/dl (14.0-18.0); Imm Gran Abs Auto 0.03 X10*3/uL (0.00-0.03); Imm Gran Pct Auto 0.8 % (0.0-0.4); Lymphocytes Absolute Auto 0.9 X10*3/uL (1.2-4.9); Mean Corpuscular HGB Conc 29.8 g/dl (31.0-36.0); Mean Corpuscular Hemoglobin 26.0 pg (27.0-33.0); Mean Corpuscular Volume 87.2 fL (80.0-98.0); NRBC Abs Auto 0.000 X10*3/uL (0.0-0.012); NRBC Pct Auto 0.0 /100WBC (0.0-0.2); Red Blood Count 2.81 X10*6/uL (4.60-5.80); White Blood Count 4.0 X10*3/uL (4.8-10.8)
[2025-10-05 11:18] LABS: Platelet Count 91 X10*3/uL (160-400)
[2025-10-05 12:09] LABS: Iron 25 mcg/dL (45-160); Percent Iron Saturation 8 % (15-50); Total Iron Binding Capacity 322 mcg/dL (228-428); Unsaturated Iron Binding 297 ug/dL
[2025-10-05 12:24] LABS: Ferritin 17 ng/mL (20-250)
--- OUTSIDE RECORDS SUMMARY | 2025-10-05 13:43 | XMS_ITS | Patient Health Record ---
Author Organization Richard Amado MD Address [address] [place], [place] [id number] Care Team Providers Care Grooving Machine Operator Name Role Phone Ingris Richard Primary Care Provider [phone] Allergies No Known Allergies Results Component Value Reference Range Notes Complete Blood Count Auto Di ff Reviewed date:06/15/2025 01:28:57 PM Interpretation:06-13-2025 Performing Lab:[facility], [address] [place] [phone] Notes/Report: White Blood Count 3.5 4.8-10.8 X10*3/uL [...] NRBC Abs Auto 0.000 0.0-0.012 X10*3/uL Comprehensive Herald. Panel Fa st Reviewed date:06/06/2025 04:18:52 PM Interpretation: Performing Lab:[facility], [address] [place] [phone] Notes/Report: Sodium 143 135-145 mmol/L Potassium 4.0 [...] Panel Reviewed date:06/06/2025 12:34:11 PM Interpretation: Performing Lab:[address] [address] Notes/Report: Triglycerides 92 <150 mg/dL Desirable Triglyceride: [...] (Free>4and<10) Reviewed date:06/06/2025 12:32:58 PM Interpretation: Performing Lab:[address] [address] Notes/Report: PSA,Total (Free>4and<10) < 0.10 0.00-4.00 ng/mL [...] Random Reviewed date:06/06/2025 12:33:07 PM Interpretation: Performing Lab:[facility] [address] Notes/Report: Creatinine Urine 69.44 Microalbumin Urine < 5.0 Microalbum/Creatinine Ratio Ur TNP <30 ug/mg cr Unable to calculate albumin/creatinine ratio due to low microalbumin or creatinine result. Hemoglobin A1c Reviewed date:06/06/2025 12:43:21 PM Interpretation: Performing Lab:[address] [address] Notes/Report: Hemoglobin A1c % 6.3 <6.0 % [...] average glucose, using the formula of the Q0I-Rwfzkbb Average Glucose study (ADAG), Diabetes Care, Vol.31,#8, Jun. 2007 UA ClnCatch+Micro w/rflx Cul t Reviewed date:06/06/2025 12:35:49 PM Interpretation: Performing Lab:[address] [address] Notes/Report: Urine, Clean Catch Color Urine Yellow Appearance Urine Clear PH 6.5 5.0-9.0 Glucose Urine UA Negative Negative mg/dL Urine Blood Negative Negative Specific Zirconia - Urine 1.015 1.005-1.025 Urine Protein Negative [...] ff Reviewed date:07/11/2025 05:54:53 PM Interpretation: Performing Lab:[address] [address] Notes/Report: White Blood Count 5.0 4.8-10.8 X10*3/uL [...] Panel Reviewed date:07/27/2025 10:36:50 AM Interpretation:07-20-2025 Performing Lab:[facility], [address] [place] [phone] Notes/Report: Bilirubin Total 0.4 0.0-1.0 mg/dL Bilirubin Direct 0.2 0.0-0.5 mg/dL Aspartate Amino Transferase 97 5-37 U/L Alanine Aminotransferase 114 0-40 U/L Total Protein 7.2 6.5-8.0 g/dL Albumin Level 4.2 3.5-5.0 g/dL Alkaline Phosphatase 125 39-117 U/L Complete Blood Count Auto Di ff Reviewed date:10/02/2025 04:00:31 PM Interpretation: Performing Lab:[facility], [address] [place] [phone] Notes/Report: White Blood Count 3.5 4.8-10.8 X10*3/uL [...] 0.0-0.2 /100WBC Neutrophils Absolute Auto 2.1 2.0-8.3 x10*3/uL Imm Gran Abs Auto 0.01 0.00-0.03 X10*3/uL Lymphocytes Absolute Auto 0.7 1.2-4.9 X10*3/uL Monocytes Absolute Auto 0.5 0.1-1.2 X10*3/uL Eosinophils Absolute Auto 0.1 0.0-0.4 X10*3/uL Basophils Absolute Auto 0.1 0.0-0.2 X10*3/uL NRBC Abs Auto 0.000 0.0-0.012 X10*3/uL Comprehensive Herald. Panel Fa st Reviewed date:10/02/2025 03:59:33 PM Interpretation: Performing Lab:[facility], [address] [place] [address] Notes/Report: Sodium 140 135-145 mmol/L Potassium 3.8 [...] 3.5-5.0 g/dL Alkaline Phosphatase 120 39-117 U/L US abdomen complete Reviewed date:07/17/2025 08:15:49 AM Interpretation: Performing Lab: Notes/Report: [facility] [address] [place] [address] [place] [address] Ultrasound Report Signed Patient: Bhavesh Mojica MR#: [id number] : 1955 Acct:[id number] Age/Sex: 70 / M ADM Date: 07/13/25 Loc: .[facility]X Attending Dr: Richard Amado MD Ordering Physician: Richard Amado MD Date of Service: 07/13/25 Procedure(s): US abdomen complete Accession Number(s): [id number] cc: Richard Amado MD CLINICAL HISTORY: ELEVATED LFTS US abdomen complete with color Doppler Comparison: US/SR - US ABDOMEN - 11/03/23 08:25 EST US/[place]/SR - US ABDOMEN - 09/05/22 08:37 EDT [...] 07/13/25 1049 DD/ 1048 TD/TT: 07/13/25 1048 Construction Safety Consultant: [facility] [place] [address] Ultrasound Report Signed Patient: Jere Mojica MR#: [id number] : 1955 Acct:[id number] Age/Sex: 70 / M ADM Date: 07/13/25 [facility] Dr: Richard Amado MD Ordering Physician: Richard Amado MD Date of Service: 07/13/25 Procedure(s): US abdomen complete Accession Number(s): [id number] cc: Richard Amado MD CLINICAL HISTORY: ELEVATED LFTS US abdomen complete with color Doppler Comparison: US/SR - US ABDOMEN - 11/03/23 08:25 EST US/[place]/SR - US ABDOME N - 09/05/22 08:37 [...] 07/13/25 1049 DD/ 1048 TD/TT: 07/13/25 1048 Construction Safety Consultant: Reason For Referral Reason pancytopenia needs urgent appt Diagnosis 1 Pancytopenia (D61.81 8) Referral Organization Richard Amado MD Referring Provider First Name Richard Referring Provider Last Name Ingris Referring Provider Speciality Internal M edicine Referred Provider NICKO COLEMAN Referred Provider Specialty Hematology/O ncology General Notes Juju Ash 1 12/02/2024 09:28:20 AM >referral info faxed Referral Priority Routine Medications Medication SIG (Take, Route, Frequency, Duration) Notes Start Date End Date Status Vitamin B12 1000 MCG 1000mcg Orally Once a day Active Ibuprofen 200 MG 1 tablet with food o r milk as needed Orally Three times a day Active Tadalafil 20 MG 1 tablet as needed O rally Once a day as needed for 30 days 06/13/2025 Not-Taking Immunizations Vaccine Route Administration Date Status Comme nts DECLINED, FLU Unknown 12/08/2013 Administered WILL SHANNAN R GET A FLU SHOT PPSV23 (Pnemovax) IM Intramuscular 05/10/2019 Administered Influenza High Dose IM Intramuscular 10/04/2019 Administer ed pt was given the vaccine at [facility] in [place]. Fluarix Quadrivalent Unknown 09/13/2020 Administered [facility] Covid Vaccine Unknown 01/04/2021 Administered Pfizer [...] Status W/U Status Risk Notes Problem Sciatica (02280869) Sciatica of right side (724.3) Active confirmed Problem 038104816 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) Active confirmed Problem 788232482 Tubular adenoma of colon (D12.6) Active confirmed Problem 523246490 Prostate cancer (C61) Active confirme d Problem 7997405 Prediabetes (R73.09) Active confirmed Problem 920432451 History of hemat uria (Z87.448) Active confirmed Problem 882725671 Mild aortic sten osis (I35.0) Active confirmed Problem 24141511 Atherosclerosis (I70.90) Active confirmed Problem 802020363 Pure hypercholesterolemia (E78.00) Active confirmed Problem Thrombocytopenic disorder (207898137) Decreased platelet count (D69.6) Active confirmed Problem Pancytopenia (840877619) Pancytopenia (D61.818) Active confirmed Problem 55070994 Aortic valve sherman nosis, etiology of cardiac valve disease unspecified (I35.0) Active confirmed Problem Erectile dysfunc tion due to and not concurrent with radiation therapy (N52.35) Active confirmed Vital Signs Temperature 101.1 degrees Fahrenheit 02/16/2025 leonora ght at home is 162 Temp 100.1 Blood pressure diastolic 50 mm Hg 10/02/2025 leonora ght is up 10 pounds since 07-20-25 Height 67 in 10/02/2025 weight is up 10 pounds since 07-20-25 Blood pressure systolic 94 mm Hg 10/02/2025 weig ht is up 10 pounds since 07-20-25 Weight 171 lbs 10/02/2025 weight is up 10 pounds since 07-20-25 BMI 26.78 kg/m2 10/02/2025 weight is up 10 pounds since 07-20-25 Encounters Encounter Location Date Provider Diagnosis Richard Amado MD [address] [place] [id number] 06/06/2025 Richard Amado Blood tests for rout ine general physical examination Z00.00 ; Prediabetes R73.09 and Pure hypercholesterolemia E78.00 Richard Amado MD [address] [place] [id number] 07/11/2025 Richard Amado Decreased platelet c ount D69.6 Richard Amado MD [address] [place] [id number] 07/20/2025 Richard Amado Mild aortic stenosis I35.0 ; Gall bladder polyp K82.4 and Elevated LFTs R79.89 Richard Amado MD [address] [place] [id number] 02/16/2025 Richard Amado Influenza J11.1 Rihcard Amado MD [address] [place] [id number] 06/13/2025 Richard Amado Annual physical exam Z00.00 [...] Richard Amado MD [address] [place] [id number] 06/16/2025 Richard Amado Heart murmur R01.1 Richard Amado MD [address] [place] [id number] 10/02/2025 Richard Amado Pancytopenia D61.818 Richard Amado MD [address] [place] [address] Drive [address] [place] [id number] 02/13/2025 Richard Amado MD [address] [place] [id number] 07/17/2025 Richard Amado Other specified dise ases of gallbladder K82.8 Richard Amado MD [address] [place] [address] [address] [place] [id number] 07/20/2025 Richard Amado Other specified dise ases [...] the only change was mild mitral stenosis 10/02/2025 Pancytopenia (ICD-10 - D61.818) discussed results of recent labs with patient, needs referral urgently to dr coleman. 07/17/2025 Other specified diseases of gallbladder (ICD-10 - K82.8) Order faxed to [facility] 07/20/2025 Other specified diseases of gallbladder (ICD-10 [...] 0 - R79.89) order faxed to [facility] CS dept , will continue to monitor, pending labs 06/13/2025 Shortness of breath (ICD-10 - R06.02) obtain echo results from [facility] 06/13/2025 Erectile dysfunction due to [...] 07:00:00 AM, [address], [address], [place], [place], [phone], Provider Name:Richard Santana ier, 06/15/2026 09:30:00 AM, [address], [address], [place], [place], [phone], Insurance Providers Payer Name Payer Address Payer Phone Subscriber Number Group Number Insured Name Patient Relationship to Insured Coverage Start Date Coverage End Date [employer] PLAN [address] [place] [phone] [id number] Bhavesh Mojica Self - patient is the insured 9 MEDICARE [address] [place] [address] [id number] Bhavesh Mojica Self - patient is the [...]
--- OUTSIDE RECORDS SUMMARY | 2025-10-05 13:43 | XMS_ITS | Clinical Summary ---
Author Organization [address] [facility] Address [address] [place] [address] Phone Care Team Providers Care Medical Office Asst Name Role Phone Unavailable Primary Care Provider Unavailabl e Social History Tobacco Use Types Packs/Day Years Used Date Smoking Tobacco: Never Assessed Sex and Gender Information Value Date Recorded Sex Assigned at Not on file Legal Sex Male 3:49 PM EST Gender Identity Not on file Sexual Orientation Not on file Plan of Treatment Health Maintenance Due Date Last Done Comments Colorectal Cancer Screening: Colonoscopy 1955 DTaP,Tdap,and Td Vaccines (1 - Tdap) 1973 Pneumococcal Vaccine: 50+ Ye ars (1 of 1 - PCV) 02/13/2004 Zoster Vaccines (1 of 2) 02/13/2004 Depression Screening 11/30/2024 Abdominal Aortic Aneurysm (A AA) Screen 01/07/2025 Cholesterol Screening (Lipid Panel) 01/07/2025 Falls Risk Assessment 01/07/2025 Hepatitis C Screening 01/07/2025 Social Influencers of Health Screening 01/07/2025 COVID-19 Vaccine ( - 2023-2 5 season) 2025 Influenza Vaccine (#1) 2025 RSV Immunization Adult [...]
--- OUTSIDE RECORDS SUMMARY | 2025-10-05 13:43 | XMS_ITS | Encounter Summary ---
Author Organization [facility] Address [address] [place] [address] Care Team Providers Care Care Connector Name Role Phone Unavailable Primary Care Provider Unavailabl e Encounter Details Date Type Department Care Team (Late st Contact Info) Description 12/06/2024 Lab Requisition [facility] - Main Lab [address] [place] [address] Kar Gan MD [address] [place] [address] Elevated prostate specific antigen (PSA) [...] (12/05/2024) Final Diagnosis A. Prostate, Left [place] (Core Biopsy): -PROSTATIC ACINAR ADENOCARCINOMA CONVENTIONAL (USUAL) TYPE -Jeff Score: (3+3=6), Grade Group 1 Total Number of Cores: 1 Number of Positive Cores: 1 Percent of Prostatic Tissue Continuously Involved by Tumor: 5 % B. Prostate, Left Lateral [place] (Core Biopsy): - Benign prostate tissue. C. [...] Biopsy): -PROSTATIC ACINAR ADENOCARCINOMA CONVENTIONAL (USUAL) TYPE -[place] Score: (3+3=6) , Grade Group 1 Total Number of Cores: 3 Number of Positive Cores: 1 Percent of Prostatic Tissue Continuously Involved by Tumor: 0, 0, 5 % H. Prostate, Right [place] (Core Biopsy): - Benign prostate tissue. I. Prostate, Right Lateral [place] (Core Biopsy): - Benign prostate tissue. J. Prostate, Right Middle [place] (Core Biopsy): - Benign prostate tissue. K. Prostate, Right Lateral Middle (Core Biopsy): - Benign prostate tissue. L. Prostate, Right Middle [place] (Core Biopsy): - Benign prostate tissue. M. Prostate, Right Lateral [place] (Core Biopsy): - Benign prostate tissue. 12/15/2024 12:14 PM [facility] Clinical Information Elevated PSA Last PSA free = 12.6 (10/24/2024) [id number] 12/15/2024 12:14 PM [facility] Gross Description A. Prostate, Left Mid [place] Biopsy: Received, properly labeled, are two H [...] two unstained slides. H. Prostate, Right Mid [place] Biopsy: Received, properly labeled, are two H and E stained slides and two unstained slides. I. Prostate, Right Lat [place] Biopsy: Received, properly labeled, are two H [...] unstained slides. /al 12/15/2024 12:14 PM EST [facility] Disclaimer Unless otherwise specified, all tissue is 10% NB formalin fixed and paraffin embedded. Technical pathology services provided by [facility] at [address] [place] [address] [address], [place] [address] (CLIA #[id number]/Lina Lopez MD, Welding Process Engineer) 12/15/2024 12:14 PM EST [facility] Tissue Prostate / Unknown 12/05/20242024 [...] Gan MD LAB PATHOLOGY ORDERABLES Final Result [facility] [address] [place] [address], documented in this encounter Visit Diagnoses Diagnosis Elevated prostate specific antigen (PSA) documented in this encounter
--- OUTSIDE RECORDS SUMMARY | 2025-10-05 13:44 | XMS_ITS | Patient Health Record ---
Author Organization [facility] Address [address] [place] [address] Care Team Providers Care Technicians And Trades Workers Name Role Phone Ingris BARDALES, Richard Primary Care Provider ConyvaDewey Moran Jr Unavailable [phone] Allergies No Known Allergies Results Component Value Reference Range Notes Complete Blood Count Auto Di ff Reviewed date:10/13/2024 09:01:14 AM Interpretation: Performing Lab:[facility], [address] [place] [phone] Notes/Report: White Blood Count 5.2 4.8-10.8 X10*3/uL [...] PROFILE Reviewed date:10/13/2024 09:01:06 AM Interpretation: Performing Lab:[facility], [address] [place] [phone] Notes/Report: Iron 36 45-160 mcg/dL Total Iron Binding Capacity 296 228-428 mcg/dL Percent Iron Saturation 12 15-50 % Unsaturated Iron Binding 260 Ferritin Reviewed date:10/13/2024 09:01:00 AM Interpretation: Performing Lab:[facility], [address] [place] [phone] Notes/Report: Ferritin 25 20-250 ng/mL Therapeutic Phlebotomy Reviewed date:10/13/2024 09:01:20 AM Interpretation: Performing Lab:[facility], [address] [place] [phone] Notes/Report: THER/HGB TNP 14.0-18.0 g/dL Lab Results on file. Performed at [facility] on 10/12/24: Hgb: 12.6 g/dl Hct: 38.3 % THER/HCT TNP 42.0-52.0 % Therapeutic Phlebotomy Phlebotomy Performed 500 mls drawn on 10/12/24. Please note that a copy of this report has been sent to the Primary Care Physician, the ordering physician and any physician designated by patient request. Therapeutic Phlebotomy Reviewed date:12/14/2024 12:05:13 PM Interpretation: Performing Lab:[facility], [address] [place] [phone] Notes/Report: THER/HGB 12.5 14.0-18.0 g/dL THER/HCT TNP 42.0-52.0 % Therapeutic Phlebotomy Phlebotomy Performed 500 mls drawn on 12/14/24. Please note that a copy of this report has been sent to the Primary Care Physician, the ordering physician and any physician designated by patient request. Complete Blood Count Auto Di ff Reviewed date:02/09/2025 08:06:30 AM Interpretation: Performing Lab:[facility], [address] [place] [phone] Notes/Report: White Blood Count 5.0 4.8-10.8 X10*3/uL [...] PROFILE Reviewed date:02/09/2025 08:06:21 AM Interpretation: Performing Lab:[facility], [address] [place] [phone] Notes/Report: Iron 24 45-160 mcg/dL Total Iron Binding Capacity 308 228-428 mcg/dL Percent Iron Saturation 8 15-50 % Unsaturated Iron Binding 284 Ferritin Reviewed date:02/09/2025 08:06:12 AM Interpretation: Performing Lab:[facility], [address] [place] [phone] Notes/Report: Ferritin 25 20-250 ng/mL Therapeutic Phlebotomy Reviewed date:02/09/2025 10:42:40 AM Interpretation: Performing Lab:[facility], [address] [place] [phone] Notes/Report: THER/HGB TNP 14.0-18.0 g/dL Lab Results on file. Performed at [facility] on 02/09/25: Hgb: 11.8 g/dl Hct: 36.8 % THER/HCT TNP 42.0-52.0 % Therapeutic Phlebotomy Phlebotomy Performed 500 mls drawn on 02/08/25. Please note that a copy of this report has been sent to the Primary Care Physician, the ordering physician and any physician designated by patient request. Therapeutic Phlebotomy Reviewed date:04/13/2025 10:34:06 AM Interpretation: Performing Lab:[facility], [address] [place] [phone] Notes/Report: THER/HGB 11.0 14.0-18.0 g/dL THER/HCT TNP 42.0-52.0 % Therapeutic Phlebotomy TNP Reason: Pre-phlebotomy Hgb/Hct is below the established parameter for this patient. Please note that a copy of this report has been sent to the Primary Care Physician, the ordering physician and any physician designated by patient request. Complete Blood Count Auto Di ff Reviewed date:06/15/2025 08:42:55 AM Interpretation: Performing Lab:[facility], [address] [place] [phone] Notes/Report: White Blood Count 3.6 4.8-10.8 X10*3/uL [...] PROFILE Reviewed date:06/15/2025 08:43:19 AM Interpretation: Performing Lab:[facility], [address] [place] [phone] Notes/Report: Iron 51 45-160 mcg/dL Total Iron Binding Capacity 281 228-428 mcg/dL Percent Iron Saturation 18 15-50 % Unsaturated Iron Binding 230 Ferritin Reviewed date:06/15/2025 08:43:10 AM Interpretation: Performing Lab:[facility], [address] [place] [phone] Notes/Report: Ferritin 29 20-250 ng/mL Therapeutic Phlebotomy Reviewed date:06/15/2025 08:43:25 AM Interpretation: Performing Lab:[facility], [address] [place] [phone] Notes/Report: THER/HGB TNP 14.0-18.0 g/dL Lab Results on file. Performed at [facility] on 06/14/25: Hgb: 10.8 g/dl Hct: 32.5 % THER/HCT TNP 42.0-52.0 % Therapeutic Phlebotomy TNP Reason: Pre-phlebotomy Hgb/Hct is below the established parameter for this patient. Please note that a copy of this report has been sent to the Primary Care Physician, the ordering physician and any physician designated by patient request. Therapeutic Phlebotomy Reviewed date:08/13/2025 07:05:42 PM Interpretation: Performing Lab:[facility], [address] [place] [phone] Notes/Report: THER/HGB 10.2 14.0-18.0 g/dL THER/HCT TNP 42.0-52.0 % Therapeutic Phlebotomy TNP Reason: Pre-phlebotomy Hgb/Hct is below the established parameter for this patient. Please note that a copy of this report has been sent to the Primary Care Physician, the ordering physician and any physician designated by patient request. Complete Blood Count Auto Di ff (Not yet reviewed by provider) Interpretation: Performing Lab:[facility], [address] [place] [phone] Notes/Report: White Blood Count 4.0 4.8-10.8 X10*3/uL Red Blood Count 2.81 4.60-5.80 X10*6/uL Hemoglobin 7.3 14.0-18.0 g/dl Hematocrit 24.5 42.0-52.0 % Mean Corpuscular Volume 87.2 80.0-98.0 fL Mean Corpuscular Hemoglobin 26.0 27.0-33.0 pg Mean Corpuscular HGB Conc 29.8 31.0-36.0 g/dl Red Cell Distribution Width 16.3 11.0-16.0 % Platelet Count 91 160-400 X10*3/uL Mean Platelet Volume 10.4 9.4-12.4 fL Neutrophils Percent Auto 60.8 45-73 % Imm Gran Pct Auto 0.8 0.0-0.4 % Lymphocytes Percent Auto 22.0 20-40 % Monocytes Percent Auto 12.9 2-11 % Eosinophils Percent Auto 2.5 0-4 % Basophils Percent Auto 1.0 0-2 % NRBC Pct Auto 0.0 0.0-0.2 /100WBC Neutrophils Absolute Auto 2.4 2.0-8.3 x10*3/uL Imm Gran Abs Auto 0.03 0.00-0.03 X10*3/uL Lymphocytes Absolute Auto 0.9 1.2-4.9 X10*3/uL Monocytes Absolute Auto 0.5 0.1-1.2 X10*3/uL Eosinophils Absolute Auto 0.1 0.0-0.4 X10*3/uL Basophils Absolute Auto 0.0 0.0-0.2 X10*3/uL NRBC Abs Auto 0.000 0.0-0.012 X10*3/uL IRON PROFILE (Not yet review ed by provider) Interpretation: Performing Lab:[address] [phone] Notes/Report: Iron 25 45-160 mcg/dL Total Iron Binding Capacity 322 228-428 mcg/dL Percent Iron Saturation 8 15-50 % Unsaturated Iron Binding 297 Ferritin (Not yet reviewed by provider) Interpretation: Performing Lab:[address] [phone] Notes/Report: Ferritin 17 20-250 ng/mL Reason For Referral No Information [...] Problem Status W/U Status Risk Notes Problem Colon cancer screening (183872976) Colon cancer screening (Z12.11) Active confirmed Problem Hereditary hemochromatosis (45480258) Hereditary hemochromatosis (E83.110) Active confirmed Problem Vascular insufficiency of intestine (69090830) Other vascular disorders of intestine (K55.8) Active confirmed Problem Diverticular disease of colon (232031411) Diverticulosis of large intestine without perforation or abscess without bleeding (K57.30) Active confirmed Problem Cirrhosis of liver (79567824) Other cirrhosis of liver (K74.69) Active confirmed Problem Generalized abdominal pain (801531217) Generalized abdominal pain (R10.84) Active confirmed Problem Benign neoplasm of colon (67371382) Adenomatous polyp of colon, unspecified part of colon (D12.6) Active confirmed Problem Disorder of iron metabolism (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) 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 Vital Signs Temperature 97.8 degrees Fahrenheit 10/19/2024 Blood pressure diastolic 00 mm Hg 10/19/2024 Height 66.5 in 10/19/2024 Blood pressure systolic 000 mm Hg 10/19/2024 Weight 164 lb 6 oz lbs 10/19/2024 BMI 26.13 kg/m2 10/19/2024 Encounters Encounter Location Date Provider Diagnosis [facility] [address] [place] [phone] 10/19/2024 Dewey Lan Jr Hereditary hemochromatosis E83.110 and Cirrhosis due to hemochromatosis E83.10 [facility] [address] [place] [phone] 10/13/2024 Dewey Lan Jr [facility] [address] [place] [phone] 02/09/2025 Dewey Lan Jr [facility] [address] [place] [phone] 06/15/2025 Dewey Lan Jr Assessments Encounter Date [...] Complete Blood Count Auto Diff IRON PROFILE 10/05/2025 Ferritin 10/05/2025 Liver Fibrosis Pnl 10/19/2023 Future Test Test Name Order Date COLONOSCOPY 12/30/2012 UPPER GI ENDOSCOPY 07/29/2018 COLONOSCOPY 07/29/2018 COLONOSCOPY 08/03/2019 COLONOSCOPY 08/20/2022 Next Appt Details Provider Name:Dewey biard , 10/18/2025 10:20:00 AM, [address] [place] [address], [address], [place], [address], Insurance Providers Payer Name Payer Address Payer Phone Subscriber Number Group Number Insured Name Patient Relationship to Insured Coverage Start Date Coverage End Date [facility] [address] [place] [phone] [id number] ROSY RUCKER Self - patient is the [...]
== END 2025-10-05 11:06 | disposition home or self-care (01) ==
LOC: HO.BBR 11:05
PROVIDERS: Nurse Practitioner Family; PCP Internal Medicine; Visit Provider Internal Medicine Gastroenterology
DX: D61.818 Other pancytopenia (principal); E83.110 Hereditary hemochromatosis
CPT/HCPCS: 36415; 82728; 83540; 83615; 85025; 86850; 86900; 86901; 86923

== ENCOUNTER 2025-10-16 08:19 | Outpatient (REF) | payer MEDICARE, SELFPAY ==
[2025-10-16 10:35] LABS: Hematocrit 33.0 % (42.0-52.0); Hemoglobin 9.9 g/dl (14.0-18.0); Mean Corpuscular HGB Conc 30.0 g/dl (31.0-36.0); Mean Corpuscular Hemoglobin 26.5 pg (27.0-33.0); Mean Corpuscular Volume 88.2 fL (80.0-98.0); NRBC Abs Auto 0.000 X10*3/uL (0.0-0.012); NRBC Pct Auto 0.0 /100WBC (0.0-0.2); Platelet Count 106 X10*3/uL (160-400); Red Blood Count 3.74 X10*6/uL (4.60-5.80); White Blood Count 4.0 X10*3/uL (4.8-10.8)
== END 2025-10-16 08:20 | disposition home or self-care (01) ==
LOC: HO.HMGCLDS 08:19
PROVIDERS: PCP Internal Medicine; Visit Provider Internal Medicine Gastroenterology
DX: E83.110 Hereditary hemochromatosis (principal)
CPT/HCPCS: 36415; 85027

== ENCOUNTER 2025-10-18 14:17 | Outpatient (AMB) | payer MEDICARE, SELFPAY ==
--- NOTE | 2025-10-18 14:20 | A.OFFVIS_ITS ---
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 He has been asymptomatic. No chest pain shortness of breath. No dizziness or syncope. Physically active without any exertional issues. Blood pressure control is good. 10/22/2023: He returns for follow-up. Repeat echocardiography has shown mild aortic valve stenosis again. He has no chest discomfort. He is saying when he goes up a hill in his backyard he gets out of breath. On a pain surface he does not get any symptoms. He is saying these symptoms are not new and have been happening for long time. No chest discomfort. 05/04/24: He returns for follow-up. He has been doing well. No chest pain or dizziness. he continues to get some shortness of breath going up hill but it is stable he does not feel limited by it. He said he played golf today and did well. 05/01/2025: Here for yearly follow-up. He has mild aortic valve stenosis. He has dyspnea on exertion going uphill especially if he is carrying some weight. No chest discomfort. No dizziness/syncope. 10/18/2025: He is here for follow-up. He underwent echocardiography in May 2025 which showed mild aortic valve stenosis with mean gradient of 20 mm Hg. Normal LV function. He also had a stress echocardiogram he did not show any ischemia. Subsequently he went for right shoulder surgery and preop blood workup showed anemia. He is following with GI and Hematology at this stage to get further assessment for anemia. He had blood transfusion done which has helped his dyspnea. REPLACED BY [facility] Medical History Mild aortic stenosis Hemochromatosis Diverticulosis Cirrhosis Prostate cancer Surgical History History of esophagogastroduodenoscopy (EGD) H/O colonoscopy History of hip replacement Total knee replacement status Social History Alcohol intake: current Alcohol intake frequency: 3 or more drinks per day Patient Tobacco Use Status: Never used Tobacco Review of Systems Const Denies chills, Denies fatigue, Denies fever(s), Denies frequent falls, Denies weakness, Denies weight gain and Denies weight loss ENT Denies dizziness Card Denies chest pain, Denies leg edema, Denies lightheadedness, Denies palpitations, Denies dyspnea and Denies dyspnea on exertion Resp Denies cough, Denies dyspnea and Denies dyspnea on exertion GI Denies hematochezia Musc Denies abnormal gait, Denies muscle weakness, Denies numbness, Denies radiating pain into limb and Denies tingling Neuro Denies abnormal gait, Denies dizziness, Denies frequent falls, Denies numbness, Denies tingling and Denies weakness Endo Denies fatigue and Denies palpitations Physical Exam Vital Signs: Last Vital Signs Pulse 79 10/18/25 14:21 BP 120/64 10/18/25 14:21 BMI result Body Mass Index 27.7 GENERAL APPEARANCE: in no acute distress, pleasant. NECK: no carotid bruit, no jugular venous distention. SKIN: no suspicious lesions, warm and dry. HEART: systolic murmur with preserved 2nd heart sound, regular rate and rhythm. LUNGS: clear to auscultation bilaterally. ABDOMEN: soft, nontender. EXTREMITIES: no edema. PERIPHERAL PULSES: equal. NEUROLOGIC: No gross deficits, AAO X 3 Assessment & Plan Assessment & Plan (1) Aortic stenosis: Code(s): I35.0 - Nonrheumatic aortic (valve) stenosis Category: Medical Plan Pleasant 70-year-old gentleman who is here for follow-up. He has mild to moderate aortic valve stenosis. Mean gradient across aortic valve 20 mm Hg in May 2025. Clinically he is stable. He had some dyspnea with activities which was due to anemia. He has stress testing done previously which was normal. He is intermediate risk for perioperative complications. Follow up with us in 6 months. Thank you for allowing me to participate in the care of your patient. Please feel free to contact me if you have any questions. Coding Level of Care Code Est Pt Level 4 (81050) Diagnoses Aortic stenosis I35.0
[2025-10-18 14:21] VITALS: BP 120/64; PULSE 79; BMI 27.7
== END 2025-10-18 14:56 | disposition home or self-care (01) ==
LOC: HO.HCS 14:18
PROVIDERS: PCP Internal Medicine; Visit Provider Internal Medicine Cardiovascular Disease
DX: I35.0 Nonrheumatic aortic (valve) stenosis (principal)
CPT/HCPCS: 99214

== ENCOUNTER → 2025-10-18 14:17 | Outpatient (BNVA) | payer MEDICARE, SELFPAY | PROVIDERS: PCP Internal Medicine; Visit Provider Internal Medicine Cardiovascular Disease | DX: I35.0 Nonrheumatic aortic (valve) stenosis (principal) | CPT/HCPCS: 99212 ==

== ENCOUNTER → 2025-10-24 10:40 | Outpatient (BNV) | payer MEDICARE, SELFPAY | PROVIDERS: Visit Provider Nurse Practitioner Family | DX: D61.818 Other pancytopenia (principal); Z85.46 Personal history of malignant neoplasm of prostate; Z86.39 Personal history of other endocrine, nutritional and metabolic disease | CPT/HCPCS: 99204; 99214 ==

== ENCOUNTER 2025-11-01 11:52 | Day surgery (SDC) | payer MEDICARE, SELFPAY ==
--- OUTSIDE RECORDS SUMMARY | 2025-02-13 05:27 | XMS_ITS ---
Author Organization Richard Amado MD Address [address] [place] [phone] Care Team Providers Care Ems Helicopter Pilot Name Role Phone Ingris Richard Primary Care Provider [phone] REASON FOR VISIT HCC Risk Codes 06/13 Encounters Encounter Location Date Provider Diagnosis Richard Amado MD 10 [facility] [address] [place] [phone] 02/13/2025 Richard Amado Plan Of Treatment Next Appt Details Provider Name:Richard lucas, 06/08/2026 07:00:00 AM, [address] [place] [address], Suite [facility], [place], [place], [phone], Provider Name:Richard lucas, 06/15/2026 09:30:00 AM, [address] [place] [address], Suite [facility], [place], [place], [phone], Progress Notes * Bhavesh RUCKER PDOB: [birth year] (70 yo M)Acc No.[id number]:02/13/2025 Patient: Bhavesh HAMMOND :1955 A ge:70 Y S ex:Male Address:[address] [place] [address] [place] [address] * true * Date: Generated for Liza joaquin/Isaak/Negaritting on: 12/18/2024 11:25 PM EST
--- OUTSIDE RECORDS SUMMARY | 2025-02-16 09:15 | XMS_ITS ---
Author Organization Richard Amado MD Address [address] [place], [place] [phone] Care Team Providers Care Prop Making Supervisor Name Role Phone Ingris Richard Primary Care Provider Allergies No Known Allergies REASON FOR VISIT chest congested, coughing, fever 100.1 covid neg today c/o chills, sore throat last week, x 1 week is positive for Flu, Video [phone] Medications Medication SIG (Take, Route, Frequency, Duration) [...] Richard Amado MD [address] [place] [phone] 02/16/2025 Richard Amado Influenza J11.1 Assessments Encounter [...] Details Provider Name:Richard lucas, 06/08/2026 07:00:00 AM, [address] [place] [address], [address], [place], [place], [phone], Provider Name:Richardlorena Sanchezcarolynn lance, 06/15/2026 09:30:00 AM, [address] [place] [address], [address], [place], [place], [phone], Progress Notes * Bhavesh RUCKER PDOB: [birth year] (70 yo M)Acc No.[id number]:02/16/2025 Patient: Sheba Bhavesh RODRIGUEZ Provider: Jefferson Amado MD :1955 A ge:70 Y S ex:Male Date:02/16/2025 Address:[address] [place], [place] [phone] Subjective: * Chief Complaints: * c hest congested, coughing, fever 100.1 covid neg today c/o chills, sore throat last week, x 1 week is positive for FluVideo [phone] * HPI: S ymptom(s): Telehealth L ocation [...] MD Date: 0 02/16/2025 Generated for Liza joaquin/Isaak/eTitzsmitting on: 1 12/18/2024 11:26 PM EST History and Physical Notes * HPI (History of Present Illness) Category Sub-Category Detail Notes Category Not es Symptom(s) Telehealth Location of [facility] rendering services:: [address], [address] [...]
--- OUTSIDE RECORDS SUMMARY | 2025-06-06 02:45 | XMS_ITS ---
Author Organization Richard Amado MD Address [address] [place], [place] [address] Care Team Providers Care Respiratory Equipment Assistant Name Role Phone Ingris Richard Primary Care Provider Results Component Value Reference Range Notes Complete Blood Count Auto Di ff Reviewed date:06/15/2025 01:28:57 PM Interpretation:06-13-2025 Performing Lab:[facility], [address] [place] [phone] Notes/Report: White Blood Count 3.5 4.8-10.8 X10*3/uL Red Blood Count 3.80 4.60-5.80 X10*6/uL Hemoglobin 11.2 14.0-18.0 g/dl Hematocrit 34.3 42.0-52.0 % Mean Corpuscular Volume 90.3 80.0-98.0 fL Mean Corpuscular Hemoglobin 29.5 27.0-33.0 pg Mean Corpuscular HGB Conc 32.7 31.0-36.0 g/dl Red Cell Distribution Width 19.5 11.0-16.0 % Platelet Count 100 160-400 X10*3/uL Mean Platelet Volume 11.4 9.4-12.4 fL Neutrophils Percent Auto 54.2 45-73 % Imm Gran Pct Auto 0.8 0.0-0.4 % Lymphocytes Percent Auto 21.0 20-40 % Monocytes Percent Auto 16.1 2-11 % Eosinophils Percent Auto 6.5 0-4 % Basophils Percent Auto 1.4 0-2 % NRBC Pct Auto 0.0 0.0-0.2 /100WBC Neutrophils Absolute Auto 1.9 2.0-8.3 x10*3/u L Imm Gran Abs Auto 0.03 0.00-0.03 X10*3/uL Lymphocytes Absolute Auto 0.7 1.2-4.9 X10*3/u L Monocytes Absolute Auto 0.6 0.1-1.2 X10*3/uL Eosinophils Absolute Auto 0.2 0.0-0.4 X10*3/u L Basophils Absolute Auto 0.1 0.0-0.2 X10*3/uL NRBC Abs Auto 0.000 0.0-0.012 X10*3/uL Comprehensive [place]. Panel Fa st Reviewed date:06/06/2025 04:18:52 PM Interpretation: Performing Lab:[facility], [address] [place] [phone] Notes/Report: Sodium 143 135-145 mmol/L Potassium 4.0 3.3-5.1 mmol/L Chloride 111 96-108 mmol/L Carbon Dioxide 24 22-29 mmol/L Anion Gap 12 12-20 Blood Urea Nitrogen 12 9-16 mg/dL Creatinine 0.67 0.5-1.4 mg/dL Estimated Glomerular Filt Rate > 60 Chronic Kidney Disease: Estimated GFR < 60 mL/min/1.73m2 Severe Kidney Disease: Estimated GFR < 15 mL/min/1.73m2 Glucose Fasting 145 60-99 mg/dL A fasting glucose of 126 mg/dl or greater on more than one occasion is considered diagnostic of diabetes. Calcium 8.7 8.4-10.2 mg/dL Bilirubin Total 0.3 0.0-1.0 mg/dL Aspartate Amino Transferase 103 5-37 U/L Alanine Aminotransferase 105 0-40 U/L Total Protein 6.6 6.5-8.0 g/dL Albumin Level 3.8 3.5-5.0 g/dL Alkaline Phosphatase 120 39-117 U/L Lipid Panel Reviewed date:06/06/2025 12:34:11 PM Interpretation: Performing Lab:[facility], [address] [place] [phone] Notes/Report: Triglycerides 92 <150 mg/dL Desirable Triglyceride: less than 150 mg/dL Borderline High Triglyceride 150-199 mg/dL High Triglyceride: 200-499 mg/dL Very High Triglyceride: greater than or equal to 5OO mg/dL Cholesterol 187 <200 mg/dL Desirable Cholesterol: less than 200 mg/dL Borderline High Cholesterol: 200-239 mg/dL High Cholesterol: greater than 239 mg/dL LDL Cholesterol Calculated 110 <100 mg/dL Desirable LDL: less than 100 mg/dL Near Optimal/Above Optimal LDL: 110-129 mg/dL Borderline High LDL: 130-159 mg/dL High LDL: 160-189 mg/dL Very High LDL: greater than or equal to 190 mg/dL HDL Cholesterol 59 >40 mg/dL Desirable HDL: greater than 40 mg/dL Note: This HDL assay may give artificially low results in patients with liver disease. PSA,Total (Free>4and<10) Reviewed date:06/06/2025 12:32:58 PM Interpretation: Performing Lab:[facility], [address] [place] [phone] Notes/Report: PSA,Total (Free>4and<10) < 0.10 0.00-4.00 ng/mL A Free PSA was not performed: The percentage of Free PSA can be used to enhance the differentiation of prostate cancer from benign prostatic disease in subjects whose PSA levels are between 4.0 and 10.0 ng/mL. For subjects whose PSA levels are below 4.0 or above 10.0 ng/mL, the risk of prostate cancer is determined on the basis of the PSA alone. Therefore the % Free PSA is recommended only for those subjects whose PSA levels are between 4.0 and 10.0 ng/mL. PSA methodology: Rivas Alinity i Chemiluminescent Microparticle Immunoassay (CMIA) Microalbumin, Random Reviewed date:06/06/2025 12:33:07 PM Interpretation: Performing Lab:[facility], [address] [place] [phone] Notes/Report: Creatinine Urine 69.44 Microalbumin Urine < 5.0 Microalbum/Creatinine Ratio Ur TNP <30 ug/mg cr Unable to calculate albumin/creatinine ratio due to low microalbumin or creatinine result. Hemoglobin A1c Reviewed date:06/06/2025 12:43:21 PM Interpretation: Performing Lab:[facility], [address] [place] [phone] Notes/Report: Hemoglobin A1c % 6.3 <6.0 % Hemoglobin A1C Reference Range Adults: 4.8 - 6.0 % Non diabetic: < 6.0 % Goal: < 7.0 % Additional Action Suggested: > 8.0 % Note: Hemoglobin A1c results are invalid for patients with abnormal amounts of HbF. Blood transfusions may impact the HbA1c concentration in the patient sample. Estimated Average Glucose 134 eAG = Estimated average glucose which is %A1C expressed as average glucose, using the formula of the R6R-Vvkbisj Average Glucose study (ADAG), Diabetes Care, Vol.31,#8, Jun. 2007 UA ClnCatch+Micro w/rflx Cul t Reviewed date:06/06/2025 12:35:49 PM Interpretation: Performing Lab:[facility], [address] [place] [phone] Notes/Report: Urine, Clean Catch Color Urine Yellow Appearance Urine Clear PH 6.5 5.0-9.0 Glucose Urine UA Negative Negative mg/dL Urine Blood Negative Negative Specific [place] - Urine 1.015 1.005-1.025 Urine Protein Negative Neg-Trace mg/dL Urine Ketones Negative Negative mg/dL Nitrite Urine Negative Negative Leukocyte Esterase Urine Negative Negative RBC Urine 0-2 0-2 /HPF WBC Urine 0-5 0-5 /HPF Squamous Epithelial Cell Urine 0-2 0-2 /HPF Bacteria Urine None Seen None Seen Hyaline Casts Urine 0-2 0-2 /LPF REASON FOR VISIT FASTING LABS Encounters Encounter Location Date Provider Diagnosis Richard Amado MD [address] [place] [address] Drive [address] [place], [place] [id number] 06/06/2025 Richard Amado Blood tests for rout ine general physical examination Z00.00 ; Prediabetes R73.09 and Pure hypercholesterolemia E78.00 Assessments Encounter Date Diagnosis (ICD Code) Assessment Notes Treatment Notes Treatment Clinical Notes Section Notes 06/06/2025 Blood tests for rout ine general physical examination (ICD-10 - Z00.00) 06/06/2025 Prediabetes (ICD-10 - R73.09) 06/06/2025 Pure hypercholesterolemia (ICD-10 - E78.00) Plan Of Treatment Next Appt Details Provider Name:Richard Santana ier, 06/08/2026 07:00:00 AM, [address], [address], [place], [place], [id number], Provider Name:Richard Santana ier, 06/15/2026 09:30:00 AM, [address], [address], [place], [place], [id number], Progress Notes * Bhavesh RUCKER PDOB: [birth year] (70 yo M)Acc No.[id number]:06/06/2025 Progress Note Patient: Bhavesh HAMMOND Provider: Jfeferson Amado MD :1955 A ge:70 Y S ex:Male Date:06/06/2025 Address:[address] [place] [address], [place] [facility] Subjective: * Chief Complaints: * 1 . FASTING LABS. * Medical History: Objective: * Vitals: Assessment: * Assessment: 1. B lood tests for routine general physical examination - Z00.00 (Primary) 2 .?Prediabetes - R73.09 3 . P ure hypercholesterolemia - E78.00 ? Plan: * Treatment: 2. P rediabetes L AB: Complete Blood Count Auto Diff (Collection Date & Time - 06/06/2025 07:45 AM) L AB: Comprehensive [place]. Panel Fast (Collection Date & Time - 06/06/2025 07:45 AM) L AB: Lipid Panel (Collection Date & Time - 06/06/2025 07:45 AM) L AB: PSA,Total (Free>4and<10) (Collection Date & Time - 06/06/2025 07:45 AM) L AB: Microalbumin, Random (Collection Date & Time - 06/06/2025 07:45 AM) L AB: Hemoglobin A1c (Collection Date & Time - 06/06/2025 07:45 AM) L AB: UA ClnCatch+Micro w/rflx Cult (Collection Date & Time - 06/06/2025 07:45 AM) 3. P ure hypercholesterolemia L AB: Complete Blood Count Auto Diff (Collection Date & Time - 06/06/2025 07:45 AM) L AB: Comprehensive [place]. Panel Fast (Collection Date & Time - 06/06/2025 07:45 AM) L AB: Lipid Panel (Collection Date & Time - 06/06/2025 07:45 AM) L AB: PSA,Total (Free>4and<10) (Collection Date & Time - 06/06/2025 07:45 AM) L AB: Microalbumin, Random (Collection Date & Time - 06/06/2025 07:45 AM) L AB: Hemoglobin A1c (Collection Date & Time - 06/06/2025 07:45 AM) L AB: UA ClnCatch+Micro w/rflx Cult (Collection Date & Time - 06/06/2025 07:45 AM) * Procedure Codes: 3 6415 VENIPUNCT, ROUTINE* * * The named appointment provid er may or may not be the originator of this progress note, and it is not deemed complete until electronically signed by the appointment provider. Sign off status: Pending * Provider: Jefferson Amado MD Date: 0 06/06/2025 Generated for Liza joaquin/Isaak/Yamileth on: 12/18/2024 11:25 PM EST
--- OUTSIDE RECORDS SUMMARY | 2025-06-13 04:30 | XMS_ITS ---
Author Organization Richard Amado MD Address [address] [place], [place] [id number] Care Team Providers Care Boat Assembler Name Role Phone Ingris Richard Primary Care Provider [phone] Allergies No Known Allergies REASON FOR VISIT ANNUAL EXAM/ must se CBC labs Medications Medication SIG (Take, Route, Fr equency, Duration) Notes Start Date End Date Status Ibuprofen 200 MG 1 tablet with food o r milk as needed Orally Three times a day Active Tadalafil 20 MG 1 tablet as needed O rally Once a day as needed for 30 days 06/13/2025 Active Social History Tobacco Use: Social History Observation [...] Problem Status W/U Status Risk Notes Problem Erectile dysfunction due to and not concurrent with radiation therapy (N52.35) Active confirmed Vital Signs Blood pressure systolic 102 mm Hg 06/13/20 25 Blood pressure diastolic 60 mm Hg 025 Height 67 in 06/13/2025 Weight 164 lbs 06/13/2025 BMI 25.68 kg/m2 06/13/2025 weight is up 2 pounds since 02-16-25 Encounters Encounter Location Date Provider Diagnosis Richard Amado MD [address] [place] [address] [place] [phone] 06/13/2025 Richard Amado Annual physical exam Z00.00 ; Other hemochromatosis E83.118 ; Prostate cancer C61 ; Decreased platelet count D69.6 ; Elevated LFTs R79.89 ; Shortness of breath R06.02 ; Erectile dysfunction due to and not concurrent with radiation therapy N52.35 ; Pure hypercholesterolemia E78.00 ; Prediabetes R73.09 ; Colon cancer screening Z12.11 and Depression screening Z13.31 Assessments Encounter Date Diagnosis (ICD Code) Assessment Notes Treatment Notes Treatment Clinical Notes Section Notes 06/13/2025 Annual physical exam (ICD-10 - Z00.00) labs reviewed and discussed with patient 06/13/2025 Other hemochromatosi s (ICD-10 - E83.118) 06/13/2025 Prostate cancer (ICD -10 - C61) followed by Urology 06/13/2025 Decreased platelet c ount (ICD-10 - D69.6) will continue to monitor, pending addtl labs 06/13/2025 Elevated LFTs (ICD-1 0 - R79.89) order faxed to [facility] dept , will continue to monitor, pending labs 06/13/2025 Shortness of breath (ICD-10 - R06.02) obtain echo results from [facility] 06/13/2025 Erectile dysfunction due to and not concurrent with radiation therapy (ICD-10 - N52.35) 06/13/2025 Pure hypercholesterolemia (ICD-10 - E78.00) stable, will continue current regiment 06/13/2025 Prediabetes (ICD-10 - R73.09) stable, no need for medication at this time 06/13/2025 Colon cancer screeni ng (ICD-10 - Z12.11) guaiac negative 06/13/2025 Depression screening (ICD-10 - Z13.31) negative screen Plan Of Treatment Medication Medication Name Sig Start Date Stop Date Notes Tadalafil 20 MG 1 tablet as needed O rally Once a day as needed for 30 days 06/13/2025 Treatment Notes Assessment Notes Annual physical exam labs reviewed and d iscussed with patient Prostate cancer followed by Urology Decreased platelet count will continue t o monitor, pending addtl labs Elevated LFTs order faxed to [facility] S dept , will continue to monitor, pending labs Shortness of breath obtain echo results from [facility] Pure hypercholesterolemia stable, will c ontinue current regiment Prediabetes stable, no need for medication at this time Colon cancer screening guaiac negative Depression screening negative screen Pending Test Test Name Order Date US ABD 06/13/2025 Next Appt Details Follow Up: 5 weeks, Reason: Provider Name:Richard lucas, 06/08/2026 07:00:00 AM, [address] [place] [address], Suite [facility], [place], [place], [phone], Provider Name:Richard lucas, 06/15/2026 09:30:00 AM, [address] [place] [address], [address], [place], [place], [phone], Progress Notes * Bhavesh RUCKER PDOB: [birth year] (70 yo M)Acc No.[id number]:06/13/2025 Progress Notes Patient: Bhavesh HAMMOND Provider: Jefferson Amado MD :1955 A ge:70 Y S ex:Male Date:06/13/2025 Address:[address] [place] [address] marcella [id number] Subjective: * Chief Complaints: * A NNUAL EXAM/ must se CBC labs * HPI: D epression Screening: PHQ-9 L ittle interest or pleasure in doing things N ot at all, F eeling down, depressed, or hopeless N ot at all, T rouble falling or staying asleep, or sleeping too much N ot at all, F eeling tired or having little energy N ot at all, P oor appetite or overeating N ot at all, F eeling bad about yourself or that you are a failure, or have let yourself or your family down N ot at all, T rouble concentrating on things, such as reading the newspaper or watching television N ot at all, M oving or speaking so slowly that other people could have noticed; or the opposite, being so fidgety or restless that you have been moving around a lot more than usual N ot at all, T houghts that you would be better off or of hurting yourself in some way N ot at all, T otal Score 0 . I nterpretation and Intervention D epression Screening Findings N egative, F ollow-Up for Depression : review of PHQ-9 found negative result, no follow-up needed. C ommunication Needs: Communication Needs D oes the patient have a hearing impairment N o, D oes the patient have a vision impairment? Y es, I f yes, what is the vision impairment? G lasses, D oes the patient have a cognition impairment? N o. F all Risk: History H ave you had any falls with injury in the past year? N o, H ave you had two or more falls in the past year? N o. S AKANKSHA Questions: SDOH Questions I n the past year have you been worried about losing housing? N o, I n the past year have you or any family members you live with been unable to get any of the following when it was really needed? Check all that apply: N one. S ymptom(s): patient is a 70 yo male here for annual visit with review of recent labs and follow up of chronic issues. * ROS: G eneral/Constitutional: Change in appetite d enies. C hills d enies. F ever d enies. O phthalmologic: Blurred vision d enies. D ischarge d enies. P ain d enies. E NT: Decreased hearing d enies. S ore throat d enies.?Swollen glands d enies. E ndocrine: Cold intolerance d enies. E xcessive thirst d enies. H eat intolerance d enies. W eight loss d enies. R espiratory: Cough d enies. S hortness of breath at rest d enies. S hortness of breath with exertion d enies. W heezing d enies. C ardiovascular: Chest pain at rest d enies. C hest pain with exertion?denies. I rregular heartbeat d enies. S hortness of breath d enies. ? G astrointestinal: Abdominal pain d enies. C hange in bowel habits d enies. D iarrhea d enies. N ausea d enies. R ectal bleeding d enies. V omiting d enies . G enitourinary: Blood in urine d enies. D ifficulty urinating d enies. F requent urination d enies. M usculoskeletal: Painful joints d enies. W eakness d enies. ? S kin: Dry skin d enies. I tching d enies. D enies?Mole(s), changes in moles, new moles or any lesions of concern. D enies P hotosensitivity. R emile d enies. N eurologic: Dizziness d enies. F ainting d enies. H eadache?denies. * Medical History: * Surgical History: * Hospitalization/Major Diagno stic Procedure: * Family History: F ather: 77 yrs, diagnosed with Alzheimer disease. M other: 47 yrs. 1 sister(s) . . NO FAMILY HISTORY OF MENTAL ILLNESS OR SUBSTANCE ABUSE, Denies mental health/substance abuse family history Mother Liver 1 brother-57 ALS, Denies mental health/substance abuse family history, Denies mental health/substance abuse family history. * Social History: T obacco Use: T obacco Use/Smoking P atient is a n onsmoker, A dditional Findings: Tobacco Non-User C urrent non-smoker, currently using no form of tobacco. D rugs/Alcohol: A lcohol Screen D id you have a drink containing alcohol in the past year? Y es, H ow often did you have a drink containing alcohol in the past year? 4 or more times a week (4 points), H ow many drinks did you have on a typical day when you were drinking in the past year? 3 or 4 drinks (1 point), H ow often did you have 6 or more drinks on one occasion in the past year? N ever (0 point), P oints 5 , I nterpretation P ositive. M iscellaneous: C affeine: yes, frequency:, 1-2 cups per day. Children: no. Community involvements: no. Exercise: yes, [employer] cardio 3 times a week. Housing: owning. Living with: spouse. Marital status: . Occupation: pt is retired. Pets: none. Travel outside of the [place]: no. * Medications: T akingIbuprofen 200 MG Tablet 1 tablet with food or milk as needed Orally Three times a day Medication List reviewed and reconciled with the patientTaking Ibuprofen 200 MG Tablet 1 tablet with food or milk as needed Orally Three times a day Medication List reviewed and reconciled with the patient * Allergies: N .K.D.A.yes[Allergies Verified] Objective: * Vitals: H t: 67, Wt: 164, BMI:25.68, BP:102/60, Wt-k.39. weight is up 2 pounds since 02-16-25. * P ast Orders: L ab:Microalbumin, Random (Order Date - 06/06/2025) (Collection Date & Time - 06/06/2025 07:45 AM) Value Reference Range Creatinine Urine 69.44 - mg/dL Microalbumin Urine < 5.0 - mg/L Microalbum Creatinine Ratio Ur TNP <30 - ug/ mg cr L ab:Hemoglobin A1c (Order Date - 06/06/2025) (Collection Date & Time - 06/06/2025 07:45 AM) Value Reference Range Hemoglobin A1c % 6.3 H <6.0 - % Estimated Average Glucose 134 - mg/dL L ab:UA ClnCatch+Micro w/rflx Cult (Order Date - 06/06/2025) (Collection Date & Time - 06/06/2025 07:45 AM) Value Reference Range Color Urine Yellow - Appearance Urine Clear - PH 6.5 5.0-9.0 - Glucose Urine UA Negative Negative - mg/dL Urine Blood Negative Negative - Specific [place] - Urine 1.015 1.005-1.025 - Urine Protein Negative Neg-Trace - mg/dL Urine Ketones Negative Negative - mg/dL Nitrite Urine Negative Negative - Leukocyte Esterase Urine Negative Negative - RBC Urine 0-2 0-2 - /HPF WBC Urine 0-5 0-5 - /HPF Squamous Epithelial Cell Urine 0-2 0-2 - /HP F Bacteria Urine None Seen None Seen - Hyaline Casts Urine 0-2 0-2 - /LPF L ab:Comprehensive [place]. Panel Fast (Order Date - 06/06/2025) (Collection Date & Time - 06/06/2025 07:45 AM) Value Reference Range Sodium 143 135-145 - mmol/L Bilirubin Total 0.3 0.0-1.0 - mg/dL Aspartate Amino Transferase 103 H 5-37 - U/L Alanine Aminotransferase 105 H 0-40 - U/L Total Protein 6.6 6.5-8.0 - g/dL Albumin Level 3.8 3.5-5.0 - g/dL Alkaline Phosphatase 120 H 39-117 - U/L Potassium 4.0 3.3-5.1 - mmol/L Chloride 111 H 96-108 - mmol/L Carbon Dioxide 24 22-29 - mmol/L Anion Gap 12 12-20 - Blood Urea Nitrogen 12 9-16 - mg/dL Creatinine 0.67 0.5-1.4 - mg/dL Estimated Glomerular Filt Rate > 60 - Glucose Fasting 145 H 60-99 - mg/dL Calcium 8.7 8.4-10.2 - mg/dL L ab:Lipid Panel (Order Date - 06/06/2025) (Collection Date & Time - 06/06/2025 07:45 AM) Value Reference Range Triglycerides 92 <150 - mg/dL Cholesterol 187 <200 - mg/dL LDL Cholesterol Calculated 110 H <100 - mg/dL HDL Cholesterol 59 >40 - mg/dL L ab:PSA,Total (Free>4and<10) (Order Date - 06/06/2025) (Collection Date & Time - 06/06/2025 07:45 AM) Value Reference Range PSA,Total (Free>4and<10) < 0.10 0.00-4.00 - ng/ mL * Examination: G eneral Examination: GENERAL APPEARANCE: w ell developed, well nourished, in no acute distress. HEAD: n ormocephalic, atraumatic. EYES: p upils equal, round, reactive to light and accommodation, sclera non-icteric. EARS: n ormal. ORAL CAVITY: m ucosa moist. THROAT: c lear. NECK/THYROID: n alma supple, full range of motion, no cervical lymphadenopathy, no bruits. SKIN: w arm and dry, no suspicious lesions. HEART: r egular rate and rhythm, S1, S2 normal, no murmurs.? LUNGS: c lear to auscultation bilaterally. ABDOMEN: s oft, nontender, nondistended, bowel sounds present, normal, no organomegaly , no masses palpable. RECTAL EXAM: n ormal tone, no external hemorrhoids, no masses palpable, prostate normal, no stool. MALE GENITOURINARY: n ot examined. EXTREMITIES: n o clubbing, cyanosis, or edema. NEUROLOGIC: n onfocal, motor strength normal upper and lower extremities, sensory exam intact. Assessment: * Assessment: 1. A nnual physical exam - Z00.00 (Primary) 2 . O ther hemochromatosis - E83.118 3 . P rostate cancer - C61 4 . D ecreased platelet count - D69.6 5 . E levated LFTs - R79.89 6 . S hortness of breath - R06.02 7 . E rectile dysfunction due to and not concurrent with radiation therapy - N52.35 8 . P ure hypercholesterolemia - E78.00 9 .?Prediabetes - R73.09 1 0. C olon cancer screening - Z12.11 1 1. D epression screening - Z13.31 Plan: * Treatment: 2. P rostate cancer Notes: followed by Urology 3. D ecreased platelet count L AB: Complete Blood Count Auto Diff (Ordered for 07/11/2025) L AB: Liver Panel (Ordered for 07/11/2025) Notes: will continue to monitor, pending addtl labs 4. E levated LFTs I maging: US ABD Notes: order faxed to [facility] CS dept , will continue to monitor, pending labs 5. S hortness of breath Notes: obtain echo results from [facility] 6. E rectile dysfunction due to and not concurrent with radiation therapy Start Tadalafil Tablet, 20 MG, 1 tablet as needed, Orally, Once a day as needed, 30 days, 30, Refills 5. 7. P ure hypercholesterolemia Notes: stable, will continue current regiment 8. P rediabetes Notes: stable, no need for medication at this time 9. C olon cancer screening Notes: guaiac negative 10. D epression screening Notes: negative screen * Procedure Codes: * Preventive Medicine: Counseling: C are goal follow-up plan: Dariana durbinnseling for abnormal BMI provided?Yes, Trae herron Normal BMI Follow-up G heather encouragement to exercise. * Follow Up: 5 weeks * * Sign off status: Completed true * Provider: Jefferson Amado MD Date: 0 06/13/2025 Generated for Liza joaquin/Isaak/Yamileth on: 1 12/18/2024 11:25 PM EST History and Physical Notes * HPI (History of Present Illness) Category Sub-Category Detail Notes Category Not es Symptom(s) patient is a 70 yo male here for annual visit with review of recent labs and follow up of chronic issues Depression Screening PHQ-9 Little inte rest or pleasure in doing things: Not at all Feeling down, depressed, or hopeless: No t [...] had two or more falls in the year?: No Communication Needs Communication Needs Does the patient have a hearing impairment: No Does the patient have a vision impairmen t?: Yes If yes, what is the vision impairment?: Glasses Does the patient have a cognition impair ment?: No Examination Category Sub-Category Detail Notes Category Not es General Examination GENERAL APPEARANCE: well dev eloped, well nourished, in no acute distress HEAD: normocephalic, atrau matic EYES: pupils equal, round, reactive to light and accommodation, sclera non-icteric EARS: normal THROAT: clear NECK/THYROID: neck supple, full ra nge of motion, no cervical lymphadenopathy, no bruits HEART: regular rate and rhy thm, S1, S2 normal, no murmurs LUNGS: clear to auscultatio n bilaterally ABDOMEN: soft, nontender, non distended, bowel sounds present, normal, no organomegaly , no masses palpable NEUROLOGIC: nonfocal, motor stre ngth normal upper and lower extremities, sensory exam intact SKIN: warm and dry, no kristofer picious lesions EXTREMITIES: no clubbing, cyanosi s, or edema MALE GENITOURINARY: not examined RECTAL EXAM: normal tone, no exte rnal hemorrhoids, no masses palpable, prostate normal, no stool ORAL CAVITY: mucosa moist
--- OUTSIDE RECORDS SUMMARY | 2025-06-16 09:30 | XMS_ITS ---
Author Organization Richard Amado MD Address [address] [place], [place] [phone] Care Team Providers Care Injection Molding Machine Setter Name Role Phone Ingris Richard Primary Care Provider Allergies No Known Allergies REASON FOR VISIT discuss Echo [phone] at work until 2pm Medications Medication SIG (Take, Route, Fr equency, Duration) Notes Start Date End Date Status Tadalafil 20 MG 1 tablet as needed O rally Once a day as needed for 30 days 06/13/2025 Active Ibuprofen 200 MG 1 tablet with food o r milk as needed Orally Three times a day Active Vital Signs Height 67 in 06/16/2025 Weight 60 lbs 06/16/2025 BMI 9.4 kg/m2 06/16/2025 weight is 160 BP not taken t aken Encounters Encounter Location Date Provider Diagnosis Richard Amado MD [address] [place], [place] [phone] 06/16/2025 Richard Amado Heart murmur R01.1 Assessments Encounter Date Diagnosis (ICD Code) Assessment Notes Treatment Notes Treatment Clinical Notes Section Notes 06/16/2025 Heart murmur (ICD-10 - R01.1) went over the results of the echo with him that is read as the only change was mild mitral stenosis Plan Of Treatment Treatment Notes Assessment Notes Heart murmur went over the result s of the echo with him that is read as the only change was mild mitral stenosis Next Appt Details Provider Name:Richard Santana ier, 06/08/2026 07:00:00 AM, [address] [place] [address], [address], [place], [place], [phone], Provider Name:Richard Santana ier, 06/15/2026 09:30:00 AM, [address] [place] [address], Suite [facility], [place], [place], [phone], Progress Notes * ALKA Bhavesh PDOB: [birth year] (70 yo M)Acc No.[id number]:06/16/2025 Patient: Sheba Bhavesh RODRIGUEZ Provider: Jefferson Amado MD :1955 A ge:70 Y S ex:Male Date:06/16/2025 Address:[address] [place] [address] [place] [facility] Subjective: * Chief Complaints: * d iscuss Echo [phone] at work until 2pm * HPI: S ymptom(s): Telehealth L ocation of provider rendering services: 1 0 [facility], [address], ocation of patient: a t address listed in demographics for today's visit, P atient identification confirmed using: SABIHA Tolbert ame, T elehealth method: V ideo conference where patient is visible to the provider of care, C onsent: P atient verbally consented to treatment, Patient verbally consented to billing insurance company, Patient informed of any privacy concerns related to method of visit, T otal time spend talking with patient (minutes) 2 0. patient is a 70 yo here to discuss echo. no charge. * ROS: G eneral/Constitutional: Denies C hills. D enies F atigue. D enies F ever. D enies H eadache. E NT: Denies S ore throat. R espiratory: Denies C ough. D enies S hortness of breath at rest. D enies S hortness of breath with exertion. G astrointestinal: Denies D iarrhea. D enies N ausea. * Medical History: * Surgical History: * Hospitalization/Major Diagno stic Procedure: * Medications: T akingIbuprofen 200 MG Tablet 1 tablet with food or milk as needed Orally Three times a day Tadalafil 20 MG Tablet 1 tablet as needed Orally Once a day as needed Medication List reviewed and reconciled with the patientTaking Ibuprofen 200 MG Tablet 1 tablet with food or milk as needed Orally Three times a day Taking Tadalafil 20 MG Tablet 1 tablet as needed Orally Once a day as needed Medication List reviewed and reconciled with the patient * Allergies: N .K.D.A.yes[Allergies Verified] Objective: * Vitals: H t: 67, Wt: 60, BMI:9.4, Wt-k.22. weight is 160 BP not taken taken. Assessment: * Assessment: 1. H eart murmur - R01.1 (Primary) Plan: * Treatment: * Procedure Codes: * * Sign off status: Completed true * Provider: Jefferson Amado MD Date: 0 06/16/2025 Generated for Liza joaquin/Isaak/Yamileth on: 1 12/18/2024 11:25 PM EST History and Physical Notes * HPI (History of Present Illness) Category Sub-Category Detail Notes Category Not es Symptom(s) Telehealth Location of [facility] rendering services:: [address] [place] [address] Drive, [address] patient is a 70 yo here to discuss echo. no charge Location of patient:: at address listed in demographics for today's visit Patient identification confirmed using:: Name, Telehealth method:: Video co nference where patient is visible to the provider of care Consent:: Patient verbally c onsented to treatment, Patient verbally consented to billing insurance company, Patient informed of any privacy concerns related to method of visit Total time spend talking with patient (m inutes): 20
--- OUTSIDE RECORDS SUMMARY | 2025-07-11 02:45 | XMS_ITS ---
Author Organization Richard Amado MD Address [address] [place], [place] [phone] Care Team Providers Care Questioned Documents Examiner Name Role Phone Ingris Richard Primary Care Provider Results Component Value Reference Range Notes Complete Blood Count Auto Di ff Reviewed date:07/11/2025 05:54:53 PM Interpretation: Performing Lab:[facility], [address] [place] [phone] Notes/Report: White Blood Count 5.0 4.8-10.8 X10*3/uL Red Blood Count 3.67 4.60-5.80 X10*6/uL Hemoglobin 11.0 14.0-18.0 g/dl Hematocrit 34.1 42.0-52.0 % Mean Corpuscular Volume 92.9 80.0-98.0 fL Mean Corpuscular Hemoglobin 30.0 27.0-33.0 pg Mean Corpuscular HGB Conc 32.3 31.0-36.0 g/dl Red Cell Distribution Width 15.9 11.0-16.0 % Platelet Count 111 160-400 X10*3/uL Mean Platelet Volume 11.1 9.4-12.4 fL Neutrophils Percent Auto 60.1 45-73 % Imm Gran Pct Auto 0.4 0.0-0.4 % Lymphocytes Percent Auto 22.2 20-40 % Monocytes Percent Auto 13.7 2-11 % Eosinophils Percent Auto 2.2 0-4 % Basophils Percent Auto 1.4 0-2 % NRBC Pct Auto 0.0 0.0-0.2 /100WBC Neutrophils Absolute Auto 3.0 2.0-8.3 x10*3/u L Imm Gran Abs Auto 0.02 0.00-0.03 X10*3/uL Lymphocytes Absolute Auto 1.1 1.2-4.9 X10*3/u L Monocytes Absolute Auto 0.7 0.1-1.2 X10*3/uL Eosinophils Absolute Auto 0.1 0.0-0.4 X10*3/u L Basophils Absolute Auto 0.1 0.0-0.2 X10*3/uL NRBC Abs Auto 0.000 0.0-0.012 X10*3/uL Liver Panel Reviewed date:07/27/2025 10:36:50 AM Interpretation:07-20-2025 Performing Lab:[facility], [address] [place] [phone] Notes/Report: Bilirubin Total 0.4 0.0-1.0 mg/dL Bilirubin Direct 0.2 0.0-0.5 mg/dL Aspartate Amino Transferase 97 5-37 U/L Alanine Aminotransferase 114 0-40 U/L Total Protein 7.2 6.5-8.0 g/dL Albumin Level 4.2 3.5-5.0 g/dL Alkaline Phosphatase 125 39-117 U/L REASON FOR VISIT CBC Liver Encounters Encounter Location Date Provider Diagnosis Richard Amado MD [address] [place] [address] [address] [place], [place] [phone] 07/11/2025 Richard Amado Decreased platelet count D69.6 Assessments Encounter Date Diagnosis (ICD Code) Assessment Notes Treatment Notes Treatment Clinical Notes Section Notes 07/11/2025 Decreased platelet count (ICD-10 - D69.6) Plan Of Treatment Next Appt Details Provider Name:Richard piperr, 06/08/2026 07:00:00 AM, [address], [address], [place], [id number], Provider Name:Richard Santana ier, 06/15/2026 09:30:00 AM, [address], [address], [place], [phone], Progress Notes * Bhavesh RUCKER PDOB: [birth year] (70 yo M)Acc No.[id number]:07/11/2025 Progress Note Patient: Bhavesh HAMMOND Provider: Jefferson Amado MD :1955 A ge:70 Y S ex:Male Date:07/11/2025 Address:[address] [place], [place] [phone] Subjective: * Chief Complaints: * 1 . CBC Liver. * Medical History: Objective: * Vitals: Assessment: * Assessment: 1. D ecreased platelet count - D69.6 (Primary) Plan: * Treatment: * Procedure Codes: 3 6415 VENIPUNCT, ROUTINE* * * The named appointment provid er may or may not be the originator of this progress note, and it is not deemed complete until electronically signed by the appointment provider. Sign off status: Pending * Provider: Jefferson Amado MD Date: 0 07/11/2025 Generated for Liza joaquin/Isaak/Negaritting on: 12/18/2024 11:25 PM EST
--- OUTSIDE RECORDS SUMMARY | 2025-07-17 03:09 | XMS_ITS ---
Author Organization Richard Amado MD Address [address] [place], [place] [id number] Care Team Providers Care Shoe Handler Name Role Phone Ingris Richard Primary Care Provider REASON FOR VISIT needs MRCP abd without contrast Encounters Encounter Location Date Provider Diagnosis Richard Amado MD [address] [facility] [address] [place] [phone] 07/17/2025 Richard Amado Other specified diseases of gallbladder K82.8 Assessments Encounter Date Diagnosis (ICD Code) Assessment Notes Treatment Notes Treatment Clinical Notes Section Notes 07/17/2025 Other specified diseases of gallbladder (ICD-10 - K82.8) Order faxed to [facility] Plan Of Treatment Treatment Notes Assessment Notes Other specified diseases of gallbladder Order faxed to [facility] Pending Test Test Name Order Date MRI ABD NO CONTRAST (MRCP) 07/17/2025 Next Appt Details Provider Name:Richard lucas, 06/08/2026 07:00:00 AM, [address] [facility], [address], [place], [place], [phone], Provider Name:Richard Santana ier, 06/15/2026 09:30:00 AM, [address], [address], [place], [phone], Progress Notes * Bhavesh RUCKER PDOB: [birth year] (70 yo M)Acc No.[id number]:07/17/2025 Patient: Sheba CAROLYNNDIANEBhavesh [place] :1955 A ge:70 Y S ex:Male Address:[address] [place] [address] [place] [address] Subjective: * Chief Complaints: * n eeds MRCP abd without contrast * Medical History: * Surgical History: * Hospitalization/Major Diagno stic Procedure: * Medications: Objective: * Vitals: * Physical Examination: Assessment: * Assessment: 1. O ther specified diseases of gallbladder - K82.8 Plan: * Treatment: * Procedure Codes: * true * Date: Generated for Liza joaquin/Isaak/eTransmitting on: 12/18/2024 11:25 PM EST
--- OUTSIDE RECORDS SUMMARY | 2025-07-20 03:24 | XMS_ITS ---
Author Organization Richard Amado MD Address [address] [place], [place] [phone] Care Team Providers Care Pictures Editor Name Role Phone Ingris Richard Primary Care Provider REASON FOR VISIT [facility] MRI orders Encounters Encounter Location Date Provider Diagnosis Richard Amado MD 10 [facility] [address] [place] [phone] 07/20/2025 Richard Amado Other specified diseases of gallbladder K82.8 Assessments Encounter Date Diagnosis (ICD Code) Assessment Notes Treatment Notes Treatment Clinical Notes Section Notes 07/20/2025 Other specified diseases of gallbladder (ICD-10 - K82.8) Plan Of Treatment Pending Test Test Name Order Date MRI ABD W&WO CONTRAST 07/20/2025 Next Appt Details Provider Name:Richard lucas, 06/08/2026 07:00:00 AM, 10 [facility], Suite [facility], [place], [place], [phone], Provider Name:Richard lucas, 06/15/2026 09:30:00 AM, [address], [address], [place], [place], [phone], Progress Notes * ALKA Bhavesh PDOB: [birth year] (70 yo M)Acc No.[id number]:07/20/2025 Patient: Bhavesh HAMMOND :1955 A ge:70 Y S ex:Male Address:[address] [place] [address] [place] [address] Subjective: * Chief Complaints: * R ayus MRI orders * Medical History: * Surgical History: * Hospitalization/Major Diagno stic Procedure: * Medications: Objective: * Vitals: * Physical Examination: Assessment: * Assessment: 1. O ther specified diseases of gallbladder - K82.8 Plan: * Treatment: * Procedure Codes: * true * Date: Generated for Liza joaquin/Isaak/Negaritting on: 12/18/2024 11:26 PM EST
--- OUTSIDE RECORDS SUMMARY | 2025-07-20 04:00 | XMS_ITS ---
Author Organization Richard Amado MD Address [address] [place], [place] [phone] Care Team Providers Care Harbor Tug Captain Name Role Phone Ingris Richard Primary Care [...] Richard Amado MD [address] [place] [phone] 07/20/2025 Richard Amado Mild aortic stenosis I35.0 [...] Provider Name:Richard Santana ier, 06/08/2026 07:00:00 AM, [address] [place] [address], [address], [place], [place], [phone], Provider Name:Richard Santana ier, 06/15/2026 09:30:00 AM, [address] [place] [address], [address], [place], [place], [phone], Progress Notes * Bhavesh RUCKER PDOB: [birth year] (70 yo M)Acc No.[id number]:07/20/2025 Patient: Sheba FRANKLINBhavesh Richmond Provider: Jefferson Amado MD :1955 A ge:70 Y S ex:Male Date:07/20/2025 Address:[address] [place] [address] [place] [id number] Subjective: * Chief Complaints: * 5 week/ must see liver panel * HPI: S ymptom(s): patient is a [...] LFTs Notes: followed by dr lezama * Procedure Codes: * * Sign off status: Completed true * Provider: Jefferson Amado MD Date: 0 07/20/2025 Generated for Liza joaquin/Isaak/eTransmitting on: 12/18/2024 11:25 PM EST History and Physical [...]
--- OUTSIDE RECORDS SUMMARY | 2025-10-02 04:00 | XMS_ITS ---
Author Organization Richard Amado MD Address [address] [place], [place] [id number] Care Team Providers Care Estate Agent Name Role Phone Ingris Richard Primary Care Provider [phone] Allergies No Known Allergies Results Component Value Reference Range Notes Complete Blood Count Auto Di ff Reviewed date:10/02/2025 04:00:31 PM Interpretation: Performing Lab:[facility], [address] [place] [phone] Notes/Report: White Blood Count 3.5 4.8-10.8 X10*3/uL Red Blood Count 2.92 4.60-5.80 X10*6/uL Hemoglobin 7.8 14.0-18.0 g/dl Hematocrit 25.8 42.0-52.0 % Mean Corpuscular Volume 88.4 80.0-98.0 fL Mean Corpuscular Hemoglobin 26.7 27.0-33.0 pg Mean Corpuscular HGB Conc 30.2 31.0-36.0 g/dl Red Cell Distribution Width 16.3 11.0-16.0 % Platelet Count 109 160-400 X10*3/uL Mean Platelet Volume 11.5 9.4-12.4 fL Neutrophils Percent Auto 61.5 45-73 % Imm Gran Pct Auto 0.3 0.0-0.4 % Lymphocytes Percent Auto 20.3 20-40 % Monocytes Percent Auto 13.9 2-11 % Eosinophils Percent Auto 2.6 0-4 % Basophils Percent Auto 1.4 0-2 % NRBC Pct Auto 0.0 0.0-0.2 /100WBC Neutrophils Absolute Auto 2.1 2.0-8.3 x10*3/u L Imm Gran Abs Auto 0.01 0.00-0.03 X10*3/uL Lymphocytes Absolute Auto 0.7 1.2-4.9 X10*3/u L Monocytes Absolute Auto 0.5 0.1-1.2 X10*3/uL Eosinophils Absolute Auto 0.1 0.0-0.4 X10*3/u L Basophils Absolute Auto 0.1 0.0-0.2 X10*3/uL NRBC Abs Auto 0.000 0.0-0.012 X10*3/uL Comprehensive [place]. Panel Fa st Reviewed date:10/02/2025 03:59:33 PM Interpretation: Performing Lab:[facility], [address] [place] [phone] Notes/Report: Sodium 140 135-145 mmol/L Potassium 3.8 3.3-5.1 mmol/L Chloride 110 96-108 mmol/L Carbon Dioxide 24 22-29 mmol/L Anion Gap 10 12-20 Blood Urea Nitrogen 11 9-16 mg/dL Creatinine 0.62 0.5-1.4 mg/dL Estimated Glomerular Filt Rate > 60 Chronic Kidney Disease: Estimated GFR < 60 mL/min/1.73m2 Severe Kidney Disease: Estimated GFR < 15 mL/min/1.73m2 Glucose Fasting 178 60-99 mg/dL A fasting glucose of 126 mg/dl or greater on more than one occasion is considered diagnostic of diabetes. Calcium 8.3 8.4-10.2 mg/dL Bilirubin Total 0.4 0.0-1.0 mg/dL Aspartate Amino Transferase 64 5-37 U/L Alanine Aminotransferase 69 0-40 U/L Total Protein 6.4 6.5-8.0 g/dL Albumin Level 3.7 3.5-5.0 g/dL Alkaline Phosphatase 120 39-117 U/L Reason For Referral Reason pancytopenia needs urgent appt Diagnosis 1 Pancytopenia (D61.81 8) Referral Organization Richard Amado MD Referring Provider First Name Richard Referring Provider Last Name Ingris Referring Provider Speciality Internal M edicine Referred Provider NICKO COLEMAN Referred Provider Specialty Hematology/O ncology General Notes Juju Ash 1 12/02/2024 09:28:20 AM >referral info faxed phone [phone], Juju Ash 10/06/2025 01:52:13 PM > left message regarding booking an appt Referral Priority Routine REASON FOR VISIT must see/ per provider Medications Medication SIG (Take, Route, Frequency, Duration) Notes Start Date End Date Status Vitamin B12 1000 MCG 1000mcg Orally Once a day Active Ibuprofen 200 MG 1 tablet with food o r milk as needed Orally Three times a day Active Tadalafil 20 MG 1 tablet as needed O rally Once a day as needed for 30 days 06/13/2025 Not-Taking Problems Problem Type SNOMED Code ICD Code Onset Dates Problem Status W/U Status Risk Notes Problem Pancytopenia (544896678) Pancytopenia (D61.818) Active confirmed Vital Signs Blood pressure systolic 94 mm Hg 10/02/20 25 Blood pressure diastolic 50 mm Hg 025 Height 67 in 10/02/2025 Weight 171 lbs 10/02/2025 BMI 26.78 kg/m2 10/02/2025 weight is up 10 pounds since 07-20-25 Encounters Encounter Location Date Provider Diagnosis Richard Amado MD [address] [place], [place] [phone] 10/02/2025 Richard Amado Pancytopenia D61.818 Assessments Encounter Date Diagnosis (ICD Code) Assessment Notes Treatment Notes Treatment Clinical Notes Section Notes 10/02/2025 Pancytopenia (ICD-10 - D61.818) discussed results of recent labs with patient, needs referral urgently to dr coleman. Plan Of Treatment Treatment Notes Assessment Notes Pancytopenia discussed results of recent labs with patient, needs referral urgently to dr coleman. Referrals Referral Date Details 10/02/2025 10/02/2025, pancytop enia needs urgent appt, NICKO COLEMAN Next Appt Details Provider Name:Richard Santana ier, 06/08/2026 07:00:00 AM, [address], [address], [place], [place], [phone], Provider Name:Richard Santana ier, 06/15/2026 09:30:00 AM, [address], [address], [place], [place], [phone], Progress Notes * Bhavesh RUCKER PDOB: [birth year] (70 yo M)Acc No.[id number]:10/02/2025 Patient: Bhavesh HAMMOND Provider: Jefferson Amado MD :1955 A ge:70 Y S ex:Male Date:10/02/2025 Address:[address] [place] [address] [facility] Subjective: * Chief Complaints: * M ust see/ per provider * HPI: S ymptom(s): patient is a 70 yo male here for follow up visit/ here for emergency for low hgb and wbc and platelets.is getting more tired and winded. . about 1.5 months ago started to get short of breath. * ROS: G eneral/Constitutional: Denies C hills. A dmits F atigue. D enies F ever. D enies H eadache. E NT: Denies S ore throat. R espiratory: Denies C ough. A dmits S hortness of breath at rest. A dmits S hortness of breath with exertion. G astrointestinal: Denies D iarrhea. D enies N ausea. H ematology: Denies D izziness. A dmits E asy bruising. A dmits W eakness. * Medical History: * Surgical History: * Hospitalization/Major Diagno stic Procedure: * Medications: T akingVitamin B12 1000 MCG Tablet 1000mcg Orally Once a day Ibuprofen 200 MG Tablet 1 tablet with food or milk as needed Orally Three times a day Taking Vitamin B12 1000 MCG Tablet 1000mcg Orally Once a day Taking Ibuprofen 200 MG Tablet 1 tablet with food or milk as needed Orally Three times a day Not-Taking/PRNTadalafil 20 MG Tablet 1 tablet as needed Orally Once a day as needed Medication List reviewed and reconciled with the patientNot-Taking/PRN Tadalafil 20 MG Tablet 1 tablet as needed Orally Once a day as needed Medication List reviewed and reconciled with the patient * Allergies: N .K.D.A.yes[Allergies Verified] Objective: * Vitals: H t: 67, Wt: 171, BMI:26.78, BP:94/50, Wt-k.57. weight is up 10 pounds since 07-20-25. * Examination: G eneral Examination: GENERAL APPEARANCE: a lert, well hydrated, in no distress.? HEAD: n ormocephalic. NECK/THYROID: n o cervical lymphadenopathy. SKIN: g ood turgor. HEART: g rade 3/6 systolic murmur at left sternal border.? LUNGS: n o wheezes, rales, rhonchi, good air movement, clear to auscultation bilaterally. ABDOMEN: s oft, nontender, nondistended, no organomegaly.? Assessment: * Assessment: 1. P ancytopenia - D61.818 (Primary) Plan: * Treatment: * Procedure Codes: 3 6415 VENIPUNCT, ROUTINE* * * Sign off status: Completed true * Provider: Jefferson Amado MD Date: 12/02/2024 Generated for Liza joaquin/Isaak/eTitzsmitting on: 12/18/2024 11:26 PM EST History and Physical Notes * HPI (History of Present Illness) Category Sub-Category Detail Notes Category Not es Symptom(s) patient is a 70 yo male here for follow up visit/ here for emergency for low hgb and wbc and platelets.is getting more tired and winded. . about 1.5 months ago started to get short of breath Examination Category Sub-Category Detail Notes Category Not es General Examination GENERAL APPEARANCE: alert, w ell hydrated, in no distress HEAD: normocephalic NECK/THYROID: no cervical lymphade nopathy HEART: grade 3/6 systolic m urmur at left sternal border LUNGS: no wheezes, rales, r honchi, good air movement, clear to auscultation bilaterally ABDOMEN: soft, nontender, non distended, no organomegaly SKIN: good turgor Consultation Request Notes Referral Date Referring Provider Referred Provider Not es 10/02/2025 Richard Amado RENUKA pancytope hiram needs urgent appt
--- OUTSIDE RECORDS SUMMARY | 2025-10-18 23:26 | XMS_ITS | Patient Health Record ---
Author Organization [facility] Address [address] [place] [address] Care Team Providers Care Material Loader Name Role Phone Richard Amado MD Primary Care Provider ConyvaDewey Moran Jr Unavailable Allergies No Known Allergies Results Component Value Reference Range Flag Notes Therapeutic Phlebotomy Reviewed date:12/14/2024 12:05:13 PM Interpretation: Performing Lab:[facility], [address] [place] [address] Notes/Report: THER/HGB 12.5 14.0-18.0 g/dL L THER/HCT TNP 42.0-52.0 % Therapeutic Phlebotomy Phlebotomy Performed 500 mls drawn on 12/14/24. Please note that a copy of this report has been sent to the Primary Care Physician, the ordering physician and any physician designated by patient request. Complete Blood Count Auto Di ff Reviewed date:02/09/2025 08:06:30 AM Interpretation: Performing Lab:[facility], [address] [place] [address] Notes/Report: White Blood Count 5.0 4.8-10.8 X10*3/uL N Red Blood Count 4.36 4.60-5.80 X10*6/uL L Hemoglobin 11.8 14.0-18.0 g/dl L Hematocrit 36.8 42.0-52.0 % L Mean Corpuscular Volume 84.4 80.0-98.0 fL N Mean Corpuscular Hemoglobin 27.1 27.0-33.0 pg N Mean Corpuscular HGB Conc 32.1 31.0-36.0 g/dl N Red Cell Distribution Width 17.3 11.0-16.0 % H Platelet Count 113 160-400 X10*3/uL L Mean Platelet Volume 9.7 9.4-12.4 fL N Neutrophils Percent Auto 56.3 45-73 % N Imm Gran Pct Auto 0.2 0.0-0.4 % N Lymphocytes Percent Auto 29.1 20-40 % N Monocytes Percent Auto 11.6 2-11 % H Eosinophils Percent Auto 2.2 0-4 % N Basophils Percent Auto 0.6 0-2 % N NRBC Pct Auto 0.0 0.0-0.2 /100WBC N Neutrophils Absolute Auto 2.8 2.0-8.3 x10*3/uL N Imm Gran Abs Auto 0.01 0.00-0.03 X10*3/uL N Lymphocytes Absolute Auto 1.5 1.2-4.9 X10*3/uL N Monocytes Absolute Auto 0.6 0.1-1.2 X10*3/uL N Eosinophils Absolute Auto 0.1 0.0-0.4 X10*3/uL N Basophils Absolute Auto 0.0 0.0-0.2 X10*3/uL N NRBC Abs Auto 0.000 0.0-0.012 X10*3/uL N IRON PROFILE Reviewed date:02/09/2025 08:06:21 AM Interpretation: Performing Lab:[address] [phone] Notes/Report: Iron 24 45-160 mcg/dL L Total Iron Binding Capacity 308 228-428 mcg/dL N Percent Iron Saturation 8 15-50 % L Unsaturated Iron Binding 284 Ferritin Reviewed date:02/09/2025 08:06:12 AM Interpretation: Performing Lab:[address] [phone] Notes/Report: Ferritin 25 20-250 ng/mL N Therapeutic Phlebotomy Reviewed date:02/09/2025 10:42:40 AM Interpretation: Performing Lab:[address] [phone] Notes/Report: THER/HGB TNP 14.0-18.0 g/dL Lab Results on file. Performed at [facility] on 02/09/25: Hgb: 11.8 g/dl Hct: 36.8 % THER/HCT TNP 42.0-52.0 % Therapeutic Phlebotomy Phlebotomy Performed 500 mls drawn on 02/08/25. Please note that a copy of this report has been sent to the Primary Care Physician, the ordering physician and any physician designated by patient request. Therapeutic Phlebotomy Reviewed date:04/13/2025 10:34:06 AM Interpretation: Performing Lab:[facility], [address] [place] [phone] Notes/Report: THER/HGB 11.0 14.0-18.0 g/dL L THER/HCT TNP 42.0-52.0 % Therapeutic Phlebotomy TNP Reason: Pre-phlebotomy Hgb/Hct is below the established parameter for this patient. Please note that a copy of this report has been sent to the Primary Care Physician, the ordering physician and any physician designated by patient request. Complete Blood Count Auto Di ff Reviewed date:06/15/2025 08:42:55 AM Interpretation: Performing Lab:[facility], [address] [place] [phone] Notes/Report: White Blood Count 3.6 4.8-10.8 X10*3/uL L Red Blood Count 3.62 4.60-5.80 X10*6/uL L Hemoglobin 10.8 14.0-18.0 g/dl L Hematocrit 32.5 42.0-52.0 % L Mean Corpuscular Volume 89.8 80.0-98.0 fL N Mean Corpuscular Hemoglobin 29.8 27.0-33.0 pg N Mean Corpuscular HGB Conc 33.2 31.0-36.0 g/dl N Red Cell Distribution Width 18.0 11.0-16.0 % H Platelet Count 83 160-400 X10*3/uL L Mean Platelet Volume 9.2 9.4-12.4 fL L Neutrophils Percent Auto 56.1 45-73 % N Imm Gran Pct Auto 0.3 0.0-0.4 % N Lymphocytes Percent Auto 20.8 20-40 % N Monocytes Percent Auto 13.8 2-11 % H Eosinophils Percent Auto 7.6 0-4 % H Basophils Percent Auto 1.4 0-2 % N NRBC Pct Auto 0.0 0.0-0.2 /100WBC N Neutrophils Absolute Auto 2.0 2.0-8.3 x10*3/uL N Imm Gran Abs Auto 0.01 0.00-0.03 X10*3/uL N Lymphocytes Absolute Auto 0.7 1.2-4.9 X10*3/uL L Monocytes Absolute Auto 0.5 0.1-1.2 X10*3/uL N Eosinophils Absolute Auto 0.3 0.0-0.4 X10*3/uL N Basophils Absolute Auto 0.1 0.0-0.2 X10*3/uL N NRBC Abs Auto 0.000 0.0-0.012 X10*3/uL N IRON PROFILE Reviewed date:06/15/2025 08:43:19 AM Interpretation: Performing Lab:[facility], [address] [place] [phone] Notes/Report: Iron 51 45-160 mcg/dL N Total Iron Binding Capacity 281 228-428 mcg/dL N Percent Iron Saturation 18 15-50 % N Unsaturated Iron Binding 230 Ferritin Reviewed date:06/15/2025 08:43:10 AM Interpretation: Performing Lab:[facility], [address] [place] [phone] Notes/Report: Ferritin 29 20-250 ng/mL N Therapeutic Phlebotomy Reviewed date:06/15/2025 08:43:25 AM Interpretation: Performing Lab:[facility], [address] [place] [phone] Notes/Report: THER/HGB TNP 14.0-18.0 g/dL Lab Results on file. Performed at [facility] on 06/14/25: Hgb: 10.8 g/dl Hct: 32.5 % THER/HCT TNP 42.0-52.0 % Therapeutic Phlebotomy TNP Reason: Pre-phlebotomy Hgb/Hct is below the established parameter for this patient. Please note that a copy of this report has been sent to the Primary Care Physician, the ordering physician and any physician designated by patient request. Therapeutic Phlebotomy Reviewed date:08/13/2025 07:05:42 PM Interpretation: Performing Lab:[facility], [address] [place] [phone] Notes/Report: THER/HGB 10.2 14.0-18.0 g/dL L THER/HCT TNP 42.0-52.0 % Therapeutic Phlebotomy TNP Reason: Pre-phlebotomy Hgb/Hct is below the established parameter for this patient. Please note that a copy of this report has been sent to the Primary Care Physician, the ordering physician and any physician designated by patient request. Complete Blood Count Auto Di ff Reviewed date:10/05/2025 05:11:38 PM Interpretation: Performing Lab:[facility], [address] [place] [phone] Notes/Report: White Blood Count 4.0 4.8-10.8 X10*3/uL L Red Blood Count 2.81 4.60-5.80 X10*6/uL L Hemoglobin 7.3 14.0-18.0 g/dl L Hematocrit 24.5 42.0-52.0 % L Mean Corpuscular Volume 87.2 80.0-98.0 fL N Mean Corpuscular Hemoglobin 26.0 27.0-33.0 pg L Mean Corpuscular HGB Conc 29.8 31.0-36.0 g/dl L Red Cell Distribution Width 16.3 11.0-16.0 % H Platelet Count 91 160-400 X10*3/uL L Mean Platelet Volume 10.4 9.4-12.4 fL N Neutrophils Percent Auto 60.8 45-73 % N Imm Gran Pct Auto 0.8 0.0-0.4 % H Lymphocytes Percent Auto 22.0 20-40 % N Monocytes Percent Auto 12.9 2-11 % H Eosinophils Percent Auto 2.5 0-4 % N Basophils Percent Auto 1.0 0-2 % N NRBC Pct Auto 0.0 0.0-0.2 /100WBC N Neutrophils Absolute Auto 2.4 2.0-8.3 x10*3/uL N Imm Gran Abs Auto 0.03 0.00-0.03 X10*3/uL N Lymphocytes Absolute Auto 0.9 1.2-4.9 X10*3/uL L Monocytes Absolute Auto 0.5 0.1-1.2 X10*3/uL N Eosinophils Absolute Auto 0.1 0.0-0.4 X10*3/uL N Basophils Absolute Auto 0.0 0.0-0.2 X10*3/uL N NRBC Abs Auto 0.000 0.0-0.012 X10*3/uL N IRON PROFILE Reviewed date:10/17/2025 02:53:44 PM Interpretation: Performing Lab:[facility], [address] [place] [phone] Notes/Report: Iron 25 45-160 mcg/dL L Total Iron Binding Capacity 322 228-428 mcg/dL N Percent Iron Saturation 8 15-50 % L Unsaturated Iron Binding 297 Ferritin Reviewed date:10/17/2025 02:53:44 PM Interpretation: Performing Lab:[facility], [address] [place] [phone] Notes/Report: Ferritin 17 20-250 ng/mL L Lactate Dehydrogenase Reviewed date:10/17/2025 02:53:44 PM Interpretation: Performing Lab:[facility], [address] [place] [phone] Notes/Report: Lactate Dehydrogenase 196 118-273 U/L N Therapeutic Phlebotomy Reviewed date:10/17/2025 02:53:29 PM Interpretation: Performing Lab:[facility], [address] [place] [phone] Notes/Report: THER/HGB TNP 14.0-18.0 g/dL Lab Results on file. Performed at [facility] on 10/05/25: Hgb: 7.3 g/dl Hct: 24.5 % THER/HCT TNP 42.0-52.0 % Therapeutic Phlebotomy TNP Reason: Pre-phlebotomy Hgb/Hct is below the established parameter for this patient. Please note that a copy of this report has been sent to the Primary Care Physician, the ordering physician and any physician designated by patient request. Complete Blood Count no Diff Reviewed date:10/17/2025 02:53:44 PM Interpretation: Performing Lab:[facility], [address] [place] [phone] Notes/Report: White Blood Count 4.0 4.8-10.8 X10*3/uL L Red Blood Count 3.74 4.60-5.80 X10*6/uL L Hemoglobin 9.9 14.0-18.0 g/dl L Hematocrit 33.0 42.0-52.0 % L Mean Corpuscular Volume 88.2 80.0-98.0 fL N Mean Corpuscular Hemoglobin 26.5 27.0-33.0 pg L Mean Corpuscular HGB Conc 30.0 31.0-36.0 g/dl L Red Cell Distribution Width 17.2 11.0-16.0 % H Platelet Count 106 160-400 X10*3/uL L Mean Platelet Volume 10.9 9.4-12.4 fL N NRBC Pct Auto 0.0 0.0-0.2 /100WBC N NRBC Abs Auto 0.000 0.0-0.012 X10*3/uL N Reason For Referral No Information Medications Medication SIG (Take, Route, Frequency, Duration) Notes Start Date End Date Status Ibuprofen PRN Active Multi Vitamin/Minerals - Tablet as directed Orally one a day Active Immunizations Vaccine Route Administration Date Status Comme nts Influenza Unknown 09/08/2018 Administered Influenza Unknown 09/12/2020 Administered Influenza Unknown 10/22/2021 Administered Influenza Unknown 09/30/2023 Administered Influenza Unknown 10/19/2024 Refused Influenza Unknown 10/04/2025 Administered Social History Social History Drugs/Alcohol: Social Info Question Answer Notes Alcohol Screen Did you have a drink containing alcohol in the past year? Yes How often did you have a drink containing [...] Weekly (3 points) Points 8 Interpretation Positive Additional Details Category Social Info Options Details Miscellaneous: Marital status: Occupation: retired producti on estate planner Problems Problem Type SNOMED Code ICD Code Onset Dates Problem Status W/U Status Risk Notes Problem Colon cancer screening (054120416) Colon cancer screening (Z12.11) Active confirmed Problem Hereditary hemochromatosis (49688609) Hereditary hemochromatosis (E83.110) Active confirmed Problem Vascular insufficiency of intestine (60412086) Other vascular disorders of intestine (K55.8) Active confirmed Problem Diverticular disease of colon (259014683) Diverticulosis of large intestine without perforation or abscess without bleeding (K57.30) Active confirmed Problem Cirrhosis of liver (33777892) Other cirrhosis of liver (K74.69) Active confirmed Problem Generalized abdominal pain (705706821) Generalized abdominal pain (R10.84) Active confirmed Problem Iron deficiency anemia (26087699) Iron deficiency anemia (D50.9) Active confirmed Problem Benign neoplasm of colon (65103958) Adenomatous polyp of colon, unspecified part of colon (D12.6) Active confirmed Problem 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 Vital Signs Temperature 98.0 degrees Fahrenheit 10/18/2025 Blood pressure diastolic 01 mm Hg 10/18/2025 Height 66.5 in 10/18/2025 Blood pressure systolic 001 mm Hg 10/18/2025 Weight 171.0 lbs 10/18/2025 BMI 27.18 kg/m2 10/18/2025 Encounters Encounter Location Date Provider Diagnosis [facility] [address] [place] [phone] 10/18/2025 Dewey Lan Jr Iron deficiency anemia D50.9 ; Other cirrhosis of liver K74.69 and Hereditary hemochromatosis E83.110 [facility] [address] [place] [phone] 10/19/2024 Dewey Lan Jr Hereditary hemochromatosis E83.110 and Cirrhosis due to hemochromatosis E83.10 [facility] [address] [place] [phone] 02/09/2025 Dewey Lan Jr [facility] [address] [place] [phone] 06/15/2025 Dewey Lan Jr [facility] [address] [place] [phone] 10/05/2025 Dewey Lan Jr Hereditary hemochromatosis E83.110 Assessments Encounter Date Diagnosis (ICD Code) Assessment Notes Treatment Notes Treatment Clinical Notes Section Notes 10/18/2025 Other cirrhosis of liver (ICD-10 - K74.69) 10/18/2025 Iron deficiency anemia (ICD-10 - D50.9) 10/19/2024 Hereditary hemochromatosis (ICD-10 - E83.110) Serum [...] was 30 minutes. Followup in one year. 10/05/2025 Hereditary hemochromatosis (ICD-10 - E83.110) 10/18/2025 Hereditary hemochromatosis (ICD-10 - E83.110) Plan Of Treatment Pending Test Test Name Order Date BUN 12/05/2020 CREATININE 12/05/2020 LIVER PROFILE 12/05/2020 LIVER PROFILE 06/25/2012 LIPASE 12/05/2020 IRON + IBC (FE) 06/25/2012 FERRITIN 06/25/2012 CBC w/o DIFF 05/21/2021 CBC w/o DIFF 10/05/2025 CBC w/o DIFF 12/05/2020 CBC w/o DIFF 06/25/2012 CT ABD & PELVIS WITH CONTRAST 12/05/2020 US ABD 08/20/2022 US ABD 10/19/2023 Liver Fibrosis Pnl 10/19/2023 Future Test Test Name Order Date COLONOSCOPY 12/30/2012 UPPER GI ENDOSCOPY 07/29/2018 COLONOSCOPY 07/29/2018 COLONOSCOPY 08/03/2019 COLONOSCOPY 08/20/2022 UPPER GI ENDOSCOPY 10/18/2025 COLONOSCOPY 10/18/2025 Next Appt Details Provider Name:Dewey baird Jr, 11/01/2025 01:00:00 PM, [address] [place] [address] , [place], [place], [phone], Insurance Providers Payer Name Payer Address Payer Phone Subscriber Number Group Number Insured Name Patient Relationship to Insured Coverage Start Date Coverage End Date [facility] [address] [place] [phone] [id number] ROSY RUCKER Self - patient is the [...]
--- OUTSIDE RECORDS SUMMARY | 2025-10-18 23:27 | XMS_ITS | Patient Health Record ---
Author Organization Richard Amado MD Address [address] [place], [place] [id number] Care Team Providers Care Tax Investigator Name Role Phone Ingris Richard Primary Care Provider Allergies No Known Allergies Results Component Value Reference Range Notes Complete Blood Count Auto Di ff Reviewed date:06/15/2025 01:28:57 PM Interpretation:06-13-2025 Performing Lab:[facility], [address] [place] [phone] Notes/Report: White Blood Count 3.5 4.8-10.8 X10*3/uL [...] NRBC Abs Auto 0.000 0.0-0.012 X10*3/uL Comprehensive Victoria. Panel Fa st Reviewed date:06/06/2025 04:18:52 PM Interpretation: Performing Lab:[facility], [address] [place] [phone] Notes/Report: Sodium 143 135-145 mmol/L Potassium 4.0 [...] Panel Reviewed date:06/06/2025 12:34:11 PM Interpretation: Performing Lab:[address] [address] Notes/Report: Triglycerides 92 <150 mg/dL Desirable Triglyceride: [...] (Free>4and<10) Reviewed date:06/06/2025 12:32:58 PM Interpretation: Performing Lab:[address] [address] Notes/Report: PSA,Total (Free>4and<10) < 0.10 0.00-4.00 ng/mL [...] Random Reviewed date:06/06/2025 12:33:07 PM Interpretation: Performing Lab:[facility] [address] Notes/Report: Creatinine Urine 69.44 Microalbumin Urine < 5.0 Microalbum/Creatinine Ratio Ur TNP <30 ug/mg cr Unable to calculate albumin/creatinine ratio due to low microalbumin or creatinine result. Hemoglobin A1c Reviewed date:06/06/2025 12:43:21 PM Interpretation: Performing Lab:[address] [address] Notes/Report: Hemoglobin A1c % 6.3 <6.0 % [...] average glucose, using the formula of the [id number] Average Glucose study (ADAG), Diabetes Care, Vol.31,#8, Jun. 2007 UA ClnCatch+Micro w/rflx Cul t Reviewed date:06/06/2025 12:35:49 PM Interpretation: Performing Lab:[address] [address] Notes/Report: Urine, Clean Catch Color Urine Yellow Appearance Urine Clear PH 6.5 5.0-9.0 Glucose Urine UA Negative Negative mg/dL Urine Blood Negative Negative Specific [place] - Urine 1.015 1.005-1.025 Urine Protein Negative [...] ff Reviewed date:07/11/2025 05:54:53 PM Interpretation: Performing Lab:[address] [address] Notes/Report: White Blood Count 5.0 4.8-10.8 X10*3/uL [...] Panel Reviewed date:07/27/2025 10:36:50 AM Interpretation:07-20-2025 Performing Lab:[facility], [address] [place] [phone] Notes/Report: Bilirubin Total 0.4 0.0-1.0 mg/dL Bilirubin Direct 0.2 0.0-0.5 mg/dL Aspartate Amino Transferase 97 5-37 U/L Alanine Aminotransferase 114 0-40 U/L Total Protein 7.2 6.5-8.0 g/dL Albumin Level 4.2 3.5-5.0 g/dL Alkaline Phosphatase 125 39-117 U/L Complete Blood Count Auto Di ff Reviewed date:10/02/2025 04:00:31 PM Interpretation: Performing Lab:[facility], [address] [place] [phone] Notes/Report: White Blood Count 3.5 4.8-10.8 X10*3/uL [...] NRBC Abs Auto 0.000 0.0-0.012 X10*3/uL Comprehensive [place]. Panel Fa st Reviewed date:10/02/2025 03:59:33 PM Interpretation: Performing Lab:[facility], [address] [place] [address] Notes/Report: Sodium 140 135-145 mmol/L Potassium 3.8 [...] date:07/17/2025 08:15:49 AM Interpretation: Performing Lab: Notes/Report: [facility] [address] [place] [address] [place] [address] Ultrasound Report Signed Patient: Bhavesh Mojica MR#: [id number] : 1955 Acct:[id number] Age/Sex: 70 / M ADM Date: 07/13/25 Loc: .[facility] Attending Dr: Richard Amado MD Ordering Physician: Richard Amado MD Date of Service: 07/13/25 Procedure(s): US abdomen complete Accession Number(s): [id number] cc: Richard Amado MD CLINICAL HISTORY: ELEVATED LFTS US abdomen complete with color Doppler Comparison: US/SR - US ABDOMEN - 11/03/23 08:25 EST US/OK/SR - US ABDOMEN - 09/05/22 08:37 EDT [...] 07/13/25 1049 DD/ 1048 TD/TT: 07/13/25 1048 Regional Director: [facility] Adult Primary Care [facility] [place] [address] Ultrasound Report Signed Patient: Jere Mojica MR#: [id number] : 1955 Acct:[id number] Age/Sex: 70 / M ADM Date: 07/13/25 [facility] Dr: Richard Amado MD Ordering Physician: Richard Amado MD Date of Service: 07/13/25 Procedure(s): US abdomen complete Accession Number(s): [id number] cc: Richard Amado MD CLINICAL HISTORY: ELEVATED LFTS US abdomen complete with color Doppler Comparison: US/SR - US ABDOMEN - 11/03/23 08:25 EST US/OK/SR - US ABDOME N - 09/05/22 08:37 [...] 07/13/25 1049 DD/ 1048 TD/TT: 07/13/25 1048 Regional Director: Complete Blood Count no Diff Reviewed date:10/16/2025 01:01:05 PM Interpretation: Performing Lab:[facility], [address] [place] [phone] Notes/Report: White Blood Count 4.0 4.8-10.8 X10*3/uL Red Blood Count 3.74 4.60-5.80 X10*6/uL Hemoglobin 9.9 14.0-18.0 g/dl Hematocrit 33.0 42.0-52.0 % Mean Corpuscular Volume 88.2 80.0-98.0 fL Mean Corpuscular Hemoglobin 26.5 27.0-33.0 pg Mean Corpuscular HGB Conc 30.0 31.0-36.0 g/dl Red Cell Distribution Width 17.2 11.0-16.0 % Platelet Count 106 160-400 X10*3/uL Mean Platelet Volume 10.9 9.4-12.4 fL NRBC Pct Auto 0.0 0.0-0.2 /100WBC NRBC Abs Auto 0.000 0.0-0.012 X10*3/uL Reason For Referral Reason pancytopenia needs urgent appt Diagnosis 1 Pancytopenia (D61.81 8) Referral Organization Richard Amado MD Referring Provider First Name Richard Referring Provider Last Name Ingris Referring Provider Speciality Internal M edicine Referred Provider NICKO COLEMAN Referred Provider Specialty Hematology/O ncology General Notes Juju Ash 1 12/02/2024 09:28:20 AM >referral info faxed phone [phone], Juju Ash 10/06/2025 01:52:13 PM > left message regarding booking an appt Referral Priority Routine Medications Medication SIG (Take, [...] ed pt was given the vaccine at [facility] in [place]. Fluarix Quadrivalent Unknown 09/13/2020 [facility] Covid Vaccine Unknown 01/04/2021 Administered Pfizer Covid [...] Status W/U Status Risk Notes Problem Sciatica (51992235) Sciatica of right side (724.3) Active confirmed Problem 391365792 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) Active confirmed Problem 350810135 Tubular adenoma of colon (D12.6) Active confirmed Problem 457583073 Prostate cancer (C61) Active confirme d Problem 9910460 Prediabetes (R73.09) Active confirmed Problem 849773947 History of hemat uria (Z87.448) Active confirmed Problem 784568528 Mild aortic sten osis (I35.0) Active confirmed Problem 50192653 Atherosclerosis (I70.90) Active confirmed Problem 920248585 Pure hypercholesterolemia (E78.00) Active confirmed Problem Thrombocytopenic disorder (231091973) Decreased platelet count (D69.6) Active confirmed Problem Pancytopenia (410307434) Pancytopenia (D61.818) Active confirmed Problem 78814160 Aortic valve sherman nosis, etiology of cardiac [...] Blood pressure systolic 94 mm Hg 10/02/2025 eri ht is up 10 pounds since 07-20-25 Weight 171 lbs 10/02/2025 weight is up 10 pounds since 07-20-25 BMI 26.78 kg/m2 10/02/2025 weight is up 10 pounds since 07-20-25 Encounters Encounter Location Date Provider Diagnosis Richard Amado MD [address] [place] [id number] 06/06/2025 Richard Amado Blood tests for rout ine general physical examination Z00.00 ; Prediabetes R73.09 and Pure hypercholesterolemia E78.00 Richard Amado MD [address] [place] [id number] 07/11/2025 Richard Amado Decreased platelet c ount D69.6 Richard Amado MD [address] [place] [id number] 02/16/2025 Richard Amado Influenza J11.1 Richard Amado MD [address] [place] [id number] 06/13/2025 Richard Amado Annual physical exam Z00.00 [...] Amado MD [address] [place] [id number] 06/16/2025 Richard Amado Heart murmur R01.1 Richard Amado MD [address] [place] [id number] 07/20/2025 Richard Amado Mild aortic stenosis I35.0 ; Gall bladder polyp K82.4 and Elevated LFTs R79.89 Richard Amado MD [address] [place] [id number] 10/02/2025 Richard Amado Pancytopenia D61.818 Richard Amado MD [address] [place] [id number] 02/13/2025 Richard Amado MD [address] [place] [id number] 07/17/2025 Richard Amado Other specified dise ases of gallbladder K82.8 Richard Amado MD [address] [place] [id number] 07/20/2025 Richard Amado Other specified dise ases of gallbladder K82.8 Assessments Encounter Date Diagnosis (ICD Code) Assessment Notes Treatment Notes Treatment Clinical Notes Section Notes 06/06/2025 Blood tests for rout ine general physical examination (ICD-10 - Z00.00) 07/11/2025 Decreased platelet count (ICD-10 - D69.6) 02/16/2025 Influenza (ICD-10 - J11.1) patient verbalized understanding of medication and directions for use 06/13/2025 Annual physical exam (ICD-10 - Z00.00) labs reviewed and discussed with patient 06/13/2025 Other hemochromatosi s (ICD-10 - E83.118) 06/16/2025 Heart murmur (ICD-10 - R01.1) went over the results of the echo with him that is read as the only change was mild mitral stenosis 07/20/2025 Mild aortic stenosis (ICD-10 - I35.0) followed by dr perez 07/20/2025 Gall bladder polyp (ICD-10 - K82.4) doing to get mri 10/02/2025 Pancytopenia (ICD-10 - D61.818) discussed results of recent labs with patient, needs referral urgently to dr coleman. 07/17/2025 Other specified diseases of gallbladder (ICD-10 - K82.8) Order faxed to [facility] 07/20/2025 Other specified diseases of gallbladder (ICD-10 - K82.8) 06/06/2025 Prediabetes (ICD-10 - R73.09) 06/13/2025 Prostate cancer (ICD -10 - C61) followed by Urology 07/20/2025 Elevated LFTs (ICD-1 0 - R79.89) followed by dr lezama 06/06/2025 Pure hypercholesterolemia (ICD-10 - E78.00) 06/13/2025 Decreased platelet count (ICD-10 - D69.6) will continue to monitor, pending addtl labs 06/13/2025 Elevated LFTs (ICD-1 0 - R79.89) order faxed to [facility] CS dept , will continue to monitor, pending labs 06/13/2025 Shortness of breath (ICD-10 - R06.02) obtain echo results from [facility] 06/13/2025 Erectile dysfunction due [...] BI 07/18/2024 Next Appt Details Provider Name:Richard lucas, 06/08/2026 07:00:00 AM, [address] [place] [address], [address], [place], [place], [phone], Provider Name:Richard lucas, 06/15/2026 09:30:00 AM, [address] [place] [address], [address], [place], [place], [id number], Insurance Providers Payer Name Payer Address Payer Phone Subscriber Number Group Number Insured Name Patient Relationship to Insured Coverage Start Date Coverage End Date [employer] [facility] [address] [place] [phone] [id number] Bhavesh Mojica Self - patient is the insured [employer] [address] [place] [address] [id number] Bhavesh Mojica Self - patient is the [...]
--- NOTE | 2025-10-30 10:13 | HO.ANESPROP2 ---
Documented by User: Mayra Wilson NP 10/30/25 10:26 HPI - Anesthesia Eval Consult details Narrative: 70yo M for Upper Endoscopy and Colonoscopy Following [facility] heme for symptomatic pancytopenia. Noted during w/u for total shoulder surgery. Started on IV Iron and plan for GI eval Follows [facility] Cardiology for mild aortic stenosis. Stable and cardiac optimized at 09/2025 office visit. Echo and Cardiopulm Stress from 05/2025 [facility] Active Problems Active Problems: All Active Problems Pancytopenia (Acute) Dyspnea on exertion (Acute) Systolic murmur (Acute) Chest pain (Acute) Aortic stenosis (Acute) Past Medical History Medical History Anemia Early cirrhosis History of transfusion of packed red blood cells Mild aortic stenosis Hemochromatosis Diverticulosis Cirrhosis Prostate cancer Family History Family history of problems with anesthesia: No Surgical History Surgical History Hx of foot surgery History of liver biopsy History of esophagogastroduodenoscopy (EGD) H/O colonoscopy History of hip replacement Total knee replacement status History of Problems with Anesthesia: No Social History Social History Alcohol intake: current Alcohol intake frequency: 3 or more drinks per day Patient Tobacco Use Status: Never used Tobacco Use of substances other than those prescribed or required for medical reasons: No Advance Directives: No Advance Directives Information Provided: Yes Meds Allergies Allergy/AdvReac Type Severity Reaction Status Date / Time No Known Allergies (No Known Allergy Verified 11/01/25 12:42 Allergies*) Home Medications ?Medication ?Instructions ?Recorded ?Confirmed ?Last Taken ?Type ibuprofen 200 mg tablet 400 mg PO Q6H PRN Pain 09/10/22 10/30/25 09/09/22 History multivitamin 1 tab PO DAILY 09/10/22 10/30/25 Unknown History Exam Pertinent Lab Results Pertinent Lab Results: Laboratory Tests 10/24/25 10:52 WBC 3.7 L Hgb 9.5 L Hct 31.0 L Plt Count 101 L Sodium 143 Potassium 4.1 Chloride 110 H Carbon Dioxide 26 BUN 15 Creatinine 0.74 Narrative Narrative: ECHO 05/2025 Conclusions: - 1. Normal LV systolic function of 65-70% with impaired relaxation filling pattern 2. Mild calcific aortic stenosis with mean gradient of 20 mm Hg 3. Mild calcific mitral stenosis with mean gradient of 5 mm Hg 4. Normal calculated RV systolic pressure 5. Mildly dilated ascending aorta 3.8 cm 6. No pericardial effusion AoV Pk Grad: 34.00 Aov Mn Grad: 20.00 CAITLIN Cont.VTI: 1.93 Cardiopulm Stress Test 05/2025 Protocol: LUIS Max HR: 137 BPM 91% of Pred: 149 BPM Max BP: 170/76 mmHG Max Work Load: 7.0 METS Exercise stress test with exercise 5 mins 55 secs of Luis Protocol, achieving 91% MPHR, with reports of SOB and fatigue, no chest pain, without any arrythmias, with normotensive response to exercise. Without any EKG changes meeting criteria for ischemia. In recovery, breathing returned to baseline. Echo images obained by tech at rest and post peak exercise. Definity contrast utilized. Test reviewed with Dr. Bernal. Exercise stress echocardiogram was reviewed. At rest, there is normal LVEF and wall motion. With peak exercise, there is appropriate augmentation of wall thickening and contractilty. There is normal decrease in end-systolic volume. No clear evidence of exercise induced diastolic dysfunction or pulmonary hypertension. Overall, normal study. EKG 04/2025 Details: Sinus rhythm 71 beats per minute, rightward axis, nonspecific T-wave changes, QTC 449 milliseconds. Assessment and Plan Assessment Anesthesia Assessment: Chart Reviewed Final Anesthetic Review Family History of Problems with Anesthesia: No History of Problems with Anesthesia: No Documented by User: Irais Lemus MD 11/01/25 13:00 [facility] Past Medical History Medical History Anemia Early cirrhosis History of transfusion of packed red blood cells Mild aortic stenosis Hemochromatosis Diverticulosis Cirrhosis Prostate cancer Surgical History Surgical History Hx of foot surgery History of liver biopsy History of esophagogastroduodenoscopy (EGD) H/O colonoscopy History of hip replacement Total knee replacement status Social History Social History Alcohol intake: current Alcohol intake frequency: 3 or more drinks per day Patient Tobacco Use Status: Never used Tobacco Use of substances other than those prescribed or required for medical reasons: No Advance Directives: No Advance Directives Information Provided: Yes Meds Allergies Allergy/AdvReac Type Severity Reaction Status Date / Time No Known Allergies (No Known Allergy Verified 11/01/25 12:42 Allergies*) Home Medications ?Medication ?Instructions ?Recorded ?Confirmed ?Last Taken ?Type ibuprofen 200 mg tablet 400 mg PO Q6H PRN Pain 09/10/22 10/30/25 09/09/22 History multivitamin 1 tab PO DAILY 09/10/22 10/30/25 Unknown History Exam Airway Mallampati Class: III TM Dist: <=3cm Neck ROM: Limited Heart: rrr Lungs: cta Assessment and Plan Assessment Anesthesia Assessment: Anesthesia Plan Discussed Final Anesthetic Review NPO: Yes ASA Class: III Final Preanesthetic Review: No Changes in Pt Med Stat, Meds/Allgs Chart Reviewed, Consent Obtained/Reviewed and Anes Risks/Benef Reviewed Patient Risk: Intermediate Procedure Risk: Low Anesthetic Plan Anesthetic Plan: MAC: and Agree w/ Assess. and Plan Disposition: Standard PACU
[2025-10-30 12:43] VITALS: BMI 27.6
--- NOTE | 2025-11-01 12:16 | MHC.SHP ---
Pre-Procedural Eval Section A - 24 Hr Update-Section A only Date of Service: 11/01/25 The patient is an INPATIENT: No Changes since office visit: No Cold of Flu in the past 2 weeks, No New Medical Problems, No Changes in Medication and No Patient answered all questions The patient has been examined within 24 hours of the surgical procedure. The History & Physical has been completed within 30 days and I have reviewed it.: Yes Section B - Complete if H&P > 30 days Chief Complaint: anemia,cirrhosis of liver Allergies: Allergies Allergy/AdvReac Type Severity Reaction Status Date / Time No Known Allergies (No Known Allergy Verified 10/24/25 12:06 Allergies*) Plan I have reviewed the history and physical and performed a pertinent physical examination on my patient. No changes have occurred unless specified. Time Spent With Patient Time: Total time managing care of this patient today ____ minutes.
[2025-11-01 12:18] VITALS: BMI 26.5
[2025-11-01 12:37] VITALS: BP 116/75; PULSE 95; RESP 16; TEMP 36.8; O2SAT 97
[2025-11-01] MEDS: Lactated Ringers 1,000 ML 100 ML IVCONT (12:38)
[2025-11-01 13:58] VITALS: BP 74/50; PULSE 79; RESP 16; TEMP 36.9; O2SAT 97
[2025-11-01 14:13] VITALS: BP 95/59; PULSE 85; RESP 16; O2SAT 95
[2025-11-01 14:27] VITALS: BP 109/70; PULSE 76; RESP 14; TEMP 36.9; O2SAT 98
--- NOTE | 2025-11-02 00:27 | OP_ITS ---
DATE OF SERVICE: 11/01/2025 SURGEON: Dewey Lan MD INDICATIONS: Iron deficiency anemia and black stools. PREOPERATIVE DIAGNOSIS: POSTOPERATIVE DIAGNOSIS: PROCEDURE PERFORMED: Upper endoscopy with biopsy, colonoscopy to the terminal ileum with biopsy. ESTIMATED BLOOD LOSS: COMPLICATIONS: ANESTHESIA: Monitored anesthesia care. ASSISTANTS: SPECIMENS: DESCRIPTION OF PROCEDURE: A history and physical was performed. The risks and benefits of the procedure were explained to the patient and informed consent was obtained. The patient was placed in the left lateral decubitus position. The Olympus video gastroscope was introduced into the esophagus, stomach, and duodenum. Examination was performed. The scope was removed. He was repositioned for colonoscopy. A digital rectal exam was performed and was found to be normal. The Olympus pediatric video colonoscope was introduced into the rectum and advanced to the cecum. The cecum was identified by transillumination, palpation, and identification of ileocecal valve. Examination was performed. The scope was removed. He tolerated both procedures well and was returned to the recovery area in stable condition. FINDINGS: Upper endoscopy: 1. Esophagus: The esophagus showed no evidence of esophageal varices. There were several venous lakes. The EG junction was irregular. This was biopsied. There was a small sliding hiatal hernia. 2. Stomach: The stomach showed no evidence of masses, ulcers, or polyps. Antral biopsies were obtained to evaluate for H pylori. 3. Duodenum: The bulb and 2nd portion were normal. Biopsies were obtained from the 2nd portion. Colonoscopy: The terminal ileum was normal. This was biopsied. There were nonspecific erythematous changes consistent with , proximal right colon, and rectosigmoid. These were biopsied. There was diverticulosis. No polyps were identified. Retroflexed examination showed moderate-sized internal hemorrhoids. IMPRESSION: 1. Normal upper endoscopy. 2. Iron deficiency anemia. RECOMMENDATION: Follow up the biopsy results. MD BLAKE Gonzales/JENNIFER / [id number]
== END 2025-11-01 15:03 | disposition home or self-care (01) ==
PROVIDERS: PCP Internal Medicine; Visit Provider Internal Medicine Gastroenterology
PROC: (CPT 43239; principal; 2025-11-01 13:00)
DX: D50.9 Iron deficiency anemia, unspecified (principal); K74.69 Other cirrhosis of liver; K57.30 Diverticulosis of large intestine without perforation or abscess without bleeding; K64.8 Other hemorrhoids
CPT/HCPCS: 43239; G0121; 88305; 88313; 88342; J2003; J2704; J3010